=== PATIENT | female | born 1940 | race Caucasian/White ===

== ENCOUNTER → 2023-05-14 13:24 | Outpatient (REF) | payer OTHER, SELFPAY ==
[2023-05-14 15:04] LABS: Blood Urea Nitrogen 45 mg/dl (7-17); Calcium 9.4 mg/dl (8.4-10.2); Carbon Dioxide 31 mmol/L (22-30); Chloride 104 mmol/L (98-107); Glucose 77 mg/dl (70-99); Potassium 4.2 mmol/L (3.5-5.1); Sodium 140 mmol/L (135-145)
[2023-05-17 11:00] LABS: NT-proBNP 7310 pg/ml
== END ==
LOC: REG 13:24
PROVIDERS: ATTENDING PHYSICIAN Internal Medicine; FAMILY PHYSICIAN Family Medicine
DX: I50.33 Acute on chronic diastolic (congestive) heart failure (principal)
CPT/HCPCS: 36415; 80048; 83880

== ENCOUNTER → 2023-05-24 14:33 | Outpatient (REF) | payer OTHER, SELFPAY | LOC: RCS 14:33 | PROVIDERS: ATTENDING PHYSICIAN Internal Medicine; FAMILY PHYSICIAN Family Medicine; REFERRING PHYSICIAN Nurse Practitioner | DX: I48.0 Paroxysmal atrial fibrillation (principal); I50.32 Chronic diastolic (congestive) heart failure; I35.0 Nonrheumatic aortic (valve) stenosis | CPT/HCPCS: 93306 ==

== ENCOUNTER 2023-06-21 18:22 | Inpatient (IN) | payer OTHER, SELFPAY ==
[2023-06-21] VITALS (7 sets, daily range): BP systolic 129–198; BP diastolic 43–82
--- NOTE | 2023-06-21 15:21 | ED.GENMED ---
History of Present Illness
General
Chief Complaint: Swelling
Source: patient
Exam Limitations: none
Time Seen by Provider: 06/21/23 15:01
Nursing documentation reviewed up to this point in time: agreed with
Travel History
Have you had any contact with someone who has COVID-19?: No
Do you have any symptoms of coronavirus? Fever > 100 degrees, chills, cough, shortness of breath, sore throat, loss of taste or smell, muscle aches, or headache?: No
History of Present Illness
History of Present Illness:
82-year-old female past medical history of A-fib status post pacemaker on Eliquis, hypertension hyperlipidemia presenting to the emergency department today for concerns of worsening leg swelling and shortness of breath worsening over the past few
weeks. Has been taking Lasix without relief. Denies specific chest pain symptoms made worse with exertion.
Past History
Past History
ED Past Medical History: Arrthythmia (afib, cardioversions.), Asthma, CHF, COPD, HTN, Hypercholesterolemia and Other (Obstructive sleep apnea, interstitial lung disease,)
ED Past Surgical History: Cardiac (Cardioversion. Ablation X 2) and Gynecological (Hysterectomy)
Patient has exhibited threatening behavior?: No
Social History
Tobacco: Non-smoker
Alcohol: None
Personal:
Living: alone
Family History
Family History: CAD
Review of Systems
Review of Systems
Allergies reviewed?: Yes
All Other Systems: ROS reviewed and negative except as documented in HPI and ROS
Phy Exam
Physical Exam
Physical Exam:
GENERAL: Alert , in no apparent distress
EYE: pupils equal and reactive
NECK: Supple, no significant adenopathy.
ENT: o/p clr, mmm.
CARDIAC: Regular rate and rhythm .
LUNGS: Clear breath sounds bilaterally, no acute respiratory distress, no wheezes/rales/rhonchi
ABDOMEN: Soft, without focal tenderness, no r/g, no cvat
NEUROLOGICAL: Alert and oriented, no focal neuro deficits
SKIN: Warm and dry, skin intact.
MUSCULOSKELETAL: +2 pitting edema distal to the knees bilaterally, well perfused.
PSYCH: Normal and appropriate interaction.
Scores
Heart Failure Risk
Heart Failure Risk Score: Not Applicable
Course
Orders/Labs/Results
Orders:
Orders
06/21/23 14:02
Electrocardiogram (*1) Urgent
Reason for Study: Shortness of Breath
EKG- Treatment ONCE
06/21/23 15:16
BNP [NT-proBNP] Urgent
Complete Blood Count/With Diff Urgent
Comprehensive Metabolic Panel Urgent
06/21/23 15:21
Chest [CR Chest - 2 Views ] Urgent
Comment:
Reason For Exam: sob
06/21/23 16:07
Furosemide [Lasix] 40 mg IV ONCE ONE
06/21/23 17:59
Admit/Transfer Patient As Directed
Co-Sign Provider:
Level of Care: Inpatient admission
Assign to:: Telemetry
Physician / Group: Hospitalist
Diagnosis: CHF exacerbation
Reason for Telemetry: Arrhythmia
Date to Stop Telemetry: 06/24/23
Time to Stop Telemetry: 11:00
Reason for Hospitalization: CHF exacerbation
Expected length of stay greater than two midnights?: Yes
ELOS- Estimated Length of Stay in days: 2
I certify the patient meets the requirements for IP care: Yes
06/21/23 18:01
Code Status As Directed
Resuscitation Status: Full Code
06/21/23 18:[address] See Dose Instructions PO NOW STA
Discontinue all Active Warfarin orders?: Yes
06/24/23 11:00
DC Protocol for Telemetry ONCE
Abnormal Lab Results
06/21/23
15:16
RBC 3.85 L 10^6/uL
(4.20-5.40)
Hgb 11.3 L g/dL
(12.0-16.0)
Hct 34.8 L %
(37.0-47.0)
MCHC 32.5 L g/dL
(33.0-37.0)
RDW 14.7 H %
(11.5-14.5)
MPV 12.2 H fL
(7.4-10.4)
Absolute Lymphs (auto) 0.8 L 10^3/uL
(1.2-3.4)
Lymphocytes % 15.7 L %
(20.5-51.1)
Monocytes % 11.5 H %
(1.7-9.3)
Carbon Dioxide 32 H mmol/L
(22-30)
BUN 40 H mg/dl
(7-17)
Creatinine 1.6 H mg/dL
(0.6-1.0)
Glucose 105 H mg/dl
(70-99)
AST 38 H U/L
(14-36)
06/21/23 15:16
06/21/23 15:16
Vital Signs
Initial and Last Documented VS:
Initial Vital Signs
Temp Pulse Resp BP Pulse Ox
97.9 F 92 20 141/54 92
06/21/23 13:59 06/21/23 13:59 06/21/23 13:59 06/21/23 13:59 06/21/23 13:59
Last Documented Vital Signs
Temp Pulse Resp BP Pulse Ox
97.9 F 62 26 190/70 97
06/21/23 13:59 06/21/23 17:15 06/21/23 17:15 06/21/23 16:22 06/21/23 16:45
MDM/Problems Addressed
MDM/Problems Addressed:
82-year-old female presenting to the emergency department today with concerns of worsening shortness of breath and leg swelling over the past few weeks specifically worsened over the past few days. Upon arrival pulse ox in the 90s and she appeared
somewhat short of breath. She was placed on nasal cannula oxygen improving her pulse ox to the mid 90s and did look more comfortable. Legs are fairly swollen bilaterally and symmetrically bilaterally. Here BNP elevated in the 8000 patient does
appear somewhat short of breath was given oxygen with improvement. Chest x-ray showing some pulmonary fibrosis otherwise patient admitted for further assessment.
*Critical Care Note
Total Time (30-74mins, 75-104mins- exclusive of procedures): Not Applicable
ED Attending Note
-
Portions of this chart may have been created with voice recognition software.� Occasional wrong word or��sound alike� substitutions may have occurred due to the inherent limitations of voice recognition software.
Discharge Plan
Departure
Patient Disposition: Admit
Date of Disposition: 06/21/23
Time of Disposition: 18:30
Admit to: Telemetry
Admit to doctor: Alireza
Presentation/result/management discussed w/ accepting MD/DO: Hospitalist
Patient with high blood pressure during this ER visit?: No
Condition: Good
Covid-19: Not Applicable
Discharge Problem:
Heart failure
Interventions
Interventions:
*Risk Screen - Suicide Last Done: 06/21/23 13:59
*General Assessment Last Done: 06/21/23 13:59
*Neglect/Abuse Screening Last Done: 06/21/23 13:59
ED- Fall Risk Assessment Last Done: 06/21/23 15:12
*ED COVID-19 Vaccine History Last Done: 06/21/23 13:59
ED- Cardiac Assessment Last Done: 06/21/23 15:12
ED- Pulmonary Assessment Last Done: 06/21/23 15:12
ED-Skin Assessment Last Done: 06/21/23 15:12
[2023-06-21 15:36] LABS: % Basophils 0.6 % (0-2); % Eosinophils 3.1 % (0-6); % Immature Granulocytes 0.2 % (0-0.5); % Lymphocytes 15.7 % (20.5-51.1); % Monocytes 11.5 % (1.7-9.3); % Neutrophils 68.9 % (42.2-75.2); Absolute Eosinophils 0.2 10^3/uL (0-0.7); Absolute Lymphocytes 0.8 10^3/uL (1.2-3.4); Absolute Monocytes 0.6 10^3/uL (0.1-0.6); Absolute Neutrophils 3.6 10^3/uL (1.4-6.5); Hematocrit 34.8 % (37.0-47.0); Hemoglobin 11.3 g/dL (12.0-16.0); Mean Corp Hgb Conc. 32.5 g/dL (33.0-37.0); Mean Corpuscular Hgb 29.4 pg (27.0-31.0); Mean Corpuscular Volume 90.4 fL (81.0-99.0); Mean Platelet Volume 12.2 fL (7.4-10.4); Nucleated Red Blood Cells % 0 %; Platelet Count 191 10^3/uL (130-400); Red Blood Cell Count 3.85 10^6/uL (4.20-5.40); Red Cell Dist. Width 14.7 % (11.5-14.5); White Blood Cell Count 5.2 10^3/uL (4.8-10.8)
[2023-06-21 15:42] LABS: ALT (SGPT) 19 U/L (0-35); AST (SGOT) 38 U/L (14-36); Alkaline Phosphatase 55 U/L (38-126); Blood Urea Nitrogen 40 mg/dl (7-17); Calcium 9.1 mg/dl (8.4-10.2); Carbon Dioxide 32 mmol/L (22-30); Chloride 100 mmol/L (98-107); Glucose 105 mg/dl (70-99); Sodium 138 mmol/L (135-145); Total Bilirubin 0.7 mg/dl (0.2-1.3); Total Protein 7.4 g/dl (6.3-8.2); eGFR 31.61
[2023-06-21 15:48] LABS: NT-proBNP 8750 pg/ml
[2023-06-21] MEDS: LASIX 40 MG IV (17:06)
--- NOTE | 2023-06-21 18:07 | HPS.HSE ---
Family Physician
-
Family Physician: Oh Calvin
Chief Complaint
-
SOB, LE swelling
History of Present Illness
82 yo F with PMHx of HFpEF, , TR, paroxysmal Afib on Eliquis s/p PPM, Hx of L pneumothorax, COPD, GIOVANY on CPAP, HTN, HLD, seizure d/o came with 2 weeks of worsening LE swelling, oliguria and SOB. BNP significantly elevated. Recent Echo in May 2023
showed progressed TR and to moderate and grade 3 diastolic dysfunction.
Medical History
Past Medical History
Past Medical History: Reports Other
Additional Past Medical History:
See HPI
Past Surgical History: Reports None
Social History
Tobacco: Non-smoker
Alcohol: None
Drug: None
Family History
Family History: Not pertinent
Allergies / Home Medications
Allergies reflects when Allergies were last updated in [facility].
Home Medications with original date entered in [facility]
Allergy/Medication List:
Allergies
Allergy/AdvReac Type Severity Reaction Status Date / Time
adhesive tape Allergy Rash Verified 06/21/23 14:01
cefuroxime [From Ceftin] Allergy throat Verified 06/21/23 14:01
closes
ragweed pollen Allergy Unknown Verified 06/21/23 14:01
Sulfa (Sulfonamide Allergy throat Verified 06/21/23 14:01
Antibiotics) closes
Home Medications
albuterol sulfate 90 mcg/actuation aerosol inhaler 1 puff inhalation R Q4HPRN PRN sob 10/21/20
apixaban 5 mg tablet (Eliquis) 5 mg PO BID Blood clot prevention/tx 10/21/20
atorvastatin 10 mg tablet 10 mg PO QPM High cholesterol 10/21/20
budesonide-formoterol HFA 160 mcg-4.5 mcg/actuation aerosol inhaler (Symbicort) 2 puff inhalation R BID Lung/breathing issues 10/21/20
fenofibrate micronized 43 mg capsule 134 mg PO DAILY High cholesterol 10/21/20
hydralazine 25 mg tablet 75 mg PO BID Blood pressure 10/21/20
phenobarbital 32.4 mg tablet 32.4 mg PO DAILY Seizures 10/21/20
phenobarbital 32.4 mg tablet 64.8 mg PO HS Seizures 10/21/20
diltiazem HCl 360 mg capsule,extended release 24 hr 360 mg PO DAILY ##30 10/22/20
acetaminophen 500 mg tablet (Tylenol Extra Strength) 500 mg PO Q6HPRN PRN mild pain 01/24/21
dofetilide 250 mcg capsule 250 mcg PO Q12 30 days #60 caps 01/27/21
furosemide 40 mg tablet 40 mg PO DAILY 30 days #30 tabs 01/27/21
metoprolol succinate 25 mg tablet,extended release 24 hr 25 mg PO BID Blood pressure 30 days #60 tabs 01/27/21
potassium chloride 20 mEq tablet,extended release 20 meq PO DAILY 4 days ##4 01/27/21
Review of Systems
-
A 12 point ROS was completed and negative except as noted: Yes
Constitutional: Reports See HPI
Respiratory: Reports See HPI
Physical Exam
Vital Signs
Vital Signs
Temp Pulse Resp BP Pulse Ox
97.9 F 62 26 190/70 97
06/21/23 13:59 06/21/23 17:15 06/21/23 17:15 06/21/23 16:22 06/21/23 16:45
Physical Exam
General: No Apparent Distress and Comfortable
HEENT: NormoCephalic and Anicteric
Respiratory: Clear; No Wheezes
Cardiac: S1/S2 and Regular Rhythm
GI: Soft and Non Tender
Musculoskeletal: No Clubbing, No Cyanosis, Edema, Left Lower Extremity and Edema, Right Lower Extremity
Skin: Warm; No Dry or Rash
Neuro: Awake, Alert, Oriented and AO x 3
Hematologic/Lymphatic: No Lymphadenopathy
Psych: Calm
Laboratory Results
-
06/21/23 15:16
06/21/23 15:16
Laboratory Results
Total Bilirubin 0.7 mg/dl (0.2-1.3) 06/21/23 15:16
AST 38 U/L (14-36) H 06/21/23 15:16
ALT 19 U/L (0-35) 06/21/23 15:16
Alkaline Phosphatase 55 U/L (38-126) 06/21/23 15:16
Data Reviewed
-
Diagnostic Radiology: Report Reviewed by me
Impression/Plan
-
A/P:
#Acute respiratory insufficiency 2/2 acute on chronic HFpEF exacerbation
#Moderate
#Moderate TR
#Afib, paroxysmal
Telemetry
Lasix, daily weight, follow electrolytes, Echo not needed
Serial troponin
Due to Cr elevation - temporary switch to Heparin drip
cont rate and rhythm control meds
Cardiology consult
Since already on blood thinner - low suspiscion for VTE - reasonable to check US LE
#Cr elevation, cannot determine if ETHAN since Cr 1 mo ago was 1.4
current Cr 1.6
cannot r/o cardiorenal cause
Urine study
nephrology
watch for retention - serial bladder scan
#COPD, not in exacerbation
#GIOVANY
#Essential HTN
#Seizure d/o
Seizure precauthions
cont home meds
Cont CPAP as per home settings
DVT ppx - hep drip
Full code
This encounter required high level of medical decision making due to complexity of PMHX and patient presenting symptoms
[2023-06-21 20:15] LABS: Hematocrit 35.7 % (37.0-47.0); Hemoglobin 11.6 g/dL (12.0-16.0); Mean Corp Hgb Conc. 32.5 g/dL (33.0-37.0); Mean Corpuscular Hgb 29.2 pg (27.0-31.0); Mean Corpuscular Volume 89.9 fL (81.0-99.0); Mean Platelet Volume 11.5 fL (7.4-10.4); Platelet Count 195 10^3/uL (130-400); Red Blood Cell Count 3.97 10^6/uL (4.20-5.40); Red Cell Dist. Width 14.8 % (11.5-14.5); White Blood Cell Count 5.4 10^3/uL (4.8-10.8)
[2023-06-21 20:26] LABS: APTT 36.9 Sec (23.4-35.0)
[2023-06-21] MEDS: SYMBICORT 160/4.5 MCG INHALER 2 PUFF INH (20:29)
[2023-06-21 20:38] LABS: Troponin I 0.027 ng/ml
[2023-06-21 20:39] LABS: COVID-19 Antigen Negative (Negative)
--- NOTE | 2023-06-21 21:00 | PTCARENOTE ---
Patient admitted from ED. Patient AAO x3, on 2LNC, in no acute distress. Patient placed on tele monitor. Patient oriented to room and cy bel is within reach.
[2023-06-21] MEDS: HEPARIN 25000 UNITS/250 ML IV (21:13)
[2023-06-21] MEDS: APRESOLINE 100 MG PO (21:16)
[2023-06-21] MEDS: LIPITOR 10 MG PO (21:17)
[2023-06-21] MEDS: TOPROL XL 25 MG PO (21:17)
[2023-06-21] MEDS: LUMINAL 64.7999999999999972 MG PO (21:24)
[2023-06-21 23:51] LABS: Urine Albumin Negative (Neg - Trace); Urine Bilirubin Negative (Negative); Urine Character Clear (Clear); Urine Color Yellow; Urine Glucose Negative (Negative); Urine Ketone Negative (Negative); Urine Leukocyte Trace (Negative); Urine Nitrite Negative (Negative); Urine Occult Blood Negative (Negative); Urine Urobilinogen Negative (Neg - 1+)
[2023-06-22 00:09] LABS: Urine Bacteria Few (Negative)
[2023-06-22 00:21] LABS: Osmolality Urine 395 mOsm/kg (300-900)
[2023-06-22 01:55] LABS: Urine Sodium 100 mmol/L (30-90)
[2023-06-22 03:00] VITALS: BP 166/80
[2023-06-22 03:01] LABS: % Basophils 0.4 % (0-2); % Eosinophils 4.2 % (0-6); % Immature Granulocytes 0.4 % (0-0.5); % Monocytes 13.9 % (1.7-9.3); % Neutrophils 64.1 % (42.2-75.2); Absolute Eosinophils 0.2 10^3/uL (0-0.7); Absolute Lymphocytes 0.9 10^3/uL (1.2-3.4); Absolute Monocytes 0.7 10^3/uL (0.1-0.6); Absolute Neutrophils 3.2 10^3/uL (1.4-6.5); Hematocrit 32.5 % (37.0-47.0); Hemoglobin 10.7 g/dL (12.0-16.0); Mean Corp Hgb Conc. 32.9 g/dL (33.0-37.0); Mean Corpuscular Hgb 29.5 pg (27.0-31.0); Mean Corpuscular Volume 89.5 fL (81.0-99.0); Mean Platelet Volume 11.8 fL (7.4-10.4); Nucleated Red Blood Cells % 0 %; Platelet Count 173 10^3/uL (130-400); Red Blood Cell Count 3.63 10^6/uL (4.20-5.40); Red Cell Dist. Width 14.6 % (11.5-14.5); White Blood Cell Count 5.1 10^3/uL (4.8-10.8)
[2023-06-22 03:08] LABS: APTT 86.2 Sec (23.4-35.0)
[2023-06-22 03:21] LABS: Troponin I 0.033 ng/ml
[2023-06-22 04:05] LABS: ALT (SGPT) 17 U/L (0-35); AST (SGOT) 34 U/L (14-36); Albumin 3.7 g/dl (3.5-5.0); Alkaline Phosphatase 63 U/L (38-126); Blood Urea Nitrogen 42 mg/dl (7-17); Calcium 9.3 mg/dl (8.4-10.2); Carbon Dioxide 28 mmol/L (22-30); Chloride 100 mmol/L (98-107); Direct Bilirubin 0.1 mg/dl (0.0-0.4); Estimated Creatinine Clearance 28 ml/min; Glucose 111 mg/dl (70-99); Magnesium 2.2 mg/dl (1.6-2.3); Potassium 3.5 mmol/L (3.5-5.1); Sodium 140 mmol/L (135-145); Total Bilirubin 0.7 mg/dl (0.2-1.3); Total Protein 6.9 g/dl (6.3-8.2); eGFR 29.39
[2023-06-22 05:48] VITALS: BMI 31.1
[2023-06-22 07:05] LABS: APTT 87.8 Sec (23.4-35.0)
[2023-06-22 07:20] LABS: Troponin I 0.037 ng/ml
[2023-06-22 07:21] VITALS: BP 168/66
[2023-06-22] MEDS: TOPROL XL 25 MG PO ×2 (08:03→20:32)
[2023-06-22] MEDS: LUMINAL 32.3999999999999986 MG PO (08:03)
[2023-06-22] MEDS: TAMBOCOR 50 MG PO ×2 (08:03→20:33)
[2023-06-22] MEDS: LASIX 40 MG IV ×2 (08:04→15:55)
[2023-06-22] MEDS: APRESOLINE 100 MG PO ×3 (08:04→20:55)
--- NOTE | 2023-06-22 08:59 | CON.CAR ---
Addendum entered and electronically signed by Domenico Bella MD 06/22/23 13:55:
I saw and examined the patient.
The WOOD MILL SUPERVISOR's note was reviewed and I agree with the note.
Comment: 82 yo female with paroxysmal A fib, s/p PVI x2, on Eliquis, paroxysmal atrial tachycardia, then had AV josé miguel ablation and MDT dual chamber PPM 02/01/21, chronic HFpEF, mild , HTN, hyperlipidemia, CKD 3a, COPD, ILD, amiodarone lung
toxicity, and PHTN, who presents to ER with c/o progressive weight gain, SOB and increased LE edema.� This is likely 2/2 to medication non-compliance, as she admits poor adherence.
- IV diuresis
- K > 4 Mag > 2
Original Note:
Consultation
Consultation Request
Date/Time Consultation Requested: 06/21/23 7:30p
Date/Time Consultation Performed: 06/22/23 8a
Requesting Provider: Dr. Crow
Performing Provider: WOODY Vega for Dr. Bella
Reason for Consultation: HFpEF
Medical History
-
Chief Complaint: sob, weight gain
History of Present Illness:
Mrs. Barr is an 82 yo female with paroxysmal A fib, s/p PVI x2, on Eliquis, paroxysmal atrial tachycardia, then had AV josé miguel ablation and MDT dual chamber PPM 02/01/21, chronic HFpEF, mild , HTN, hyperlipidemia, CKD 3a, COPD, ILD, amiodarone
lung toxicity, and PHTN, who presents to ER with c/o progressive weight gain, SOB and increased LE edema. She has only been taking Lasix 20mg daily, though supposed to take 20mg alternating with 40mg daily. She does not like the urinary frequency
with taking Lasix. She called our office 06/21/23 with above complaints, weight up to 185 lbs at home and her Lasix was increased to 40mg daily, but she just came into the ER for treatment. Still with SOB, proBNP elevated though CXR with only mild
CHF. She is admitted to the hospitalist service and we are consulted for acute HFpEF. She also has ETHAN with creatinine 1.6 on admit and now 1.7 today. Eliquis dose now needs to be 2.5mg BID given creatinine > 1.5, no need for IV Heparin drip.
His EP face painter is Dr. Burnett ([facility]), Pulmonary (Dr Montano).
����
Past Medical History
Past Medical History: Other (as above)
Past Surgical History: Cardiac (pacemaker, PVI 2020 ), Orthopedic (right foot) and Other (Mohs procedure)
Social History
Tobacco: Non-Smoker
Alcohol: None
Living: With Family
Family History
Family History: Reviewed & Not Pertinent
Allergies / Home Medications
Allergy/AdvReac Type Severity Reaction Status Date / Time
adhesive tape Allergy Rash Verified 06/21/23 14:01
cefuroxime [From Ceftin] Allergy throat Verified 06/21/23 14:01
closes
ragweed pollen Allergy Unknown Verified 06/21/23 14:01
Sulfa (Sulfonamide Allergy throat Verified 06/21/23 14:01
Antibiotics) closes
Medication Instructions Recorded Confirmed Type
albuterol sulfate 90 mcg/actuation 2 puff inhalation R Q4HPRN PRN sob 10/21/20 06/21/23 History
aerosol inhaler
apixaban 5 mg tablet (Eliquis) 5 mg PO BID Blood clot 10/21/20 06/21/23 History
prevention/tx
atorvastatin 10 mg tablet 10 mg PO QPM High cholesterol 10/21/20 06/21/23 History
budesonide-formoterol HFA 160 2 puff inhalation R BID 10/21/20 06/21/23 History
mcg-4.5 mcg/actuation aerosol Lung/breathing issues
inhaler (Symbicort)
phenobarbital 32.4 mg tablet 32.4 mg PO DAILY Seizures 10/21/20 06/21/23 History
phenobarbital 32.4 mg tablet 64.8 mg PO HS Seizures 10/21/20 06/21/23 History
metoprolol succinate 25 mg 25 mg PO BID Blood pressure 30 01/27/21 06/21/23 Rx
tablet,extended release 24 hr days #60 tabs
fenofibrate micronized 134 mg 134 mg PO DAILY High Cholesterol 06/21/23 06/21/23 History
capsule
flecainide 50 mg tablet 50 mg PO BID Arrhythmia 06/21/23 06/21/23 History
furosemide 20 mg tablet 20 mg PO DAILY Fluid 06/21/23 06/21/23 History
Retention/Swelling
hydralazine 100 mg tablet 100 mg PO TID Blood Pressure 06/21/23 06/21/23 History
melatonin 1 tab PO HS Sleep 06/21/23 06/21/23 History
Review of Systems
-
History Source: Patient
All other systems: Negative unless noted
Physical Exam
Vital Signs
Temp Pulse Resp BP Pulse Ox
98.6 F 61 20 168/66 96
06/22/23 07:21 06/22/23 08:03 06/22/23 07:21 06/22/23 08:03 06/22/23 07:21
Lab Results
06/22/23 02:45
06/22/23 02:45
Troponin I 0.037 ng/ml H* 06/22/23 06:30
Nly-D-Vvhhkhtkgmm Pept 8750 pg/ml 06/21/23 15:16
Physical Exam
General: Well Developed and No Apparent Distress
HEENT: Normocephalic and Moist Mucous Membranes
Respiratory: Clear and Non Labored Respirations
Cardiac: S1/S2, Regular Rhythm, Murmur (2/6 SHAVONNE) and Peripheral Edema (moderate b/l LE edema)
Breast: Deferred by me
GI: Soft, Non Tender and Non Distended
Rectal: Deferred by Provider
Genito-urinary: No Costovertebral Tender
Musculoskeletal: No Clubbing and No Cyanosis
Skin: Warm and Dry
Neuro: AO x 3
Hematologic/Lymphatic: No Lymphadenopathy
Psych: Calm
Impression / Plan
-
HFpEF - acute on chronic.
- likely due to not taking Lasix as prescribed at home.
- IV Lasix 40mg BID, monitor daily weights, I&Os.
- fluid/sodium restrictions.
- echo 05/2023 EF 60-65%, moderate .
- no need for another echo this admit.
ETHAN - acute on chronic CKD 3a.
- creatinine up to 1.7 today.
- per hospitalist.
- notes oliguria.
Afib - paroxysmal.
- Apaced on tele.
- continue Flecainide.
- on Eliquis 5mg BID but now with ETHAN creatinine > 1.5, dose now needs to be 2.5mg BID.
- stop IV Heparin.
- s/p PVI x 2 2020 and AVN ablation with DC MDT PPM 01/2021.
Aortic stenosis - moderate on echo 05/2023.
- diuresis as above.
ILD/COPD - chronic.
- h/o amiodarone lung toxicity.
- could also be contributing to her SOB...
PPM - DC MDT 01/2021.
- stable with normal function.
Data Reviewed
-
EKG: Tracing Personally Visualized and interpreted (AV paced 63 bpm)
Medical Tests (Nuc Med, Echo etc): Report Reviewed by me (Echo 05/24/23 EF 65-70%, mod-severe LVH, mod peak/mean 24/42 mmHg, JENNIFER 1.2, MAC, mild MR, mod TR PASP 75 mmHg) and Other (Lexiscan nuclear stress (09/29/22): no CP or EKG changes, normal
perfusion, EF 57%)
Labs: Labs Reviewed by me
Old Records: Reviewed
[2023-06-22] MEDS: SYMBICORT 160/4.5 MCG INHALER 2 PUFF INH ×2 (09:10→19:51)
--- NOTE | 2023-06-22 10:22 | W.CON.NEPH ---
Consultation
-
Date/Time Consultation Requested: 06/21/2023 19:34
Date/Time Consultation Performed: 06/22/2023 10:23AM
Requesting Provider: Tristin Valera
Performing Provider: Roslyn Macias
Reason for Consultation: ETHAN
Medical History
-
Chief Complaint: ETHAN
History of Present Illness:
Ms. Barr is an 82YOF with PMH of HFpEF, , TR, paroxysmal Afib on Eliquis s/p PPM, Hx of L pneumothorax, COPD, GIOVANY on CPAP, HTN, HLD, seizure d/o came with 2 weeks of worsening LE swelling, oliguria and SOB. She had only been taking lasix 20mg
daily, although she was supposed to take 20 alternating with 40. She did call cardiology prior to presentation and was instructed to increase lasix to 40mg daily but presented to the ER for treatment. She states she has gained about 20 lbs. Has SOB
with any exertion. Swelling R>L
Regarding her kidney function, her baseline appears to be around 1-1.4, elevated to 1.6 on admit and up to 1.7 today. The patient was started on a heparin gtt for this but cardiology recommended redosing eliquis to 2.5mg BID. Nephrology was
consulted for worsenign Cr.
Past Medical History
paroxysmal A fib, s/p PVI x2, on Eliquis
paroxysmal atrial tachycardia (then had AV josé miguel ablation and MDT dual chamber PPM 02/01/21)
chronic HFpEF
mild
HTN
hyperlipidemia
CKD 3a
COPD
ILD
amiodarone lung toxicity
HTN
GIOVANY on CPAP
seizure disorder
Past Surgical History: Cardiac (PM, PVI 2020) and Orthopedic (right foot)
Social History
Tobacco: Non-Smoker
Alcohol: None
Drug: None
Living: With Family
Family History
Family History: Not Pertinent
Allergies / Home Medications
Allergy/AdvReac Type Severity Reaction Status Date / Time
adhesive tape Allergy Rash Verified 06/21/23 14:01
cefuroxime [From Ceftin] Allergy throat Verified 06/21/23 14:01
closes
ragweed pollen Allergy Unknown Verified 06/21/23 14:01
Sulfa (Sulfonamide Allergy throat Verified 06/21/23 14:01
Antibiotics) closes
Medication Instructions Recorded Confirmed Type
albuterol sulfate 90 mcg/actuation 2 puff inhalation R Q4HPRN PRN sob 10/21/20 06/21/23 History
aerosol inhaler
apixaban 5 mg tablet (Eliquis) 5 mg PO BID Blood clot 10/21/20 06/21/23 History
prevention/tx
atorvastatin 10 mg tablet 10 mg PO QPM High cholesterol 10/21/20 06/21/23 History
budesonide-formoterol HFA 160 2 puff inhalation R BID 10/21/20 06/21/23 History
mcg-4.5 mcg/actuation aerosol Lung/breathing issues
inhaler (Symbicort)
phenobarbital 32.4 mg tablet 32.4 mg PO DAILY Seizures 10/21/20 06/21/23 History
phenobarbital 32.4 mg tablet 64.8 mg PO HS Seizures 10/21/20 06/21/23 History
metoprolol succinate 25 mg 25 mg PO BID Blood pressure 30 01/27/21 06/21/23 Rx
tablet,extended release 24 hr days #60 tabs
fenofibrate micronized 134 mg 134 mg PO DAILY High Cholesterol 06/21/23 06/21/23 History
capsule
flecainide 50 mg tablet 50 mg PO BID Arrhythmia 06/21/23 06/21/23 History
furosemide 20 mg tablet 20 mg PO DAILY Fluid 06/21/23 06/21/23 History
Retention/Swelling
hydralazine 100 mg tablet 100 mg PO TID Blood Pressure 06/21/23 06/21/23 History
melatonin 1 tab PO HS Sleep 06/21/23 06/21/23 History
Review of Systems
-
History Source: Patient
All other systems: Negative unless noted
Constitutional: Weight Gain
Musculoskeletal: Edema
Physical Exam
Vital Signs
Vital Signs
Temp Pulse Resp BP Pulse Ox
98.6 F 61 20 168/66 96
06/22/23 07:21 06/22/23 08:03 06/22/23 07:21 06/22/23 08:03 06/22/23 07:21
Lab Results
WBC 5.1 10^3/uL (4.8-10.8) 06/22/23 02:45
RBC 3.63 10^6/uL (4.20-5.40) L 06/22/23 02:45
Hgb 10.7 g/dL (12.0-16.0) L 06/22/23 02:45
Hct 32.5 % (37.0-47.0) L 06/22/23 02:45
Plt Count 173 10^3/uL (130-400) 06/22/23 02:45
Sodium 140 mmol/L (135-145) 06/22/23 02:45
Potassium 3.5 mmol/L (3.5-5.1) 06/22/23 02:45
Chloride 100 mmol/L (98-107) 06/22/23 02:45
Carbon Dioxide 28 mmol/L (22-30) 06/22/23 02:45
BUN 42 mg/dl (7-17) H 06/22/23 02:45
Creatinine 1.7 mg/dL (0.6-1.0) H 06/22/23 02:45
eGFR 29.39 06/22/23 02:45
Glucose 111 mg/dl (70-99) H 06/22/23 02:45
Calcium 9.3 mg/dl (8.4-10.2) 06/22/23 02:45
Yly-Q-Qdozqrhckkg Pept 8750 pg/ml 06/21/23 15:16
Albumin 3.7 g/dl (3.5-5.0) 06/22/23 02:45
Physical Exam
General: AOx3, No Distress and Nontoxic
HEENT: PERRL, EOMI, Anicteric, Conjunctivae Clear, Ear/Nose Intact and Hearing Normal
Respiratory: Crackels
Cardiac: S1/S2, Regular Rate/Rhythm and Edema
Breast: Deferred by me
Abdomen: Soft, Nontender, Nondistended and Normal Bowel Sounds
Rectal: Deferred by Provider
Musculoskeletal: No Clubbing, No Cyanosis and Edema
Skin: No Rash, Warm, Dry, No Clubbing and No Cyanosis
Neuro: Nonfocal/Grossly Intact
Psych: Mood/afflect pleasant, Insight/judgement good and Appropriate
Assessment/Plan
-
Assessment:
ETHAN on CKD 3 (bl 1.2-1.4)
HFpEF
Afib (on eliquis)
ILD/COPD
PPM
Plan:
- Cr elevated to 1.7 today (bl ~1.4)
- most likely 2/2 to cardiorenal
- agree with cardiology to diurese with IV Lasix 40mg IV
- UA relatively bland some RBCs --> patient on AC
- please trend daily weights
- monitor I/Os --> patient with minimal UOP but many unrecorded voids
- noted to have negative peripheral vascular ultrasound
Data Reviewed
-
Radiology: Image Personally Visualized and interpreted (CXR with vascular congestion noted)
Labs: Labs Reviewed by me, Discussed with Physician and Discussed with Patient
Old Records: Reviewed
[2023-06-22] MEDS: ELIQUIS 2.5 MG PO ×2 (11:03→20:33)
[2023-06-22 11:27] VITALS: BP 155/71
--- NOTE | 2023-06-22 12:31 | W.PN.HOSP.TC ---
Today's Communication/Plan
-
IV lasix
trend cr
cards/nephro recs
wean o2
Assessment / Plan
Assessment / Plan
A/P:
#Acute respiratory insufficiency 2/2 acute on chronic HFpEF exacerbation
#Moderate
#Moderate TR
Telemetry
Lasix 40mg IV BID (States was not taking lasix on sunday)
daily weight, follow electrolytes,
Serial troponin
cont rate and rhythm control meds
LE doppler negative
Cardiology consult
#Afib, paroxysmal
Cont with flecainide 50mg BID
Cont toprol 25mg BID
Cont Eliquis 2.5mg BID
#ETHAN on CKD 3
current Cr 1.6
cannot r/o cardiorenal cause
Urine study
nephrology
watch for retention - serial bladder scan
#COPD, not in exacerbation
Cont inhalers
Sees Dr. Montano
#GIOVANY
Cont CPAP as per home settings
#Essential HTN
Controlled
#Seizure d/o
Seizure precautions
Cont phenobarb
DVT ppx - eliquis
Full code
Anticipated Discharge: > 48 hours
Subjective/Interval History
-
Date of Service: June 22, 2023
states of worsening LE edema
Objective Data
-
Labs:
Laboratory Results
06/22/23 06/22/23
02:45 06:30
WBC 5.1
Hgb 10.7 L
Hct 32.5 L
Plt Count 173
APTT 86.2 H 87.8 H
Sodium 140
Potassium 3.5
Chloride 100
Carbon Dioxide 28
BUN 42 H
Creatinine 1.7 H
Glucose 111 H
Calcium 9.3
Total Bilirubin 0.7
AST 34
ALT 17
Alkaline Phosphatase 63
Vital Signs:
Vital Signs
Temp Pulse Resp BP Pulse Ox
98 F 63 24 155/71 96
06/22/23 11:27 06/22/23 11:27 06/22/23 11:27 06/22/23 11:27 06/22/23 11:27
I&O
06/21/23 06/22/23 06/23/23
06:59 06:59 06:59
Intake Total 120 / 120
Output Total 250 / 250
Balance -130 / -130
Physical Exam
-
General: Well Developed and No Apparent Distress
HEENT: Normocephalic, Atraumatic, Moist Mucous Membranes and Oxygen
Respiratory: Decreased Breath Sounds
Cardiac: S1/S2; Negative Murmur, Rub or Gallop
GI: Soft, Nontender, Nondistended and Normal Bowel Sounds; Negative Organomegaly
Rectal: Deferred by Provider
Musculoskeletal: No Clubbing, No Cyanosis, Edema, Right Lower Extrem and Edema, Left Lower Extrem
Skin: Negative Rash
Neuro: Awake and Nonfocal/Grossly Intact
--- NOTE | 2023-06-22 14:23 | CM ---
Patient seen bedside with daughter, Chanelle, and son in law, Arthur, initial assessment completed. Patient resides independently in a single story home, four steps to enter. Per daughter, patient has three children that live close by. Patient has a
cane in the home and a walker if needed when out of the home. Patient reports VN in the past, unsure with who, denies SNF. Patient requesting VN upon discharge, along with information on Meals on Wheels. Patient confirms [facility], pharmacy
[facility] in [facility]. Patient currently on O2, not on home O2. CM will continue to follow for discharge planning needs.
Plan; home with VN pending accepting agency, information for Meals on Wheels.
[2023-06-22 14:43] LABS: Troponin I 0.038 ng/ml
[2023-06-22 15:00] VITALS: BP 135/56
--- NOTE | 2023-06-22 16:17 | VNURNOTE ---
[facility] referral completed in [facility] after review of chart. [facility] Liaison will follow up with patient closer to discharge.
[2023-06-22] MEDS: LIPITOR 10 MG PO (17:09)
[2023-06-22 19:00] VITALS: BP 140/62
[2023-06-22] MEDS: LUMINAL 64.7999999999999972 MG PO (20:56)
[2023-06-22 23:00] VITALS: BP 134/53
[2023-06-23 03:00] VITALS: BP 157/75
[2023-06-23 05:02] VITALS: BMI 30.7
[2023-06-23 07:00] VITALS: BP 133/51
[2023-06-23] MEDS: SYMBICORT 160/4.5 MCG INHALER 2 PUFF INH ×2 (08:27→20:20)
[2023-06-23] MEDS: ELIQUIS 2.5 MG PO ×2 (08:53→20:38)
[2023-06-23] MEDS: LUMINAL 32.3999999999999986 MG PO (08:53)
[2023-06-23] MEDS: TOPROL XL 25 MG PO ×2 (08:54→20:38)
[2023-06-23] MEDS: APRESOLINE 100 MG PO ×3 (08:54→21:53)
[2023-06-23] MEDS: TAMBOCOR 50 MG PO ×2 (08:54→20:38)
[2023-06-23] MEDS: LASIX 40 MG IV ×2 (08:54→15:50)
[2023-06-23 09:38] LABS: Blood Urea Nitrogen 43 mg/dl (7-17); Calcium 9.3 mg/dl (8.4-10.2); Carbon Dioxide 33 mmol/L (22-30); Chloride 98 mmol/L (98-107); Estimated Creatinine Clearance 28 ml/min; Glucose 96 mg/dl (70-99); Magnesium 2.1 mg/dl (1.6-2.3); Potassium 3.6 mmol/L (3.5-5.1); Sodium 140 mmol/L (135-145); eGFR 31.61
[2023-06-23 11:00] VITALS: BP 132/54
--- NOTE | 2023-06-23 11:01 | W.PN.CD ---
Today's Communication / Plan
-
IV lasix
K >4 Mag > 2
Impression / Plan
-
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
PHTN, who presents to ER with c/o progressive weight gain, SOB and increased LE edema.� This is likely 2/2 to medication non-compliance, as she admits poor adherence.
HFpEF - acute on chronic.
- likely due to not taking Lasix as prescribed at home.
- IV Lasix 40mg BID, monitor daily weights, I&Os.
- fluid/sodium restrictions.
- echo 05/2023 EF 60-65%, moderate .
- K > 4 Mag > 2
ETHAN - acute on chronic CKD 3a, baseline ~1.0
- creatinine up to 1.6 today.
- per hospitalist.
- notes oliguria.
Afib - paroxysmal.
- Apaced on tele.
- continue Flecainide.
- on Eliquis 5mg BID but now with ETHAN creatinine > 1.5, dose now needs to be 2.5mg BID.
- stop IV Heparin.
- s/p PVI x 2 2020 and AVN ablation with DC MDT PPM 01/2021.
Aortic stenosis - moderate on echo 05/2023.
- diuresis as above.
ILD/COPD - chronic.
- h/o amiodarone lung toxicity.
- could also be contributing to her SOB...
PPM - DC MDT 01/2021.
- stable with normal function.
Physical Exam
Vital Signs/Labs
Vital Signs
Temp Pulse Resp BP Pulse Ox
98.1 F 64 18 121/53 98
06/23/23 07:00 06/23/23 08:54 06/23/23 08:31 06/23/23 08:54 06/23/23 08:31
06/22/23 06/23/23 06/24/23
06:59 06:59 06:59
Actual Weight 189 lb 8 oz 187 lb 1 oz
06/22/23 02:45
06/23/23 08:00
APTT 87.8 Sec (23.4-35.0) H 06/22/23 06:30
Magnesium 2.1 mg/dl (1.6-2.3) 06/23/23 08:00
06/21/23
15:16
Iaz-F-Mkwhcaokkky Pept 8750
LAB Results
06/21/23 06/22/23 06/22/23
20:09 02:45 06:30
Troponin I 0.027 0.033 0.037 H*
06/22/23
13:40
Troponin I 0.038 H*
Physical Exam
Constitutional: No acute distress
EENT: Anicteric
Cardiovascular: Rhythm & rate is regular and Pedal edema present
Respiratory: Respiratory effort normal and Crackles Present
GI: Soft
Neuro/Psych: AO x 3
Data Reviewed
-
Date of Service: June 23, 2023
EKG: Tracing Personally Visualized and interpreted
Echo: Report Reviewed by me
Labs: Labs Reviewed by me
--- NOTE | 2023-06-23 11:13 | W.PN.NEPH.PH ---
Today's Communication / Plan
-
cont lasix
Assessment/Plan
-
Assessment:
ETHAN on CKD 3 (bl 1.2-1.4)
HFpEF
Afib (on eliquis)
ILD/COPD
PPM
Plan:
ETHAN felt to be cardiorenal
UA relatively bland some RBCs --> patient on AC
cr relatively stable with diuresis
trend daily weights, decreasing
maintain FR
labs in am
-
-
Date of Service: June 23, 2023
CC / HPI / ROS
-
Chief Complaint:
ETHAN with CKD
History of Present Illness:
cr slightly better at 1.6, wt decreasing
BP stbale , UOP not recorded
Review of Systems:
no cp
sob improving
no n/v
Labs
-
Labs:
WBC 5.1 10^3/uL (4.8-10.8) 06/22/23 02:45
RBC 3.63 10^6/uL (4.20-5.40) L 06/22/23 02:45
Hgb 10.7 g/dL (12.0-16.0) L 06/22/23 02:45
Hct 32.5 % (37.0-47.0) L 06/22/23 02:45
Plt Count 173 10^3/uL (130-400) 06/22/23 02:45
Sodium 140 mmol/L (135-145) 06/23/23 08:00
Potassium 3.6 mmol/L (3.5-5.1) 06/23/23 08:00
Chloride 98 mmol/L (98-107) 06/23/23 08:00
Carbon Dioxide 33 mmol/L (22-30) H 06/23/23 08:00
BUN 43 mg/dl (7-17) H 06/23/23 08:00
Creatinine 1.6 mg/dL (0.6-1.0) H 06/23/23 08:00
eGFR 31.61 06/23/23 08:00
Glucose 96 mg/dl (70-99) 06/23/23 08:00
Calcium 9.3 mg/dl (8.4-10.2) 06/23/23 08:00
Ylh-T-Jpbeooccwiy Pept 8750 pg/ml 06/21/23 15:16
Albumin 3.7 g/dl (3.5-5.0) 06/22/23 02:45
Physical Exam
-
Vital Signs:
Vital Signs
Temp Pulse Resp BP Pulse Ox
98.1 F 64 18 121/53 98
06/23/23 07:00 06/23/23 08:54 06/23/23 08:31 06/23/23 08:54 06/23/23 08:31
Cardiovascular:: Regular rate and rhythm
Lung Excursion:: Normal (decreased)
Abdomen:: Nontender and Soft
Extremity Edema:: +1: Bilateral: (ALMA wraps )
Harvey Catheter: No
--- NOTE | 2023-06-23 11:48 | W.PN.HOSP.TC ---
Today's Communication/Plan
-
Cont with IV diuresis
daily weights
trend bmp
Assessment / Plan
Assessment / Plan
A/P:
#Acute respiratory insufficiency 2/2 acute on chronic HFpEF exacerbation
#Moderate
#Moderate TR
Telemetry
Lasix 40mg IV BID (States was not taking lasix on sunday).losing weight
daily weight, follow electrolytes,
Serial troponin
cont rate and rhythm control meds
LE doppler negative
ALMA wrap LE -compression therapy added
Cardiology consult
#Afib, paroxysmal
Cont with flecainide 50mg BID
Cont toprol 25mg BID
Cont Eliquis 2.5mg BID
#ETHAN on CKD 3
current Cr 1.6
cannot r/o cardiorenal cause
UA bland.
Trend weight.
nephrology
watch for retention - serial bladder scan
#COPD, not in exacerbation
Cont inhalers
Sees Dr. Montano
#GIOVANY
Cont CPAP as per home settings
#Essential HTN
Controlled
#Seizure d/o
Seizure precautions
Cont phenobarb
DVT ppx - eliquis
Full code
Anticipated Discharge: > 48 hours
Subjective/Interval History
-
Date of Service: June 23, 2023
states passing increasing amount of urine
Objective Data
-
Labs:
Laboratory Results
06/23/23
08:00
Sodium 140
Potassium 3.6
Chloride 98
Carbon Dioxide 33 H
BUN 43 H
Creatinine 1.6 H
Glucose 96
Calcium 9.3
Vital Signs:
Vital Signs
Temp Pulse Resp BP Pulse Ox
98.1 F 64 18 121/53 98
06/23/23 07:00 06/23/23 08:54 06/23/23 08:31 06/23/23 08:54 06/23/23 08:31
I&O
06/22/23 06/23/23 06/24/23
06:59 06:59 06:59
Intake Total 120 / 120 580 / 580
Output Total 250 / 250
Balance -130 / -130 580 / 580
Physical Exam
-
General: Well Developed and No Apparent Distress
HEENT: Normocephalic, Atraumatic, Moist Mucous Membranes and Oxygen
Respiratory: Decreased Breath Sounds
Cardiac: S1/S2; Negative Murmur, Rub or Gallop
GI: Soft, Nontender, Nondistended and Normal Bowel Sounds; Negative Organomegaly
Rectal: Deferred by Provider
Musculoskeletal: No Clubbing, No Cyanosis, Edema, Right Lower Extrem (alma wrapped ) and Edema, Left Lower Extrem (alma wrapped )
Skin: Negative Rash
Neuro: Awake, No Motor Deficits and Nonfocal/Grossly Intact
Psych: Calm
[2023-06-23 15:15] VITALS: BP 145/63
[2023-06-23] MEDS: LIPITOR 10 MG PO (17:28)
[2023-06-23 19:00] VITALS: BP 147/60
[2023-06-23] MEDS: LUMINAL 64.7999999999999972 MG PO (21:58)
[2023-06-23 23:00] VITALS: BP 140/63
[2023-06-24 03:00] VITALS: BP 144/57
[2023-06-24 03:39] VITALS: BMI 30.3
[2023-06-24 06:50] VITALS: BP 133/65
[2023-06-24 07:57] LABS: Blood Urea Nitrogen 48 mg/dl (7-17); Calcium 9.4 mg/dl (8.4-10.2); Carbon Dioxide 33 mmol/L (22-30); Chloride 97 mmol/L (98-107); Estimated Creatinine Clearance 30 ml/min; Glucose 91 mg/dl (70-99); Magnesium 2.2 mg/dl (1.6-2.3); Potassium 3.7 mmol/L (3.5-5.1); Sodium 139 mmol/L (135-145); eGFR 34.15
[2023-06-24] MEDS: TAMBOCOR 50 MG PO ×2 (08:26→19:49)
[2023-06-24] MEDS: ELIQUIS 2.5 MG PO ×2 (08:26→19:49)
[2023-06-24] MEDS: APRESOLINE 100 MG PO ×3 (08:26→21:33)
[2023-06-24] MEDS: LUMINAL 32.3999999999999986 MG PO (08:26)
[2023-06-24] MEDS: LASIX 40 MG IV ×2 (08:26→15:42)
[2023-06-24] MEDS: TOPROL XL 25 MG PO ×2 (08:26→19:56)
[2023-06-24] MEDS: SYMBICORT 160/4.5 MCG INHALER 2 PUFF INH ×2 (08:27→19:24)
[2023-06-24 10:56] VITALS: BP 146/66
--- NOTE | 2023-06-24 11:52 | W.PN.CD ---
Today's Communication / Plan
-
Continue IV Lasix
K greater than 4 mag greater than 2
Impression / Plan
-
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
PHTN, who presents to ER with c/o progressive weight gain, SOB and increased LE edema.� This is likely 2/2 to medication non-compliance, as she admits poor adherence.
HFpEF - acute on chronic.
- likely due to not taking Lasix as prescribed at home.
- IV Lasix 40mg BID, monitor daily weights, I&Os.
- fluid/sodium restrictions.
- echo 05/2023 EF 60-65%, moderate .
- K > 4 Mag > 2
ETHAN - acute on chronic CKD 3a, baseline ~1.0
- creatinine 1.5 today.
- per hospitalist.
- notes oliguria.
Afib - paroxysmal.
- Apaced on tele.
- continue Flecainide.
- on Eliquis 5mg BID but now with ETHAN creatinine > 1.5, dose now needs to be 2.5mg BID.
- stop IV Heparin.
- s/p PVI x 2 2020 and AVN ablation with DC MDT PPM 01/2021.
Aortic stenosis - moderate on echo 05/2023.
- diuresis as above.
ILD/COPD - chronic.
- h/o amiodarone lung toxicity.
- could also be contributing to her SOB...
PPM - DC MDT 01/2021.
- stable with normal function.
Physical Exam
Vital Signs/Labs
Vital Signs
Temp Pulse Resp BP Pulse Ox
97.7 F 69 18 146/66 91
06/24/23 10:56 06/24/23 10:56 06/24/23 10:56 06/24/23 10:56 06/24/23 10:56
06/23/23 06/24/23 06/25/23
06:59 06:59 06:59
Actual Weight 187 lb 1 oz 184 lb 8 oz
06/22/23 02:45
06/24/23 07:14
APTT 87.8 Sec (23.4-35.0) H 06/22/23 06:30
Magnesium 2.2 mg/dl (1.6-2.3) 06/24/23 07:14
06/21/23
15:16
Bfu-G-Ppydyjmwiyw Pept 8750
LAB Results
06/21/23 06/22/23 06/22/23
20:09 02:45 06:30
Troponin I 0.027 0.033 0.037 H*
06/22/23
13:40
Troponin I 0.038 H*
Physical Exam
Constitutional: No acute distress
EENT: Anicteric
Cardiovascular: Rhythm & rate is regular, Pedal edema present and JVD present
Respiratory: Respiratory effort normal and Crackles Present
GI: Soft
Neuro/Psych: AO x 3
Data Reviewed
-
Date of Service: June 24, 2023
EKG: Tracing Personally Visualized and interpreted
Labs: Labs Reviewed by me
--- NOTE | 2023-06-24 12:22 | W.PN.HOSP.TC ---
Today's Communication/Plan
-
IV lasix
kcl added
daily weight
cards/nephro recs
Assessment / Plan
Assessment / Plan
A/P:
#Acute respiratory insufficiency 2/2 acute on chronic HFpEF exacerbation
#Moderate
#Moderate TR
Telemetry
Lasix 40mg IV BID (States was not taking lasix on sunday).losing weight
Start kcl 20 BID
follow electrolytes,
cont rate and rhythm control meds
LE doppler negative
ALMA wrap LE -compression therapy added
Monitor for contraction alkalosis
Cardiology consult
#Afib, paroxysmal
Cont with flecainide 50mg BID
Cont toprol 25mg BID
Cont Eliquis 2.5mg BID
#ETHAN on CKD 3
current Cr 1.5
cannot r/o cardiorenal cause
UA bland.
Trend weight.
nephrology
watch for retention - serial bladder scan
#COPD, not in exacerbation
Cont inhalers
Sees Dr. Montano
#GIOVANY
Cont CPAP as per home settings
#Essential HTN
Cont toprol and hydralazine 100mg TID
on lasix.
may need uptitration
#Seizure d/o
Seizure precautions
Cont phenobarb
DVT ppx - eliquis
Full code
Anticipated Discharge: > 48 hours
Subjective/Interval History
-
Date of Service: June 24, 2023
Remains with lower extremity edema
States of dyspnea on exertion which continues
Denies chest pain
Objective Data
-
Labs:
Laboratory Results
06/24/23
07:14
Sodium 139
Potassium 3.7
Chloride 97 L
Carbon Dioxide 33 H
BUN 48 H
Creatinine 1.5 H
Glucose 91
Calcium 9.4
Vital Signs:
Vital Signs
Temp Pulse Resp BP Pulse Ox
97.7 F 69 18 146/66 91
06/24/23 10:56 06/24/23 10:56 06/24/23 10:56 06/24/23 10:56 06/24/23 10:56
I&O
06/23/23 06/24/23 06/25/23
06:59 06:59 06:59
Intake Total 580 / 580 1280 / 1280
Balance 580 / 580 1280 / 1280
Physical Exam
-
General: Well Developed and No Apparent Distress
HEENT: Normocephalic, Atraumatic, Moist Mucous Membranes and Oxygen
Respiratory: Decreased Breath Sounds
Cardiac: S1/S2; Negative Murmur, Rub or Gallop
GI: Soft, Nontender, Nondistended and Normal Bowel Sounds; Negative Organomegaly
Rectal: Deferred by Provider
Musculoskeletal: No Clubbing, No Cyanosis, Edema, Right Lower Extrem (venous stasis changes ) and Edema, Left Lower Extrem ( venous stasis changes )
Skin: Negative Rash
Neuro: Awake, No Motor Deficits and Nonfocal/Grossly Intact
Psych: Calm
[2023-06-24 14:45] VITALS: BP 130/57
--- NOTE | 2023-06-24 15:11 | W.PN.NEPH.PH ---
Today's Communication / Plan
-
cont lasix
Assessment/Plan
-
Assessment:
ETHAN on CKD 3 (bl 1.2-1.4)
HFpEF
Afib (on eliquis)
-mod
ILD/COPD
PPM
Plan:
ETHAN felt to be cardiorenal
UA relatively bland some RBCs --> patient on AC
cr slowly improving with diuresis, replace k
trend daily weights, decreasing
maintain FR
labs in am
-
-
Date of Service: June 24, 2023
CC / HPI / ROS
-
Chief Complaint:
ETHAN with CKD
History of Present Illness:
cr slightly better at 1.5, wt decreasing
BP stbale , UOP not recorded
Review of Systems:
no cp
sob improved
no n/v
Labs
-
Labs:
WBC 5.1 10^3/uL (4.8-10.8) 06/22/23 02:45
RBC 3.63 10^6/uL (4.20-5.40) L 06/22/23 02:45
Hgb 10.7 g/dL (12.0-16.0) L 06/22/23 02:45
Hct 32.5 % (37.0-47.0) L 06/22/23 02:45
Plt Count 173 10^3/uL (130-400) 06/22/23 02:45
Sodium 139 mmol/L (135-145) 06/24/23 07:14
Potassium 3.7 mmol/L (3.5-5.1) 06/24/23 07:14
Chloride 97 mmol/L (98-107) L 06/24/23 07:14
Carbon Dioxide 33 mmol/L (22-30) H 06/24/23 07:14
BUN 48 mg/dl (7-17) H 06/24/23 07:14
Creatinine 1.5 mg/dL (0.6-1.0) H 06/24/23 07:14
eGFR 34.15 06/24/23 07:14
Glucose 91 mg/dl (70-99) 06/24/23 07:14
Calcium 9.4 mg/dl (8.4-10.2) 06/24/23 07:14
Olu-X-Awdgjofnrin Pept 8750 pg/ml 06/21/23 15:16
Albumin 3.7 g/dl (3.5-5.0) 06/22/23 02:45
Physical Exam
-
Vital Signs:
Vital Signs
Temp Pulse Resp BP Pulse Ox
97.7 F 69 18 146/66 91
06/24/23 10:56 06/24/23 10:56 06/24/23 10:56 06/24/23 10:56 06/24/23 10:56
Cardiovascular:: Regular rate and rhythm
Respiratory:: Bilateral: CTA
Lung Excursion:: Normal
Abdomen:: Nontender and Soft
Extremity Edema:: +3: Bilateral:
Harvey Catheter: No
[2023-06-24] MEDS: KCL 20 MEQ PO (15:42)
[2023-06-24] MEDS: LIPITOR 10 MG PO (17:00)
[2023-06-24] MEDS: LUMINAL 64.7999999999999972 MG PO (21:34)
[2023-06-24 22:55] VITALS: BP 134/60
[2023-06-25 06:00] VITALS: BMI 30.2
[2023-06-25] MEDS: SYMBICORT 160/4.5 MCG INHALER 2 PUFF INH ×2 (07:14→19:21)
[2023-06-25 07:30] VITALS: BP 164/68
--- NOTE | 2023-06-25 08:46 | W.PN.CD ---
Today's Communication / Plan
-
tele ordered
lasix 40mg IV bid
trend Cr
Impression / Plan
-
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
PHTN, who presents to ER with c/o progressive weight gain, SOB and increased LE edema.� This is likely 2/2 to medication non-compliance, as she admits poor adherence.
HFpEF - acute on chronic.
-severe, requiring hospitalization and close monitoring of labs and tele
- echo 05/2023 EF 60-65%, moderate .
- likely due to not taking Lasix as prescribed at home: supposed to be on 40mg daily, but she thought it was 'too much'
- IV Lasix 40mg BID
-labs pending
ETHAN - acute on chronic CKD 3a, baseline ~1.0
- nephrology consulted
Afib - paroxysmal.
- s/p PVI x 2 2020 and AVN ablation with DC MDT PPM 01/2021. Managed at [facility], Dr Burnett.
- continue Flecainide.
- on Eliquis 5mg BID at home but now with ETHAN creatinine > 1.5, dose now needs to be 2.5mg BID.
-trend Cr for dosing
Aortic stenosis - moderate on echo 05/2023.
- diuresis as above.
ILD/COPD - chronic.
- h/o amiodarone lung toxicity.
- could also be contributing to her SOB...
PPM - DC MDT 01/2021.
- stable with normal function.
Physical Exam
Vital Signs/Labs
Vital Signs
Temp Pulse Resp BP Pulse Ox
97.4 F 61 18 164/68 91
03/18/24 07:30 06/25/23 07:30 06/25/23 07:30 06/25/23 07:30 06/25/23 07:30
06/24/23 06/25/23 06/26/23
06:59 06:59 06:59
Actual Weight 83.688 kg 83.461 kg
06/22/23 02:45
APTT 87.8 Sec (23.4-35.0) H 06/22/23 06:30
Magnesium 2.2 mg/dl (1.6-2.3) 06/24/23 07:14
06/21/23
15:16
Qtp-P-Yjlrsdoqpnh Pept 8750
LAB Results
06/22/23
13:40
Troponin I 0.038 H*
Physical Exam
Constitutional: No acute distress and Comfortable
EENT: Moist mucous membranes
Cardiovascular: Rhythm & rate is regular, Pedal edema present, JVD present and Systolic murmur present
Respiratory: Respiratory effort normal and Lungs clear to auscul.
GI: Soft, Distention absent and Flat
Neuro/Psych: AO x 3
Data Reviewed
-
Date of Service: June 25, 2023
EKG: Other (Tele: ordered)
Echo: Report Reviewed by me (per note)
Labs: Labs Reviewed by me
[2023-06-25 09:11] LABS: Blood Urea Nitrogen 50 mg/dl (7-17); Calcium 9.5 mg/dl (8.4-10.2); Carbon Dioxide 32 mmol/L (22-30); Chloride 97 mmol/L (98-107); Estimated Creatinine Clearance 28 ml/min; Glucose 164 mg/dl (70-99); Magnesium 2.2 mg/dl (1.6-2.3); Potassium 3.7 mmol/L (3.5-5.1); Sodium 139 mmol/L (135-145); eGFR 31.61
[2023-06-25] MEDS: LASIX 40 MG IV ×2 (10:36→17:24)
[2023-06-25] MEDS: FLUSH (NSS) 1 FLUSH IV ×2 (10:38→17:25)
[2023-06-25] MEDS: KCL 20 MEQ PO ×2 (10:39→17:25)
[2023-06-25] MEDS: TOPROL XL 25 MG PO ×2 (10:39→20:24)
[2023-06-25] MEDS: APRESOLINE 100 MG PO ×3 (10:39→21:00)
[2023-06-25] MEDS: TAMBOCOR 50 MG PO ×2 (10:40→20:24)
[2023-06-25] MEDS: ELIQUIS 2.5 MG PO ×2 (10:43→20:24)
[2023-06-25] MEDS: LUMINAL 32.3999999999999986 MG PO (10:43)
--- NOTE | 2023-06-25 11:29 | W.PN.HOSP.TC ---
Today's Communication/Plan
-
diuresis
Assessment / Plan
Assessment / Plan
A/P:
#Acute respiratory insufficiency 2/2 acute on chronic HFpEF exacerbation
#Moderate
#Moderate TR
Telemetry
Lasix 40mg IV BID (States was not taking lasix on sunday).losing weight
K repletion
LE doppler negative
ALMA wrap LE -compression therapy added
Monitor for contraction alkalosis
Cardiology consult
PT/OT
#Afib, paroxysmal
Cont with flecainide 50mg BID
Cont toprol 25mg BID
Cont Eliquis 2.5mg BID (dose adjusted for renal function)
#ETHAN on CKD 3
current Cr 1.5
cannot r/o cardiorenal cause
UA bland.
Trend weight.
nephrology
watch for retention - serial bladder scan
#COPD, not in exacerbation
Cont inhalers
Sees Dr. Montano
#GIOVANY
Cont CPAP as per home settings
#Essential HTN
Cont toprol and hydralazine 100mg TID
on lasix.
may need uptitration
#Seizure d/o
Seizure precautions
Cont phenobarb
DVT ppx - eliquis
Full code
Anticipated Discharge: 24 - 48 hours
Subjective/Interval History
-
Date of Service: June 25, 2023
urinating frequently
remains swollen
no chest pain
Objective Data
-
Labs:
Laboratory Results
06/25/23
08:19
Sodium 139
Potassium 3.7
Chloride 97 L
Carbon Dioxide 32 H
BUN 50 H
Creatinine 1.6 H
Glucose 164 H
Calcium 9.5
Vital Signs:
Vital Signs
Temp Pulse Resp BP Pulse Ox
97.4 F 61 18 164/68 91
06/25/23 07:30 06/25/23 07:30 06/25/23 07:30 06/25/23 07:30 06/25/23 07:30
I&O
06/24/23 06/25/23 06/26/23
06:59 06:59 06:59
Intake Total 1280 / 1280 1230 / 1230
Balance 1280 / 1280 1230 / 1230
Review of Systems
-
History Source: Patient
All other systems: Reviewed and negative
Physical Exam
-
General: Well Developed and No Apparent Distress
HEENT: Normocephalic, Atraumatic, Moist Mucous Membranes and Oxygen
Respiratory: Decreased Breath Sounds
Cardiac: S1/S2; Negative Murmur, Rub or Gallop
GI: Soft, Nontender, Nondistended and Normal Bowel Sounds; Negative Organomegaly
Rectal: Deferred by Provider
Musculoskeletal: No Clubbing, No Cyanosis, Edema, Right Lower Extrem (venous stasis changes ) and Edema, Left Lower Extrem ( venous stasis changes )
Skin: Negative Rash
Neuro: Awake, No Motor Deficits and Nonfocal/Grossly Intact
Psych: Calm
Data Reviewed
-
Diagnostic Radiology: Report Reviewed by me
Labs: Labs Reviewed by me
[2023-06-25 11:30] VITALS: BP 124/45
--- NOTE | 2023-06-25 12:15 | CM ---
Patient seen, reports no new concerns. CM provided information for Meals on Wheels. CM will continue to follow for discharge planning needs.
Plan; home with [facility] when stable.
--- NOTE | 2023-06-25 14:09 | W.PN.NEPH.PH ---
Today's Communication / Plan
-
Maintain IV Lasix
Follow BMP
Assessment/Plan
-
Assessment:
ETHAN on CKD 3 (bl 1.2-1.4)
HFpEF
Afib (on eliquis)
-mod
ILD/COPD
PPM
Plan:
ETHAN felt to be cardiorenal
creatinine unchanged at 1.6
uop ? amount not recorded and weights unchanged
UA relatively bland some RBCs --> patient on AC
maintain FR
labs in am
-
-
Date of Service: June 25, 2023
CC / HPI / ROS
-
Chief Complaint:
ETHAN with CKD
History of Present Illness:
cr slightly better at 1.6,
Hemodynamically stable
Review of Systems:
no cp
sob improved
no n/v
Weight is unchanged
Urine output not recorded
Labs
-
Labs:
WBC 5.1 10^3/uL (4.8-10.8) 06/22/23 02:45
RBC 3.63 10^6/uL (4.20-5.40) L 06/22/23 02:45
Hgb 10.7 g/dL (12.0-16.0) L 06/22/23 02:45
Hct 32.5 % (37.0-47.0) L 06/22/23 02:45
Plt Count 173 10^3/uL (130-400) 06/22/23 02:45
Sodium 139 mmol/L (135-145) 06/25/23 08:19
Potassium 3.7 mmol/L (3.5-5.1) 06/25/23 08:19
Chloride 97 mmol/L (98-107) L 06/25/23 08:19
Carbon Dioxide 32 mmol/L (22-30) H 06/25/23 08:19
BUN 50 mg/dl (7-17) H 06/25/23 08:19
Creatinine 1.6 mg/dL (0.6-1.0) H 06/25/23 08:19
eGFR 31.61 06/25/23 08:19
Glucose 164 mg/dl (70-99) H 06/25/23 08:19
Calcium 9.5 mg/dl (8.4-10.2) 06/25/23 08:19
Ufa-M-Xchboezvncs Pept 8750 pg/ml 06/21/23 15:16
Albumin 3.7 g/dl (3.5-5.0) 06/22/23 02:45
Physical Exam
-
Vital Signs:
Vital Signs
Temp Pulse Resp BP Pulse Ox
97.7 F 56 18 124/45 91
06/25/23 11:30 06/25/23 11:30 06/25/23 11:30 06/25/23 11:30 06/25/23 11:30
Cardiovascular:: Regular rate and rhythm
Respiratory:: Bilateral: CTA
Lung Excursion:: Normal
Abdomen:: Nontender
Bowel Sounds:: Normal
Extremity Edema:: +1: Bilateral:
Harvey Catheter: No
[2023-06-25 15:00] VITALS: BP 114/52
[2023-06-25 15:06] VITALS: BP 114/52; PULSE 60; O2SAT 96
[2023-06-25] MEDS: LIPITOR 10 MG PO (17:25)
[2023-06-25 19:00] VITALS: BP 154/82
[2023-06-25] MEDS: LUMINAL 64.7999999999999972 MG PO (21:00)
[2023-06-25 23:00] VITALS: BP 135/60
[2023-06-26 03:00] VITALS: BP 153/67
[2023-06-26 06:00] VITALS: BMI 29.9
[2023-06-26 07:05] VITALS: BP 172/69
[2023-06-26] MEDS: SYMBICORT 160/4.5 MCG INHALER 2 PUFF INH (07:25)
[2023-06-26 08:08] LABS: Blood Urea Nitrogen 48 mg/dl (7-17); Calcium 9.2 mg/dl (8.4-10.2); Carbon Dioxide 32 mmol/L (22-30); Chloride 99 mmol/L (98-107); Estimated Creatinine Clearance 28 ml/min; Glucose 99 mg/dl (70-99); Potassium 3.7 mmol/L (3.5-5.1); Sodium 137 mmol/L (135-145); eGFR 31.61
[2023-06-26] MEDS: APRESOLINE 100 MG PO (08:43)
[2023-06-26] MEDS: TAMBOCOR 50 MG PO (08:44)
[2023-06-26] MEDS: LASIX 40 MG IV (08:44)
[2023-06-26] MEDS: KCL 20 MEQ PO (08:44)
[2023-06-26] MEDS: TOPROL XL 25 MG PO (08:44)
[2023-06-26] MEDS: FLUSH (NSS) 1 FLUSH IV (08:45)
[2023-06-26] MEDS: LUMINAL 32.3999999999999986 MG PO (08:50)
[2023-06-26] MEDS: ELIQUIS 2.5 MG PO (08:50)
--- NOTE | 2023-06-26 09:25 | W.PN.CD ---
Today's Communication / Plan
-
-Has lost 16 lbs since admission.
-Can discharge to home on Lasix 40 mg daily (she was only taking 20 mg daily).
-Continue other cardiac medications.
-Outpatient follow-up with Cardiology.
Impression / Plan
-
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
PHTN, who presents to ER with c/o progressive weight gain, SOB and increased LE edema.� This is likely 2/2 to medication non-compliance, as she admits poor adherence.
HFpEF - acute on chronic.
- echo 05/2023 EF 60-65%, moderate .
- likely due to not taking Lasix as prescribed at home: supposed to be on 40mg daily, but she thought it was 'too much'
-Has lost 16 lbs since admission.
-Can discharge to home on Lasix 40 mg daily (she was only taking 20 mg daily).
ETHAN - acute on chronic CKD 3a
-Creatinine stable.
Afib - paroxysmal.
- s/p PVI x 2 2020 and AVN ablation with DC MDT PPM 01/2021. Managed at [facility], Dr Burnett.
-Continue Flecainide and Eliquis.
Aortic stenosis - moderate on echo 05/2023.
-Continue to follow as outpatient.
ILD/COPD - chronic.
- h/o amiodarone lung toxicity.
- could also be contributing to her SOB..
PPM - DC MDT 01/2021.
- stable with normal function.
Physical Exam
Vital Signs/Labs
Vital Signs
Temp Pulse Resp BP Pulse Ox
98 F 72 16 172/69 93
06/26/23 07:05 06/26/23 07:28 06/26/23 07:28 06/26/23 07:05 06/26/23 07:28
06/25/23 06/26/23 06/27/23
06:59 06:59 06:59
Actual Weight 83.461 kg 82.752 kg
06/22/23 02:45
06/26/23 07:11
APTT 87.8 Sec (23.4-35.0) H 06/22/23 06:30
Magnesium 2.2 mg/dl (1.6-2.3) 06/25/23 08:19
06/21/23
15:16
Coc-G-Yltseoqyzae Pept 8750
Physical Exam
Constitutional: No acute distress and Comfortable
EENT: Anicteric
Cardiovascular: Rhythm & rate is regular, Pedal edema present (trace), Systolic murmur present (3/6) and S1S2 is normal
Respiratory: Respiratory effort normal and Lungs clear to auscul.
GI: Soft
Neuro/Psych: AO x 3
Other: Skin (Warm, dry, intact)
Data Reviewed
-
Date of Service: June 26, 2023
EKG: Tracing Personally Visualized and interpreted (Telemetry: AV paced)
Medical Tests (PFT, Pathology etc): Discussed with Patient
Labs: Labs Reviewed by me
--- NOTE | 2023-06-26 10:52 | CM ---
Patient seen bedside, patient reports she is leaving today. IMM reviewed, signed, placed in patients chart. Patient reports she will call her sister in law for transportation. CM will continue to follow for discharge planning needs.
Plan; home with VN.
[2023-06-26 11:04] VITALS: BP 113/50
--- NOTE | 2023-06-26 11:13 | W.PN.HOSP.TC ---
Addendum entered and electronically signed by Snow Vega MD 06/26/23 14:19:
Non ischemic myocardial injury
-s/p diuresis
Original Note:
Today's Communication/Plan
-
OK for DC today
Assessment / Plan
Assessment / Plan
A/P:
#Acute respiratory insufficiency 2/2 acute on chronic HFpEF exacerbation
#Moderate
#Moderate TR
Telemetry
s/p IV lasix; OK for transition to lasix 40mg PO QD (s/p 16 lb weight loss)
K repletion
LE doppler negative
ALMA wrap LE -compression therapy added
cardiology consult appreciated
PT/OT --> HH
#Afib, paroxysmal
Cont with flecainide 50mg BID
Cont toprol 25mg BID
Cont Eliquis 2.5mg BID (dose adjusted for renal function)
#ETHAN on CKD 3
current Cr 1.5 - baseline seems to be 1.4-1.6
appreciate renal
OK for DC
repeat labs in one week
#COPD, not in exacerbation
Cont inhalers
Sees Dr. Montano
#GIOVANY
Cont CPAP as per home settings
#Essential HTN
Cont toprol and hydralazine 100mg TID
on lasix.
may need uptitration
#Seizure d/o
Seizure precautions
Cont phenobarb
DVT ppx - eliquis
Full code
Anticipated Discharge: Today
Subjective/Interval History
-
Date of Service: June 26, 2023
feeling well
ready for discharge
breathing more stable
Objective Data
-
Labs:
Laboratory Results
06/26/23
07:11
Sodium 137
Potassium 3.7
Chloride 99
Carbon Dioxide 32 H
BUN 48 H
Creatinine 1.6 H
Glucose 99
Calcium 9.2
Vital Signs:
Vital Signs
Temp Pulse Resp BP Pulse Ox
98 F 72 16 172/69 93
06/26/23 07:05 06/26/23 07:28 06/26/23 07:28 06/26/23 07:05 06/26/23 07:28
I&O
06/25/23 06/26/23 06/27/23
06:59 06:59 06:59
Intake Total 1230 / 1230 720 / 720
Balance 1230 / 1230 720 / 720
Review of Systems
-
History Source: Patient
All other systems: Reviewed and negative
Physical Exam
-
General: Well Developed and No Apparent Distress
HEENT: Normocephalic, Atraumatic, Moist Mucous Membranes and Oxygen
Respiratory: Decreased Breath Sounds
Cardiac: S1/S2; Negative Murmur, Rub or Gallop
GI: Soft, Nontender, Nondistended and Normal Bowel Sounds; Negative Organomegaly
Rectal: Deferred by Provider
Musculoskeletal: No Clubbing, No Cyanosis, Edema, Right Lower Extrem (venous stasis changes ) and Edema, Left Lower Extrem ( venous stasis changes )
Skin: Negative Rash
Neuro: Awake, No Motor Deficits and Nonfocal/Grossly Intact
Psych: Calm
Data Reviewed
-
Diagnostic Radiology: Report Reviewed by me
Labs: Labs Reviewed by me
--- NOTE | 2023-06-26 11:24 | W.DS.TRANS ---
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
-
Discharge Instructions:
Discharge Diagnosis/Procedures heart failure preserved ejection fraction, acute
exacerbation
Diet 2 Gram Sodium,Restrict fluids to 48 oz
Activity As tolerated
Driving Restrictions As prior to admission
Bathing Restrictions None
Blood Work BMP in one week (to be obtained by VN or your
PCP)
Other Services PT,VN,OT
Specialty Instructions Weigh Daily
Instructions: *CBC Heart Failure Instructions
Stand-Alone Forms:
Changes to Home Medications: Yes
Discharge Medications:
DC Medications w/original date entered in [facility]
albuterol sulfate 90 mcg/actuation aerosol inhaler 2 puff inhalation R Q4HPRN PRN sob 10/21/20
atorvastatin 10 mg tablet 10 mg PO QPM High cholesterol 10/21/20
budesonide-formoterol HFA 160 mcg-4.5 mcg/actuation aerosol inhaler (Symbicort) 2 puff inhalation R BID Lung/breathing issues 10/21/20
phenobarbital 32.4 mg tablet 32.4 mg PO DAILY Seizures 10/21/20
phenobarbital 32.4 mg tablet 64.8 mg PO HS Seizures 10/21/20
metoprolol succinate 25 mg tablet,extended release 24 hr 25 mg PO BID Blood pressure 30 days #60 tabs 01/27/21
fenofibrate micronized 134 mg capsule 134 mg PO DAILY High Cholesterol 06/21/23
flecainide 50 mg tablet 50 mg PO BID Arrhythmia 06/21/23
hydralazine 100 mg tablet 100 mg PO TID Blood Pressure 06/21/23
melatonin 1 tab PO HS Sleep 06/21/23
apixaban 2.5 mg tablet (Eliquis) 2.5 mg PO BID #60 tabs 06/26/23
furosemide 40 mg tablet 40 mg PO DAILY #30 tabs 06/26/23
Home Medication Changes
Stop Eliquis 5mg tabs. This is reduced to 2.5mg twice a day (given your kidney function).
Your lasix dose is increased from 20mg to 40mg daily.
Pending Results: No
--- NOTE | 2023-06-26 11:46 | VNURNOTE ---
Home Health Liaison met with patient at 1115 to discuss [facility] nurse/therapy, visits, schedule and homebound status. Patient is agreeable and understands that visits at home will be 2-3 x per week to assess and teach medical management. Patient has a
scale and is able to log a daily weight.
[facility] brochure provided with contact information. Patient is aware that [facility] will contact her for start of care in 1-2 days after discharge from .
[facility] referral previously completed and accepted in [facility].
[2023-06-26 12:05] VITALS: BP 133/72; PULSE 66; O2SAT 94
--- NOTE | 2023-06-26 12:09 | W.PN.NEPH.PH ---
Today's Communication / Plan
-
discharge oral lasix
Assessment/Plan
-
Assessment:
ETHAN on CKD 3 (bl 1.2-1.4)
HFpEF
Afib (on eliquis)
-mod
ILD/COPD
PPM
Plan:
ETHAN felt to be cardiorenal
creatinine unchanged at 1.6
uop ? amount not recorded and weights unchanged
UA relatively bland some RBCs --> patient on AC
maintain FR
labs in am
-
-
Date of Service: June 26, 2023
CC / HPI / ROS
-
Chief Complaint:
ETHAN with CKD
History of Present Illness:
cr stable at 1.6,
Hemodynamically stable
Review of Systems:
no cp
sob improved
no n/v
Weight is unchanged
Urine output not recorded
Labs
-
Labs:
WBC 5.1 10^3/uL (4.8-10.8) 06/22/23 02:45
RBC 3.63 10^6/uL (4.20-5.40) L 06/22/23 02:45
Hgb 10.7 g/dL (12.0-16.0) L 06/22/23 02:45
Hct 32.5 % (37.0-47.0) L 06/22/23 02:45
Plt Count 173 10^3/uL (130-400) 06/22/23 02:45
Sodium 137 mmol/L (135-145) 06/26/23 07:11
Potassium 3.7 mmol/L (3.5-5.1) 06/26/23 07:11
Chloride 99 mmol/L (98-107) 06/26/23 07:11
Carbon Dioxide 32 mmol/L (22-30) H 06/26/23 07:11
BUN 48 mg/dl (7-17) H 06/26/23 07:11
Creatinine 1.6 mg/dL (0.6-1.0) H 06/26/23 07:11
eGFR 31.61 06/26/23 07:11
Glucose 99 mg/dl (70-99) 06/26/23 07:11
Calcium 9.2 mg/dl (8.4-10.2) 06/26/23 07:11
Fxp-G-Regurduyqso Pept 8750 pg/ml 06/21/23 15:16
Albumin 3.7 g/dl (3.5-5.0) 06/22/23 02:45
Physical Exam
-
Vital Signs:
Vital Signs
Temp Pulse Resp BP Pulse Ox
97.4 F 61 18 113/50 92
06/26/23 11:04 06/26/23 11:04 06/26/23 11:04 06/26/23 11:04 06/26/23 11:04
Cardiovascular:: Regular rate and rhythm
Respiratory:: Bilateral: CTA
Lung Excursion:: Normal
Abdomen:: Nontender and Soft
Bowel Sounds:: Normal
Extremity Edema:: +1: Bilateral:
Harvey Catheter: No
--- NOTE | 2023-06-26 13:39 | PN.CDI ---
CDI
- -
CDI:
Physician Documentation Request
Admit Date: 06/21/23 18:22
Dear Doctor Gary,
Please review the following and provide your response in the progress notes.
Clinical Indicators:
- The following labs:
Laboratory Tests
06/22/23 06/22/23 06/22/23
02:45 06:30 13:40
Troponin I 0.033 0.037 H* 0.038 H*
Please clarify the following regarding the documented elevated troponins:
Non ischemic myocardial injury
Clinically insignificant abnormal lab value
Other
Use of terms such as suspected, likely, concern for, or probable (associated with a specific diagnosis that is being evaluated, monitored, or treated as if it exists) are acceptable and can be coded in the inpatient setting, when documented at the
time of discharge.
Thank you,
Raymon Spencer RN
CDI Specialist
Please use your independent medical judgment in providing your response.
--- NOTE | 2023-06-26 14:00 | W.DCSUMMARY ---
Discharge Summary
Discharge Data
Date of Admission: 06/21/23
Date of Discharge: 06/26/23
-
Pending Results: No
Hospital Course
Discharging Physician : Dr. Snow Vega
Disposition : Home with Home Health
Primary care physician : Dr. Oh Calvin
Principal Discharge diagnosis : heart failure preserved ejection fraction, acute exacerbation
Hospital Course :
Ms. 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
Triage vitals significant for hypertension. Labs with baseline creatinine 1.6. Patient was admitted to medicine with cardiology and nephrology consulting. She was diuresed with drop in weight from 90 to 82.7 kg. She felt much improved and is
discharged on an increased lasix dose (40mg increased from 20mg) daily. Her Eliquis dose is adjusted based on age and renal function (from 5mg to 2.5mg BID).
HH is arranged and she will follow up closely with cardiology and PCP.
Time spent on discharge was 32 minutes.
Important imaging findings :
Procedure findings :
Discharge Plan
-
Patient Disposition: Home with Home Care
Discharge Diagnosis/Procedures: heart failure preserved ejection fraction, acute exacerbation
Diet: 2 Gram Sodium and Restrict fluids to 48 oz
Activity: As tolerated
Driving Restrictions: As prior to admission
Bathing Restrictions: None
Blood Work: BMP in one week (to be obtained by VN or your PCP)
Other Services: VN, PT and OT
Specialty Instructions: Weigh Daily- Call MD for wt gain/loss 3 lbs overnight/5 lbs in 1 week
Instructions: *CBC Heart Failure Instructions
Referrals:
Anju Anne NP [Specified Professional Personl] - 07/16/23 11:00 am
Oh Calvin MD [Family Provider] - in less than 1 week
Additional Discharge Medication Instructions: Stop Eliquis 5mg tabs. This is reduced to 2.5mg twice a day (given your kidney function).
Your lasix dose is increased from 20mg to 40mg daily.
Prescriptions:
New
furosemide 40 mg Tablet
40 mg PO DAILY Qty: 30 0RF
Eliquis 2.5 mg Tablet
2.5 mg PO BID Qty: 60 0RF
Continued
budesonide-formoterol [Symbicort] 1 PUFF HFA aerosol inhaler
2 puff inhalation R BID
atorvastatin 10 MG tablet
10 mg PO QPM
albuterol sulfate 1 PUFF HFA aerosol inhaler
2 puff inhalation R Q4HPRN PRN (Reason: sob)
phenobarbital 32.4 MG tablet
64.8 mg PO HS
Patient Comments:
06/21/2023: [facility]23[facility]
phenobarbital 32.4 MG tablet
32.4 mg PO DAILY
Patient Comments:
06/21/2023: last filled 03/28/23, [facility]
metoprolol succinate 25 MG tablet extended release 24 hr
25 mg PO BID 30 Days Qty: 60 0RF
fenofibrate micronized 134 mg capsule
134 mg PO DAILY
hydralazine 100 mg tablet
100 mg PO TID
flecainide 50 mg tablet
50 mg PO BID
melatonin
1 tab PO HS
Discontinued
Eliquis 5 MG tablet
5 mg PO BID
furosemide 20 mg tablet
20 mg PO DAILY
Discharge Orders:
Discharge Patient (As Directed); Ordered 06/26/23
Ordered By: Snow Vega
== END 2023-06-26 14:55 | disposition home health service (06) | DRG 291 ==
LOC: 4 WEST ACU 18:22
PROVIDERS: Emergency Medicine; Hospitalist; ADMITTING PHYSICIAN Internal Medicine; ATTENDING PHYSICIAN Student in an Organized Health Care Education/Training Program; CONSULT PHYSICIAN Student in an Organized Health Care Education/Training Program; EMERGENCY PHYSICIAN Emergency Medicine; FAMILY PHYSICIAN Family Medicine; OTHER PHYSICIAN Internal Medicine Cardiovascular Disease
PROC: 5A09357 Assistance with Respiratory Ventilation, Less than 24 Consecutive Hours, Continuous Positive Airway Pressure (ICD-10-PCS; 2023-06-21)
DX: I13.0 Hypertensive heart and chronic kidney disease with heart failure and stage 1 through stage 4 chronic kidney disease, or unspecified chronic kidney disease (principal); I50.33 Acute on chronic diastolic (congestive) heart failure; J84.9 Interstitial pulmonary disease, unspecified; N17.9 Acute kidney failure, unspecified; I48.0 Paroxysmal atrial fibrillation; N18.31 Chronic kidney disease, stage 3a; E78.00 Pure hypercholesterolemia, unspecified; G47.33 Obstructive sleep apnea (adult) (pediatric); R06.89 Other abnormalities of breathing; G40.909 Epilepsy, unspecified, not intractable, without status epilepticus; I35.0 Nonrheumatic aortic (valve) stenosis; J30.1 Allergic rhinitis due to pollen; I5A Non-ischemic myocardial injury (non-traumatic); R34 Anuria and oliguria; J44.89 Other specified chronic obstructive pulmonary disease; Z11.52 Encounter for screening for COVID-19; Z79.01 Long term (current) use of anticoagulants; Z95.0 Presence of cardiac pacemaker; Z88.1 Allergy status to other antibiotic agents; Z88.2 Allergy status to sulfonamides; Z91.048 Other nonmedicinal substance allergy status; Z91.148 Patient's other noncompliance with medication regimen for other reason; Z79.51 Long term (current) use of inhaled steroids
CPT/HCPCS: 71046; 80048; 80053; 81003; 81015; 82248; 82570; 83735; 83880; 83935; 84300; 84484; 85025; 85027; 85730; 87502; 87811; 93005; 93970; 94640; 94660; 96374; 97162; 97166; 99285

== ENCOUNTER 2024-01-24 20:12 | Inpatient (IN) | payer OTHER, SELFPAY ==
[2024-01-24 16:36] VITALS: BP 143/62
--- NOTE | 2024-01-24 16:37 | ED.GENMED ---
ED Provider Triage
<WOODY Rehman - Last Filed: 01/24/24 16:43>
-
Patient seen by provider in Triage?: Seen in Triage
Attestation: A medical screening examination has been initiated by a qualified medical provider. Based on the assessment performed at this time, it has been determined that an emergent medical condition may exist and the patient has been informed
that further medical evaluation and possible additional diagnostic testing may be needed.
HPI: 83 yr old female sent by doctor for concern for worsening CHF. Pt has had increased weight gain/l/e swelling and SOB mostly with exertion for past several weeks . Pt's lasix has been increased, now taking 120 mg daily.
no fevers no chest pain . Followed by DR Gonzáles .
GENERAL: Alert , in no apparent distress
EYE: No visual abnormalities.
NECK: Trachea midline
ENT: No visible abnormalities.
LUNGS: No acute respiratory distress, slight crackles at bases
NEUROLOGICAL: Alert and oriented
SKIN: Skin intact. No visible changes.
MUSCULOSKELETAL: Moving extremities normally + l/e swelling
PSYCH: Normal and appropriate interaction.
This is a medical evaluation conducted in person to initiate diagnostic evaluation and provide initial therapeutics. Please see further documentation by the treating clinician.
History of Present Illness
<WOODY Rehman - Last Filed: 01/24/24 16:43>
General
Chief Complaint: Breathing Problem
Time Seen by Provider: 01/24/24 17:02
<Eve Jolley PA-C - Last Filed: 01/24/24 22:29>
General
Source: patient and family
History of Present Illness
History of Present Illness:
83yoF with a history of CHF, paroxysmal atrial fibrillation, hypertension, hyperlipidemia, and CKD presenting with her daughter for evaluation of leg swelling. Patient has been having bilateral leg swelling over the past 2 weeks. She was seen by
her PCP about a week ago who increased her Lasix from 60 mg daily to 60 mg twice daily. She notices some improvement in her leg swelling but her weight has plateaued. Patient is typically 168 pounds. She was 185 at her highest. She has been 178
pounds over the past several days despite being compliant with her Lasix. Patient reports exertional dyspnea. Daughter admits that patient was not compliant with Lasix and her diet up until 2 weeks ago. Last echocardiogram in May 2023
revealed an EF of 65-70% with grade III diastolic dysfunction and severely elevated PASP.
Past History
<WOODY Rehman - Last Filed: 01/24/24 16:43>
Past History
ED Past Medical History: Arrthythmia (afib, cardioversions.), Asthma, CHF, COPD, HTN, Hypercholesterolemia and Other (Obstructive sleep apnea, interstitial lung disease,)
ED Past Surgical History: Cardiac (Cardioversion. Ablation X 2) and Gynecological (Hysterectomy)
Patient has exhibited threatening behavior?: No
Social History
Tobacco: Non-smoker
Alcohol: None
Personal:
Living: alone
Family History
Family History: CAD
Phy Exam
<Eve Jolley PA-C - Last Filed: 01/24/24 22:29>
General Physical Exam
General Presentation: well appearing and no apparent distress
General age: appears stated age
General Skin: warm and dry
General Habitus: normal
General Mental: alert
Cardiovascular Exam
Cardiovascular Exam: regular rate/rhythm, systolic murmur and other (2-3+ pitting edema in bilateral lower extremities)
Pulmonary Exam
Pulmonary Exam: no respiratory distress, no rhonchi, no wheezing and decreased breath sounds
[place] Coma Scale
Eye Opening: Spontaneous
Verbal Response: Oriented
Motor Response: Obeys Commands
GCS Total Score: 15
Skin Exam
Skin Exam: normal color and warm/dry
Psychiatric Exam
Psychiatric Exam: normal mood/affect
Scores
<Eve Jolley PA-C - Last Filed: 01/24/24 22:29>
Heart Failure Risk
Heart Failure Risk Score: Not Applicable
Course
<WOODY Rehman - Last Filed: 01/24/24 16:43>
Orders/Labs/Results
Orders:
Orders
01/24/24 Dinner
2000 calorie (17 carb) Diabetic
Diabetic Diet: Sodium, 2 Gram
01/24/24 16:42
CR Chest - 2 Views Urgent
Comment:
Reason For Exam: sob
01/24/24 17:03
Complete Blood Count/With Diff Urgent
NT-proBNP Urgent
01/24/24 17:15
Electrocardiogram (*1) Urgent
Reason for Study: Shortness of Breath
01/24/24 17:37
Comprehensive Metabolic Panel Urgent
01/24/24 19:06
Furosemide [Lasix] 60 mg IV NOW STA
01/24/24 19:35
Admit/Transfer Patient As Directed
Co-Sign Provider:
Level of Care: Inpatient admission
Assign to:: Telemetry
Physician / Group: randee
Diagnosis: chf exacerbation
Reason for Telemetry: Acute Heart Failure
Date to Stop Telemetry: 01/27/24
Time to Stop Telemetry: 11:00
Reason for Hospitalization: chf exacerbation
Expected length of stay greater than two midnights?: Yes
ELOS- Estimated Length of Stay in days: 2
I certify the patient meets the requirements for IP care: Yes
01/24/24 19:36
Code Status As Directed
Resuscitation Status: Full Code
PRN Pain Medication Management As Directed
May give lesser potent ordered pain med per pt: Yes
preference::
Protocol:: Medication orders for pain may be administered in a
manner that supports deferring to patient preference
when the pt is:
- Requesting an ordered lesser potent pain medication.
Least to most potent pain medications are defined
as: acetaminophen < NSAID < tramadol < opioids
(morphine, oxycodone, hydromorphone).
- Requesting a lesser dose of the same medication IF
ORDERED.
- Requesting a less intrusive route of administration
if both routes are prescribed by the provider (PO <
IV).
01/24/24 21:50
Apixaban [Eliquis] 2.5 mg PO BID
Flecainide [Tambocor] 50 mg PO BID
Melatonin 5 mg PO HSPRN PRN
01/24/24 21:50
VTE Contraindication Routine
VTE Mechanical Device Contraindication: Medical Contraindication
Pharmocologic Contraindication: Medical Contraindication
Activity As Directed
Activity Level: As Tolerated
Intake/ Output As Directed
Frequency: q12h
Vital Signs As Directed
Frequency: Other
Additional Instructions:: Q12 or per unit guidelines if more frequent.
Weight As Directed
Frequency: Daily
Type of Scale: Standing Scale
Comment: Daily morning weight. If unable to stand, use balanced bed scale.
Weight As Directed
Frequency: Once
Type of Scale: Standing Scale
Comment: Upon Admission. If unable to stand, use balanced bed scale.
Cpap [RESP] Routine
Patient to use own unit?: Yes
Pulse Ox/cont/shift [RESP] Routine
Quantity: 1
Special Instructions: Daily pulse oximetry at rest. If greater than 92% at rest also obtain pulse oximetry
while ambulating as tolerated.
01/24/24 21:59
Albuterol [ProAIR HFA INHALER] 2 puff INH R Q4HPRN PRN
01/24/24 22:00
HydrALAZINE [Apresoline] 100 mg PO TID
Phenobarbital [Luminal] 64.8 mg PO HS
01/25/24 06:00
Complete Blood Count/No Diff IN AM
Comprehensive Metabolic Panel IN AM
01/25/24 08:00
Fenofibrate 145 [Tricor] 145 mg PO DAILY
Furosemide [Lasix] 60 mg IV BID AT 0800,1600
Metoprolol Xl [Toprol Xl] 25 mg PO DAILY
Phenobarbital [Luminal] 32.4 mg PO DAILY
01/25/24 18:00
Atorvastatin [Lipitor] 10 mg PO QPM
01/27/24 11:00
DC Protocol for Telemetry ONCE
Abnormal Lab Results
01/24/24 01/24/24
17:03 17:37
RBC 3.94 L 10^6/uL
(4.20-5.40)
Hgb 11.7 L g/dL
(12.0-16.0)
Hct 35.4 L %
(37.0-47.0)
RDW 14.9 H %
(11.5-14.5)
MPV 12.1 H fL
(7.4-10.4)
Absolute Lymphs (auto) 1.0 L 10^3/uL
(1.2-3.4)
Lymphocytes % 19.1 L %
(20.5-51.1)
Monocytes % 12.1 H %
(1.7-9.3)
Chloride 93 L mmol/L
(98-107)
Carbon Dioxide 39 H mmol/L
(22-30)
BUN 71 H mg/dl
(7-17)
Creatinine 2.1 H mg/dL
(0.6-1.0)
Glucose 101 H mg/dl
(70-99)
AST 40 H U/L
(14-36)
01/24/24 17:03
10/17/24 17:37
Vital Signs
Initial and Last Documented VS:
Initial Vital Signs
Temp Pulse Resp BP Pulse Ox
97.9 F 70 18 143/62 93
01/24/24 16:36 01/24/24 16:36 01/24/24 16:36 01/24/24 16:36 01/24/24 16:36
Last Documented Vital Signs
Temp Pulse Resp BP Pulse Ox
97.9 F 61 21 143/62 97
01/24/24 16:36 01/24/24 20:30 01/24/24 20:30 01/24/24 16:36 01/24/24 20:30
<Eve Jolley PA-C - Last Filed: 01/24/24 22:29>
Orders/Labs/Results
Orders:
Orders
01/24/24 Dinner
2000 calorie (17 carb) Diabetic
Diabetic Diet: Sodium, 2 Gram
01/24/24 16:42
CR Chest - 2 Views Urgent
Comment:
Reason For Exam: sob
01/24/24 17:03
Complete Blood Count/With Diff Urgent
NT-proBNP Urgent
01/24/24 17:15
Electrocardiogram (*1) Urgent
Reason for Study: Shortness of Breath
01/24/24 17:37
Comprehensive Metabolic Panel Urgent
01/24/24 19:06
Furosemide [Lasix] 60 mg IV NOW STA
01/24/24 19:35
Admit/Transfer Patient As Directed
Co-Sign Provider:
Level of Care: Inpatient admission
Assign to:: Telemetry
Physician / Group: randee
Diagnosis: chf exacerbation
Reason for Telemetry: Acute Heart Failure
Date to Stop Telemetry: 01/27/24
Time to Stop Telemetry: 11:00
Reason for Hospitalization: chf exacerbation
Expected length of stay greater than two midnights?: Yes
ELOS- Estimated Length of Stay in days: 2
I certify the patient meets the requirements for IP care: Yes
01/24/24 19:36
Code Status As Directed
Resuscitation Status: Full Code
PRN Pain Medication Management As Directed
May give lesser potent ordered pain med per pt: Yes
preference::
Protocol:: Medication orders for pain may be administered in a
manner that supports deferring to patient preference
when the pt is:
- Requesting an ordered lesser potent pain medication.
Least to most potent pain medications are defined
as: acetaminophen < NSAID < tramadol < opioids
(morphine, oxycodone, hydromorphone).
- Requesting a lesser dose of the same medication IF
ORDERED.
- Requesting a less intrusive route of administration
if both routes are prescribed by the provider (PO <
IV).
01/24/24 21:50
Apixaban [Eliquis] 2.5 mg PO BID
Flecainide [Tambocor] 50 mg PO BID
Melatonin 5 mg PO HSPRN PRN
01/24/24 21:50
VTE Contraindication Routine
VTE Mechanical Device Contraindication: Medical Contraindication
Pharmocologic Contraindication: Medical Contraindication
Activity As Directed
Activity Level: As Tolerated
Intake/ Output As Directed
Frequency: q12h
Vital Signs As Directed
Frequency: Other
Additional Instructions:: Q12 or per unit guidelines if more frequent.
Weight As Directed
Frequency: Daily
Type of Scale: Standing Scale
Comment: Daily morning weight. If unable to stand, use balanced bed scale.
Weight As Directed
Frequency: Once
Type of Scale: Standing Scale
Comment: Upon Admission. If unable to stand, use balanced bed scale.
Cpap [RESP] Routine
Patient to use own unit?: Yes
Pulse Ox/cont/shift [RESP] Routine
Quantity: 1
Special Instructions: Daily pulse oximetry at rest. If greater than 92% at rest also obtain pulse oximetry
while ambulating as tolerated.
01/24/24 21:59
Albuterol [ProAIR HFA INHALER] 2 puff INH R Q4HPRN PRN
01/24/24 22:00
HydrALAZINE [Apresoline] 100 mg PO TID
Phenobarbital [Luminal] 64.8 mg PO HS
01/25/24 06:00
Complete Blood Count/No Diff IN AM
Comprehensive Metabolic Panel IN AM
01/25/24 08:00
Fenofibrate 145 [Tricor] 145 mg PO DAILY
Furosemide [Lasix] 60 mg IV BID AT 0800,1600
Metoprolol Xl [Toprol Xl] 25 mg PO DAILY
Phenobarbital [Luminal] 32.4 mg PO DAILY
01/25/24 18:00
Atorvastatin [Lipitor] 10 mg PO QPM
01/27/24 11:00
DC Protocol for Telemetry ONCE
Abnormal Lab Results
01/24/24 01/24/24
17:03 17:37
RBC 3.94 L 10^6/uL
(4.20-5.40)
Hgb 11.7 L g/dL
(12.0-16.0)
Hct 35.4 L %
(37.0-47.0)
RDW 14.9 H %
(11.5-14.5)
MPV 12.1 H fL
(7.4-10.4)
Absolute Lymphs (auto) 1.0 L 10^3/uL
(1.2-3.4)
Lymphocytes % 19.1 L %
(20.5-51.1)
Monocytes % 12.1 H %
(1.7-9.3)
Chloride 93 L mmol/L
(98-107)
Carbon Dioxide 39 H mmol/L
(22-30)
BUN 71 H mg/dl
(7-17)
Creatinine 2.1 H mg/dL
(0.6-1.0)
Glucose 101 H mg/dl
(70-99)
AST 40 H U/L
(14-36)
01/24/24 17:03
01/24/24 17:37
Vital Signs
Initial and Last Documented VS:
Initial Vital Signs
Temp Pulse Resp BP Pulse Ox
97.9 F 70 18 143/62 93
01/24/24 16:36 01/24/24 16:36 01/24/24 16:36 01/24/24 16:36 01/24/24 16:36
Last Documented Vital Signs
Temp Pulse Resp BP Pulse Ox
97.9 F 61 21 143/62 97
01/24/24 16:36 01/24/24 20:30 01/24/24 20:30 01/24/24 16:36 01/24/24 20:30
<Eve Jolley PA-C - Last Filed: 01/24/24 22:29>
MDM/Problems Addressed
Differential Diagnosis Includes:
83yoF here with bilateral leg swelling and weight gain x 2 weeks. PCP increased her Lasix dose to 120mg daily. Improvement has plateaued despite increasing diuretic dosing. Oxygen saturation dropped to 87-88% on initial exam and she was placed on 2L
NC. She is clinically volume overloaded on exam. Differential diagnosis includes but is not limited to: CHF exacerbation, cardiorenal syndrome, ETHAN
Initial ED plan: Check cardiac labs, EKG, and CXR.
<Eve Jolley PA-C - Last Filed: 01/24/24 22:29>
*EKG
Interpreted by ED Provider?: Yes
EKG Intrepretation Date: 01/24/24
Heart Rate: 60
Rate: normal
Rhythm: ventricular paced
[place]: normal axis
*Critical Care Note
Total Time (30-74mins, 75-104mins- exclusive of procedures): Not Applicable
<Eve Jolley PA-C - Last Filed: 01/24/24 22:29>
Update Note
Update Note:
BNP 8500. Creatinine 2.1, up from baseline of 1.6. Pulmonary edema present on CXR. 60mg IV Lasix ordered and she was admitted for further management.
ED Attending Note
<WOODY Rehman - Last Filed: 01/24/24 16:43>
-
Portions of this chart may have been created with voice recognition software.� Occasional wrong word or��sound alike� substitutions may have occurred due to the inherent limitations of voice recognition software.
Discharge Plan
Departure
Patient Disposition: Admit
Date of Disposition: 01/24/24
Time of Disposition: 19:09
Presentation/result/management discussed w/ accepting MD/DO: Hospitalist
Discharge Problem:
Acute exacerbation of CHF (congestive heart failure), Acute hypoxemic respiratory failure
Interventions
Interventions:
*Risk Screen - Suicide Last Done: 01/24/24 17:05
*General Assessment Last Done: 01/24/24 17:05
*Neglect/Abuse Screening Last Done: 01/24/24 17:05
*ED COVID-19 Vaccine History Last Done: 01/24/24 22:13
*Nursing Disposition Last Done: 01/24/24 21:50
ED- Cardiac Assessment Last Done: 01/24/24 17:05
ED- Pulmonary Assessment Last Done: 01/24/24 17:05
Discharge Date and Time
Discharge Date/Time: 01/24/24 21:51
[2024-01-24 17:05] VITALS: BMI 29.6
[2024-01-24 17:09] LABS: % Basophils 0.6 % (0-2); % Eosinophils 3.3 % (0-6); % Immature Granulocytes 0.2 % (0-0.5); % Lymphocytes 19.1 % (20.5-51.1); % Monocytes 12.1 % (1.7-9.3); % Neutrophils 64.7 % (42.2-75.2); Absolute Eosinophils 0.2 10^3/uL (0-0.7); Absolute Monocytes 0.6 10^3/uL (0.1-0.6); Absolute Neutrophils 3.3 10^3/uL (1.4-6.5); Hematocrit 35.4 % (37.0-47.0); Hemoglobin 11.7 g/dL (12.0-16.0); Mean Corp Hgb Conc. 33.1 g/dL (33.0-37.0); Mean Corpuscular Hgb 29.7 pg (27.0-31.0); Mean Corpuscular Volume 89.8 fL (81.0-99.0); Mean Platelet Volume 12.1 fL (7.4-10.4); Nucleated Red Blood Cells % 0 %; Platelet Count 170 10^3/uL (130-400); Red Blood Cell Count 3.94 10^6/uL (4.20-5.40); Red Cell Dist. Width 14.9 % (11.5-14.5); White Blood Cell Count 5.1 10^3/uL (4.8-10.8)
[2024-01-24 17:50] LABS: NT-proBNP 8480 pg/ml
[2024-01-24 18:06] LABS: ALT (SGPT) 19 U/L (0-35); AST (SGOT) 40 U/L (14-36); Albumin 4.2 g/dl (3.5-5.0); Alkaline Phosphatase 61 U/L (38-126); Blood Urea Nitrogen 71 mg/dl (7-17); Calcium 9.4 mg/dl (8.4-10.2); Carbon Dioxide 39 mmol/L (22-30); Chloride 93 mmol/L (98-107); Estimated Creatinine Clearance 21 ml/min; Glucose 101 mg/dl (70-99); Potassium 3.9 mmol/L (3.5-5.1); Sodium 140 mmol/L (135-145); Total Bilirubin 0.7 mg/dl (0.2-1.3); Total Protein 7.4 g/dl (6.3-8.2); eGFR 22.66
--- NOTE | 2024-01-24 19:39 | HPS.HSE ---
Family Physician
-
Family Physician: Oh Calvin
Chief Complaint
-
shortness of breath
History of Present Illness
83-year-old female past medical history of paroxysmal atrial fibrillation on Eliquis with pacemaker, HFpEF, hypertension, hyperlipidemia, CKD, amiodarone lung toxicity, presenting with increasing shortness of breath over the past weeks and increased
lower extremity edema. She normally takes 40 Lasix once per day which was increased to 60 twice a day 5 days ago. Patient has gained 20 pounds in the past month. Since starting the increased dose of Lasix she has lost 3 pounds within the first
few days without any further weight loss. No cough or fevers or chest pain.
Medical History
Past Medical History
Past Medical History: Reports Other (paroxysmal atrial fibrillation on Eliquis with pacemaker, HFpEF, hypertension, hyperlipidemia, CKD, amiodarone lung toxicity)
Past Surgical History: Reports None
Social History
Tobacco: Non-smoker
Alcohol: None
Drug: None
Family History
Family History: Not pertinent
Allergies / Home Medications
Allergies reflects when Allergies were last updated in [employer].
Home Medications with original date entered in [employer]
Allergy/Medication List:
Allergies
Allergy/AdvReac Type Severity Reaction Status Date / Time
adhesive tape Allergy Rash Verified 06/21/23 14:01
cefuroxime [From Ceftin] Allergy throat Verified 06/21/23 14:01
closes
ragweed pollen Allergy Unknown Verified 06/21/23 14:01
Sulfa (Sulfonamide Allergy throat Verified 06/21/23 14:01
Antibiotics) closes
Home Medications
atorvastatin 10 mg tablet 10 mg PO QPM High cholesterol 10/21/20
phenobarbital 32.4 mg tablet 32.4 mg PO DAILY Seizures 10/21/20
phenobarbital 32.4 mg tablet 64.8 mg PO HS Seizures 10/21/20
fenofibrate micronized 134 mg capsule 134 mg PO DAILY High Cholesterol 06/21/23
flecainide 50 mg tablet 50 mg PO BID Arrhythmia 06/21/23
hydralazine 100 mg tablet 100 mg PO TID Blood Pressure 06/21/23
apixaban 2.5 mg tablet (Eliquis) 2.5 mg PO BID #60 tabs 06/26/23
albuterol sulfate 90 mcg/actuation breath activated powder inhaler (ProAir RespiClick) 2 inh inhalation R Q4HPRN PRN sob 01/24/24
furosemide 40 mg tablet 60 mg PO BID 01/24/24
melatonin 5 mg tablet 5 mg PO HSPRN PRN sleep 01/24/24
metoprolol succinate 25 mg tablet,extended release 24 hr 25 mg PO DAILY Blood pressure 01/24/24
Review of Systems
-
History Source: Patient
A 12 point ROS was completed and negative except as noted: Yes
Constitutional: Reports No Symptoms
EENT: Reports No Symptoms
Respiratory: Reports No Symptoms
Cardiac: Reports No Symptoms
Abdomen/GI: Reports No Symptoms
: Reports No Symptoms
Musculoskeletal: Reports No Symptoms
Skin: Reports No Symptoms
Neurological: Reports No Symptoms
Endocrine: Reports No Symptoms
Hematologic/Lymphatic: Reports No Symptoms
Psych: Reports No Symptoms
Physical Exam
Vital Signs
Vital Signs
Temp Pulse Resp BP Pulse Ox
97.9 F 70 18 143/62 93
01/24/24 16:36 01/24/24 16:36 01/24/24 16:36 01/24/24 16:36 01/24/24 16:36
Physical Exam
General: Well Developed, Well Nourished and No Apparent Distress
HEENT: NormoCephalic, Moist mucous membranes and Atraumatic
Respiratory: Rales
Cardiac: S1/S2, Regular Rhythm and Peripheral Edema; No Murmur or Rub
GI: Soft, Non Tender, Non Distended and Normal Bowel Sounds; No Organomegaly
Rectal: Deferred by Provider
Musculoskeletal: No Clubbing, No Cyanosis and No Edema
Skin: No Rash
Neuro: Nonfocal/grossly intact
Laboratory Results
-
01/24/24 17:03
01/24/24 17:37
Laboratory Results
Total Bilirubin 0.7 mg/dl (0.2-1.3) 01/24/24 17:37
AST 40 U/L (14-36) H 01/24/24 17:37
ALT 19 U/L (0-35) 01/24/24 17:37
Alkaline Phosphatase 61 U/L (38-126) 01/24/24 17:37
Data Reviewed
-
Lab Data: Labs Reviewed by me
Old Records: Reviewed
Impression/Plan
-
IMPRESSION:
PLAN:
# Acute on chronic HFpEF exacerbation
#Moderate aortic stenosis
#Moderate tricuspid regurgitation
-Chest x-ray shows interstitial markings bilaterally
-Cardiac BNP of 8400 from 8750 previously
-Check I's and O's, daily weights
-Lasix 60 IV twice daily
-Cardiology consulted
#ETHAN on CKD 3 likely cardiorenal
-Creatinine of 2.1 from 1.6
-Observe with diuresis
Paroxysmal atrial fibrillation
-Continue Eliquis
-Continue flecainide
-Continue metoprolol
COPD
-Not on home oxygen
-Continue inhalers
Obstructive sleep apnea
-Continue CPAP
Essential hypertension
-Continue hydralazine
Seizure disorder
-Continue phenobarbital
Chronic anemia
-Hemoglobin stable
Hyperlipidemia
-Continue statin, fenofibrate
Full code
DVT prophylaxis�Eliquis
Cardiac diet
[2024-01-24] MEDS: LASIX 60 MG IV (19:40)
[2024-01-24 21:56] VITALS: BP 154/68
[2024-01-24 22:20] VITALS: BMI 29.6
[2024-01-24] MEDS: ELIQUIS 2.5 MG PO (22:46)
[2024-01-24] MEDS: APRESOLINE 100 MG PO (22:47)
[2024-01-24] MEDS: LUMINAL 64.8 MG PO (22:47)
[2024-01-24] MEDS: TAMBOCOR 50 MG PO (22:48)
[2024-01-24 23:09] VITALS: BMI 29.5
--- NOTE | 2024-01-25 01:27 | SUR.OPER ---
pt admitted to room 2249. Pt AAOx3 able to ambulate with x1 assist. Using own CPAP at HS. Oriented to room, safety measures in place
[2024-01-25 03:15] VITALS: BP 118/51
[2024-01-25 04:15] LABS: Hemoglobin 10.5 g/dL (12.0-16.0); Mean Corp Hgb Conc. 32.8 g/dL (33.0-37.0); Mean Corpuscular Hgb 30.5 pg (27.0-31.0); Mean Platelet Volume 12.5 fL (7.4-10.4); Platelet Count 134 10^3/uL (130-400); Red Blood Cell Count 3.44 10^6/uL (4.20-5.40); Red Cell Dist. Width 14.6 % (11.5-14.5); White Blood Cell Count 3.4 10^3/uL (4.8-10.8)
[2024-01-25 04:37] LABS: ALT (SGPT) 18 U/L (0-35); AST (SGOT) 35 U/L (14-36); Albumin 3.8 g/dl (3.5-5.0); Alkaline Phosphatase 50 U/L (38-126); Blood Urea Nitrogen 68 mg/dl (7-17); Calcium 9.3 mg/dl (8.4-10.2); Carbon Dioxide 39 mmol/L (22-30); Chloride 95 mmol/L (98-107); Estimated Creatinine Clearance 22 ml/min; Glucose 91 mg/dl (70-99); Potassium 3.7 mmol/L (3.5-5.1); Sodium 142 mmol/L (135-145); Total Bilirubin 0.6 mg/dl (0.2-1.3); Total Protein 6.8 g/dl (6.3-8.2); eGFR 24.03
[2024-01-25 07:48] VITALS: BMI 29.1
--- NOTE | 2024-01-25 07:49 | W.PN.HOSP.TC ---
Today's Communication/Plan
-
.
Assessment / Plan
Assessment / Plan
Ms. Sonali Barr is an 83yo F pmh HFpEF (EF 65-70%), paroxysmal afib on eliquis, HTN, HLD, stage IV CKD admitted 01/23 for an acute exacerbation of CHF.
Acute on chronic HFpEF exacerbation
Moderate
Moderate TR
- proBNP 8480
- CXR: minimal R pleural effusion/pleural thickening, new mild cardiomegaly
- echo (06/2023): EF 65-70%, moderate to severe LVH, heavily calcified mitral annulus, mild MR, mod , mod TR, pulm htn
- keep Mg>2 and K>4. Replete as needed
- cardiology consulted
- I's&O's, daily weights
- PT/OT
- lasix 80mg BID
- follows w Dr. Gonzáles
ETHAN on CKD stage 3-4
- likely cardiorenal syndrome
- Cr 2.0, baseline 1.6
- diurese
- follow bmp
Normocytic Anemia
- around baseline
- follow cbc
Paroxysmal afib
- cont eliquis, flecainide, metoprolol
- stable
COPD
- cont inhalers
GIOVANY
Overweight due to excess calories
- cont CPAP
HTN
HLD
- cont hydralazine, statin, fenofibrate
Seizure disorder
- cont phenobarbital
Chronic anemia
- Hb stable
DVT prophylaxis
- eliquis
Code status: FULL CODE
Diet: diabetic
Anticipated Discharge: 24 - 48 hours
Subjective/Interval History
-
Date of Service: January 25, 2024
Ms. Sonali Barr is an 83yo F pmh HFpEF (EF 65-70%), paroxysmal afib on eliquis, HTN, HLD, stage IV CKD admitted 01/23 for an acute exacerbation of CHF. Dyspnea has improved.
Objective Data
-
Labs:
Laboratory Results
01/25/24
03:24
WBC 3.4 L
Hgb 10.5 L
Hct 32.0 L
Plt Count 134 D
Sodium 142
Potassium 3.7
Chloride 95 L
Carbon Dioxide 39 H
BUN 68 H
Creatinine 2.0 H
Glucose 91
Calcium 9.3
Total Bilirubin 0.6
AST 35
ALT 18
Alkaline Phosphatase 50
Vital Signs:
Vital Signs
Temp Pulse Resp BP Pulse Ox
97.3 F 60 20 118/51 94
01/24/24 21:55 01/25/24 05:45 01/25/24 03:15 01/25/24 03:15 01/25/24 03:15
I&O
01/24/24 01/25/24 01/26/24
06:59 06:59 06:59
Intake Total 300 / 300
Output Total 230 / 230
Balance 70 / 70
Review of Systems
-
History Source: Patient
Constitutional: Reports No Symptoms
EENT: Reports No Symptoms Reported
Respiratory: Reports Trouble Breathing; Denies Cough
Cardiac: Reports No Symptoms
Abdomen/GI: Reports No Symptoms
Genitourinary: Reports No Symptoms
Musculoskeletal: Reports No Symptoms
Neuro: Reports No Symptoms
Physical Exam
-
General: Well Developed and Well Nourished
HEENT: Normocephalic, Atraumatic and Oxygen (3L O2 nasal cannula)
Respiratory: Wheezes
Cardiac: Regular Rhythm, S1/S2, Murmur and Other (a&v paced)
GI: Soft, Nontender, Nondistended and Normal Bowel Sounds
Genito-urinary: No Costovertebral Tender
Musculoskeletal: No Clubbing, No Cyanosis, Edema, Right Lower Extrem (+2) and Edema, Left Lower Extrem (+2)
Skin: Warm, Dry and Lesions
Neuro: Awake and AO x 3
Psych: Calm
[2024-01-25 07:51] VITALS: BP 134/65
--- NOTE | 2024-01-25 08:15 | PTCARENOTE ---
Assumed care of pt from prev nsg shift; AAOx3 w/no c/o CP. Pt is c/o SOB this AM. Pt's O2 sat 86% on RA after taking off her own CPAP. O2 at 3L applied to pt w/O2 stats improving to 93%. Pt still 'feeling SOB', so this RN TT resp therapist for a PRN
inhaler treatment for pt. Pt's scheduled IV lasix administered as ordered. Pt voided 550 mLs of clear, yellow urine in BSC. Pt's VS stable this AM w/HR of 60 & BP 134/65. Pt is [employer] on telemetry monitoring. Pt w/call cruz within reach & plan of care
ongoing.
--- NOTE | 2024-01-25 08:38 | CON.CAR ---
Addendum entered and electronically signed by Lior Wang MD 01/25/24 13:30:
Patient seen and examined in collaboration with ESTHETICIAN/OWNER; agree with below.
-83-year-old female with cardiac history as outlined below including HFpEF admitted with shortness of breath.
-Acute on chronic HFpEF.
-Recommend Lasix 80 mg IV BID.
-Monitor weights and I/Os.
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
Original Note:
Consultation
Consultation Request
Date/Time Consultation Requested: 01/24/24 10:30p
Date/Time Consultation Performed: 01/25/24 8:30a
Requesting Provider: Dr. Chamberlain
Performing Provider: WOODY Vega for Dr. Wang
Reason for Consultation: acute HFpEF
Medical History
-
Chief Complaint: SOB, weight gain, LE edema
History of Present Illness:
Mrs. Barr is an 83 yo female with paroxysmal Afib, s/p PVI x2, on Eliquis, paroxysmal atrial tachycardia, then had AV josé miguel ablation and MDT dual chamber PPM 02/01/21, chronic HFpEF, moderate , moderate TR, HTN, hyperlipidemia, CKD 3a, COPD,
ILD, amiodarone lung toxicity, and pulmonary HTN, who presents to ER with c/o increasing SOB, LE edema and weight gain. Her outpatient Lasix 40mg daily dose was increased to 40mg BID for 3 days, per our office. Then she was seen by her PCP 01/18/24
and Lasix was increased to 60mg BID, without improvement. Her weight is typically 170 lbs at home. She is admitted to the hospitalist service and we are consulted for acute HFpEF.
She follows with EP Dr. Burnett at [facility], inculding her PPM.
Past Medical History
Past Medical History: Other (as above)
Past Surgical History: Other (as above)
Social History
Tobacco: Non-Smoker
Alcohol: None
Living: With Family
Family History
Family History: Reviewed & Not Pertinent
Allergies / Home Medications
Allergy/AdvReac Type Severity Reaction Status Date / Time
adhesive tape Allergy Rash Verified 06/21/23 14:01
cefuroxime [From Ceftin] Allergy throat Verified 06/21/23 14:01
closes
ragweed pollen Allergy Unknown Verified 06/21/23 14:01
Sulfa (Sulfonamide Allergy throat Verified 06/21/23 14:01
Antibiotics) closes
�Medication �Instructions �Recorded �Confirmed �Type
atorvastatin 10 mg tablet 10 mg PO QPM High cholesterol 10/21/20 01/24/24 History
phenobarbital 32.4 mg tablet 32.4 mg PO DAILY Seizures 10/21/20 01/24/24 History
phenobarbital 32.4 mg tablet 64.8 mg PO HS Seizures 10/21/20 01/24/24 History
fenofibrate micronized 134 mg 134 mg PO DAILY High Cholesterol 06/21/23 01/24/24 History
capsule
flecainide 50 mg tablet 50 mg PO BID Arrhythmia 06/21/23 01/24/24 History
hydralazine 100 mg tablet 100 mg PO TID Blood Pressure 06/21/23 01/24/24 History
apixaban 2.5 mg tablet (Eliquis) 2.5 mg PO BID #60 tabs 06/26/23 01/24/24 Rx
albuterol sulfate 90 mcg/actuation 2 inh inhalation R Q4HPRN PRN sob 01/24/24 01/24/24 History
breath activated powder inhaler
(ProAir RespiClick)
furosemide 40 mg tablet 60 mg PO BID 01/24/24 01/24/24 History
melatonin 5 mg tablet 5 mg PO HSPRN PRN sleep 01/24/24 01/24/24 History
metoprolol succinate 25 mg 25 mg PO DAILY Blood pressure 01/24/24 01/24/24 History
tablet,extended release 24 hr
Review of Systems
-
History Source: Patient
All other systems: Negative unless noted
Physical Exam
Vital Signs
Temp Pulse Resp BP Pulse Ox
97.5 F 63 18 134/65 90
01/25/24 07:53 01/25/24 08:30 01/25/24 07:53 01/25/24 07:51 01/25/24 07:53
Lab Results
01/25/24 03:24
01/25/24 03:24
Wwn-A-Jxviixuocsn Pept 8480 pg/ml 01/24/24 17:03
Physical Exam
General: Well Developed, Well Nourished and No Apparent Distress
HEENT: Normocephalic, Anicteric and Moist Mucous Membranes
Respiratory: Crackles (bibasilar) and Non Labored Respirations
Cardiac: S1/S2, Regular Rhythm (paced) and Peripheral Edema (mild/moderate b/l LE)
Breast: Deferred by me
GI: Soft, Non Tender and Normal Bowel Sounds
Rectal: Deferred by Provider
Genito-urinary: No Costovertebral Tender
Musculoskeletal: No Cyanosis
Skin: Warm and Dry
Neuro: AO x 3
Hematologic/Lymphatic: No Lymphadenopathy
Psych: Calm
Impression / Plan
-
HFpEF - acute on chronic.
- outpatient Lasix 40mg daily was increased to 40mg BID on 01/16/24 for 3 days then increased to 60mg BID on 01/18/24 w/o improvement.
- IV diuresis Lasix 80mg BID and monitor daily weights, I&Os, fluids/sodium.
- outpatient weight is usually 170 lbs at home, it was 178 lbs yesterday.
ETHAN - on CKD3a.
- follow renal labs with diuresis.
PAF/AT - stable on Flecainide and Toprol.
- OAC with Eliquis, continue.
- managed by Dr. Burnett at [facility].
Aortic stenosis - moderate on echo 05/2023.
- stable.
PPM - stable.
- followed at [place].
HTN - stable on Toprol and Hydralazine, continue.
COPD - managed by Dr. Montano as outpatient.
Data Reviewed
-
EKG: Tracing Personally Visualized and interpreted (AV paced 60 bpm)
Radiology: Report Reviewed by me (CXR: CHF, Tiny right pleural effusion.)
Medical Tests (Nuc Med, Echo etc): Report Reviewed by me (echo 05/24/23: EF 65-70%, stage III DD, mild MR, mod peak/mean gradients 42/24 mmHg, mod TR, PASP 75mmHg)
Labs: Labs Reviewed by me
Old Records: Reviewed
[2024-01-25 08:51] LABS: Magnesium 2.5 mg/dl (1.6-2.3)
[2024-01-25] MEDS: ProAIR HFA INHALER 2 PUFF INH ×2 (09:03→17:45)
[2024-01-25] MEDS: ELIQUIS 2.5 MG PO ×2 (09:19→19:58)
[2024-01-25] MEDS: LASIX 60 MG IV (09:19)
[2024-01-25] MEDS: TAMBOCOR 50 MG PO ×2 (09:19→19:58)
[2024-01-25] MEDS: LUMINAL 32.4 MG PO (09:19)
[2024-01-25] MEDS: TOPROL XL 25 MG PO (09:19)
[2024-01-25] MEDS: KCL 40 MEQ PO ×2 (09:19→13:01)
[2024-01-25] MEDS: TRICOR 145 MG PO (09:20)
[2024-01-25] MEDS: APRESOLINE 100 MG PO ×3 (09:20→21:49)
[2024-01-25 11:59] VITALS: BP 114/44
--- NOTE | 2024-01-25 13:24 | CM ---
CM following for DC planning needs.
Met w/ patient at bedside to complete initial assessment.
Pt. resides alone in a private, st mobile home. She is functionally indep. w/ use of a rollator in the home and a SPC outside of the home. Pt. has a CPAP at home and uses regularly.
Pt. has Rx plan and uses [facility] for prescription needs.
Pt. has son/ dtr. that live closeby that can assist as needed.
Pt. has had VN in the past but is not current. She declines any additional VN support at home at this time.
Antic. DC to home, no needs once stable.
[2024-01-25 15:12] VITALS: BP 100/44
[2024-01-25] MEDS: LASIX 80 MG IV (17:25)
[2024-01-25] MEDS: FLUSH (NSS) 2 FLUSH IV (17:25)
[2024-01-25] MEDS: LIPITOR 10 MG PO (17:25)
[2024-01-25 18:48] VITALS: BP 143/58
[2024-01-25 21:47] VITALS: BP 121/52
[2024-01-25] MEDS: LUMINAL 64.8 MG PO (21:49)
--- NOTE | 2024-01-25 23:56 | PTCARENOTE ---
Rec'd pt at handoff. AOX3 and pleasant. 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 Pt has no c/o at this time. POC reviewed w/ pt. Verbalizes understanding. Currently in bed; call nancy w/in reach.
[2024-01-26] VITALS (10 sets, daily range): BP systolic 103–150; BP diastolic 45–83; PULSE 60; O2SAT 93; BMI 28.8
[2024-01-26 05:38] LABS: Hematocrit 34.5 % (37.0-47.0); Hemoglobin 11.4 g/dL (12.0-16.0); Mean Corpuscular Hgb 30.1 pg (27.0-31.0); Mean Platelet Volume 12.2 fL (7.4-10.4); Platelet Count 144 10^3/uL (130-400); Red Blood Cell Count 3.79 10^6/uL (4.20-5.40); Red Cell Dist. Width 14.8 % (11.5-14.5); White Blood Cell Count 4.5 10^3/uL (4.8-10.8)
[2024-01-26 06:04] LABS: Blood Urea Nitrogen 67 mg/dl (7-17); Calcium 9.5 mg/dl (8.4-10.2); Carbon Dioxide 34 mmol/L (22-30); Chloride 98 mmol/L (98-107); Estimated Creatinine Clearance 21 ml/min; Glucose 103 mg/dl (70-99); Magnesium 2.6 mg/dl (1.6-2.3); Potassium 4.1 mmol/L (3.5-5.1); Sodium 145 mmol/L (135-145); eGFR 24.03
--- NOTE | 2024-01-26 08:00 | PTCARENOTE ---
Addendum entered by Laurence Villagomez RN 01/26/24 10:16:
Pt's VS this AM HR 60, BP 138/61, SpO2 92% on RA after removing CPAP.
Original Note:
Assumed care of pt from prev nsg shift; AAOx3 w/no c/o CP. Pt is c/o mild SOB this AM, improved from yesterday. Pt's O2 sat 93% on RA after taking off her own CPAP. Pt's scheduled IV lasix administered as ordered. Pt's VS stable this AM w/HR of 72 &
BP 104/62. 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 Pt w/call cruz within reach & plan of care ongoing.
[2024-01-26] MEDS: TRICOR 145 MG PO (09:05)
[2024-01-26] MEDS: ELIQUIS 2.5 MG PO ×2 (09:05→21:01)
[2024-01-26] MEDS: LASIX 80 MG IV ×2 (09:05→17:27)
[2024-01-26] MEDS: TOPROL XL 25 MG PO (09:05)
[2024-01-26] MEDS: APRESOLINE 100 MG PO ×3 (09:05→21:01)
[2024-01-26] MEDS: TAMBOCOR 50 MG PO ×2 (09:05→21:00)
[2024-01-26] MEDS: LUMINAL 32.4 MG PO (09:05)
[2024-01-26] MEDS: FLUSH (NSS) 2 FLUSH IV ×2 (09:06→17:27)
--- NOTE | 2024-01-26 09:19 | W.PN.HOSP.TC ---
Today's Communication/Plan
-
see note
Assessment / Plan
Assessment / Plan
1. Acute on chronic diastolic heart failure
-patient dry weight close to 77kg per patient, at admission weight of 80kg.
-proBNP close to baseline ~ 8k.
-Lower extremity edema on exam. No significant crackles on exam.
-Currently on IV Lasix 80 mg twice daily continue.
-Weight is coming down and 78.4 kg today, cr remains stable at 2, Urine output of 1.7L
-Cardiology following and help appreciated.
2. ETHAN on CKDIIIB
-creatinine elevated to 2, baseline close to 1.6/GFR 35.
-Follow-up renal function post diuresis.
-Bladder scan ordered
3. Parox afib
-continue on home regimen of Eliquis/flecainide/metoprolol.
4. COPD
-no wheezing on exam. Continue nebulizer therapy.
5. GIOVANY
-continue nighttime of CPAP use.
HTN
HLD
Seizure disorder
Chronic anemia
DVT prophylaxis - eliquis
Code status: FULL CODE
Anticipated Discharge: 24 - 48 hours
Subjective/Interval History
-
Date of Service: January 26, 2024
not on o2
Denies shortness breath/chest discomfort/palpitation overnight
no other issues
Objective Data
-
Labs:
Laboratory Results
01/26/24 01/26/24
05:03 05:04
WBC 4.5 L
Hgb 11.4 L
Hct 34.5 L
Plt Count 144
Sodium 145
Potassium 4.1
Chloride 98
Carbon Dioxide 34 H
BUN 67 H
Creatinine 2.0 H
Glucose 103 H
Calcium 9.5
Vital Signs:
Vital Signs
Temp Pulse Resp BP Pulse Ox
97.8 F 61 16 138/61 92
01/26/24 04:34 01/26/24 08:15 01/26/24 07:33 01/26/24 07:36 01/26/24 07:33
I&O
01/25/24 01/26/24 01/27/24
06:59 06:59 06:59
Intake Total 300 / 300 960 / 960
Output Total 230 / 230 1700 / 1700 400 / 400
Balance 70 / 70 -740 / -740 -400 / -400
Review of Systems
-
Respiratory: Reports No Symptoms
Cardiac: Reports No Symptoms
Abdomen/GI: Reports No Symptoms
Physical Exam
-
General: No Apparent Distress and Comfortable
HEENT: Negative Oxygen
Respiratory: Clear to Auscultation
Cardiac: Regular Rhythm and S1/S2; Negative Murmur or Rub
GI: Soft, Nontender and Nondistended
Musculoskeletal: No Edema
Neuro: Awake, Alert, Oriented, No Motor Deficits and Nonfocal/Grossly Intact
Psych: Calm
--- NOTE | 2024-01-26 10:17 | W.PN.CD ---
Addendum entered and electronically signed by Bill Wang MD 01/26/24 12:47:
I personally evaluated and examined the patient. I agree with the assessment and documentation, examination and plan of care as noted below.
Briefly, 83-year-old woman with history of paroxysmal atrial fibrillation, PVI's and history of paroxysmal atrial tachycardia status post AV node ablation with Medtronic dual-chamber pacemaker at [facility] and chronic HFpEF with moderate aortic
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 Patient is fluid overloaded and needs to diurese. Continue Lasix 80 mg IV twice daily.
Original Note:
Today's Communication / Plan
-
Continue diuresis
Follow renal function with diuresis as she has ETHAN on CKD
Impression / Plan
-
BACKGROUND: 83F with paroxysmal atrial fibrillation (PVI x 2), paroxysmal atrial tachycardia (AV node ablation), Medtronic dual-chamber PPM (02/01/2021), chronic HFpEF, moderate aortic stenosis, moderate tricuspid regurgitation, hypertension,
dyspnea, chronic kidney disease, COPD/ILD, amiodarone lung toxicity, and pulmonary hypertension who presented in acute on chronic heart failure
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
HFpEF - acute on chronic.
- Outpatient Lasix 40mg daily was increased to 40mg BID on 01/16/24 for 3 days then increased to 60mg BID on 01/18/24 w/o improvement.
- proBNP 8000 with pulmonary congestion and weight gain
- IV diuresis with Lasix 80mg BID, this requires intensive monitoring as she has an ETHAN on chronic kidney disease
- Would defer SGLT2i in the setting of ETHAN on CKD
- monitor daily weights, I&Os, fluids/sodium.
- She will benefit from compression
- outpatient weight is usually ~77 kg
ETHAN - on CKD3a.
- follow renal labs with diuresis.
PAF/AT - stable on Flecainide and Toprol.
- OAC: Apixaban 2.5 mg twice daily (age >80, creatinine >1.5)
- managed by Dr. Burnett at [facility].
Aortic stenosis - moderate on echo 05/2023.
- stable.
PPM - stable.
- followed at [place].
HTN - stable on Toprol and Hydralazine, continue.
COPD - managed by Dr. Montano as outpatient.
SUBJECTIVE:
Improvement in shortness of breath
Physical Exam
Vital Signs/Labs
Vital Signs
Temp Pulse Resp BP Pulse Ox
97.8 F 61 16 138/61 92
01/26/24 04:34 01/26/24 08:15 01/26/24 07:33 01/26/24 07:36 01/26/24 07:33
01/25/24 01/26/24 01/27/24
06:59 06:59 06:59
Actual Weight 80.3 kg 79.2 kg 78.4 kg
01/26/24 05:03
01/26/24 05:04
Magnesium 2.6 mg/dl (1.6-2.3) H 01/26/24 05:04
01/24/24
17:03
Taf-G-Kfwqsbkdthd Pept 8480
Physical Exam
Constitutional: No acute distress and Comfortable
EENT: Anicteric and Moist mucous membranes
Cardiovascular: Rhythm & rate is regular, Pedal edema present, Systolic murmur present and S1S2 is normal
Respiratory: Respiratory effort normal and Lungs clear to auscul.
GI: Soft, Distention absent, Flat and Non tender
Neuro/Psych: AO x 3
Other: Skin (Warm and dry with bilateral lower extremity edema)
Data Reviewed
-
Date of Service: January 26, 2024
Labs: Labs Reviewed by me
Old Records: Reviewed
[2024-01-26] MEDS: LIPITOR 10 MG PO (17:28)
--- NOTE | 2024-01-26 20:04 | PTCARENOTE ---
Pt received @ change of shift with visitors at bedside- OOB to the chair. no complaints at this time. 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 HR is the 60s. BP 103/45. CHF education completed.
[2024-01-26] MEDS: LUMINAL 64.8 MG PO (21:01)
[2024-01-27] VITALS (8 sets, daily range): BP systolic 104–145; BP diastolic 48–67; BMI 28.8
[2024-01-27 04:14] LABS: Hemoglobin 11.9 g/dL (12.0-16.0); Mean Corp Hgb Conc. 33.1 g/dL (33.0-37.0); Mean Corpuscular Hgb 30.7 pg (27.0-31.0); Mean Corpuscular Volume 92.8 fL (81.0-99.0); Mean Platelet Volume 12.5 fL (7.4-10.4); Platelet Count 135 10^3/uL (130-400); Red Blood Cell Count 3.88 10^6/uL (4.20-5.40); Red Cell Dist. Width 14.6 % (11.5-14.5); White Blood Cell Count 4.6 10^3/uL (4.8-10.8)
[2024-01-27 04:30] LABS: Blood Urea Nitrogen 69 mg/dl (7-17); Calcium 9.6 mg/dl (8.4-10.2); Carbon Dioxide 35 mmol/L (22-30); Chloride 95 mmol/L (98-107); Estimated Creatinine Clearance 21 ml/min; Glucose 90 mg/dl (70-99); Magnesium 2.6 mg/dl (1.6-2.3); Potassium 4.2 mmol/L (3.5-5.1); Sodium 143 mmol/L (135-145); eGFR 24.03
--- NOTE | 2024-01-27 07:45 | PTCARENOTE ---
Assumed care of pt from prev nsg shift; AAOx3 w/no c/o CP. Pt's O2 sat 91% on RA after taking off her own CPAP. Pt's VS stable this AM w/HR of 60 & BP 137/57. 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 Pt encouraged OOB for meals. Pt w/call cruz within
reach & plan of care ongoing.
--- NOTE | 2024-01-27 09:39 | W.PN.CD ---
Today's Communication / Plan
-
Continue diuresis
Impression / Plan
-
BACKGROUND: 83F with paroxysmal atrial fibrillation (PVI x 2), paroxysmal atrial tachycardia (AV node ablation), Medtronic dual-chamber PPM (02/01/2021), chronic HFpEF, moderate aortic stenosis, moderate tricuspid regurgitation, hypertension,
dyspnea, chronic kidney disease, COPD/ILD, amiodarone lung toxicity, and pulmonary hypertension who presented in acute on chronic heart failure
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 Burnett ([facility])
HFpEF - acute on chronic.
- Outpatient Lasix 40mg daily was increased to 40mg BID on 01/16/24 for 3 days then increased to 60mg BID on 01/18/24 w/o improvement.
- proBNP 8000 with pulmonary congestion and weight gain
- IV diuresis with Lasix 80mg BID, this requires intensive monitoring as she has an ETHAN on chronic kidney disease
- Would defer SGLT2i in the setting of ETHAN on CKD
- monitor daily weights, I&Os, fluids/sodium.
- She will benefit from compression
- outpatient weight is usually ~77 kg
ETHAN - on CKD3a.
- follow renal labs with diuresis.
PAF/AT - stable on Flecainide and Toprol.
- OAC: Apixaban 2.5 mg twice daily (age >80, creatinine >1.5)
- managed by Dr. Burnett at [facility].
Aortic stenosis - moderate on echo 05/2023.
- stable.
PPM - stable.
- followed at [place].
HTN - stable on Toprol and Hydralazine, continue.
COPD - managed by Dr. Montano as outpatient.
SUBJECTIVE:
Improvement in shortness of breath
Physical Exam
Vital Signs/Labs
Vital Signs
Temp Pulse Resp BP Pulse Ox
97.8 F 79 20 137/57 94
01/27/24 07:09 01/27/24 08:00 01/27/24 07:09 01/27/24 07:11 01/27/24 07:11
01/26/24 01/27/24 01/28/24
06:59 06:59 06:59
Actual Weight 79.2 kg 78.6 kg
01/27/24 02:53
01/27/24 02:53
Magnesium 2.6 mg/dl (1.6-2.3) H 01/27/24 02:53
01/24/24
17:03
Lpg-K-Covkzmfsgeq Pept 8480
Physical Exam
Constitutional: No acute distress and Comfortable
EENT: Anicteric and Moist mucous membranes
Cardiovascular: Rhythm & rate is regular, Pedal edema is absent and JVD pressure is normal
Respiratory: Respiratory effort normal, Lungs clear to auscul. and Wheeze Absent
GI: Soft, Distention absent, Non tender and Normal bowel sounds
Neuro/Psych: Alert, Oriented and AO x 3
Data Reviewed
-
Date of Service: January 27, 2024
Medical Decision Making: Reviewed Test Results, Independent Historian Assessment and Test Interpretation
EKG: Tracing Personally Visualized and interpreted
Echo: Report Reviewed by me
Labs: Labs Reviewed by me
Old Records: Reviewed
[2024-01-27] MEDS: LASIX 80 MG IV ×2 (10:22→18:05)
[2024-01-27] MEDS: LUMINAL 32.4 MG PO (10:23)
[2024-01-27] MEDS: FLUSH (NSS) 2 FLUSH IV (10:23)
[2024-01-27] MEDS: ELIQUIS 2.5 MG PO ×2 (10:23→19:31)
[2024-01-27] MEDS: TRICOR 145 MG PO (10:23)
[2024-01-27] MEDS: TOPROL XL 25 MG PO (10:24)
[2024-01-27] MEDS: TAMBOCOR 50 MG PO ×2 (10:24→19:32)
[2024-01-27] MEDS: APRESOLINE 100 MG PO ×3 (10:24→21:33)
--- NOTE | 2024-01-27 10:36 | W.PN.HOSP.TC ---
Today's Communication/Plan
-
see note
Assessment / Plan
Assessment / Plan
1. Acute on chronic diastolic heart failure
-patient dry weight close to 77kg per patient, at admission weight of 80kg.
-proBNP close to baseline ~ 8k.
-Lower extremity edema on exam. No significant crackles on exam.
-Currently on IV Lasix 80 mg twice daily continue.
-weight and cr remains identical 78.5Kg and 2 respectively
-provide compression stocking, leg elevation when feasible
-Providing one time dose of metolazone 5mg
2. ETHAN on CKDIIIB
-creatinine elevated to 2, baseline close to 1.6/GFR 35.
-Follow-up renal function post diuresis.
-Bladder scan ordered
3. Parox afib
-continue on home regimen of Eliquis/flecainide/metoprolol.
4. COPD
-no wheezing on exam. Continue nebulizer therapy.
5. GIOVANY
-continue nighttime of CPAP use.
HTN
HLD
Seizure disorder
Chronic anemia
DVT prophylaxis - eliquis
Code status: FULL CODE
Discussed care with cardiology
Anticipated Discharge: 24 - 48 hours
Subjective/Interval History
-
Date of Service: January 27, 2024
patient resting comfortably in chair
denies significant dyspnea
no new issues overnight
Objective Data
-
Labs:
Laboratory Results
01/27/24
02:53
WBC 4.6 L
Hgb 11.9 L
Hct 36.0 L
Plt Count 135
Sodium 143
Potassium 4.2
Chloride 95 L
Carbon Dioxide 35 H
BUN 69 H
Creatinine 2.0 H
Glucose 90
Calcium 9.6
Vital Signs:
Vital Signs
Temp Pulse Resp BP Pulse Ox
97.8 F 79 20 137/57 94
01/27/24 07:09 01/27/24 08:00 01/27/24 07:09 01/27/24 07:11 01/27/24 07:11
I&O
01/26/24 01/27/24 01/28/24
06:59 06:59 06:59
Intake Total 960 / 960 240 / 240
Output Total 1700 / 1700 1000 / 1000
Balance -740 / -740 -760 / -760
Review of Systems
-
Respiratory: Reports No Symptoms
Cardiac: Reports No Symptoms
Abdomen/GI: Reports No Symptoms
Physical Exam
-
General: No Apparent Distress and Comfortable
HEENT: Negative Oxygen
Respiratory: Clear to Auscultation
Cardiac: Regular Rhythm and S1/S2; Negative Murmur or Rub
GI: Soft, Nontender and Nondistended
Musculoskeletal: Edema, Right Lower Extrem and Edema, Left Lower Extrem
Neuro: Awake, Alert, Oriented, No Motor Deficits and Nonfocal/Grossly Intact
Psych: Calm
[2024-01-27] MEDS: ZAROXOLYN 5 MG PO (11:58)
[2024-01-27] MEDS: LIPITOR 10 MG PO (18:05)
[2024-01-27] MEDS: FLUSH (NSS) 1 FLUSH IV (19:32)
[2024-01-27] MEDS: TYLENOL 650 MG PO (19:32)
--- NOTE | 2024-01-27 20:18 | PTCARENOTE ---
Received patient at change of shift. Patient resting in bed, aroused to sound. Alert and oriented once awakened. BP 116/50, A-V Paced 60, 98% on room air. Patient c/o headache-- gave PRN Tylenol-- see JUN. Discussed plan of care. Patient verbalized
understanding. Call cruz within reach.
[2024-01-27] MEDS: LUMINAL 64.8 MG PO (21:33)
[2024-01-28] VITALS (8 sets, daily range): BP systolic 105–138; BP diastolic 43–67; BMI 28.7
[2024-01-28 05:11] LABS: Hematocrit 30.8 % (37.0-47.0); Hemoglobin 10.3 g/dL (12.0-16.0); Mean Corp Hgb Conc. 33.4 g/dL (33.0-37.0); Mean Corpuscular Hgb 29.8 pg (27.0-31.0); Mean Platelet Volume 12.6 fL (7.4-10.4); Platelet Count 128 10^3/uL (130-400); Red Blood Cell Count 3.46 10^6/uL (4.20-5.40); Red Cell Dist. Width 14.6 % (11.5-14.5); White Blood Cell Count 4.2 10^3/uL (4.8-10.8)
[2024-01-28 05:29] LABS: Blood Urea Nitrogen 73 mg/dl (7-17); Calcium 9.4 mg/dl (8.4-10.2); Carbon Dioxide 37 mmol/L (22-30); Chloride 92 mmol/L (98-107); Estimated Creatinine Clearance 19 ml/min; Glucose 93 mg/dl (70-99); Magnesium 2.4 mg/dl (1.6-2.3); Potassium 3.5 mmol/L (3.5-5.1); Sodium 141 mmol/L (135-145); eGFR 21.43
[2024-01-28] MEDS: TRICOR 145 MG PO (08:10)
[2024-01-28] MEDS: ELIQUIS 2.5 MG PO ×2 (08:11→21:50)
[2024-01-28] MEDS: TOPROL XL 25 MG PO (08:11)
[2024-01-28] MEDS: APRESOLINE 100 MG PO ×3 (08:11→21:48)
[2024-01-28] MEDS: TAMBOCOR 50 MG PO ×2 (08:11→21:50)
[2024-01-28] MEDS: LUMINAL 32.4 MG PO (08:11)
--- NOTE | 2024-01-28 08:15 | PTCARENOTE ---
Rec'd pt at handoff. AOX3 and pleasant. Tele- AV paced. Pt has no c/o pain/discomfort at this time. POC reviewed w/ pt. Verbalizes understanding. Currently OOB in chair eating breakfast.
--- NOTE | 2024-01-28 08:53 | W.PN.CD ---
Today's Communication / Plan
-
PO diuretics tomorrow.
Repeat echocardiogram to assess .
Impression / Plan
-
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
dyspnea, chronic kidney disease, COPD/ILD, amiodarone lung toxicity, and pulmonary hypertension who presented in acute on chronic heart failure
#HFpEF
-Acute on chronic.
-Outpatient Lasix 40mg daily was increased to 40mg BID on 01/16/24 for 3 days then increased to 60mg BID on 01/18/24 w/o improvement.
-proBNP 8000 with pulmonary congestion and weight gain.
-IV diuresis with Lasix 80mg BID, this requires intensive monitoring as she has an ETHAN on chronic kidney disease. Switch to furosemide 80 mg PO BID tomorrow.
-Would defer SGLT2i in the setting of ETHAN on CKD.
-Monitor daily weights, I&Os, fluids/sodium.
-She will benefit from compression.
-Outpatient weight is usually ~77 kg.
-Repeat echocardiogram to see if has progressed, causing HF exacerbation.
#ETHAN - on CKD3a
-Follow renal labs with diuresis.
-Creatinine around 2.2 but she is not yet at dry weight.
-Electrolytes are stable.
#PAF/AT
-S/P AVN ablation with PPM.
-Currently paced.
-Rate/rhythm control with Flecainide and metoprolol succinate.
-CHADS2-Vasc = 5 (CHF, HTN, Age x2, Female).
-OAC: Apixaban 2.5 mg twice daily (age >80, creatinine >1.5).
-Managed by Dr. Burnett at [facility].
#Aortic stenosis
-Chronic, stable.
-Moderate on echo 05/2023.
-Repeat echo.
#PPM
-Chronic, stable.
-Followed at [place].
#HTN
-Chronic, stable.
-Continue metoprolol succinate and hydralazine.
#COPD
-Chronic, stable (though probably contributing).
-Managed by Dr. Montano as outpatient.
[employer]ier Payments Received: Dr. Burnett ([facility])
Subjective/Interval History:
Weight 78.1 kg this morning.
SaO2 92% on RA.
DATA:
TTE, 05/24/2023:
CONCLUSIONS
Small LV cavity with normal systolic function.
Estimated ejection fraction of 65 to 70%.
Moderate to severe LVH.
Stage III diastolic dysfunction suggestive of restrictive filling pattern and
increased filling pressures.
Heavily calcified mitral annulus with restricted leaflets. Mild mitral
regurgitation.
Moderate aortic stenosis.
Moderate tricuspid regurgitation.
Severely elevated estimated PASP of 75 mmHg. Assuming a right atrial pressure
of 15 mmHg.
Compared to prior from December 15, 2020, aortic stenosis has progressed and is
now moderate, tricuspid regurgitation has gone from mild to now moderate, and
estimated PASP is now severely elevated at 75 mmHg.
Physical Exam
Vital Signs/Labs
Vital Signs
Temp Pulse Resp BP Pulse Ox
36.7 C 60 18 121/47 92
01/28/24 07:34 01/28/24 06:00 01/28/24 07:34 01/28/24 04:09 01/28/24 07:34
01/26/24 01/27/24 01/28/24
11:59 11:59 11:59
Actual Weight 78.4 kg 78.6 kg 78.1 kg
01/28/24 04:30
01/28/24 04:30
Magnesium 2.4 mg/dl (1.6-2.3) H 01/28/24 04:30
01/24/24
17:03
Aij-G-Nrzteynbyvw Pept 8480
Physical Exam
Constitutional: No acute distress and Comfortable
EENT: Anicteric and Moist mucous membranes
Cardiovascular: Rhythm & rate is regular, JVD pressure is normal, Pedal edema present, Systolic murmur present, S1S2 is normal and Rub absent
Respiratory: Respiratory effort normal and Other (Decreased throughout.)
GI: Soft, Distention absent, Flat, Non tender and Normal bowel sounds
Neuro/Psych: AO x 3
Data Reviewed
-
Date of Service: January 28, 2024
Medical Decision Making: Reviewed Test Results, Independent Historian Assessment and Test Interpretation
EKG: Tracing Personally Visualized and interpreted and Report Reviewed by me
Echo: Report Reviewed by me
X-Ray/CT/US/MRI/NUC/PET: Image Personally Visualized and interpreted and Report Reviewed by me
Medical Tests (PFT, Pathology etc): Report Reviewed by me
Labs: Labs Reviewed by me
Old Records: Reviewed
[2024-01-28] MEDS: LASIX 80 MG IV ×2 (11:27→18:11)
--- NOTE | 2024-01-28 15:33 | W.PN.HOSP.TC ---
Today's Communication/Plan
-
PO Lasix in 24 hours; follow AM BMP
Assessment / Plan
Assessment / Plan
Assessment:
Acute on chronic diastolic heart failure
hx of Aortic stenosis
- s/p IV Lasix course; weight near 78 kg, PO Lasix tomorrow
- continue compression, leg elevation when feasible
- repeat Echo
ETHAN on CKD3b
- creatinine elevated to 2, baseline close to 1.6/GFR 35.
- Follow-up renal function post diuresis.
- Bladder scan ordered
Parox Afib
- S/P AVN ablation with PPM
- continue on home regimen of Eliquis/flecainide/metoprolol.
COPD
- no wheezing on exam. Continue nebulizer therapy.
GIOVANY
- continue nighttime of CPAP use.
Essential HTN
- Continue metoprolol succinate and hydralazine.
HLD
Seizure disorder
Chronic anemia
DVT prophylaxis: Eliquis
Code: Full
Anticipated Discharge: > 48 hours
Subjective/Interval History
-
Date of Service: January 28, 2024
denies any new complaints
weight down
IV diuretics held for ETHAN
Objective Data
-
Labs:
Laboratory Results
01/28/24
04:30
WBC 4.2 L
Hgb 10.3 L
Hct 30.8 L
Plt Count 128 L
Sodium 141
Potassium 3.5
Chloride 92 L
Carbon Dioxide 37 H
BUN 73 H
Creatinine 2.2 H
Glucose 93
Calcium 9.4
Vital Signs:
Vital Signs
Temp Pulse Resp BP Pulse Ox
97.6 F 61 16 105/43 90
01/28/24 15:15 01/28/24 15:14 01/28/24 15:15 01/28/24 15:14 01/28/24 15:15
I&O
01/27/24 01/28/24 01/29/24
06:59 06:59 06:59
Intake Total 240 / 240 480 / 480 400 / 400
Output Total 1000 / 1000 1365 / 1365 1050 / 1050
Balance -760 / -760 -885 / -885 -650 / -650
Physical Exam
-
General: No Apparent Distress
HEENT: Normocephalic and Atraumatic
Respiratory: Clear to Auscultation; Negative Wheezes
Cardiac: Regular Rhythm, S1/S2 and Murmur
GI: Soft
Genito-urinary: No Costovertebral Tender
Neuro: AO x 3
Psych: Calm
Data Reviewed
-
Total Time Spent with Patient (in minutes): 44
Labs: Labs Reviewed by me
--- NOTE | 2024-01-28 15:57 | CM ---
dc plans remain home when medically stable. cm following.
[2024-01-28] MEDS: LIPITOR 10 MG PO (18:10)
[2024-01-28] MEDS: LUMINAL 64.8 MG PO (21:50)
--- NOTE | 2024-01-28 23:56 | PTCARENOTE ---
Received patient at change of shift. Patient awake, alert, and oriented sitting in chair. BP 111/51, A-V Paced 60s, 96% on room air. Discussed patient's plan of care of the evening. Patient verbalized understanding. Call cruz within reach.
[2024-01-29 03:17] VITALS: BP 134/62
[2024-01-29 03:56] LABS: Hematocrit 31.1 % (37.0-47.0); Hemoglobin 10.9 g/dL (12.0-16.0); Mean Corpuscular Hgb 30.1 pg (27.0-31.0); Mean Corpuscular Volume 85.9 fL (81.0-99.0); Mean Platelet Volume 12.4 fL (7.4-10.4); Platelet Count 143 10^3/uL (130-400); Red Blood Cell Count 3.62 10^6/uL (4.20-5.40); Red Cell Dist. Width 14.5 % (11.5-14.5); White Blood Cell Count 4.3 10^3/uL (4.8-10.8)
[2024-01-29 04:22] LABS: Blood Urea Nitrogen 83 mg/dl (7-17); Calcium 9.4 mg/dl (8.4-10.2); Carbon Dioxide 37 mmol/L (22-30); Chloride 92 mmol/L (98-107); Estimated Creatinine Clearance 20 ml/min; Glucose 92 mg/dl (70-99); Magnesium 2.4 mg/dl (1.6-2.3); Potassium 3.6 mmol/L (3.5-5.1); Sodium 140 mmol/L (135-145); eGFR 22.66
[2024-01-29 06:00] VITALS: BMI 28.3
[2024-01-29 08:00] VITALS: BP 118/50
--- NOTE | 2024-01-29 08:16 | W.PN.CD ---
Today's Communication / Plan
-
resume 80mg po lasix bid
f/u with typical cardiology team with in two weeks
ok for home today
Impression / Plan
-
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
dyspnea, chronic kidney disease, COPD/ILD, amiodarone lung toxicity, and pulmonary hypertension who presented in acute on chronic heart failure
#HFpEF
-Acute on chronic.
-Outpatient Lasix 40mg daily was increased to 40mg BID on 01/16/24 for 3 days then increased to 60mg BID on 01/18/24 w/o improvement.
-proBNP 8000 with pulmonary congestion and weight gain.
-IV diuresis with Lasix 80mg BID, this requires intensive monitoring as she has an ETHAN on chronic kidney disease. Switch to furosemide 80 mg PO BID today
-Would defer SGLT2i in the setting of ETHAN on CKD.
-Monitor daily weights, I&Os, fluids/sodium.
-She will benefit from compression but she isn't interested
-we are bacl to Outpatient weight is usually ~77 kg
- remains moderate on Echo
#PHTN is severe at 70mmHg.
-RV is dilated and hypokinetic--Poor prognostic sign but no new for her
#ETHAN - on CKD3a
-Follow renal labs with diuresis.
-Creatinine around 2.2 but she is not yet at dry weight.
-Electrolytes are stable.
#PAF/AT
-S/P AVN ablation with PPM.
-Currently paced.
-Rate/rhythm control with Flecainide and metoprolol succinate.
-CHADS2-Vasc = 5 (CHF, HTN, Age x2, Female).
-OAC: Apixaban 2.5 mg twice daily (age >80, creatinine >1.5).
-Managed by Dr. Burnett at [facility].
#Aortic stenosis
-Chronic, stable.
-Moderate on echo 05/2023.
-Repeat echo.
#PPM
-Chronic, stable.
-Followed at [place].
#HTN
-Chronic, stable.
-Continue metoprolol succinate and hydralazine.
#COPD
-Chronic, stable (though probably contributing).
-Managed by Dr. Montano as outpatient.
It Investment/Portfolio Manager: Dr. Burnett ([facility])
Subjective/Interval History:
she is feeling better, tolerating ra no cp or sob
DATA:
TTE 01/28/24: CONCLUSIONS
Normal LV size and systolic function with no regional wall motion
abnormalities.
LVEF is 65-70% by visual estimation.
Moderate concentric LVH.
Stage III diastolic dysfunction suggestive of restrictive filling pattern and
increased filling pressures.
Dilated right ventricle with reduced systolic function.
Heavily calcified mitral annulus with restricted leaflet motion. Mild mitral
regurgitation.
Moderate aortic stenosis.
Moderate tricuspid regurgitation.
Severely elevated estimated PASP of 70 mmHg assuming a right atrial pressure of
15 mmHg.
Compared to prior from May 24, 2023, no significant change.
TTE, 05/24/2023:
CONCLUSIONS
Small LV cavity with normal systolic function.
Estimated ejection fraction of 65 to 70%.
Moderate to severe LVH.
Stage III diastolic dysfunction suggestive of restrictive filling pattern and
increased filling pressures.
Heavily calcified mitral annulus with restricted leaflets. Mild mitral
regurgitation.
Moderate aortic stenosis.
Moderate tricuspid regurgitation.
Severely elevated estimated PASP of 75 mmHg. Assuming a right atrial pressure
of 15 mmHg.
Compared to prior from December 15, 2020, aortic stenosis has progressed and is
now moderate, tricuspid regurgitation has gone from mild to now moderate, and
estimated PASP is now severely elevated at 75 mmHg.
Physical Exam
Vital Signs/Labs
Vital Signs
Temp Pulse Resp BP Pulse Ox
98.4 F 60 16 118/50 91
01/29/24 08:03 01/29/24 08:00 01/29/24 08:03 01/29/24 08:00 01/29/24 08:03
01/28/24 01/29/24 01/30/24
06:59 06:59 06:59
Actual Weight 78.1 kg 77.1 kg
01/29/24 03:37
01/29/24 03:37
Magnesium 2.4 mg/dl (1.6-2.3) H 01/29/24 03:37
01/24/24
17:03
Bns-R-Otmgpefouew Pept 8480
Physical Exam
Constitutional: No acute distress
Cardiovascular: Rhythm & rate is regular, Pedal edema present (1+ b/l ) and Systolic murmur present
Respiratory: Respiratory effort normal, Lungs clear to auscul., Wheeze Absent, Crackles Absent and Rhonchi Absent
Neuro/Psych: AO x 3
Data Reviewed
-
Date of Service: January 29, 2024
EKG: Other (tele av pacing)
[2024-01-29] MEDS: LASIX 80 MG PO (08:40)
[2024-01-29] MEDS: APRESOLINE 100 MG PO (08:40)
[2024-01-29] MEDS: TRICOR 145 MG PO (08:40)
[2024-01-29] MEDS: LUMINAL 32.4 MG PO (08:40)
[2024-01-29] MEDS: TOPROL XL 25 MG PO (08:40)
[2024-01-29] MEDS: ELIQUIS 2.5 MG PO (08:41)
[2024-01-29] MEDS: TAMBOCOR 50 MG PO (08:43)
[2024-01-29] MEDS: LASIX IV (08:50)
[2024-01-29 11:15] VITALS: BP 126/54
[2024-01-29 11:36] VITALS: BP 125/54; BP 126/54; PULSE 61; O2SAT 93
--- NOTE | 2024-01-29 13:37 | W.PN.HOSP.TC ---
Today's Communication/Plan
-
dc to home
Assessment / Plan
Assessment / Plan
Assessment:
Acute on chronic diastolic heart failure
hx of Aortic stenosis
- s/p IV Lasix course; weight near 78 kg, PO Lasix today for dc
- continue compression, leg elevation when feasible
- remains moderate on echo
ETHAN on CKD3b
- creatinine elevated to 2, baseline close to 1.6/GFR 35.
- Follow-up renal function post diuresis.
- Bladder scan ordered
Parox Afib
- S/P AVN ablation with PPM
- continue on home regimen of Eliquis/flecainide/metoprolol.
COPD
- no wheezing on exam. Continue nebulizer therapy.
GIOVANY
- continue nighttime of CPAP use.
Essential HTN
- Continue metoprolol succinate and hydralazine.
HLD
Seizure disorder
Chronic anemia
DVT prophylaxis: Eliquis
Code: Full
More than 30 minutes spent in discharge including
Final examination of the patient
Summarizing hospital stay
Instructions for continuing care to all relevant caregivers
Preparation of discharge records, prescriptions, and referral forms
Total time spent (in minutes): 41
Anticipated Discharge: Today
Subjective/Interval History
-
Date of Service: January 29, 2024
feels better, no cp or sob
Objective Data
-
Labs:
Laboratory Results
01/29/24
03:37
WBC 4.3 L
Hgb 10.9 L
Hct 31.1 L
Plt Count 143
Sodium 140
Potassium 3.6
Chloride 92 L
Carbon Dioxide 37 H
BUN 83 H
Creatinine 2.1 H
Glucose 92
Calcium 9.4
Vital Signs:
Vital Signs
Temp Pulse Resp BP Pulse Ox
98.0 F 63 16 126/54 94
01/29/24 11:16 01/29/24 11:15 01/29/24 11:16 01/29/24 11:15 01/29/24 11:16
I&O
01/28/24 01/29/24 01/30/24
06:59 06:59 06:59
Intake Total 480 / 480 400 / 400 200 / 200
Output Total 1365 / 1365 1650 / 1650 300 / 300
Balance -885 / -885 -1250 / -1250 -100 / -100
Physical Exam
-
General: No Apparent Distress
HEENT: Normocephalic and Atraumatic
Respiratory: Negative Wheezes
Cardiac: Regular Rhythm and S1/S2
GI: Soft; Negative Nontender
Musculoskeletal: No Edema
Neuro: AO x 3
Hematologic / Lymphatic: No Lymphadenopathy
Psych: Calm
Data Reviewed
-
Total Time Spent with Patient (in minutes): 41
Labs: Labs Reviewed by me
--- NOTE | 2024-01-29 13:58 | W.DS.TRANS ---
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
-
Discharge Instructions:
Discharge Diagnosis/Procedures acute CHF, ETHAN on CKD3b
Diet 2 Gram Sodium,Diabetic, Carb Controlled,Restrict
fluids to 64 oz
Activity As tolerated
Bathing Restrictions None
Other Services PT,OT
Instructions: *CBC Heart Failure Instructions
Stand-Alone Forms:
Changes to Home Medications: Yes
Discharge Medications:
DC Medications w/original date entered in [place] [facility] [facility]
atorvastatin 10 mg tablet 10 mg PO QPM High cholesterol 10/21/20
phenobarbital 32.4 mg tablet 32.4 mg PO DAILY Seizures 10/21/20
phenobarbital 32.4 mg tablet 64.8 mg PO HS Seizures 10/21/20
fenofibrate micronized 134 mg capsule 134 mg PO DAILY High Cholesterol 06/21/23
flecainide 50 mg tablet 50 mg PO BID Arrhythmia 06/21/23
hydralazine 100 mg tablet 100 mg PO TID Blood Pressure 06/21/23
apixaban 2.5 mg tablet (Eliquis) 2.5 mg PO BID #60 tabs 06/26/23
albuterol sulfate 90 mcg/actuation breath activated powder inhaler (ProAir RespiClick) 2 inh inhalation R Q4HPRN PRN sob 01/24/24
melatonin 5 mg tablet 5 mg PO HSPRN PRN sleep 01/24/24
metoprolol succinate 25 mg tablet,extended release 24 hr 25 mg PO DAILY Blood pressure 01/24/24
furosemide 40 mg tablet 80 mg (2 x 40 mg) PO BID #120 tabs 01/29/24
Home Medication Changes
Lasix to 80mg BID
Pending Results: No
Total time spent discharging patient (in min): 41
--- NOTE | 2024-01-29 15:47 | PTCARENOTE ---
Tele pack and IV removed. Discharge instructions reviewed. Pt verbalizes understanding. Daughter at bedside. Belongings packed and sent. Pt escorted via wheelchair and staff assist. Discharged to home w/ daughter.
--- NOTE | 2024-01-30 12:32 | W.HF.CON ---
Heart Failure
- LV Function
Left ventricular function study result: LV Ejection fraction >/= 50%
Ejection Fraction Percentage: 65-70
- ARNI
Patient already on ARNI: No
Heart Failure ARNI Not Indicated: LV Ejection Fraction >/= 40%
- ACEI/ARB
Patient already on ACEI/ARB: No
Heart Failure ACEI/ARB Not Indicated: LV Ejection Fraction > 40%
- Beta Teddy
Patient already on Evidence Based Beta Teddy: Yes
- Mineralocorticord Receptor Antagonist
Patient already on MRA: No
Heart Failure MRA Not Indicated: LV Ejection Fraction > 40%
- SGLT-2 Inhibitor
Patient already on SGLT-2 Inhibitor: No
Heart Failure SGLT-2 Inhibitor Not Indicated: LV Ejection Fraction >40%
- Afib Anticoagulation
Patient already on Anticoagulation for Afib: Yes
- NYHA CHF Classification
NYHA CHF Classification Level: Class III - Symptoms w/ min exertion, interferes w/ nml daily activity (severe pulmonary HTN)
- ACC/AHA Stage
ACC/AHA Stage: Stage C: Symptomatic Heart Failure
== END 2024-01-29 14:35 | disposition home or self-care (01) | DRG 291 ==
LOC: IVU 20:12
PROVIDERS: Nurse Practitioner; ADMITTING PHYSICIAN Hospitalist; ATTENDING PHYSICIAN Internal Medicine; EMERGENCY PHYSICIAN Emergency Medicine; FAMILY PHYSICIAN Family Medicine; OTHER PHYSICIAN Internal Medicine
PROC: 5A09357 Assistance with Respiratory Ventilation, Less than 24 Consecutive Hours, Continuous Positive Airway Pressure (ICD-10-PCS; 2024-01-24)
DX: I13.0 Hypertensive heart and chronic kidney disease with heart failure and stage 1 through stage 4 chronic kidney disease, or unspecified chronic kidney disease (principal); I50.33 Acute on chronic diastolic (congestive) heart failure; N17.9 Acute kidney failure, unspecified; J84.9 Interstitial pulmonary disease, unspecified; N18.32 Chronic kidney disease, stage 3b; E78.00 Pure hypercholesterolemia, unspecified; I48.0 Paroxysmal atrial fibrillation; I08.2 Rheumatic disorders of both aortic and tricuspid valves; J44.9 Chronic obstructive pulmonary disease, unspecified; G47.33 Obstructive sleep apnea (adult) (pediatric); G40.909 Epilepsy, unspecified, not intractable, without status epilepticus; D63.1 Anemia in chronic kidney disease; Z95.0 Presence of cardiac pacemaker; Z88.2 Allergy status to sulfonamides; Z88.1 Allergy status to other antibiotic agents; Z79.899 Other long term (current) drug therapy; Z79.01 Long term (current) use of anticoagulants
CPT/HCPCS: 71046; 80048; 80053; 83735; 83880; 85025; 85027; 93005; 93306; 94640; 96374; 97116; 97162; 97166; 97535; 99285

== ENCOUNTER → 2024-03-03 10:24 | Outpatient (REF) | payer OTHER, SELFPAY ==
[2024-03-03 12:23] LABS: Blood Urea Nitrogen 58 mg/dl (7-17); Calcium 9.3 mg/dl (8.4-10.2); Carbon Dioxide 36 mmol/L (22-30); Chloride 97 mmol/L (98-107); Glucose 93 mg/dl (70-99); Potassium 4.5 mmol/L (3.5-5.1); Sodium 142 mmol/L (135-145); eGFR 25.56
== END ==
LOC: REG 10:24
PROVIDERS: ATTENDING PHYSICIAN Nurse Practitioner; FAMILY PHYSICIAN Family Medicine
DX: I48.0 Paroxysmal atrial fibrillation (principal); I50.32 Chronic diastolic (congestive) heart failure; N18.31 Chronic kidney disease, stage 3a
CPT/HCPCS: 36415; 80048

== ENCOUNTER → 2024-03-17 09:10 | Outpatient (REF) | payer OTHER, SELFPAY ==
[2024-03-17 10:35] LABS: Blood Urea Nitrogen 68 mg/dl (7-17); Calcium 9.5 mg/dl (8.4-10.2); Carbon Dioxide 33 mmol/L (22-30); Chloride 97 mmol/L (98-107); Glucose 97 mg/dl (70-99); Potassium 4.5 mmol/L (3.5-5.1); Sodium 140 mmol/L (135-145); eGFR 20.32
== END ==
LOC: REG 09:10
PROVIDERS: ATTENDING PHYSICIAN Nurse Practitioner; FAMILY PHYSICIAN Family Medicine
DX: I50.32 Chronic diastolic (congestive) heart failure (principal)
CPT/HCPCS: 36415; 80048

== ENCOUNTER 2024-03-24 11:42 | Inpatient (IN) | payer OTHER, SELFPAY ==
[2024-03-24] VITALS (9 sets, daily range): BP systolic 128–164; BP diastolic 53–74; BMI 30.3; BMI 29.5
[2024-03-24 05:55] LABS: % Basophils 0.7 % (0-2); % Eosinophils 4.4 % (0-6); % Immature Granulocytes 0.2 % (0-0.5); % Lymphocytes 14.9 % (20.5-51.1); % Monocytes 14.4 % (1.7-9.3); % Neutrophils 65.4 % (42.2-75.2); Absolute Eosinophils 0.2 10^3/uL (0-0.7); Absolute Lymphocytes 0.7 10^3/uL (1.2-3.4); Absolute Monocytes 0.7 10^3/uL (0.1-0.6); Hematocrit 34.2 % (37.0-47.0); Hemoglobin 11.1 g/dL (12.0-16.0); Mean Corp Hgb Conc. 32.5 g/dL (33.0-37.0); Mean Corpuscular Hgb 30.7 pg (27.0-31.0); Mean Corpuscular Volume 94.7 fL (81.0-99.0); Mean Platelet Volume 11.2 fL (7.4-10.4); Nucleated Red Blood Cells % 0 %; Platelet Count 180 10^3/uL (130-400); Red Blood Cell Count 3.61 10^6/uL (4.20-5.40); Red Cell Dist. Width 15.9 % (11.5-14.5); White Blood Cell Count 4.5 10^3/uL (4.8-10.8)
--- NOTE | 2024-03-24 06:08 | ED.GENMED ---
History of Present Illness
General
Chief Complaint: Swelling
Time Seen by Provider: 03/24/24 06:02
History of Present Illness
History of Present Illness:
TIME OF INITIAL ENCOUNTER: 6:10 AM
HPI:
The patient presents with worsening lower extremity edema. This is associated with some degree of orthopnea. She saw Dr. Gonzáles's PA in the office and despite being on Lasix, her symptoms have been worsening. She has no chest pain. No chest pain.
EXAM:
GENERAL: Appears somewhat generally weak
HEENT: Moist oral mucosa
CARDIOVASCULAR: 3 out of 6 systolic ejection murmur in the right upper sternal border, normal heart rate, regular rhythm, No chest wall tenderness, room air sats
PULMONARY: No respiratory distress, breath sounds are slightly diminished at the bases 90 to 92%
ABDOMEN: Soft with no peritoneal signs, no tenderness
NEUROLOGIC: Excellent strength all extremities, no coordination deficits
PSYCHIATRIC: Appropriate mental status, normal insight and judgement
EXTREMITIES: Nontender, 3+ bilateral lower extremity edema, moves all extremities equally, good perfusion to the feet
SKIN: No rash, no lesions
NUMBER AND COMPLEXITY OF PROBLEMS ADDRESSED AT THE ENCOUNTER
� Chronic conditions affecting care: A-fib on Eliquis, CHF, high blood pressure, hyperlipidemia, has a pacemaker, COPD uses CPAP
� Acute Exacerbation and/or Progression of Chronic Illness: This is an acute but worsening problem
� Differential Diagnosis includes: Exacerbation of CHF, valvular disorder, doubt DVT
AMOUNT AND/OR COMPLEXITY OF DATA TO BE REVIEWED AND ANALYZED
� I performed an independent evaluation of and my interpretation is:
EKG: AV paced at a rate of 60
CT:
X-rays: Chest x-ray shows increased pulmonary vascular congestion along with a left-sided pleural effusion
Laboratory Studies: White count 4.5, hemoglobin 11.1, creatinine 2.4 which is slightly worse than recent baseline, BNP 12,000 which is higher than prior
Other:
� Review of other/old records: The patient was admitted here 2 months ago with CHF exacerbation; most recent echo showed moderate aortic stenosis along with an EF of 65 to 70% and stage III diastolic dysfunction
� Clinical information was obtained by an independent historian: None needed
� Prescriptions/Medications Considered but not given:
� Further testing considered but not performed:
RISK OF COMPLICATIONS AND/OR MORBIDITY OR MORTALITY OF PATIENT MANAGEMENT
� Social determinants of health affecting care: Lives at home
� Discussion with other providers: Hospitalist for admission at 8:10 AM.
� Escalation of care including admission/observation vs risk of discharge considered: I gave patient IV Lasix. BNP higher than ever. Chest x-ray suggests pulmonary vascular congestion. Planning admission to the hospital as she
is failing outpatient management
ANY OTHER UPDATES:
8:10 AM: I reassessed patient. Room air sats 90 to 92%. She was given IV Lasix. She is failing outpatient management.
Past History
Past History
ED Past Medical History: Arrthythmia (afib, cardioversions.), Asthma, CHF, COPD, HTN, Hypercholesterolemia and Other (Obstructive sleep apnea, interstitial lung disease,)
ED Past Surgical History: Cardiac (Cardioversion. Ablation X 2) and Gynecological (Hysterectomy)
Patient has exhibited threatening behavior?: No
Social History
Tobacco: Non-smoker
Alcohol: None
Personal:
Living: alone
Family History
Family History: CAD
Phy Exam
Physical Exam
Physical Exam:
See HPI
Scores
Heart Failure Risk
Heart Failure Risk Score: Not Applicable
Course
Orders/Labs/Results
Orders:
Orders
03/24/24 05:31
CMP [Comprehensive Metabolic Panel] Urgent
03/24/24 05:32
Complete Blood Count/With Diff Urgent
NT-proBNP Urgent
03/24/24 06:16
Furosemide [Lasix] 80 mg IV NOW STA
03/24/24 06:17
CR Chest - 2 Views Urgent
Comment:
Reason For Exam: edema orthopnea
03/24/24 06:19
Electrocardiogram (*1) Urgent
Reason for Study: Shortness of Breath
EKG- Treatment ONCE
03/24/24 11:03
Admit/Transfer Patient As Directed
Co-Sign Provider:
Level of Care: Inpatient admission
Assign to:: Telemetry
Physician / Group: [facility]/hospitalist
Diagnosis: AECHF
Reason for Telemetry: Acute Heart Failure
Date to Stop Telemetry: 03/27/24
Time to Stop Telemetry: 11:00
Reason for Hospitalization: AECHF
Expected length of stay greater than two midnights?: Yes
ELOS- Estimated Length of Stay in days: 4
I certify the patient meets the requirements for IP care: Yes
PRN Pain Medication Management As Directed
May give lesser potent ordered pain med per pt: Yes
preference::
Protocol:: Medication orders for pain may be administered in a
manner that supports deferring to patient preference
when the pt is:
- Requesting an ordered lesser potent pain medication.
Least to most potent pain medications are defined
as: acetaminophen < NSAID < tramadol < opioids
(morphine, oxycodone, hydromorphone).
- Requesting a lesser dose of the same medication IF
ORDERED.
- Requesting a less intrusive route of administration
if both routes are prescribed by the provider (PO <
IV).
03/24/24 11:05
Code Status As Directed
Resuscitation Status: Full Code
03/24/24 11:10
Venous Doppler Lwr Ext Bilat [ Perip Venous LOWER Ext Gonzales] Urgent
Comment:
Reason For Exam: Left leg swelling. Concern for DVT
03/27/24 11:00
DC Protocol for Telemetry ONCE
Abnormal Lab Results
03/24/24 03/24/24
05:31 05:32
WBC 4.5 L 10^3/uL
(4.8-10.8)
RBC 3.61 L 10^6/uL
(4.20-5.40)
Hgb 11.1 L g/dL
(12.0-16.0)
Hct 34.2 L %
(37.0-47.0)
MCHC 32.5 L g/dL
(33.0-37.0)
RDW 15.9 H %
(11.5-14.5)
MPV 11.2 H fL
(7.4-10.4)
Absolute Lymphs (auto) 0.7 L 10^3/uL
(1.2-3.4)
Absolute Monos (auto) 0.7 H 10^3/uL
(0.1-0.6)
Lymphocytes % 14.9 L %
(20.5-51.1)
Monocytes % 14.4 H %
(1.7-9.3)
BUN 74 H mg/dl
(7-17)
Creatinine 2.4 H mg/dL
(0.6-1.0)
Glucose 123 H mg/dl
(70-99)
AST 41 H U/L
(14-36)
03/24/24 05:32
03/24/24 05:31
Vital Signs
Initial and Last Documented VS:
Initial Vital Signs
Temp Pulse Resp BP Pulse Ox
36.8 C 79 20 137/72 92
03/24/24 05:26 03/24/24 05:26 03/24/24 05:26 03/24/24 05:26 03/24/24 05:26
Last Documented Vital Signs
Temp Pulse Resp BP Pulse Ox
36.8 C 71 25 139/54 92
03/24/24 05:26 03/24/24 12:45 03/24/24 12:45 03/24/24 11:00 03/24/24 12:30
*Critical Care Note
Total Time (30-74mins, 75-104mins- exclusive of procedures): Not Applicable
ED Attending Note
-
Portions of this chart may have been created with voice recognition software.� Occasional wrong word or��sound alike� substitutions may have occurred due to the inherent limitations of voice recognition software.
Discharge Plan
Departure
Patient Disposition: Admit
Date of Disposition: 03/24/24
Time of Disposition: 08:11
Presentation/result/management discussed w/ accepting MD/DO: Hospitalist
Discharge Problem:
Acute exacerbation of CHF (congestive heart failure)
Interventions
Interventions:
*Risk Screen - Suicide Last Done: 03/24/24 05:26
*General Assessment Last Done: 03/24/24 05:26
*Neglect/Abuse Screening Last Done: 03/24/24 05:26
ED- Fall Risk Assessment Last Done: 03/24/24 06:45
*ED COVID-19 Vaccine History Last Done: 03/24/24 05:26
ED- Cardiac Assessment Last Done: 03/24/24 06:45
ED- Pulmonary Assessment Last Done: 03/24/24 06:45
ED-Skin Assessment Last Done: 03/24/24 06:45
[2024-03-24 06:21] LABS: ALT (SGPT) 21 U/L (0-35); AST (SGOT) 41 U/L (14-36); Albumin 4.2 g/dl (3.5-5.0); Alkaline Phosphatase 82 U/L (38-126); Blood Urea Nitrogen 74 mg/dl (7-17); Calcium 9.3 mg/dl (8.4-10.2); Carbon Dioxide 27 mmol/L (22-30); Chloride 100 mmol/L (98-107); Estimated Creatinine Clearance 18 ml/min; Glucose 123 mg/dl (70-99); Potassium 4.5 mmol/L (3.5-5.1); Sodium 140 mmol/L (135-145); Total Bilirubin 0.7 mg/dl (0.2-1.3); Total Protein 7.7 g/dl (6.3-8.2); eGFR 19.31
[2024-03-24 06:29] LABS: NT-proBNP 12000 pg/ml
[2024-03-24] MEDS: LASIX 80 MG IV ×2 (06:42→16:17)
--- NOTE | 2024-03-24 06:58 | EDRN ---
Purwick in place, call cruz next to patient as well.
--- NOTE | 2024-03-24 11:11 | HPS.HSE ---
Family Physician
-
Family Physician: Oh Calvin
Chief Complaint
-
leg swelling
History of Present Illness
83-year-old female extensive past cardiac history who is presenting from home with worsening of lower extremity edema. Patient follows up with Dr. Gonzáles with recent change in outpatient diuretics. Patient is a she is not urinating as much. Noticed
her legs were getting significantly swollen. Patient recently saw nephrology and was started on metolazone twice weekly. Patient stated that her lower extremity edema was worsening and they were starting to weep. Also complaining of mild
shortness of breath. Denies any chest pain. Denies any PND orthopnea. States her legs were hurting and she was feeling short of breath thus decided to come into the hospital. In the ER patient was found to have significantly elevated proBNP and
was found to be in acute heart failure exacerbation.
Medical History
Past Medical History
Past Medical History: Reports Other
Additional Past Medical History:
Paroxysmal atrial fibrillation status post AV josé miguel ablation status post pacemaker implantation
COPD
GIOVANY on CPAP
Primary hypertension hyperlipidemia
Seizure disorder
Chronic anemia
Chronic HFpEF
Aortic stenosis
Past Surgical History: Reports Cardiac (Pacemaker implantation)
Social History
Tobacco: Non-smoker
Alcohol: None
Family History
Family History: Not pertinent
Allergies / Home Medications
Allergies reflects when Allergies were last updated in [employer].
Home Medications with original date entered in [employer]
Allergy/Medication List:
Allergies
Allergy/AdvReac Type Severity Reaction Status Date / Time
adhesive tape Allergy Rash Verified 03/24/24 05:30
cefuroxime [From Ceftin] Allergy throat Verified 03/24/24 05:30
closes
ragweed pollen Allergy Unknown Verified 03/24/24 05:30
Sulfa (Sulfonamide Allergy throat Verified 03/24/24 05:30
Antibiotics) closes
Home Medications
atorvastatin 10 mg tablet 10 mg PO QPM High cholesterol 10/21/20
phenobarbital 32.4 mg tablet 32.4 mg PO DAILY Seizures 10/21/20
phenobarbital 32.4 mg tablet 64.8 mg PO HS Seizures 10/21/20
fenofibrate micronized 134 mg capsule 134 mg PO DAILY High Cholesterol 06/21/23
flecainide 50 mg tablet 50 mg PO BID Arrhythmia 06/21/23
hydralazine 100 mg tablet 100 mg PO TID Blood Pressure 06/21/23
metoprolol succinate 25 mg tablet,extended release 24 hr 25 mg PO DAILY Blood pressure 01/24/24
apixaban 5 mg tablet (Eliquis) 5 mg PO BID Blood Clot Prevention/Tx 03/24/24
furosemide 40 mg tablet 40 - 80 mg PO BID Fluid Retention/Swelling 03/24/24
torsemide 20 mg tablet 20 mg PO BID Fluid Retention/Swelling 03/24/24
Review of Systems
-
History Source: Patient
A 12 point ROS was completed and negative except as noted: Yes
Physical Exam
Vital Signs
Vital Signs
Temp Pulse Resp BP Pulse Ox
98.3 F 61 18 139/59 92
03/24/24 05:26 03/24/24 11:00 03/24/24 11:00 03/24/24 10:00 03/24/24 11:00
Physical Exam
General: Well Developed, Well Nourished and No Apparent Distress
HEENT: NormoCephalic, Moist mucous membranes and Atraumatic
Respiratory: Clear
Cardiac: S1/S2, Regular Rhythm, Murmur and JVD; No Rub
GI: Soft, Non Tender, Non Distended and Normal Bowel Sounds; No Organomegaly
Rectal: Deferred by Provider
Genito-urinary: Deferred by me
Musculoskeletal: No Clubbing, No Cyanosis, Edema, Left Lower Extremity and Edema, Right Lower Extremity
Skin: No Rash
Neuro: Awake, Alert, Oriented and Nonfocal/grossly intact
Psych: Calm
Laboratory Results
-
03/24/24 05:32
03/24/24 05:31
Laboratory Results
Total Bilirubin 0.7 mg/dl (0.2-1.3) 03/24/24 05:31
AST 41 U/L (14-36) H 03/24/24 05:31
ALT 21 U/L (0-35) 03/24/24 05:31
Alkaline Phosphatase 82 U/L (38-126) 03/24/24 05:31
Impression/Plan
-
#Acute on chronic HFpEF
#Valvular heart disease
#Severe pulmonary hypertension
Start patient on 80 mg IV Lasix twice daily
Patient is grossly volume overloaded
Daily I's and O's. Fluid restriction.
Monitor creatinine closely
If significant worsening of renal function may need to consider nephrology evaluation
Check lower extremity venous Doppler and found to be negative for DVT
repeat ECHO plan per cardiology
CBC cardiology has been consulted
#Paroxysmal atrial fibrillation status post ablation status post pacemaker implantation
Chronic coagulopathy with Eliquis
Continue with Eliquis
Continue with flecainide
Continue with metoprolol
Monitor on telemetry
#Chronic kidney disease 3B
Monitor creatinine closely with aggressive diuresis
#Chronic anemia
Trend CBC. Transfuse for hemoglobin less than 7.
#History of seizure disorder
Continue with home regimen of phenobarbital
Primary hypertension
Continue with metoprolol and hydralazine. On IV diuretics
GIOVANY
Continue with nighttime CPAP
DVT ppx-Eliquis
Full code
d/w with cardiology
I spent a total of 78 minutes with the patient or on the floor. More than 50% of this time involved counseling and coordination of care.
--- NOTE | 2024-03-24 11:16 | CON.CAR ---
Addendum entered and electronically signed by Raji Kam MD 03/24/24 13:13:
I saw and examined the patient.
The GERIATRICIAN's note was reviewed and I agree with the note.
Comment:
This is an 83-year-old female with paroxysmal atrial fibrillation status post AVJ and PPM, HFpEF, moderate , CKD and pulmonary hypertension (class II/III) who presents with worsening lower extremity edema. She is a patient of Dr. Jose Gonzáles and
also sees nephrology (Dr. Quiles). They have both been trying to manage her volume overload as an outpatient for the past several weeks. Her Lasix was increased from 40 mg twice daily to 80 mg twice daily. Torsemide is also listed as a home
med and patient is not sure which she was taking. On 03/18 when renal saw her in the office they added metolazone twice weekly. She has not picked this up yet. She called EMS today because her leg swelling was worsening and they were weeping.
She also has mild shortness of breath. On exam she has 3+ bilateral pitting edema to the mid thighs. Her lungs are clear to auscultation. JVP is elevated to the mandible. She has regular rate and rhythm with a harsh 4/6 systolic murmur. Her
weight today is 82 kg (dry weight per nephrology note 74 kg). Labs are notable for creatinine 2.4 (baseline 2) and NT proBNP 12,000. CXR with interstitial lung disease and possible pulmonary edema. Most recent echocardiogram (01/28/2024) showed
LVEF 65-70%, moderate LVH, restrictive filling pattern, dilated RV with reduced systolic function, moderate , moderate TR, PASP 70 mmHg. Thus far she has received 1 dose of 80 mg IV Lasix in the ED.
She is grossly volume overloaded with weight 8 kg above her dry weight, elevated NT proBNP, and lower extremity edema. We will diurese starting with 80 IV Lasix twice daily. We can add on metolazone as needed. We will need to optimize her
outpatient diuretic regimen prior to discharge. Outpatient nephrology note says no SGLT2 inhibitor due to renal dysfunction. We will repeat an echocardiogram when she is closer to euvolemic. Continue home medications for hypertension and atrial
fibrillation as outlined in GERIATRICIAN note.
Original Note:
Consultation
Consultation Request
Date/Time Consultation Requested: 03/24/2024 11:00
Date/Time Consultation Performed: 03/24/2024 11:20
Requesting Provider: Dr. Aguayo
Performing Provider: WOODY Cameron for Dr. Kam
Reason for Consultation: Acute on chronic HFpEF
Medical History
-
Chief Complaint: SOB, weight gain, LE edema
History of Present Illness:
Mrs. Barr is an 83 year old female with paroxysmal atrial fibrillation (s/p PVI x2, on Eliquis), paroxysmal atrial tachycardia (s/p AV josé miguel ablation and MDT dual chamber PPM 02/01/21), chronic HFpEF, moderate , moderate TR, HTN,
hyperlipidemia, CKD3a, COPD, ILD, amiodarone lung toxicity, seizure disorder, and pulmonary HTN, who presents to the emergency room with a chief complaint of worsening lower extremity edema. She endorses associated orthopnea. She saw her
epitaxial reactor operator on 03/18/2024. They recommended metolazone. She has not yet taken the medication. The plan was for 2.5 mg twice weekly. Her legs are becoming more swollen. She endorses adherence with her current medical therapy, sodium
restriction, and fluid restriction. She denies chest pain and dizziness. Her EP diagnoses and [employer] pacemaker are managed by Dr. Burnett at [facility].
Past Medical History
Past Medical History: Arrhythmias (Paroxysmal atrial fibrillation, paroxysmal atrial tachycardia), CHF, COPD, HTN, Hypercholesterolemia, Renal Failure (CKD), Seizures, Valvular Disease (Aortic stenosis, tricuspid regurgitation) and Other (ILD,
amiodarone lung toxicity, pulmonary hypertension)
Past Surgical History: Other
Social History
Tobacco: Non-Smoker
Alcohol: None
Living: Alone
Family History
Family History: Reviewed & Not Pertinent
Allergies / Home Medications
Allergy/AdvReac Type Severity Reaction Status Date / Time
adhesive tape Allergy Rash Verified 03/24/24 05:30
cefuroxime [From Ceftin] Allergy throat Verified 03/24/24 05:30
closes
ragweed pollen Allergy Unknown Verified 03/24/24 05:30
Sulfa (Sulfonamide Allergy throat Verified 03/24/24 05:30
Antibiotics) closes
�Medication �Instructions �Recorded �Confirmed �Type
atorvastatin 10 mg tablet 10 mg PO QPM High cholesterol 10/21/20 03/24/24 History
phenobarbital 32.4 mg tablet 32.4 mg PO DAILY Seizures 10/21/20 03/24/24 History
phenobarbital 32.4 mg tablet 64.8 mg PO HS Seizures 10/21/20 03/24/24 History
fenofibrate micronized 134 mg 134 mg PO DAILY High Cholesterol 06/21/23 03/24/24 History
capsule
flecainide 50 mg tablet 50 mg PO BID Arrhythmia 06/21/23 03/24/24 History
hydralazine 100 mg tablet 100 mg PO TID Blood Pressure 06/21/23 03/24/24 History
metoprolol succinate 25 mg 25 mg PO DAILY Blood pressure 01/24/24 03/24/24 History
tablet,extended release 24 hr
apixaban 5 mg tablet (Eliquis) 5 mg PO BID Blood Clot 03/24/24 03/24/24 History
Prevention/Tx
furosemide 40 mg tablet 40 - 80 mg PO BID Fluid 03/24/24 03/24/24 History
Retention/Swelling
torsemide 20 mg tablet 20 mg PO BID Fluid 03/24/24 03/24/24 History
Retention/Swelling
Review of Systems
-
History Source: Patient
All other systems: Negative unless noted
Constitutional: Weight Gain and Fatigue
EENT: No Symptoms
Respiratory: No Symptoms
Cardiac: Other (Orthopnea)
Abdomen/GI: No Symptoms
: No Symptoms
Musculoskeletal: Edema
Skin: No Symptoms
Neurological: No Symptoms
Endocrine: No Symptoms
Hematologic/Lymphatic: No Symptoms
Physical Exam
Vital Signs
Temp Pulse Resp BP Pulse Ox
98.3 F 61 18 139/59 92
03/24/24 05:26 03/24/24 11:00 03/24/24 11:00 03/24/24 10:00 03/24/24 11:00
Lab Results
03/24/24 05:32
03/24/24 05:31
Ykz-V-Fhaboljdvjs Pept 82707 pg/ml 03/24/24 05:32
Physical Exam
General: Well Developed, Well Nourished, No Apparent Distress and Comfortable
HEENT: Normocephalic, Anicteric and Moist Mucous Membranes
Respiratory: Clear and Non Labored Respirations
Cardiac: S1/S2, Regular Rhythm, Murmur (IV/) and Peripheral Edema (+3 pitting to mid thigh)
Breast: Deferred by me
GI: Soft, Non Tender, Non Distended and Normal Bowel Sounds
Rectal: Deferred by Provider
Genito-urinary: No Costovertebral Tender
Musculoskeletal: No Clubbing and No Cyanosis
Skin: Warm and Dry
Neuro: Alert and AO x 3
Hematologic/Lymphatic: No Lymphadenopathy
Psych: Calm
Impression / Plan
-
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
amiodarone lung toxicity, and pulmonary HTN, who presents to the emergency room with a chief complaint of worsening lower extremity edema -> acute on chronic HFpEF.
Primary personal injury law specialist: Dr. Gonzáles
EP: Dr. Burnett ([facility])
Nephro: Dr. Quiles
HFpEF, acute on chronic
-Dry weight believed to be ~74kg per outpatient notes
-Diuresis with furosemide 80 mg IV twice daily, this requires intensive monitoring given her ETHAN on CKD
-If diuresis is unsuccessful, will add metolazone
-She is not interested in compression, she would benefit
-Defer SGLT2i given ETHAN on CKD
-Monitor daily weights, I&Os, fluids/sodium
-Update echocardiogram on Sunday, she will be closer to euvolemia
Valvular heart disease
-Moderate aortic stenosis (peak/mean gradients 39/22 mmHg, JENNIFER 1.3 cm�)
-Mild mitral regurgitation, heavily calcified mitral annulus with restricted leaflet motion
-Moderate tricuspid regurgitation
Pulmonary HTN, severe
-PASP 70mmHg with dilated RV and hypokinetic, poor prognostic sign
Paroxysmal atrial fibrillation
Paroxysmal atrial tachycardia
-S/P AVN ablation with PPM, on Flecainide
-Oral Anticoagulation: Apixaban 2.5 mg twice daily (age 83, creatinine >1.5)
-[id number]: score at least 5 (Heart failure, HTN, age 75 or more, female gender)
-EP managed by Dr. Burnett
ETHAN on CKD
-Follows with nephrology in the outpatient setting
-Trend with diuresis
Anemia, chronic, in the setting of chronic disease
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
Seizure disorder, on phenobarbital
GIOVANY, on CPAP
--- NOTE | 2024-03-24 16:42 | CM ---
Chart reviewed. Patient here for CHF. Her son is at bedside as well. Patient lives alone in a home. [address] She's independent, sometimes uses a walker. She shared she recently completed her services with [facility]. She has an active PCP and
pharmacy. No +SDOHs. She shared that she is apart of the [facility] program.
ANTICIPATED DISCHARGE DISPOSITION: Home with/without HHC, when medically cleared.
--- NOTE | 2024-03-24 17:03 | PTCARENOTE ---
Patient admitted from ER into room 413-01. Vital signs stable. CHF packet given to patient. CHF education provided. Patient and son verbalize understanding of teaching. Patient oriented to room, use of call cruz, and use of controls for bed and TV.
Verbalizes understanding of teaching. Patient on tele - 100% AV paced.
[2024-03-24] MEDS: LIPITOR 10 MG PO (18:10)
[2024-03-24] MEDS: ELIQUIS 2.5 MG PO (21:10)
[2024-03-24] MEDS: LUMINAL 64.8 MG PO (21:12)
[2024-03-24] MEDS: TAMBOCOR 50 MG PO (21:15)
[2024-03-25 03:35] VITALS: BP 139/57
[2024-03-25 06:00] VITALS: BMI 28.7
[2024-03-25 07:22] VITALS: BP 152/79
[2024-03-25] MEDS: LUMINAL 32.4 MG PO (08:59)
[2024-03-25] MEDS: ELIQUIS 2.5 MG PO ×2 (09:04→19:53)
[2024-03-25] MEDS: TRICOR 145 MG PO (09:04)
[2024-03-25] MEDS: TAMBOCOR 50 MG PO ×2 (09:04→19:54)
[2024-03-25] MEDS: TOPROL XL 25 MG PO (09:05)
--- NOTE | 2024-03-25 09:32 | W.PN.CD ---
Today's Communication / Plan
-
- Diuresis with IV lasix
- Add Metolazone.
Impression / Plan
-
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
amiodarone lung toxicity, and pulmonary HTN, who presents to the emergency room with a chief complaint of worsening lower extremity edema -> acute on chronic HFpEF.
Primary spindle tester: Dr. Gonzáles
EP: [facility]. Burnett ([facility])
Nephro: Dr. Quiles
HFpEF, acute on chronic
-Dry weight believed to be ~74kg per outpatient notes
-Diuresis with furosemide 80 mg IV twice daily, this requires intensive monitoring given her ETHAN on CKD
-Started on Lasix 80 mg IV q12h and still minimal response. Will add Metolazone.
-She is not interested in compression, she would benefit
-Defer SGLT2i given ETHAN on CKD
-Monitor daily weights, I&Os, fluids/sodium
-Update echocardiogram when she is closer to euvolemia
Valvular heart disease
-Moderate aortic stenosis (peak/mean gradients 39/22 mmHg, JENNIFER 1.3 cm�)
-Mild mitral regurgitation, heavily calcified mitral annulus with restricted leaflet motion
-Moderate tricuspid regurgitation
Pulmonary HTN, severe
-PASP 70mmHg with dilated RV and hypokinetic, poor prognostic sign
Paroxysmal atrial fibrillation
Paroxysmal atrial tachycardia
-S/P AVN ablation with PPM, on Flecainide - with AVN ablation, unclear the need for Flecainide with high risk of CAD. On the other hand, AVN ablation will not allow flutter RVR conduction.
-Would leave to her EP - Dr. Burnett
-Oral Anticoagulation: Apixaban 2.5 mg twice daily (age 83, creatinine >1.5)
-[id number]: score at least 5 (Heart failure, HTN, age 75 or more, female gender)
-EP managed by Dr. Burnett
ETHAN on CKD
-Follows with nephrology in the outpatient setting
-Trend with diuresis
Anemia, chronic, in the setting of chronic disease
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
Seizure disorder, on phenobarbital
GIOVANY, on CPAP
Physical Exam
Vital Signs/Labs
Vital Signs
Temp Pulse Resp BP Pulse Ox
97.5 F 60 22 152/79 97
03/25/24 07:22 03/25/24 09:05 03/25/24 07:22 03/25/24 09:05 03/25/24 08:50
03/24/24 03/25/24 03/26/24
06:59 06:59 06:59
Actual Weight 82.7 kg 78.131 kg
03/24/24 05:32
Magnesium Cancelled 03/25/24 07:47
03/24/24
05:32
Iwl-E-Absxesrgbmi Pept [id number]
Physical Exam
Constitutional: No acute distress and Comfortable
EENT: Anicteric and Moist mucous membranes
Cardiovascular: Rhythm & rate is regular, Pedal edema present, JVD present and Systolic murmur present
Respiratory: Respiratory effort normal, Crackles Present and Rhonchi Present
GI: Soft, Non tender and Normal bowel sounds
Neuro/Psych: Alert, Oriented and AO x 3
Data Reviewed
-
Date of Service: March 25, 2024
Medical Decision Making: Reviewed Test Results, Independent Historian Assessment, Test Interpretation and Review of Case with other Provider
EKG: Tracing Personally Visualized and interpreted
Echo: Report Reviewed by me
X-Ray/CT/US/MRI/NUC/PET: Image Personally Visualized and interpreted
Labs: Labs Reviewed by me
Old Records: Reviewed
[2024-03-25 10:11] LABS: Blood Urea Nitrogen 69 mg/dl (7-17); Calcium 9.3 mg/dl (8.4-10.2); Carbon Dioxide 32 mmol/L (22-30); Chloride 100 mmol/L (98-107); Estimated Creatinine Clearance 22 ml/min; Glucose 127 mg/dl (70-99); Magnesium 2.6 mg/dl (1.6-2.3); Potassium 4.1 mmol/L (3.5-5.1); Sodium 141 mmol/L (135-145); eGFR 25.56
[2024-03-25] MEDS: KCL 20 MEQ PO ×2 (10:12→16:53)
[2024-03-25] MEDS: LASIX 80 MG IV ×2 (10:13→16:54)
[2024-03-25] MEDS: ZAROXOLYN 5 MG PO (11:27)
[2024-03-25 11:35] VITALS: BP 135/53
--- NOTE | 2024-03-25 12:26 | W.PN.HOSP.TC ---
Today's Communication/Plan
-
IV lasix
aggressive diuresis
ECHO
cards recs
wean o2
Assessment / Plan
Assessment / Plan
General: Well Developed, Well Nourished and No Apparent Distress
HEENT: NormoCephalic, Moist mucous membranes and Atraumatic
Respiratory: Mild rhonchi, on oxygen
Cardiac: S1/S2, Regular Rhythm, Murmur and JVD; No Rub
GI: Soft, Non Tender, Non Distended and Normal Bowel Sounds; No Organomegaly
Rectal: Deferred by Provider
Genito-urinary: Deferred by me
Musculoskeletal: No Clubbing, No Cyanosis, Edema, Left Lower Extremity and Edema, Right Lower Extremity
Skin: No Rash
Neuro: Awake, Alert, Oriented and Nonfocal/grossly intact
Psych: Calm
#Acute on chronic HFpEF
#Valvular heart disease
#Severe pulmonary hypertension
#Acute hypoxic respiratory insufficiency
Start patient on 80 mg IV Lasix twice daily
Zaroxlyn added.
Patient is grossly volume overloaded
Daily I's and O's. Fluid restriction.
Monitor creatinine closely
If significant worsening of renal function may need to consider nephrology evaluation
Check lower extremity venous Doppler and found to be negative for DVT
repeat ECHO plan per cardiology
CBC cardiology has been consulted
#Paroxysmal atrial fibrillation status post ablation status post pacemaker implantation
Chronic coagulopathy with Eliquis
Continue with Eliquis
Continue with flecainide
Continue with metoprolol
Monitor on telemetry
#Elevated cr with Chronic kidney disease 3B
Monitor creatinine closely with aggressive diuresis
Cr fluctuation expected with aggressive diuresis
#Chronic anemia
Trend CBC. Transfuse for hemoglobin less than 7.
#History of seizure disorder
Continue with home regimen of phenobarbital
Primary hypertension
Continue with metoprolol and hydralazine. On IV diuretics
GIOVANY
Continue with nighttime CPAP
DVT ppx-Eliquis
Full code
Anticipated Discharge: > 48 hours
Subjective/Interval History
-
Date of Service: March 25, 2024
states didn't sleep much as passing increasing amount of urine
Objective Data
-
Labs:
Laboratory Results
03/25/24 03/25/24
07:47 09:03
Sodium Cancelled 141
Potassium Cancelled 4.1
Chloride Cancelled 100
Carbon Dioxide Cancelled 32 H
BUN Cancelled 69 H
Creatinine Cancelled 1.9 H
Glucose Cancelled 127 H
Calcium Cancelled 9.3
Vital Signs:
Vital Signs
Temp Pulse Resp BP Pulse Ox
97.5 F 60 22 133/60 97
03/25/24 07:22 03/25/24 09:05 03/25/24 07:22 03/25/24 11:27 03/25/24 11:18
I&O
03/24/24 03/25/24 03/26/24
06:59 06:59 06:59
Intake Total 600 / 600
Output Total 1090 / 1090
Balance -490 / -490
Data Reviewed
-
Total Time Spent with Patient (in minutes): 55
[2024-03-25 15:30] VITALS: BP 144/64
--- NOTE | 2024-03-25 15:31 | VNURNOTE ---
Chart reviewed. Patient is current with [facility] nursing, PT, OT. Will continue to follow hospital course and DC plans.
[2024-03-25] MEDS: LIPITOR 10 MG PO (16:53)
[2024-03-25 19:13] VITALS: BP 124/80
[2024-03-25] MEDS: LUMINAL 64.8 MG PO (19:58)
[2024-03-25 23:50] VITALS: BP 150/66
[2024-03-26] VITALS (8 sets, daily range): BP systolic 129–158; BP diastolic 52–89; PULSE 60–62; O2SAT 96–99; BMI 28.1
[2024-03-26] MEDS: LUMINAL 32.4 MG PO (08:33)
[2024-03-26] MEDS: ELIQUIS 2.5 MG PO ×2 (08:33→21:33)
[2024-03-26] MEDS: TOPROL XL 25 MG PO (08:34)
[2024-03-26] MEDS: TRICOR 145 MG PO (08:35)
[2024-03-26] MEDS: TAMBOCOR 50 MG PO ×2 (08:36→21:32)
--- NOTE | 2024-03-26 09:29 | W.PN.CD ---
Today's Communication / Plan
-
Cont IV lasix w/ metolazone
Impression / Plan
-
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
amiodarone lung toxicity, and pulmonary HTN, who presents to the emergency room with a chief complaint of worsening lower extremity edema -> acute on chronic HFpEF.
Primary mix crusher operator: Dr. Gonzáles
EP: Dr. Burnett ([facility])
Nephro: Dr. Quiles
HFpEF, acute on chronic
-Dry weight believed to be ~74kg per outpatient notes
-Diuresis with furosemide 80 mg IV twice daily, this requires intensive monitoring given her ETHAN on CKD
-Started on Lasix 80 mg IV q12h and still minimal response cont w/ Metolazone.
-She is not interested in compression, she would benefit
-Defer SGLT2i given ETHAN on CKD
-Monitor daily weights, I&Os, fluids/sodium
-Update echocardiogram when she is closer to euvolemia
Valvular heart disease
-Moderate aortic stenosis (peak/mean gradients 39/22 mmHg, JENNIFER 1.3 cm�)
-Mild mitral regurgitation, heavily calcified mitral annulus with restricted leaflet motion
-Moderate tricuspid regurgitation
Pulmonary HTN, severe
-PASP 70mmHg with dilated RV and hypokinetic, poor prognostic sign
Paroxysmal atrial fibrillation
Paroxysmal atrial tachycardia
-S/P AVN ablation with PPM, on Flecainide - with AVN ablation, unclear the need for Flecainide with high risk of CAD. On the other hand, AVN ablation will not allow flutter RVR conduction.
-Would leave to her EP - Dr. Burnett
-Oral Anticoagulation: Apixaban 2.5 mg twice daily (age 83, creatinine >1.5)
-[id number]: score at least 5 (Heart failure, HTN, age 75 or more, female gender)
-EP managed by Dr. Burnett
ETHAN on CKD
-Follows with nephrology in the outpatient setting
-Trend with diuresis
Anemia, chronic, in the setting of chronic disease
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
Seizure disorder, on phenobarbital
GIOVANY, on CPAP
Subjective: Feeling improved today
Physical Exam
Vital Signs/Labs
Vital Signs
Temp Pulse Resp BP Pulse Ox
97.4 F 64 20 158/70 99
03/26/24 07:00 03/26/24 08:34 03/26/24 07:00 03/26/24 08:34 03/26/24 07:00
03/25/24 03/26/24 03/27/24
06:59 06:59 06:59
Actual Weight 172 lb 4 oz 169 lb
03/24/24 05:32
Magnesium 2.6 mg/dl (1.6-2.3) H 03/25/24 09:03
03/24/24
05:32
Xxr-L-Fbrgzcbcnjk Pept [id number]
Physical Exam
Constitutional: No acute distress
EENT: Anicteric
Cardiovascular: Rhythm & rate is regular and Pedal edema present
Respiratory: Respiratory effort normal and Crackles Present (faint)
GI: Soft
Neuro/Psych: AO x 3
Data Reviewed
-
Date of Service: March 26, 2024
EKG: Tracing Personally Visualized and interpreted (paced)
Echo: Tracing Personally Visualized and interpreted
Labs: Labs Reviewed by me
[2024-03-26] MEDS: LASIX 80 MG IV ×2 (10:22→16:33)
[2024-03-26] MEDS: ZAROXOLYN 5 MG PO (10:24)
[2024-03-26] MEDS: KCL 20 MEQ PO ×2 (10:24→16:34)
[2024-03-26 11:25] LABS: Blood Urea Nitrogen 68 mg/dl (7-17); Calcium 9.4 mg/dl (8.4-10.2); Chloride 94 mmol/L (98-107); Estimated Creatinine Clearance 23 ml/min; Glucose 142 mg/dl (70-99); Magnesium 2.3 mg/dl (1.6-2.3); Potassium 3.7 mmol/L (3.5-5.1); Sodium 140 mmol/L (135-145); eGFR 27.27
[2024-03-26 11:36] LABS: Carbon Dioxide 37 mmol/L (22-30)
--- NOTE | 2024-03-26 11:50 | W.PN.HOSP.TC ---
Today's Communication/Plan
-
approaching euvolemia
IV lasix
trend cr
pt/ot
compression therapy
Assessment / Plan
Assessment / Plan
General: Well Developed, Well Nourished and No Apparent Distress
HEENT: NormoCephalic, Moist mucous membranes and Atraumatic
Respiratory: Mild rhonchi, on oxygen
Cardiac: S1/S2, Regular Rhythm, Murmur and JVD; No Rub
GI: Soft, Non Tender, Non Distended and Normal Bowel Sounds; No Organomegaly
Rectal: Deferred by Provider
Genito-urinary: Deferred by me
Musculoskeletal: No Clubbing, No Cyanosis, Edema, Left Lower Extremity and Edema, Right Lower Extremity
Skin: No Rash
Neuro: Awake, Alert, Oriented and Nonfocal/grossly intact
Psych: Calm
#Acute on chronic HFpEF
#Valvular heart disease
#Severe pulmonary hypertension
#Acute hypoxic respiratory insufficiency
Start patient on 80 mg IV Lasix twice daily
Zaroxlyn added.
Patient is grossly volume overloaded
Daily I's and O's. Fluid restriction. Losing weight.
Monitor creatinine closely
If significant worsening of renal function may need to consider nephrology evaluation
Check lower extremity venous Doppler and found to be negative for DVT
repeat ECHO plan per cardiology
CBC cardiology has been consulted
#Paroxysmal atrial fibrillation status post ablation status post pacemaker implantation
Chronic coagulopathy with Eliquis
Continue with Eliquis
Continue with flecainide
Continue with metoprolol
Monitor on telemetry
#ETHAN on with Chronic kidney disease 3B
Monitor creatinine closely with aggressive diuresis
Cr fluctuation expected with aggressive diuresis
#Chronic anemia
Trend CBC. Transfuse for hemoglobin less than 7.
#History of seizure disorder
Continue with home regimen of phenobarbital
Primary hypertension
Continue with metoprolol and hydralazine. On IV diuretics
GIOVANY
Continue with nighttime CPAP
DVT ppx-Eliquis
Full code
Anticipated Discharge: 24 - 48 hours
Subjective/Interval History
-
Date of Service: March 26, 2024
states passing increasing amount of urine
Objective Data
-
Labs:
Laboratory Results
03/26/24 03/26/24
08:19 10:28
Sodium Cancelled 140
Potassium Cancelled 3.7
Chloride Cancelled 94 L
Carbon Dioxide Cancelled 37 H
BUN Cancelled 68 H
Creatinine Cancelled 1.8 H
Glucose Cancelled 142 H
Calcium Cancelled 9.4
Vital Signs:
Vital Signs
Temp Pulse Resp BP Pulse Ox
98.5 F 62 20 142/87 91
03/26/24 11:18 03/26/24 11:18 03/26/24 11:18 03/26/24 11:18 03/26/24 11:18
I&O
03/25/24 03/26/24 03/27/24
06:59 06:59 06:59
Intake Total 600 / 600 600 / 600
Output Total 1090 / 1090 150 / 150
Balance -490 / -490 450 / 450
Data Reviewed
-
Total Time Spent with Patient (in minutes): 55
--- NOTE | 2024-03-26 12:40 | CM ---
Addendum entered by Prudence Barba 03/26/24 12:42:
PT/OT eval pending, await recs
Original Note:
Chart reviewed. Care ongoing
Currently on IV Lasix, cardiology following.
On CPAP
[facility] aware of referral and plan to coordinate start of services at d/c
Plan: Home w/ [facility] when stable
[2024-03-26] MEDS: LIPITOR 10 MG PO (16:34)
--- NOTE | 2024-03-26 17:22 | PTCARENOTE ---
Patient refusing compression therapy. Patient states she will accept treatment tomorrow.
[2024-03-26] MEDS: LUMINAL 64.8 MG PO (21:31)
[2024-03-27] VITALS (8 sets, daily range): BP systolic 62–163; BP diastolic 46–88; BMI 28.1
[2024-03-27 09:05] LABS: Blood Urea Nitrogen 72 mg/dl (7-17); Calcium 9.8 mg/dl (8.4-10.2); Carbon Dioxide 39 mmol/L (22-30); Chloride 93 mmol/L (98-107); Estimated Creatinine Clearance 25 ml/min; Glucose 91 mg/dl (70-99); Magnesium 2.1 mg/dl (1.6-2.3); Potassium 3.7 mmol/L (3.5-5.1); Sodium 141 mmol/L (135-145); eGFR 29.21
[2024-03-27] MEDS: KCL 20 MEQ PO ×2 (09:05→16:32)
[2024-03-27] MEDS: ELIQUIS 2.5 MG PO ×2 (09:05→20:36)
[2024-03-27] MEDS: LUMINAL 32.4 MG PO (09:06)
[2024-03-27] MEDS: TRICOR 145 MG PO (09:06)
[2024-03-27] MEDS: ZAROXOLYN 5 MG PO (09:06)
[2024-03-27] MEDS: TAMBOCOR 50 MG PO ×2 (09:06→20:37)
[2024-03-27] MEDS: TOPROL XL 25 MG PO (09:07)
[2024-03-27] MEDS: LASIX 80 MG IV (09:08)
--- NOTE | 2024-03-27 09:54 | W.PN.CD ---
Addendum entered and electronically signed by Aj Gonzáles MD 03/27/24 10:06:
cost for derik is $140 per month. patient not able to afford. we will reassess pricing as outpatient in 2024
will continue current dosing of torsemide and metolazone
Original Note:
Today's Communication / Plan
-
case management consult for SGLT2i, now that Cr improved
transition to torsemide 40mg bid, with metolazone 5mg daily
trend labs and weight another day; if able to afford SGLT2i, will make metolazone 5mg M/W/F dosing on d/c
Impression / Plan
-
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
amiodarone lung toxicity, and pulmonary HTN, who presents to the emergency room with a chief complaint of worsening lower extremity edema -> acute on chronic HFpEF.
Primary hvac installer: Dr. Gonzáles
EP: Dr. Burnett ([facility])
Nephro: Dr. Quiles
HFpEF, acute on chronic
-high risk situation with cardiorenal syndrome, CKD4, requiring close monitoring of labs
-Dry weight believed to be ~74kg per outpatient notes; seems to be stable at 76kg now
-She is not interested in compression, she would benefit
-case management consult for SGLT2i, now that Cr improved
-transition to torsemide 40mg bid, with metolazone 5mg daily
-trend labs and weight another day; if able to afford SGLT2i, will make metolazone 5mg M/W/F dosing on d/c
Valvular heart disease: stable on echo this admission with EF 60-65%
-Moderate aortic stenosis (peak/mean gradients 39/22 mmHg, JENNIFER 1.3 cm�)
-Mild mitral regurgitation, heavily calcified mitral annulus with restricted leaflet motion
-Moderate tricuspid regurgitation
Pulmonary HTN, severe
-PASP 70mmHg with dilated RV and hypokinetic, poor prognostic sign
Paroxysmal atrial fibrillation
Paroxysmal atrial tachycardia
-S/P AVN ablation with PPM, on Flecainide 50mg bid and metoprolol XL 25mg daily
-she gets outpatient nuclear stress to screen for CAD per EP
-Oral Anticoagulation: Apixaban 2.5 mg twice daily (age 83, creatinine >1.5)
-HCN3CQ2-NDPs: score at least 5 (Heart failure, HTN, age 75 or more, female gender)
-EP managed by Dr. Burnett
ETHAN on CKD
-Follows with nephrology in the outpatient setting
-improved with diuresis
Anemia, chronic, in the setting of chronic disease
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
Seizure disorder, on phenobarbital
GIOVANY, on CPAP
Subjective:
SOB and edema better.
Physical Exam
Vital Signs/Labs
Vital Signs
Temp Pulse Resp BP Pulse Ox
97.8 F 61 18 156/66 95
03/27/24 07:35 03/27/24 09:08 03/27/24 07:35 03/27/24 09:08 03/27/24 07:35
03/26/24 03/27/24 03/28/24
06:59 06:59 06:59
Actual Weight 76.657 kg 76.612 kg
03/24/24 05:32
03/27/24 07:54
Magnesium 2.1 mg/dl (1.6-2.3) 03/27/24 07:54
03/24/24
05:32
Fip-[id number]-[id number] Pept [id number]
Physical Exam
Constitutional: No acute distress and Comfortable
EENT: Moist mucous membranes
Cardiovascular: Rhythm & rate is regular, Pedal edema present, JVD present and Systolic murmur present
Respiratory: Respiratory effort normal and Lungs clear to auscul.
Neuro/Psych: AO x 3
Data Reviewed
-
Date of Service: March 27, 2024
EKG: Other (Tele: AV paced 60)
Labs: Labs Reviewed by me
--- NOTE | 2024-03-27 11:24 | W.PN.HOSP.TC ---
Today's Communication/Plan
-
Cards correspondence noted
IRAD for thoracentesis
observe overnight
wean o2
Assessment / Plan
Assessment / Plan
General: Well Developed, Well Nourished and No Apparent Distress
HEENT: NormoCephalic, Moist mucous membranes and Atraumatic
Respiratory: dec bs, on oxygen
Cardiac: S1/S2, Regular Rhythm, Murmur and JVD; No Rub
GI: Soft, Non Tender, Non Distended and Normal Bowel Sounds; No Organomegaly
Rectal: Deferred by Provider
Genito-urinary: Deferred by me
Musculoskeletal: No Clubbing, No Cyanosis, Edema, Left Lower Extremity and Edema, Right Lower Extremity
Skin: No Rash
Neuro: Awake, Alert, Oriented and Nonfocal/grossly intact
Psych: Calm
#Acute on chronic HFpEF
#Valvular heart disease
#Severe pulmonary hypertension
#Acute hypoxic respiratory insufficiency
Start patient on 80 mg IV Lasix twice daily. Now on Demadex 40 mg twice daily. Metolazone dose per cardiology.
Patient is grossly volume overloaded
Daily I's and O's. Fluid restriction. Losing weight.
Monitor creatinine closely
If significant worsening of renal function may need to consider nephrology evaluation
Check lower extremity venous Doppler and found to be negative for DVT
CBC cardiology has been consulted
home o2 eval prior to discharge.
#pleural effusion was noted on echo
Ultrasound chest confirmed pleural effusion large left
IR consult for thoracentesis
#Paroxysmal atrial fibrillation status post ablation status post pacemaker implantation
Chronic coagulopathy with Eliquis
Continue with Eliquis dose decreased to 2.5MG bid
Continue with flecainide
Continue with metoprolol
Monitor on telemetry
#ETHAN on with Chronic kidney disease 3B
Monitor creatinine closely with aggressive diuresis
Cr fluctuation expected with aggressive diuresis
#Chronic anemia
Trend CBC. Transfuse for hemoglobin less than 7.
#History of seizure disorder
Continue with home regimen of phenobarbital
Primary hypertension
Continue with metoprolol and hydralazine. On IV diuretics
GIOVANY
Continue with nighttime CPAP
DVT ppx-Eliquis
Full code
Anticipated Discharge: Within 24 hours
Subjective/Interval History
-
Date of Service: March 27, 2024
states improvement in LE edema
Objective Data
-
Labs:
Laboratory Results
03/27/24
07:54
Sodium 141
Potassium 3.7
Chloride 93 L
Carbon Dioxide 39 H
BUN 72 H
Creatinine 1.7 H
Glucose 91
Calcium 9.8
Vital Signs:
Vital Signs
Temp Pulse Resp BP Pulse Ox
97.8 F 61 18 156/66 95
03/27/24 07:35 03/27/24 09:08 03/27/24 07:35 03/27/24 09:08 03/27/24 07:35
I&O
03/26/24 03/27/24 03/28/24
06:59 06:59 06:59
Intake Total 600 / 600 1140 / 1140
Output Total 150 / 150 1200 / 1200
Balance 450 / 450 -60 / -60
Data Reviewed
-
Total Time Spent with Patient (in minutes): 55
--- NOTE | 2024-03-27 11:35 | CM ---
Chart reviewed. Pt poss d/c tomorrow
Currently on 2L O2, cont to wean
PT/OT rec home PT at d/c. Pt is current w/ [facility]
Britt checked for meds. Jardiance 10 mg for 30 days is $147.82 and Farxiga 10 mg for 30 days is $140.85
Pest Control Supervisor updated on med costs
Plan: Home w/ [facility] when stable
[2024-03-27 12:26] LABS: LDH 232 U/L (120-246); Total Protein 7.2 g/dl (6.3-8.2)
[2024-03-27 14:59] LABS: Body Fluid pH 7.58
[2024-03-27 15:12] LABS: Body Fluid Glucose 110 mg/dl; Body Fluid LDH < 90 U/L; Body Fluid Protein 2.9 g/dl
[2024-03-27 15:51] LABS: Body Fluid Mononuclear 84.9 %; Body Fluid Polymorphonuclear 15.1 %; Body Fluid WBC 185 /CUMM
[2024-03-27] MEDS: DEMADEX 40 MG PO (16:32)
[2024-03-27] MEDS: APRESOLINE 100 MG PO ×2 (16:32→20:38)
[2024-03-27 16:43] LABS: Body Fluid Second Tech JMK
[2024-03-27] MEDS: LIPITOR 10 MG PO (16:43)
[2024-03-27] MEDS: LUMINAL 64.8 MG PO (20:38)
[2024-03-28] VITALS (8 sets, daily range): BP systolic 128–161; BP diastolic 49–64; PULSE 60–62; O2SAT 99; BMI 25.7
[2024-03-28 04:43] LABS: Blood Urea Nitrogen 72 mg/dl (7-17); Calcium 9.4 mg/dl (8.4-10.2); Chloride 91 mmol/L (98-107); Estimated Creatinine Clearance 23 ml/min; Glucose 112 mg/dl (70-99); Magnesium 2.1 mg/dl (1.6-2.3); Potassium 3.7 mmol/L (3.5-5.1); Sodium 139 mmol/L (135-145); eGFR 27.27
[2024-03-28 04:54] LABS: Carbon Dioxide 40 mmol/L (22-30)
[2024-03-28] MEDS: TRICOR 145 MG PO (09:00)
[2024-03-28] MEDS: ZAROXOLYN 5 MG PO (09:00)
[2024-03-28] MEDS: KCL 20 MEQ PO ×2 (09:00→16:13)
[2024-03-28] MEDS: LUMINAL 32.4 MG PO (09:00)
[2024-03-28] MEDS: TAMBOCOR 50 MG PO ×2 (09:00→20:55)
[2024-03-28] MEDS: APRESOLINE 100 MG PO ×3 (09:01→21:38)
[2024-03-28] MEDS: ELIQUIS 2.5 MG PO ×2 (09:01→20:55)
[2024-03-28] MEDS: TOPROL XL 25 MG PO (09:01)
[2024-03-28] MEDS: DEMADEX 40 MG PO ×2 (09:01→16:13)
--- NOTE | 2024-03-28 09:46 | W.PN.CD ---
Today's Communication / Plan
-
-Can discharge on torsemide 40 mg BID and metolazone 5mg daily.
-Outpatient follow-up with Cardiology.
Impression / Plan
-
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
amiodarone lung toxicity, and pulmonary HTN, who presents to the emergency room with a chief complaint of worsening lower extremity edema -> acute on chronic HFpEF.
Primary director weights and measures: Dr. Gonzáles
EP: Dr. Burnett ([facility])
Nephro: Dr. Quiles
HFpEF, acute on chronic
-high risk situation with cardiorenal syndrome, CKD4, requiring close monitoring of labs
-Dry weight believed to be ~74kg per outpatient notes; seems to be stable at 76kg now
-She is not interested in compression, she would benefit
-Can discharge on torsemide 40 mg BID and metolazone 5mg daily.
-Unable to afford SGLT2 inhibitor.
Valvular heart disease: stable on echo this admission with EF 60-65%
-Moderate aortic stenosis (peak/mean gradients 39/22 mmHg, JENNIFER 1.3 cm�)
-Mild mitral regurgitation, heavily calcified mitral annulus with restricted leaflet motion
-Moderate tricuspid regurgitation
-Volume management with diuretic.
Pulmonary HTN, severe
-PASP 70mmHg with dilated RV and hypokinetic, poor prognostic sign
Paroxysmal atrial fibrillation/Paroxysmal atrial tachycardia
-S/P AVN ablation with PPM, on Flecainide 50mg bid and metoprolol XL 25mg daily
-she gets outpatient nuclear stress to screen for CAD per EP
-Oral Anticoagulation: Continue Apixaban 2.5 mg twice daily (age 83, creatinine >1.5)
-NOH5HR4-PCVr: score at least 5 (Heart failure, HTN, age 75 or more, female gender)
-EP managed by Dr. Burnett
ETHAN on CKD
-Follows with nephrology in the outpatient setting
-improved with diuresis
Anemia, chronic, in the setting of chronic disease
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
Seizure disorder, on phenobarbital
GIOVANY, on CPAP
Subjective:
No major events overnight. No cardiac complaints this a.m.
Physical Exam
Vital Signs/Labs
Vital Signs
Temp Pulse Resp BP Pulse Ox
99.2 F 67 22 132/64 99
03/28/24 07:41 03/28/24 09:01 03/28/24 07:41 03/28/24 09:01 03/28/24 07:41
03/27/24 03/28/24 03/29/24
06:59 06:59 06:59
Actual Weight 76.612 kg 70.052 kg
03/24/24 05:32
03/28/24 04:02
Magnesium 2.1 mg/dl (1.6-2.3) 03/28/24 04:02
03/24/24
05:32
Kca-H-[id number] Pept [id number]
Physical Exam
Constitutional: No acute distress and Comfortable
EENT: Anicteric
Cardiovascular: Rhythm & rate is regular, Pedal edema present (1+), Systolic murmur present (3+) and S1S2 is normal
Respiratory: Respiratory effort normal and Rhonchi Present
GI: Soft
Neuro/Psych: AO x 3
Data Reviewed
-
Date of Service: March 28, 2024
EKG: Tracing Personally Visualized and interpreted (Telemetry: AV paced)
Labs: Labs Reviewed by me
--- NOTE | 2024-03-28 11:47 | W.PN.HOSP.TC ---
Addendum entered and electronically signed by Leopoldo Chan MD 03/28/24 12:31:
Patient is in need of oxygen on exertion due to pulse oximetry of 84 % on room air at rest;
Patient was placed on 4L O2 via nasal cannula with saturation of 95%. Oxygen will help to improve hypoxemia.
Patient is mobile within the home. Albuterol therapy and IV lasix has been discussed and is ineffective in treating hypoxemia-related symptoms.
Oxygen will improve the patient's symptoms.
Original Note:
Today's Communication/Plan
-
Home o2 eval pending
P.o. diuretics
Eliquis dose decreased
Assessment / Plan
Assessment / Plan
General: Well Developed, Well Nourished and No Apparent Distress
HEENT: NormoCephalic, Moist mucous membranes and Atraumatic
Respiratory: dec bs, on oxygen
Cardiac: S1/S2, Regular Rhythm, Murmur and JVD; No Rub
GI: Soft, Non Tender, Non Distended and Normal Bowel Sounds; No Organomegaly
Rectal: Deferred by Provider
Genito-urinary: Deferred by me
Musculoskeletal: No Clubbing, No Cyanosis, Edema, Left Lower Extremity and Edema, Right Lower Extremity-improved. Oenal wrapped.
Skin: No Rash
Neuro: Awake, Alert, Oriented and Nonfocal/grossly intact
Psych: Calm
#Acute on chronic HFpEF
#Valvular heart disease
#Severe pulmonary hypertension
#Acute hypoxic respiratory insufficiency
Start patient on 80 mg IV Lasix twice daily. Now on Demadex 40 mg twice daily. Metolazone dose 5 mg daily
Patient is grossly volume overloaded
Daily I's and O's. Fluid restriction. Losing weight.
Monitor creatinine closely
If significant worsening of renal function may need to consider nephrology evaluation
Check lower extremity venous Doppler and found to be negative for DVT
CBC cardiology has been consulted
Not able to afford Jardiance. Can be re- evaluated as outpatient.
Patient agreed with compression therapy
home o2 eval pending
#pleural effusion transudative
Ultrasound chest confirmed pleural effusion large left
Status post thoracentesis with 800 cc fluid removed. Fluid cultures preliminary negative.
#Paroxysmal atrial fibrillation status post ablation status post pacemaker implantation
Chronic coagulopathy with Eliquis
Continue with Eliquis dose decreased to 2.5MG bid
Continue with flecainide
Continue with metoprolol
Monitor on telemetry
#ETHAN on with Chronic kidney disease 3B
Monitor creatinine closely with aggressive diuresis
Cr fluctuation expected with aggressive diuresis. Creatinine improved.
#Chronic anemia
Trend CBC. Transfuse for hemoglobin less than 7.
#History of seizure disorder
Continue with home regimen of phenobarbital
Primary hypertension
Continue with metoprolol and hydralazine. On IV diuretics
GIOVANY
Continue with nighttime CPAP
DVT ppx-Eliquis
Full code
PT/OT-Home VN
More than 30 minutes spent in discharge including
Final examination of the patient
Summarizing hospital stay
Instructions for continuing care to all relevant caregivers
Preparation of discharge records, prescriptions, and referral forms
Total time spent (in minutes): 52
Anticipated Discharge: Today
Subjective/Interval History
-
Date of Service: March 28, 2024
states improvement in LE edema
Objective Data
-
Labs:
Laboratory Results
03/28/24
04:02
Sodium 139
Potassium 3.7
Chloride 91 L
Carbon Dioxide 40 H
BUN 72 H
Creatinine 1.8 H
Glucose 112 H
Calcium 9.4
Vital Signs:
Vital Signs
Temp Pulse Resp BP Pulse Ox
99.2 F 67 22 132/64 99
03/28/24 07:41 03/28/24 09:01 03/28/24 07:41 03/28/24 09:01 03/28/24 07:41
I&O
03/27/24 03/28/24 03/29/24
06:59 06:59 06:59
Intake Total 1140 / 1140 360 / 360
Output Total 1200 / 1200 400 / 400
Balance -60 / -60 -40 / -40
--- NOTE | 2024-03-28 11:55 | W.DCSUMMARY ---
Discharge Summary
Discharge Data
Date of Admission: 03/24/24
Date of Discharge: 03/28/24
-
Pending Results: No
Hospital Course
83 female past medical history of chronic kidney disease, chronic anemia, history of seizure disorder, hypertension, GIOVANY chronic HFpEF, valvular heart disease, severe pulmonary hypertension who is presenting from home with worsening of lower
extremity edema. Patient was found to be acute on chronic heart failure exacerbation. Patient also had acute kidney injury on chronic kidney disease with elevated creatinine. Patient was started on 80 mg of IV Lasix. Metolazone was started per
cardiology. Patient was significant weight loss leading to improvement in lower extremity edema. Patient creatinine also continued to trend down which was deemed secondary to cardiorenal syndrome. Patient also underwent ultrasound of the chest
which showed a pleural effusion and interventional radiology was consulted. Patient underwent thoracentesis where 800 cc of fluid was removed. Fluid cultures were negative. Patient was transition of IV Lasix to Demadex 40 mg twice daily.
Metolazone 5 mg was added daily. Patient Eliquis dose was also adjusted 2.5 mg twice daily based on age and creatinine. Patient qualified for home oxygenation at 4 L. Patient was eval by PT and OT plan will be for home health on discharge.
Discharge Plan
-
Patient Disposition: Home with Home Care
Discharge Diagnosis/Procedures: Acute on chronic diastolic heart failure exacerbation
Pleural effusion status post thoracentesis
Acute kidney injury on chronic kidney disease stage IIIb
Condition: Fair
Diet: 2 Gram Sodium and Restrict fluids to 48 oz
Driving Restrictions: Not until seen by your Dr
Blood Work: BMP in 1 week with primary doctor
Instructions: *CBC Heart Failure Instructions
Referrals:
Lior Wang MD [Active] - 04/08/24 10:40 am
Oh Calvin MD [Family Provider] - in less than 1 week
Additional Discharge Medication Instructions: Eliquis dose has been decreased to 2.5 mg twice daily
Torsemide dose has been increased to 40 mg twice a day
Prescriptions:
New
potassium chloride 20 mEq Tablet,Er Particles/Crystals
20 meq PO BID@0800,1600 30 Days Qty: 60 0RF
Rx Instructions:
Take with Demadex
torsemide 20 mg Tablet
40 mg PO BID@0800,1600 30 Days Qty: 120 0RF
metolazone 5 mg Tablet
5 mg PO DAILY 30 Days Qty: 30 0RF
Eliquis 2.5 mg tablet
2.5 mg PO BID Qty: 60 0RF
Continued
atorvastatin 10 MG tablet
10 mg PO QPM
phenobarbital 32.4 MG tablet
64.8 mg PO HS
phenobarbital 32.4 MG tablet
32.4 mg PO DAILY
Patient Comments:
fenofibrate micronized 134 mg capsule
134 mg PO DAILY
hydralazine 100 mg tablet
100 mg PO TID
flecainide 50 mg tablet
50 mg PO BID
metoprolol succinate 25 MG tablet extended release 24 hr
25 mg PO DAILY
Discontinued
torsemide 20 mg Tablet
20 mg PO BID
Eliquis 5 mg Tablet
5 mg PO BID
furosemide 40 mg tablet
40 - 80 mg PO BID
Discharge Orders:
Discharge Patient (As Directed); Ordered 03/28/24
Ordered By: Leopoldo Chan
Discharge Date and Time
Print Language: ROMANIAN
--- NOTE | 2024-03-28 12:53 | VNURNOTE ---
Chart reviewed, pt requiring new 02 upon exertion. Rx faxed to Zofia at [facility] for new home 02. She will deliver to bedside by 1400. JULISA Foss updated. [facility] referral updated.
--- NOTE | 2024-03-28 12:58 | CM ---
Addendum entered by Prudence Barba 03/28/24 15:47:
Pt is now being recommended for rehab per PT/OT. Family is agreeable as they do not believe pt is able to go home at this time
Will explore rehab options w/ family and send referrals
Will need auth
Plan: SNF; pending bed availability and auth approval
Original Note:
Per hospitalist, pt is medically stable for d/c today.
Pt will require 4L home O2 at d/c
Pt is current w/ [facility]. Liaison made aware of d/c and O2 needs
Per Liaison, [employer] will deliver portable tank to pt
Met pt bedside to inform of d/c today and O2 needs, pt agreeable to d/c today and resume services w/ [facility]
IMM reviewed, pt given copy. Copy placed on chart
Updated son, Lloyd, via phone. Per Lloyd, he will transport pt home
No other needs identified at this time
[facility]

Plan: Home; JAVID w/ [facility] and home O2 supplied by [employer]
--- NOTE | 2024-03-28 16:09 | VNURNOTE ---
Rec'ed update that patient now choosing SNF. [facility] referral cancelled. Reached out to Zofia at [facility] and cancelled 02 order. She will be back later to picker and sorter load and unload portable 02 tank - will be stored in CM office temporarily.
[2024-03-28] MEDS: LIPITOR 10 MG PO (16:13)
[2024-03-28] MEDS: LUMINAL 64.8 MG PO (21:37)
[2024-03-29 03:09] VITALS: BP 122/46
[2024-03-29 06:00] VITALS: BMI 25.0
[2024-03-29 07:35] VITALS: BP 126/51
[2024-03-29 07:56] LABS: Blood Urea Nitrogen 65 mg/dl (7-17); Calcium 9.5 mg/dl (8.4-10.2); Chloride 85 mmol/L (98-107); Estimated Creatinine Clearance 21 ml/min; Glucose 101 mg/dl (70-99); Potassium 3.3 mmol/L (3.5-5.1); Sodium 140 mmol/L (135-145); eGFR 27.27
[2024-03-29 08:14] LABS: Carbon Dioxide 46 mmol/L (22-30)
[2024-03-29] MEDS: DEMADEX 40 MG PO ×2 (10:13→17:17)
[2024-03-29] MEDS: ELIQUIS 2.5 MG PO ×2 (10:13→20:57)
[2024-03-29] MEDS: APRESOLINE 100 MG PO ×3 (10:13→22:09)
[2024-03-29] MEDS: TOPROL XL 25 MG PO (10:14)
[2024-03-29] MEDS: KCL 20 MEQ PO ×2 (10:14→17:18)
[2024-03-29] MEDS: TAMBOCOR 50 MG PO ×2 (10:14→20:57)
[2024-03-29] MEDS: LUMINAL 32.4 MG PO ×2 (10:14→20:58)
[2024-03-29] MEDS: TRICOR 145 MG PO (10:14)
[2024-03-29] MEDS: ZAROXOLYN 5 MG PO (10:15)
[2024-03-29] MEDS: FLUSH (NSS) 1 FLUSH IV (10:15)
--- NOTE | 2024-03-29 11:24 | CM ---
Patient with Hx HF who is s/p thoracentesis. Room air. Home O2 Assessment done yesterday. PT/OT recommend skilled rehab.
Spoke with son Hector; discussed short term SNF for rehab. He says his mother has been to [facility] SNF in the past. Discussed local SNFs near [facility] and provided [facility] ratings. He chose: [facility], [facility]
SNFs.
SNF referrals placed.
Patient will need insurance auth for SNF.
Plan follow up SNF referrals.
[2024-03-29 11:40] VITALS: BP 105/45
--- NOTE | 2024-03-29 12:30 | W.PN.HOSP.TC ---
Today's Communication/Plan
-
Hold discharge
Neurology input
cont po demadex
replete KCL
Assessment / Plan
Assessment / Plan
General: Well Developed, Well Nourished and No Apparent Distress
HEENT: NormoCephalic, Moist mucous membranes and Atraumatic
Respiratory: dec bs, on oxygen
Cardiac: S1/S2, Regular Rhythm, Murmur and JVD; No Rub
GI: Soft, Non Tender, Non Distended and Normal Bowel Sounds; No Organomegaly
Rectal: Deferred by Provider
Genito-urinary: Deferred by me
Musculoskeletal: No Clubbing, No Cyanosis, Edema, Left Lower Extremity and Edema, Right Lower Extremity-improved. Oneal wrapped.
Skin: No Rash
Neuro: Awake, Alert, Oriented and Nonfocal/grossly intact
Psych: Calm
#History of seizure disorder
# Lethargy likely secondary to phenobarbital
ON phenobarbital 32.5mg AM/62.5Mg pm-managed by pcp
per son re-collection seizure was long time ago. may be 30+ years ago. Phenobarbital is managed by patient's PCP.
Seems to be phenobarbital causing patient increased lethargy and drowsiness
will ask neurology for input should we taper off phenobarbital and start different agent antiepileptic?
#Acute on chronic HFpEF
#Valvular heart disease
#Severe pulmonary hypertension
#Acute hypoxic respiratory insufficiency
Start patient on 80 mg IV Lasix twice daily. Now on Demadex 40 mg twice daily. Metolazone dose 5 mg daily
Patient is grossly volume overloaded
Daily I's and O's. Fluid restriction. Losing weight.
Monitor creatinine closely
If significant worsening of renal function may need to consider nephrology evaluation
Check lower extremity venous Doppler and found to be negative for DVT
CBC cardiology has been consulted
Not able to afford Jardiance. Can be re- evaluated as outpatient.
Patient agreed with compression therapy
#pleural effusion transudative
Ultrasound chest confirmed pleural effusion large left
Status post thoracentesis with 800 cc fluid removed. Fluid cultures preliminary negative.
#Paroxysmal atrial fibrillation status post ablation status post pacemaker implantation
Chronic coagulopathy with Eliquis
Continue with Eliquis dose decreased to 2.5MG bid
Continue with flecainide
Continue with metoprolol
Monitor on telemetry
#ETHAN on with Chronic kidney disease 3B
Monitor creatinine closely with aggressive diuresis
Cr fluctuation expected with aggressive diuresis. Creatinine improved.
#Chronic anemia
Trend CBC. Transfuse for hemoglobin less than 7.
Primary hypertension
Continue with metoprolol and hydralazine. On IV diuretics
GIOVANY
Continue with nighttime CPAP
Hypokalemia
replete/monitor
DVT ppx-Eliquis
Full code
PT/OT-SNF. CM aware.
Discussed with patient's son over the details.
Anticipated Discharge: 24 - 48 hours
Subjective/Interval History
-
Date of Service: March 29, 2024
intermittent drowsiness leading to cancellation of discharge yesterday
Patient with increased sleepiness during daytime.
Agree with family more concerned about mentation
states improvement in edema
remains on oxygen
Objective Data
-
Labs:
Laboratory Results
03/29/24
06:43
Sodium 140
Potassium 3.3 L
Chloride 85 L
Carbon Dioxide 46 H
BUN 65 H
Creatinine 1.8 H
Glucose 101 H
Calcium 9.5
Vital Signs:
Vital Signs
Temp Pulse Resp BP Pulse Ox
97.8 F 61 18 105/45 94
03/29/24 11:40 03/29/24 11:40 03/29/24 11:40 03/29/24 11:40 03/29/24 11:40
I&O
03/28/24 03/29/24 03/30/24
06:59 06:59 06:59
Intake Total 360 / 360 360 / 360
Output Total 400 / 400 200 / 200
Balance -40 / -40 160 / 160
Data Reviewed
-
Total Time Spent with Patient (in minutes): 55
--- NOTE | 2024-03-29 12:55 | CON.NEURO ---
Neuro Assessment/Plan
Assessment
Acute onset lethargy without a prior history of significant cognitive decline although the patient has a history of single onset seizure�like episode approximately 40 years ago
Differential diagnosis includes encephalopathy which may be secondary to toxic etiologies, lethargy is however more likely due to excessive sleepiness which in turn may be due to inadequate use of positive airway pressure mask and machine
Plan
Increase compliance with positive air pressure mask machine
Check blood work and urinalysis for potential metabolic causes
Check phenobarbital level
Consider lowering phenobarbital dosing from 97.2 mg to 64.8 mg
No clear indication of the patient would benefit from EEG evaluation as by definition the patient is currently seizure-free
If no clear etiology appears with regards to metabolic causes and increased use of CPAP does not improve wakefulness, repeated CT of the head may be necessary as the patient has a pacemaker in place
Will follow peripherally
Consultation
Order
Date of Consultation: 03/29/24
Requesting Provider: Hospitalist
Reason for Consult: Lethargy
Subjective/Objective
Subjective Data
Date of Service: March 29, 2024
Left-Handed
Patient returned to this hospital on March 24, 2024 with worsening lower extremity edema and orthopnea. Subsequent evaluation provided the diagnosis of acute on chronic heart failure with preserved ejection fraction. During the hospitalization
she underwent thoracentesis with significant fluid removal and was maintained on her usual CPAP. The plan was to discharge the patient today, March 29, 2024, which was delayed due to the patient's current lethargy. The patient's lethargy was
described by family who are at bedside currently as being present at the time of her hospitalization and persistent.
The patient herself is a limited historian due to lethargy.
Patient is described as having had a single episode of generalized tonic-clonic seizure with associated collapse in approximately 1983. The patient was outside and had an aura of staring at water leading to collapse for short period of time. She
was placed on phenobarbital and has been compliant with that medication since approximately 40 years ago. The patient had no additional episodes since that time.
Objective Data
Vital Signs
Temp Pulse Resp BP Pulse Ox
36.6 C 61 18 105/45 94
03/29/24 11:40 03/29/24 11:40 03/29/24 11:40 03/29/24 11:40 03/29/24 11:40
Lab Results
03/24/24 05:32
03/29/24 06:43
Sodium 140 mmol/L (135-145) 03/29/24 06:43
Potassium 3.3 mmol/L (3.5-5.1) L 03/29/24 06:43
BUN 65 mg/dl (7-17) H 03/29/24 06:43
Glucose 101 mg/dl (70-99) H 03/29/24 06:43
Calcium 9.5 mg/dl (8.4-10.2) 03/29/24 06:43
Ruu-O-Xpzyvygokux Pept 64976 pg/ml 03/24/24 05:32
Patient Allergies
adhesive tape Allergy (Verified 03/24/24 05:30)
Rash
cefuroxime [From Ceftin] Allergy (Verified 03/24/24 05:30)
throat closes
ragweed pollen Allergy (Verified 03/24/24 05:30)
Unknown
Sulfa (Sulfonamide Antibiotics) Allergy (Verified 03/24/24 05:30)
throat closes
Review of Systems
-
Unable to obtain full review of systems at this time due to: Lethargy
History Source: Patient
All other systems: Reviewed and negative
Musculoskeletal: Negative Muscle Pain, Back Pain or Neck Pain
Physical Exam
-
General: No Apparent Distress and Appears Stated Age
Eyes: Able to visualize OU, Round OU, Crockett Conjunctivae and No Ptosis
HEENT: Anicteric and Moist Mucous Membranes
Neck: Full Range of Motion
Respiratory: No Dyspnea
Cardiac: No JVD
GI: Non-distended
Skin: Unremarkable
Extremities: No Clubbing, No Cyanosis and No Edema
Psych: Intact Judgement/Insight
Extended Neurological Exam
Mood & Affect: Mood Unremarkable and Affect Unremarkable
Attention Span & Concentration: Awake, Closes Eyes after Stimulation (After approximately 3 seconds, although with vigorous stimulation, patient can remain awake for 5 seconds), Unable to Perform 2 Step Request and Other (able to perform some single
step requests); Negative Alert or Interactive
Memory: Able to Recall (Month, year, location, family members)
Tremor: Hand Tremor Absent and Amplitude (Low to medium, rhythmic, with inaction)
Involuntary Movement: None
Speech: Severely Reduced Output; Negative Dysarthric
Cranial Nerve II: Left Eye: Pupillary Reactivity Unremarkable, Pupillary Size Unremarkable and Unable to Assess Visual Erickson
Cranial Nerve II: Right Eye: Pupillary Reactivity Unremarkable, Pupillary Size Unremarkable and Unable to Assess Visual Erickson
Cranial Nerves III, IV, : Extraocular Movement: Extraocular Movement Full in all Directions
Cranial Nerve VII: Facial Symmetry: Normal Facial Symmetry
Cranial Nerve VIII: Hearing: Unremarkable Hearing to Normal Conversational Volume
Cranial Nerves IX, X: Palate Movement: Palate Elevation Symmetric
Cranial Nerve XI: Shoulder Shrug: Unable to Assess
Cranial Nerve XII: Tongue Protusion: Unable to Assess
Muscle Strength, Overall: Spontaneously Moves (All extremities)
Muscle Bulk & Tone: Bulk Unremarkable and Tone Unremarkable
Pronator Drift: Unable to Assess
Deep Tendon Reflexes: Absent Throughout
Cold Sensation: Unable to Assess
Vibration Sensation: Unable to Assess
Touch Sensation: Withdrawal to Pain
Coordination: Unable to Assess
Babinski Sign: Absent Bilaterally
Gait & Station: Unable to Assess
Data Reviewed
-
Labs: Ordered and Report Reviewed
Reviewed with: Physician, Patient and Family
Old Records: Summarized
Medications
-
Active Medications
Generic Name Dose Route Start Last Admin
Trade Name Freq PRN Reason Stop Dose Admin
Acetaminophen 650 mg 03/25/24 12:26
Acetaminophen 325 Mg Tablet PO 04/22/24 12:25
Q6HPRN PRN
mild pain/ fever>100.5F
Apixaban 2.5 mg 03/24/24 20:00 03/29/24 10:13
Apixaban (Eliquis) 5 Mg Tablet PO 04/21/24 19:59 2.5 mg
BID XIOMARA Administration
Atorvastatin Calcium 10 mg 03/24/24 18:00 03/28/24 16:13
Atorvastatin (Lipitor) 10 Mg Tablet PO 04/21/24 17:59 10 mg
QPM XIOMARA Administration
Fenofibrate 145 mg 03/25/24 08:00 03/29/24 10:14
Fenofibrate 145 Mg Tablet PO 04/22/24 07:59 145 mg
DAILY XIOMARA Administration
Flecainide Acetate 50 mg 03/24/24 20:00 03/29/24 10:14
Flecainide 50 Mg Tablet PO 04/21/24 19:59 50 mg
BID XIOMARA Administration
Hydralazine HCl 100 mg 03/27/24 16:00 03/29/24 10:13
Hydralazine 50 Mg Tablet PO 04/24/24 15:59 100 mg
TID XIOMARA Administration
Metolazone 5 mg 03/25/24 10:00 03/29/24 10:15
Metolazone 5 Mg Tablet PO 04/22/24 09:59 5 mg
DAILY XIOMARA Administration
Metoprolol Succinate 25 mg 03/25/24 08:00 03/29/24 10:14
Metoprolol 25 Mg Extended Release Tablet PO 04/22/24 07:59 25 mg
DAILY XIOMARA Administration
Phenobarbital Sodium 64.8 mg 03/24/24 22:00 03/28/24 21:37
Phenobarbital 32.4 Mg Tablet PO 04/21/24 21:59 64.8 mg
HS XIOMARA Administration
Phenobarbital Sodium 32.4 mg 03/25/24 08:00 03/29/24 10:14
Phenobarbital 32.4 Mg Tablet PO 04/22/24 07:59 32.4 mg
DAILY XIOMARA Administration
Potassium Chloride 20 meq 03/25/24 08:00 03/29/24 10:14
Potassium Chloride 20 Meq Extended Release Tablet PO 04/22/24 07:59 20 meq
BID@0800,1600 XIOMARA Administration
Sodium Chloride 0 flush 03/24/24 18:00 03/29/24 10:15
Sodium Chloride 0.9% (Flush) Syringe IV 04/21/24 17:59 1 flush
PER PROTOCOL XIOMARA Administration
Torsemide 40 mg 03/27/24 16:00 03/29/24 10:13
Torsemide 20 Mg Tablet PO 04/24/24 15:59 40 mg
BID@0800,1600 XIOMARA Administration
Home Medications
�Medication �Instructions �Recorded
atorvastatin 10 mg tablet 10 mg PO QPM High cholesterol 10/21/20
phenobarbital 32.4 mg tablet 32.4 mg PO DAILY Seizures 10/21/20
phenobarbital 32.4 mg tablet 64.8 mg PO HS Seizures 10/21/20
fenofibrate micronized 134 mg 134 mg PO DAILY High Cholesterol 06/21/23
capsule
flecainide 50 mg tablet 50 mg PO BID Arrhythmia 06/21/23
hydralazine 100 mg tablet 100 mg PO TID Blood Pressure 06/21/23
metoprolol succinate 25 mg 25 mg PO DAILY Blood pressure 01/24/24
tablet,extended release 24 hr
potassium chloride 20 mEq 20 meq PO BID@0800,1600 03/27/24
tablet,extended release(part/cryst) Electrolyte Repletion 30 days #60
tabs
torsemide 20 mg tablet 40 mg (2 x 20 mg) PO BID@0800,1600 03/27/24
30 days #120 tabs
apixaban 2.5 mg tablet (Eliquis) 2.5 mg PO BID #60 tabs 03/28/24
metolazone 5 mg tablet 5 mg PO DAILY Fluid 03/28/24
retention/Swelling 30 days #30 tabs
Past History
Past History
ED Past Medical History: Arrthythmia (afib, cardioversions.), Asthma, CHF, COPD, HTN, Hypercholesterolemia, Other (Obstructive sleep apnea, interstitial lung disease, bilateral lower extremity edema, right truncal varicella-zoster 2020) and Other
(History of seizure); Negative Renal failure (Stage IIIb chronic kidney disease)
ED Past Surgical History: Cardiac (Cardioversion. Ablation X 2, pacemaker), Gynecological (Hysterectomy), Orthopedic (Bilateral shoulder surgeries, back surgery x 2, bilateral TKA) and Other (Foot surgery, breast biopsy)
Social History
Tobacco: Non-smoker
Alcohol: None
Personal:
Living: alone
Family History
Family History: CAD
[2024-03-29] MEDS: KCL 40 MEQ PO (13:55)
[2024-03-29 14:02] LABS: Hematocrit 36.1 % (37.0-47.0); Hemoglobin 11.8 g/dL (12.0-16.0); Mean Corp Hgb Conc. 32.7 g/dL (33.0-37.0); Mean Corpuscular Hgb 31.1 pg (27.0-31.0); Mean Corpuscular Volume 95.3 fL (81.0-99.0); Red Blood Cell Count 3.79 10^6/uL (4.20-5.40); Red Cell Dist. Width 15.2 % (11.5-14.5)
[2024-03-29 14:31] LABS: Absolute Neutrophils -Man Diff 2.8 10^3/uL (1.4-6.5); Band Neutrophils 0 % (0-3); Eosinophils 2 % (0-6); Lymphocytes 9 % (20-51); Monocytes 19 % (2-9); Platelets Checked Yes; Segmented Neutrophils 70 % (42-75)
[2024-03-29 14:32] LABS: Normal RBC Morphology No
[2024-03-29 14:33] LABS: Anisocytosis Slight; Hypochromasia Slight; Ovalocytes Slight; Total Cells Counted 100
[2024-03-29 15:15] VITALS: BP 135/54
--- NOTE | 2024-03-29 15:26 | PTCARENOTE ---
Pt up to take off telemetry per protocol today. Discussed with Dr. Chan who wants pt to stay on telemetry today due to intermittent lethargy.
[2024-03-29 15:27] LABS: Erythrocyte Sed Rate 40 mm/hour (0-20)
[2024-03-29 15:45] LABS: TSH Reflex To Free T4 0.56 uIU/ml (0.47-4.68)
[2024-03-29 16:20] LABS: Folate 10.8 ng/ml (2.76-20); Vitamin B12 351 pg/ml (239-931)
[2024-03-29 16:33] LABS: Urine Albumin Negative (Neg - Trace); Urine Bilirubin Negative (Negative); Urine Character Clear (Clear); Urine Color Yellow; Urine Glucose Negative (Negative); Urine Ketone Negative (Negative); Urine Leukocyte Trace (Negative); Urine Nitrite Negative (Negative); Urine Occult Blood Negative (Negative); Urine Urobilinogen Negative (Neg - 1+); Urine pH 6.5 (5.0-9.0)
[2024-03-29 16:48] LABS: Urine Red Blood Cell 0-2 /HPF (0-2)
[2024-03-29 16:49] LABS: Urine Bacteria Few (Negative); Urine Hyaline Cast 0-2 /LPF (0-2)
[2024-03-29] MEDS: LIPITOR 10 MG PO (17:18)
[2024-03-29 20:48] VITALS: BP 163/64
[2024-03-29 23:37] VITALS: BP 138/54
--- NOTE | 2024-03-29 23:55 | RESPNOTE ---
called to patients room, questions about CPAP and using the hospitals unit. Pt has been refusing to wear the hospitals CPAP unit for 5 days. Pt has signed off on using her own CPAP machine from home. Pt did however require help putting on the unit.
It appears to be on correctly and running as it should
--- NOTE | 2024-03-30 01:03 | RESPNOTE ---
called to bedside, pt had removed CPAP mask to use commode, placed back on at this time
--- NOTE | 2024-03-30 03:33 | RESPNOTE ---
called to bedside @02:25, RN stating saturations dippinto high 80's. Pt has 2 lpm bled through her CPAP machine, increased O2 to 6 lpm and saturations now 95-96%. Leaving pt on her own CPAP, that is running properly. Pt remains on the 6 lpm O2 at
this time with CPAP
[2024-03-30 03:59] VITALS: BP 150/70
[2024-03-30 06:00] VITALS: BMI 24.2
--- NOTE | 2024-03-30 06:05 | PTCARENOTE ---
Pt was encouraged to use CPAP last night. Pt agreeable to use her own CPAP, but refused hospital CPAP. Pt's CPAP placed on the pt by respiratory therapist. Pt states this morning that she didn't get a good sleep with CPAP. Pt continues to be
lethargic, drowsy, but aousable to verbal stimul, and she would get up on her own to go to the bathroom. Pt offers no complaints. Will continue to monitor the pt.
[2024-03-30 06:43] VITALS: BMI 24.2
[2024-03-30 07:55] VITALS: BP 153/63
[2024-03-30 08:38] LABS: Blood Urea Nitrogen 61 mg/dl (7-17); Calcium 9.9 mg/dl (8.4-10.2); Chloride 86 mmol/L (98-107); Estimated Creatinine Clearance 19 ml/min; Glucose 100 mg/dl (70-99); Potassium 3.5 mmol/L (3.5-5.1); Sodium 141 mmol/L (135-145); eGFR 24.03
[2024-03-30 08:49] LABS: Carbon Dioxide 48 mmol/L (22-30)
--- NOTE | 2024-03-30 09:03 | W.PN.NEURO.1 ---
Today's Communication / Plan
-
Increase compliance with positive air pressure mask machine
Await phenobarbital level
Consider lowering phenobarbital dosing from 97.2 mg to 64.8 mg
If worsening wakefulness, CT of the head may be necessary as the patient has a pacemaker in place
Neuro Assessment/Plan
Assessment
Acute onset lethargy without a prior history of significant cognitive decline although the patient has a history of single onset seizure�like episode approximately 40 years ago
Differential diagnosis includes encephalopathy which may be secondary to toxic etiologies, lethargy is however more likely due to excessive sleepiness which in turn may be due to inadequate use of positive airway pressure mask and machine
Plan
Increase compliance with positive air pressure mask machine
Await phenobarbital level
Consider lowering phenobarbital dosing from 97.2 mg to 64.8 mg
If worsening wakefulness, CT of the head may be necessary as the patient has a pacemaker in place
Will follow peripherally
Subjective/Objective
Subjective Data
Date of Service: March 30, 2024
Patient reports mild improvement in wakefulness
Objective Data
Vital Signs
Temp Pulse Resp BP Pulse Ox
36.9 C 68 28 150/70 97
03/30/24 03:59 03/30/24 03:59 03/30/24 03:59 03/30/24 03:59 03/30/24 03:59
Lab Results
03/29/24 13:13
03/30/24 07:41
Sodium 141 mmol/L (135-145) 03/30/24 07:41
Potassium 3.5 mmol/L (3.5-5.1) 03/30/24 07:41
BUN 61 mg/dl (7-17) H 03/30/24 07:41
Glucose 100 mg/dl (70-99) H 03/30/24 07:41
Calcium 9.9 mg/dl (8.4-10.2) 03/30/24 07:41
Anh-X-Lmtlfcnxtwa Pept 93171 pg/ml 03/24/24 05:32
Vitamin B12 351 pg/ml (605-460) 03/29/24 06:43
Patient Allergies
adhesive tape Allergy (Verified 03/24/24 05:30)
Rash
cefuroxime [From Ceftin] Allergy (Verified 03/24/24 05:30)
throat closes
ragweed pollen Allergy (Verified 03/24/24 05:30)
Unknown
Sulfa (Sulfonamide Antibiotics) Allergy (Verified 03/24/24 05:30)
throat closes
Data Reviewed
-
Labs: Report Reviewed
Reviewed with: Patient
Old Records: Summarized
Past History
Past History
ED Past Medical History: Arrthythmia (afib, cardioversions.), Asthma, CHF, COPD, HTN, Hypercholesterolemia, Other (Obstructive sleep apnea, interstitial lung disease, bilateral lower extremity edema, right truncal varicella-zoster 2020) and Other
(History of seizure); Negative Renal failure (Stage IIIb chronic kidney disease)
ED Past Surgical History: Cardiac (Cardioversion. Ablation X 2, pacemaker), Gynecological (Hysterectomy), Orthopedic (Bilateral shoulder surgeries, back surgery x 2, bilateral TKA) and Other (Foot surgery, breast biopsy)
Patient has exhibited threatening behavior?: No
Social History
Tobacco: Non-smoker
Alcohol: None
Personal:
Living: alone
Family History
Family History: CAD
Medications
-
Medications:
Generic Name Dose Route Start Last Admin
Trade Name Freq PRN Reason Stop Dose Admin
Acetaminophen 650 mg 03/25/24 12:26
Acetaminophen 325 Mg Tablet PO 04/22/24 12:25
Q6HPRN PRN
mild pain/ fever>100.5F
Apixaban 2.5 mg 03/24/24 20:00 03/29/24 20:57
Apixaban (Eliquis) 5 Mg Tablet PO 04/21/24 19:59 2.5 mg
BID XIOMARA Administration
Atorvastatin Calcium 10 mg 03/24/24 18:00 03/29/24 17:18
Atorvastatin (Lipitor) 10 Mg Tablet PO 04/21/24 17:59 10 mg
QPM XIOMARA Administration
Cyanocobalamin 1,000 mcg 03/30/24 09:00
Cyanocobalamin 1,000 Mcg Tablet PO 04/27/24 08:59
DAILY XIOMARA
Fenofibrate 145 mg 03/25/24 08:00 03/29/24 10:14
Fenofibrate 145 Mg Tablet PO 04/22/24 07:59 145 mg
DAILY XIOMARA Administration
Flecainide Acetate 50 mg 03/24/24 20:00 03/29/24 20:57
Flecainide 50 Mg Tablet PO 04/21/24 19:59 50 mg
BID XIOMARA Administration
Hydralazine HCl 100 mg 03/27/24 16:00 03/29/24 22:09
Hydralazine 50 Mg Tablet PO 04/24/24 15:59 100 mg
TID XIOMARA Administration
Metolazone 5 mg 03/25/24 10:00 03/29/24 10:15
Metolazone 5 Mg Tablet PO 04/22/24 09:59 5 mg
DAILY XIOMARA Administration
Metoprolol Succinate 25 mg 03/25/24 08:00 03/29/24 10:14
Metoprolol 25 Mg Extended Release Tablet PO 04/22/24 07:59 25 mg
DAILY XIOMARA Administration
Phenobarbital Sodium 64.8 mg 03/30/24 22:00
Phenobarbital 32.4 Mg Tablet PO 04/27/24 21:59
HS XIOMARA
Potassium Chloride 20 meq 03/25/24 08:00 03/29/24 17:18
Potassium Chloride 20 Meq Extended Release Tablet PO 04/22/24 07:59 20 meq
BID@0800,1600 XIOMARA Administration
Sodium Chloride 0 flush 03/24/24 18:00 03/29/24 10:15
Sodium Chloride 0.9% (Flush) Syringe IV 04/21/24 17:59 1 flush
PER PROTOCOL XIOMARA Administration
Torsemide 40 mg 03/27/24 16:00 03/29/24 17:17
Torsemide 20 Mg Tablet PO 04/24/24 15:59 40 mg
BID@0800,1600 XIOMARA Administration
[2024-03-30] MEDS: LUMINAL PO (09:50)
[2024-03-30] MEDS: APRESOLINE 100 MG PO ×3 (09:51→22:10)
[2024-03-30] MEDS: DEMADEX 40 MG PO ×2 (09:51→15:41)
[2024-03-30] MEDS: KCL PO ×2 (09:52→10:41)
[2024-03-30] MEDS: ELIQUIS 2.5 MG PO ×2 (09:52→20:47)
[2024-03-30] MEDS: TOPROL XL 25 MG PO (09:52)
[2024-03-30] MEDS: ZAROXOLYN 5 MG PO (09:53)
[2024-03-30] MEDS: TAMBOCOR 50 MG PO ×2 (09:53→20:47)
[2024-03-30] MEDS: TRICOR 145 MG PO (09:53)
[2024-03-30] MEDS: VITAMIN B-12 1000 MCG PO (09:56)
[2024-03-30] MEDS: KCL ELIXIR 20 MEQ PO ×2 (10:44→17:03)
[2024-03-30 11:50] VITALS: BP 131/59
--- NOTE | 2024-03-30 12:20 | W.PN.HOSP.TC ---
Today's Communication/Plan
-
Monitor mentation
adjusted phenobarb
CPAP
cont po diuretics
SNF once mentation improves
Assessment / Plan
Assessment / Plan
General: Well Developed, Well Nourished and No Apparent Distress
HEENT: NormoCephalic, Moist mucous membranes and Atraumatic
Respiratory: dec bs, on oxygen
Cardiac: S1/S2, Regular Rhythm, Murmur and JVD; No Rub
GI: Soft, Non Tender, Non Distended and Normal Bowel Sounds; No Organomegaly
Rectal: Deferred by Provider
Genito-urinary: Deferred by me
Musculoskeletal: No Clubbing, No Cyanosis, Edema, Left Lower Extremity and Edema, Right Lower Extremity-improved. Oneal wrapped.
Skin: No Rash
Neuro: Awake, Alert, Oriented and Nonfocal/grossly intact
Psych: Calm
#History of seizure disorder
# Lethargy likely secondary to phenobarbital
ON phenobarbital 32.5mg AM/62.5Mg pm-managed by pcp
per son re-collection seizure was long time ago. may be 30+ years ago. Phenobarbital is managed by patient's PCP.
Seems to be phenobarbital causing patient increased lethargy and drowsiness
will ask neurology for input should we taper off phenobarbital and start different agent antiepileptic?
Neurology correspondence noted. A.m. phenobarbital discontinued. Phenobarb level pending.
Check VBG in the morning after CPAP usage
#Acute on chronic HFpEF
#Valvular heart disease
#Severe pulmonary hypertension
#Acute hypoxic respiratory insufficiency
Start patient on 80 mg IV Lasix twice daily. Now on Demadex 40 mg twice daily. Metolazone dose 5 mg daily
Patient is grossly volume overloaded
Daily I's and O's. Fluid restriction. Losing weight.
Monitor creatinine closely
If significant worsening of renal function may need to consider nephrology evaluation
Check lower extremity venous Doppler and found to be negative for DVT
CBC cardiology has been consulted
Not able to afford Jardiance. Can be re- evaluated as outpatient.
Patient agreed with compression therapy
#pleural effusion transudative
Ultrasound chest confirmed pleural effusion large left
Status post thoracentesis with 800 cc fluid removed. Fluid cultures preliminary negative.
#Paroxysmal atrial fibrillation status post ablation status post pacemaker implantation
Chronic coagulopathy with Eliquis
Continue with Eliquis dose decreased to 2.5MG bid
Continue with flecainide
Continue with metoprolol
Monitor on telemetry
#ETHAN on with Chronic kidney disease 3B
Monitor creatinine closely with aggressive diuresis
Cr fluctuation expected with aggressive diuresis. Creatinine improved.
#Chronic anemia
Trend CBC. Transfuse for hemoglobin less than 7.
Primary hypertension
Continue with metoprolol and hydralazine. On IV diuretics
GIOVANY
Continue with nighttime CPAP
Hypokalemia
replete/monitor
DVT ppx-Eliquis
Full code
PT/OT-SNF. CM aware.
Discussed with patient's son over the details on 03/29.
Anticipated Discharge: 24 - 48 hours
Subjective/Interval History
-
Date of Service: March 30, 2024
Per RN patient lethargic but does open his eyes and have conversation
Patient did use her own CPAP overnight
Remains on oxygen
Objective Data
-
Labs:
Laboratory Results
03/30/24
07:41
Sodium 141
Potassium 3.5
Chloride 86 L
Carbon Dioxide 48 H
BUN 61 H
Creatinine 2.0 H
Glucose 100 H
Calcium 9.9
Vital Signs:
Vital Signs
Temp Pulse Resp BP Pulse Ox
98.7 F 61 24 153/63 98
03/30/24 07:55 03/30/24 07:55 03/30/24 07:55 03/30/24 07:55 03/30/24 07:55
I&O
03/29/24 03/30/24 03/31/24
06:59 06:59 06:59
Intake Total 360 / 360 720 / 720 120 / 120
Output Total 200 / 200 2400 / 2400
Balance 160 / 160 -1680 / -1680 120 / 120
Data Reviewed
-
Total Time Spent with Patient (in minutes): 55
[2024-03-30 15:40] VITALS: BP 116/58
[2024-03-30] MEDS: LIPITOR 10 MG PO (17:03)
--- NOTE | 2024-03-30 17:20 | PTCARENOTE ---
Weaned oxygen off earlier in shift. Now 88% SaO2 on room air. Applied 1L, SaO2 now 92%. When left undisturbed patient resting w/ eyes closed, breathing even and unlabored.
[2024-03-30 19:55] VITALS: BP 125/54
[2024-03-30] MEDS: LUMINAL 64.8 MG PO (22:10)
[2024-03-30 23:49] VITALS: BP 118/50
[2024-03-31 03:58] VITALS: BP 143/62
[2024-03-31 06:00] VITALS: BMI 23.8
[2024-03-31 07:35] VITALS: BP 124/58
[2024-03-31 07:57] LABS: Venous Blood Gas B.E. >30.0 mmol/L (-4 to +4); Venous Blood Gas HCO3 57.3 mmol/L (22-27); Venous Blood Gas O2 Sat % 99.6 %; Venous Blood Gas pCO2 57 mmHg (35-48); Venous Blood Gas pO2 219 mmHg (30-50)
[2024-03-31 08:00] LABS: Venous Blood Gas pH 7.61 (7.32-7.43)
[2024-03-31] MEDS: KCL ELIXIR 20 MEQ PO ×2 (08:28→10:43)
[2024-03-31] MEDS: APRESOLINE 100 MG PO (08:29)
[2024-03-31] MEDS: TOPROL XL 25 MG PO (08:29)
[2024-03-31] MEDS: DEMADEX 40 MG PO ×2 (08:30→17:17)
[2024-03-31] MEDS: TRICOR 145 MG PO (08:30)
[2024-03-31] MEDS: TAMBOCOR 50 MG PO (08:30)
[2024-03-31] MEDS: VITAMIN B-12 1000 MCG PO (08:30)
[2024-03-31] MEDS: ZAROXOLYN 5 MG PO (08:30)
[2024-03-31] MEDS: ELIQUIS 2.5 MG PO (08:30)
[2024-03-31 08:43] LABS: Blood Urea Nitrogen 69 mg/dl (7-17); Calcium 9.3 mg/dl (8.4-10.2); Chloride 82 mmol/L (98-107); Estimated Creatinine Clearance 21 ml/min; Glucose 94 mg/dl (70-99); Potassium 3.2 mmol/L (3.5-5.1); Sodium 138 mmol/L (135-145); eGFR 27.27
[2024-03-31 09:14] LABS: Carbon Dioxide 46 mmol/L (22-30)
--- NOTE | 2024-03-31 09:21 | W.PN.HOSP.TC ---
Today's Communication/Plan
-
Check magnesium level
Increase potassium supplements
Discharge planning
Assessment / Plan
Assessment / Plan
Gen-AAOx3, NAD
HEENT-NC, AT, anicteric, clear oral mm
Neck-supple
CV-reg, no M, +S1/S2
Lungs-clear B/L
Abd-soft, NT, ND
Ext-no edema
Musculoskeletal-no cyanosis, clubbing
Skin-warm and dry
Neuro-grossly non-focal
Psych-calm, cooperative
Acute encephalopathy -possibly due to excessive phenobarbital use. Seems to be improving. Phenobarbital dose reduced. Barbital level pending.
Epilepsy history -on chronic phenobarbital. Last seizure more than 30 years ago by estimate.
Acute on chronic HFpEF
Valvular heart disease
Severe pulmonary hypertension
Acute hypoxic respiratory insufficiency
Start patient on 80 mg IV Lasix twice daily. Now on Demadex 40 mg twice daily. Metolazone dose 5 mg daily
Patient is grossly volume overloaded
Daily I's and O's. Fluid restriction. Losing weight.
Monitor creatinine closely
If significant worsening of renal function may need to consider nephrology evaluation
Check lower extremity venous Doppler and found to be negative for DVT
CBC cardiology has been consulted
Not able to afford Jardiance. Can be re- evaluated as outpatient.
Patient agreed with compression therapy
Pleural effusion transudative
Ultrasound chest confirmed pleural effusion large left
Status post thoracentesis with 800 cc fluid removed 03/27/2024. Fluid cultures preliminary negative.
Paroxysmal atrial fibrillation status post ablation status post pacemaker implantation
Chronic coagulopathy with Eliquis
Continue with Eliquis dose decreased to 2.5MG bid
Continue with flecainide
Continue with metoprolol
Monitor on telemetry
ETHAN on CKD 4 -ETHAN resolved.
Chronic normocytic anemia -Trend CBC. Transfuse for hemoglobin less than 7.
Essential hypertension
Continue with metoprolol and hydralazine. On IV diuretics
GIOVANY
Continue with nighttime CPAP
Hypokalemia -check magnesium. Potassium dose increased.
DVT ppx-Eliquis
Full code
Dispo -medically stable for discharge to SNF. Case management aware.
Anticipated Discharge: Within 24 hours
Subjective/Interval History
-
Date of Service: March 31, 2024
Patient seen and examined. No complaints.
Objective Data
-
Labs:
Laboratory Results
03/31/24
07:43
Sodium 138
Potassium 3.2 L
Chloride 82 L
Carbon Dioxide 46 H
BUN 69 H
Creatinine 1.8 H
Glucose 94
Calcium 9.3
Vital Signs:
Vital Signs
Temp Pulse Resp BP Pulse Ox
97.9 F 66 18 124/58 91
03/31/24 07:35 03/31/24 08:29 03/31/24 07:35 03/31/24 08:29 03/31/24 07:35
I&O
03/30/24 03/31/24 04/01/24
06:59 06:59 06:59
Intake Total 720 / 720 600 / 600
Output Total 2400 / 2400 1800 / 1800
Balance -1680 / -1680 -1200 / -1200
Review of Systems
-
History Source: Patient
All other systems: Reviewed and negative
[2024-03-31 10:10] VITALS: BP 105/39; PULSE 61; O2SAT 93
[2024-03-31 11:40] VITALS: BP 109/49
--- NOTE | 2024-03-31 12:32 | CM ---
Addendum entered by Prudence Barba 03/31/24 15:25:
Auth approved for skilled rehab
Begin today, 03/31 w/ NRD 04/04
Auth ref # [id number]
Ambulance auth ref # [id number]
Iliana/CADENG updated w/ auth info
Hospitalist updated
Pt seen bedside to inform of d/c today to rehab. Pt agreeable to d/c today
IMM reviewed, pt given copy, copy placed in chart
Ambulance transport to be arranged, forms on chart
CM notified Iliana that pt does not have her Medicare card w/ her to obtain Medicare policy number, per her request. CM stated pt's her own personal CPAP and is unsure of the settings, nurse unsure of settings as well.
Original Note:
Chart reviewed for d/c planning. Per hospitalist, pt is clear for d/c
PT/OT currently recommending skilled rehab at this time
[facility] willing to accept. Spoke w/ pt's son, Lloyd, who prefers [facility]
Spoke w/ Iliana/Maurizio Carvalho confirming acceptance today. Per Iliana, will need pt's CPAP settings and Medicare policy number. Confirmed pt has her personal CPAP in hospital and will take to facility at d/c.
Auth to be initiated
[facility]
Report: [phone]

Plan: [facility]; pending auth
--- NOTE | 2024-03-31 15:08 | W.DS.TRANS ---
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
-
Discharge Instructions:
Discharge Diagnosis/Procedures Acute on chronic diastolic heart failure
exacerbation
Pleural effusion, thoracentesis
Acute kidney injury on chronic kidney disease
stage IIIb
Diet 2 Gram Sodium,Restrict fluids to 48 oz
Activity With assistance,As tolerated
Driving Restrictions Not until seen by your Dr
Bathing Restrictions None
Blood Work BMP in 1 week with primary doctor
Instructions: *CBC Heart Failure Instructions
Stand-Alone Forms:
Changes to Home Medications: No
Discharge Medications:
DC Medications w/original date entered in [facility]
atorvastatin 10 mg tablet 10 mg PO QPM High cholesterol 10/21/20
phenobarbital 32.4 mg tablet 32.4 mg PO DAILY Seizures 10/21/20
phenobarbital 32.4 mg tablet 64.8 mg PO HS Seizures 10/21/20
fenofibrate micronized 134 mg capsule 134 mg PO DAILY High Cholesterol 06/21/23
flecainide 50 mg tablet 50 mg PO BID Arrhythmia 06/21/23
hydralazine 100 mg tablet 100 mg PO TID Blood Pressure 06/21/23
metoprolol succinate 25 mg tablet,extended release 24 hr 25 mg PO DAILY Blood pressure 01/24/24
potassium chloride 20 mEq tablet,extended release(part/cryst) 20 meq PO BID@0800,1600 Electrolyte Repletion 30 days #60 tabs 03/27/24
torsemide 20 mg tablet 40 mg (2 x 20 mg) PO BID@0800,1600 30 days #120 tabs 03/27/24
apixaban 2.5 mg tablet (Eliquis) 2.5 mg PO BID #60 tabs 03/28/24
metolazone 5 mg tablet 5 mg PO DAILY Fluid retention/Swelling 30 days #30 tabs 03/28/24
Home Medication Changes
Pending Results: No
[2024-03-31 15:15] VITALS: BP 106/56
[2024-03-31] MEDS: APRESOLINE PO (17:16)
[2024-03-31] MEDS: LIPITOR 10 MG PO (17:17)
[2024-03-31] MEDS: TYLENOL 650 MG PO (17:20)
--- NOTE | 2024-03-31 20:18 | PTCARENOTE ---
Pt discharged to facility via acute care. home cpap machine sent with. IV removed by daniel NUNES.
== END 2024-03-31 20:00 | DRG 291 ==
LOC: 4 EAST ACU 11:42
PROVIDERS: Family Medicine; Radiology Vascular & Interventional Radiology; ADMITTING PHYSICIAN Hospitalist; ATTENDING PHYSICIAN Hospitalist; CONSULT PHYSICIAN Psychiatry & Neurology Neurology; CONSULT PHYSICIAN Student in an Organized Health Care Education/Training Program; EMERGENCY PHYSICIAN Emergency Medicine; FAMILY PHYSICIAN Family Medicine
PROC: 0W9B3ZZ Drainage of Left Pleural Cavity, Percutaneous Approach (ICD-10-PCS; 2024-03-24)
DX: I13.0 Hypertensive heart and chronic kidney disease with heart failure and stage 1 through stage 4 chronic kidney disease, or unspecified chronic kidney disease (principal); I50.33 Acute on chronic diastolic (congestive) heart failure; N17.9 Acute kidney failure, unspecified; J90 Pleural effusion, not elsewhere classified; I47.19 Other supraventricular tachycardia; N18.32 Chronic kidney disease, stage 3b; I48.0 Paroxysmal atrial fibrillation; E78.00 Pure hypercholesterolemia, unspecified; J44.89 Other specified chronic obstructive pulmonary disease; I08.2 Rheumatic disorders of both aortic and tricuspid valves; G40.909 Epilepsy, unspecified, not intractable, without status epilepticus; G47.33 Obstructive sleep apnea (adult) (pediatric)
CPT/HCPCS: 88305; 32555; 71045; 71046; 76604; 80048; 80053; 80184; 81003; 81015; 82607; 82728; 82746; 82805; 82945; 83615; 83735; 83880; 83986; 84155; 84157; 84443; 85025; 85652; 87015; 87070; 87205; 88112; 88341; 88342; 89051; 93005; 93306; 93970; 94761; 96374; 97116; 97162; 97166; 97530; 97535; 99285

== ENCOUNTER 2024-06-13 03:25 | Inpatient (IN) | payer OTHER, SELFPAY ==
[2024-06-12 20:38] VITALS: BP 128/63
[2024-06-12 21:13] LABS: % Immature Granulocytes 0.3 % (0-0.5); % Lymphocytes 20.7 % (20.5-51.1); % Monocytes 11.5 % (1.7-9.3); % Neutrophils 61.5 % (42.2-75.2); Absolute Basophils 0.1 10^3/uL (0-0.2); Absolute Eosinophils 0.3 10^3/uL (0-0.7); Absolute Lymphocytes 1.2 10^3/uL (1.2-3.4); Absolute Monocytes 0.7 10^3/uL (0.1-0.6); Absolute Neutrophils 3.7 10^3/uL (1.4-6.5); Hematocrit 36.5 % (37.0-47.0); Hemoglobin 12.1 g/dL (12.0-16.0); Mean Corp Hgb Conc. 33.2 g/dL (33.0-37.0); Mean Corpuscular Hgb 32.5 pg (27.0-31.0); Mean Corpuscular Volume 98.1 fL (81.0-99.0); Mean Platelet Volume 10.6 fL (7.4-10.4); Nucleated Red Blood Cells % 0 %; Platelet Count 191 10^3/uL (130-400); Red Blood Cell Count 3.72 10^6/uL (4.20-5.40); Red Cell Dist. Width 14.9 % (11.5-14.5)
[2024-06-12 21:33] LABS: ALT (SGPT) 18 U/L (0-35); AST (SGOT) 32 U/L (14-36); Albumin 4.3 g/dl (3.5-5.0); Alkaline Phosphatase 107 U/L (38-126); Blood Urea Nitrogen 59 mg/dl (7-17); Calcium 10.2 mg/dl (8.4-10.2); Carbon Dioxide 34 mmol/L (22-30); Chloride 92 mmol/L (98-107); Glucose 119 mg/dl (70-99); Potassium 4.6 mmol/L (3.5-5.1); Sodium 139 mmol/L (135-145); Total Protein 8.2 g/dl (6.3-8.2); eGFR 22.66
[2024-06-12 21:37] LABS: NT-proBNP 18200 pg/ml; Troponin I 0.034 ng/ml
[2024-06-12 23:57] VITALS: BMI 25.8
[2024-06-13] VITALS (11 sets, daily range): BP systolic 105–158; BP diastolic 43–77; PULSE 60; O2SAT 95; BMI 26.1
--- NOTE | 2024-06-13 00:08 | ED.GENMED ---
History of Present Illness
General
Chief Complaint: Breathing Problem
Source: patient, records and spouse
Exam Limitations: none
Time Seen by Provider: 06/12/24 23:32
Nursing documentation reviewed up to this point in time: agreed with
History of Present Illness
History of Present Illness:
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
with 2 to 3 pound weight gain been compliant with her meds does not use oxygen at home
Past History
Past History
ED Past Medical History: Arrthythmia (afib, cardioversions.), Asthma, CHF, COPD, HTN, Hypercholesterolemia, Other (Obstructive sleep apnea, interstitial lung disease, bilateral lower extremity edema, right truncal varicella-zoster 2020) and Other
(History of seizure); Negative Renal failure (Stage IIIb chronic kidney disease)
ED Past Surgical History: Cardiac (Cardioversion. Ablation X 2, pacemaker), Gynecological (Hysterectomy), Orthopedic (Bilateral shoulder surgeries, back surgery x 2, bilateral TKA) and Other (Foot surgery, breast biopsy)
Patient has exhibited threatening behavior?: No
Social History
Tobacco: Non-smoker
Alcohol: None
Drug: None
Personal:
Living: alone
Employment: Retired
Family History
Family History: CAD
Review of Systems
Review of Systems
All Other Systems: Not applicable
Constitutional: Reports weight gain; Denies fever or fatigue
Respiratory: Reports cough and trouble breathing
Cardiac: Reports no symptoms
ABD/GI: Reports no symptoms
: Reports no symptoms
Neurological: Reports no symptoms
Hematologic/Lymphatic: Reports no symptoms
Psychiatric: Reports no symptoms
Phy Exam
Physical Exam
Physical Exam:
Physical Exam
General: Dyspneic appearing
Neck: Positive JVD
Heart: Regular systolic structure murmur
Lungs: Basilar crackles
Abdomen: Nontender
Neuro: alert and oriented. no focal neurological deficits
Skin: no rash
Psychiatric: well kept. interactive and cooperative
Extremities: Edema is present
Scores
Heart Failure Risk
Heart Failure Risk Score: Yes
History of Stroke or TIA: No
History of intubation for respiratory distress: No
Heart rate on ED arrival >/= 110: Yes
SaO2 <90% on arrival on room air: Yes
HR >/=110 during 3min walk test (or too ill to perform test): Yes
ECG has acute ischemic changes: No
Urea >/=12mmol/L (BUN 33.6mg/dL): No
Serum CO2>/=35mmol/L: No
Troponin I or T elevated to PA Level (0.4mg/dL): No
NT-proBNP >/=5,000ng/L (5,000pg/ml): Yes
HF Risk Score: 4
Admission Status: HIGH RISK 26.1% Consider SNF treatment or admission to hospital
Course
Orders/Labs/Results
Orders:
Orders
06/12/24 20:21
Electrocardiogram (*1) Urgent
Reason for Study: Shortness of Breath
06/12/24 20:22
EKG- Treatment ONCE
06/12/24 20:43
CR Chest - 2 Views Urgent
Comment:
Reason For Exam: respiratory distress
06/12/24 21:06
Complete Blood Count/With Diff Urgent
Comprehensive Metabolic Panel Urgent
NT-proBNP Urgent
Troponin I Urgent
06/12/24 23:47
Furosemide [Lasix] 80 mg IV NOW STA
06/13/24 00:17
Add On- LAB Urgent
Tests Added?: phenobarbitol
06/13/24 01:35
Admit/Transfer Patient As Directed
Co-Sign Provider:
Level of Care: Inpatient admission
Assign to:: Telemetry
Physician / Group: Naman
Diagnosis: CHF
Reason for Telemetry: Acute Heart Failure
Date to Stop Telemetry: 06/16/24
Time to Stop Telemetry: 11:00
Reason for Hospitalization: CHF
Expected length of stay greater than two midnights?: Yes
ELOS- Estimated Length of Stay in days: 3
I certify the patient meets the requirements for IP care: Yes
PRN Pain Medication Management As Directed
May give lesser potent ordered pain med per pt: Yes
preference::
Protocol:: Medication orders for pain may be administered in a
manner that supports deferring to patient preference
when the pt is:
- Requesting an ordered lesser potent pain medication.
Least to most potent pain medications are defined
as: acetaminophen < NSAID < tramadol < opioids
(morphine, oxycodone, hydromorphone).
- Requesting a lesser dose of the same medication IF
ORDERED.
- Requesting a less intrusive route of administration
if both routes are prescribed by the provider (PO <
IV).
06/13/24 01:36
Code Status As Directed
Resuscitation Status: Full Code
06/16/24 11:00
DC Protocol for Telemetry ONCE
Abnormal Lab Results
06/12/24
21:06
RBC 3.72 L 10^6/uL
(4.20-5.40)
Hct 36.5 L %
(37.0-47.0)
MCH 32.5 H pg
(27.0-31.0)
RDW 14.9 H %
(11.5-14.5)
MPV 10.6 H fL
(7.4-10.4)
Absolute Monos (auto) 0.7 H 10^3/uL
(0.1-0.6)
Monocytes % 11.5 H %
(1.7-9.3)
Chloride 92 L mmol/L
(98-107)
Carbon Dioxide 34 H mmol/L
(22-30)
BUN 59 H mg/dl
(7-17)
Creatinine 2.1 H mg/dL
(0.6-1.0)
Glucose 119 H mg/dl
(70-99)
06/12/24 21:06
06/12/24 21:06
Vital Signs
Initial and Last Documented VS:
Initial Vital Signs
Temp Pulse Resp BP Pulse Ox
97.8 F 65 22 128/63 91
06/12/24 20:38 06/12/24 20:38 06/12/24 20:38 06/12/24 20:38 06/12/24 20:38
Last Documented Vital Signs
Temp Pulse Resp BP Pulse Ox
97.8 F 61 21 151/66 97
06/12/24 20:38 06/13/24 01:45 06/13/24 01:45 06/13/24 01:00 06/13/24 01:45
MDM/Problems Addressed
Differential Diagnosis Includes:
Heart failure pneumonia CHF less likely PE pneumothorax
MDM/Problems Addressed:
Shortness of breath
Chronic conditions affecting care: HTN, Cardiomyopathy, Arrhythmia and COPD
Acute Exacerbation and/or Progression of Chronic Illness: HTN, Cardiomyopathy and Arrhythmia
*Radiology
Radiology exam reviewed: preliminary read by ED provider
*Pulse Oximetry
Patient hypoxic: yes
*EKG
Interpreted by ED Provider?: Yes
Interpretation: abnormal
Comparison EKG: no comparison EKG present
Heart Rate: 78
Rate: normal
Rhythm: ventricular paced
Ischemia: non-specific ST changes
*Concrete Finisher Apprentice Interpretation
Rate: normal
Interpretation: normal
Heart Rate: 78
Rhythm: ventricular paced
*Critical Care Note
Total Time (30-74mins, 75-104mins- exclusive of procedures): Not Applicable
Data Reviewed
Review of Other/Old Records Reveals: Labs, Progress Notes and Discharge Summary
Source: patient
Update Note
Update Note:
Update patient with hypoxia looks volume overloaded complex past medical history plan we supplemental oxygen diuretic admission
ED Attending Note
-
Portions of this chart may have been created with voice recognition software.� Occasional wrong word or��sound alike� substitutions may have occurred due to the inherent limitations of voice recognition software.
Discharge Plan
Departure
Patient Disposition: Admit
Date of Disposition: 06/13/24
Time of Disposition: 00:16
Admit to: Telemetry
Presentation/result/management discussed w/ accepting MD/DO: Hospitalist
Patient with high blood pressure during this ER visit?: Yes
Condition: Fair
Discharge Problem:
Interstitial lung disease, Paroxysmal atrial fibrillation, Moderate aortic stenosis, Moderate tricuspid regurgitation, Hypertensive heart and chronic kidney disease with heart failure and stage 1 through stage 4 chronic kidney disease, or
unspecified chronic kidney disease, Acute hypoxemic respiratory failure, ETHAN (acute kidney injury), Chronic kidney disease, stage 3b, Seizure disorder
Prescriptions:
No Action
atorvastatin 10 MG tablet
10 mg PO QPM
phenobarbital 32.4 MG tablet
64.8 mg PO HS
phenobarbital 32.4 MG tablet
32.4 mg PO DAILY
Patient Comments:
hydralazine 100 mg tablet
100 mg PO TID
flecainide 50 mg tablet
50 mg PO BID
metoprolol succinate 25 MG tablet extended release 24 hr
25 mg PO DAILY
torsemide 20 mg Tablet
40 mg PO BID@0800,1600 30 Days Qty: 120 0RF
Eliquis 2.5 mg tablet
2.5 mg PO BID Qty: 60 0RF
escitalopram oxalate [Lexapro] 10 mg Tablet
10 mg PO DAILY
Referrals:
Oh Calvin MD [Family Provider] -
Interventions
Interventions:
*Risk Screen - Suicide Last Done: 06/12/24 20:38
*General Assessment Last Done: 06/12/24 20:38
*Neglect/Abuse Screening Last Done: 06/12/24 20:38
*ED COVID-19 Vaccine History Last Done: 06/12/24 20:38
ED- Pulmonary Assessment Last Done: 06/12/24 23:58
Discharge Date and Time
Print Language: FRENCH
--- NOTE | 2024-06-13 01:39 | HPS.HSE ---
Family Physician
-
Family Physician: Oh Calvin
Chief Complaint
-
SOB
History of Present Illness
Patient is an 83y F with PMH significant for A-Fib, CHF and pulmonary hypertension who presents to ED complaining of SOB. Patient states that she has been feeling increased SOB over the past several days to a week. She reports some increased
swelling in the LEs - but then also states that they 'aren't that bad'. Patient reports dyspnea with activity / exertion mostly. No associated chest pain or palpitations. Patient notes that she weighs herself at home every day and her weight is
about 2-3 lbs up in total. No recent changes in medications regimen. No cough, fevers / chills, N/V/D or other complaints.
Medical History
Past Medical History
Past Medical History: Reports Other
Additional Past Medical History:
Paroxysmal atrial fibrillation status post AV josé miguel ablation status post pacemaker implantation
COPD
GIOVANY on CPAP
Primary hypertension hyperlipidemia
Seizure disorder
Chronic anemia
Chronic HFpEF
Aortic stenosis
Past Surgical History: Reports Other
Additional Past Surgical History:
PPM Placement
R Foot Surgery
MOHS surgery
Social History
Tobacco: Non-smoker
Alcohol: None
Family History
Family History: Not pertinent
Allergies / Home Medications
Allergies reflects when Allergies were last updated in [facility].
Home Medications with original date entered in [facility]
Allergy/Medication List:
Allergies
Allergy/AdvReac Type Severity Reaction Status Date / Time
adhesive tape Allergy Rash Verified 06/12/24 20:37
cefuroxime [From Ceftin] Allergy throat Verified 06/12/24 20:37
closes
ragweed pollen Allergy Unknown Verified 06/12/24 20:37
Sulfa (Sulfonamide Allergy throat Verified 06/12/24 20:37
Antibiotics) closes
Home Medications
atorvastatin 10 mg tablet 10 mg PO QPM High cholesterol 10/21/20
phenobarbital 32.4 mg tablet 32.4 mg PO DAILY Seizures 10/21/20
phenobarbital 32.4 mg tablet 64.8 mg PO HS Seizures 10/21/20
flecainide 50 mg tablet 50 mg PO BID Arrhythmia 06/21/23
hydralazine 100 mg tablet 100 mg PO TID Blood Pressure 06/21/23
metoprolol succinate 25 mg tablet,extended release 24 hr 25 mg PO DAILY Blood pressure 01/24/24
torsemide 20 mg tablet 40 mg (2 x 20 mg) PO BID@0800,1600 30 days #120 tabs 03/27/24
apixaban 2.5 mg tablet (Eliquis) 2.5 mg PO BID #60 tabs 03/28/24
escitalopram oxalate 10 mg tablet (Lexapro) 10 mg PO DAILY 06/13/24
Review of Systems
-
History Source: Patient
A 12 point ROS was completed and negative except as noted: Yes
Constitutional: Reports Weight Gain and Fatigue; Denies Fever or Chills
EENT: Denies Sore Throat
Respiratory: Reports Trouble Breathing; Denies Cough
Cardiac: Denies Chest Pain or Palpitations
Abdomen/GI: Denies Abdominal Pain, Nausea, Vomiting or Diarrhea
: Denies Dysuria, Frequency or Flank Pain
Musculoskeletal: Reports Edema; Denies Joint Pain
Neurological: Denies Dizzy or Headache
Psych: Denies Depression or Anxiety
Physical Exam
Vital Signs
Vital Signs
Temp Pulse Resp BP Pulse Ox
97.8 F 60 18 158/66 95
06/12/24 20:38 06/13/24 00:30 06/13/24 00:30 06/13/24 00:00 06/13/24 00:30
Physical Exam
General: Other (83y F in no acute distress.)
HEENT: Other (Dry MM. Pos JVD and HJR.)
Respiratory: Other (Rales bilaterally about 2/3 up. No wheezing / rhonchi.)
Cardiac: S1/S2, Regular Rhythm and Murmur (III/ SHAVONNE)
GI: Soft, Non Tender, Non Distended and Normal Bowel Sounds
Musculoskeletal: No Clubbing, No Cyanosis and Other (1+ pitting edema at ankles bilaterally.)
Neuro: AO x 3
Laboratory Results
-
06/12/24 21:06
06/12/24 21:06
Laboratory Results
Total Bilirubin 1.0 mg/dl (0.2-1.3) 06/12/24 21:
AST 32 U/L (14-36) 06/12/24 21:
ALT 18 U/L (0-35) 06/12/24 21:06
Alkaline Phosphatase 107 U/L (38-126) 06/12/24 21:06
Troponin I 0.034 ng/ml 06/12/24 21:06
Impression/Plan
-
A/P: Patient is an 83y F with PMH significant for A-Fib, hypertension and CHF who presents to ED complaining of worsening SOB +/- increased edema.
Acute on Chronic HFpEF
- Admit for further evaluation and treatment.
- Patient reports weight gain at home (up 3kg from last admission per our numbers).
- BNP elevated and increased SOB. Not significant edematous on exam.
- IV diuresis with Lasix BID for now - follow for clinical response, change in weight, etc.
- Cardiology evaluation for additional recommendations.
- Had Echo in 03/2024 with normal LVEF, dilated RV and pulmonary hypertension.
ETHAN on CKD IV
- SCr = 2.1 compared to most recent baseline of 1.8.
- Follow for changes with attempted diuresis.
Paroxysmal Atrial Fibrillation
- s/p prior ablation / maintained on flecainide.
- Continue Eliquis for stroke risk reduction.
- Monitor on telemetry given flecainide.
Benign Hypertension
- Stable. Continue current medications with holding parameters.
- Follow for changes with diuresis.
GIOVANY
- Stable. Continue nightly PAP therapy.
Seizure Disorder
- Stable. Continue phenobarbital.
DVT Prophylaxis: On Eliquis
Code Status: Full
[2024-06-13 05:03] LABS: Troponin I 0.038 ng/ml
[2024-06-13 07:11] LABS: Hematocrit 32.9 % (37.0-47.0); Hemoglobin 10.9 g/dL (12.0-16.0); Mean Corp Hgb Conc. 33.1 g/dL (33.0-37.0); Mean Corpuscular Hgb 32.2 pg (27.0-31.0); Mean Corpuscular Volume 97.1 fL (81.0-99.0); Platelet Count 157 10^3/uL (130-400); Red Blood Cell Count 3.39 10^6/uL (4.20-5.40); Red Cell Dist. Width 14.7 % (11.5-14.5); White Blood Cell Count 5.6 10^3/uL (4.8-10.8)
--- NOTE | 2024-06-13 07:25 | W.PN.HOSP.TC ---
Today's Communication/Plan
-
cont diuresis, aldactone as per Cardio
PT/OT
wean O2 supplementation as tolerated
daily weight I/O fuid restriction
Blood pressure control with holding parameters
Assessment / Plan
Assessment / Plan
Physical Exam
General: No acute distress, appears comfortable at this time
HEENT: normocephalic atraumatic, moist oral mucosa, no scleral icterus
Respiratory: clear to auscultation b/l, distant breath sounds
Cardiac: S1/S2, Regular Rhythm and Murmur III/ SHAVONNE
GI: Soft, Non Tender, Non Distended and Normal Bowel Sounds
Musculoskeletal: No Clubbing, Cyanosis, Pitting edema
Neuro: AO x 3 conversant coherent
83y F with PMH significant for A-Fib, hypertension and CHF who presents to ED complaining of worsening SOB +/- increased edema.
Acute on Chronic HFpEF
- BNP elevated and increased SOB. Not significant edematous on exam.
- Had Echo in 03/2024 with normal LVEF, dilated RV and pulmonary hypertension.
-Cardio eval appreciated cont IV diuresis Lasix 80 mg BID, Aldactone 25 mg daily added
ETHAN on CKD IV
- SCr = 2.1 compared to most recent baseline of 1.8.
- since improved with diuresis, suspect cardiorenal
Paroxysmal Atrial Fibrillation
- s/p prior ablation / maintained on flecainide.
- Continue Eliquis for stroke risk reduction.
- Monitor on telemetry given flecainide.
Benign Hypertension
- Continue current medications with holding parameters.
GIOVANY
- Stable. Continue nightly PAP therapy.
Seizure Disorder
- Stable. Continue phenobarbital.
Gum bleeding
-Noted night of admission as per daughter Deja
-appears resolved at this time
-likely exacerbated by home Eliquis use
-monitor for recurrence
-outpatient follow with dentist recommended for now, suspect gingival disease.
DVT Prophylaxis: On Eliquis
Code Status: Full
discussed with patient and patient's daughter Deja
I spent a total of 50 minutes with the patient or on the floor. More than 50% of this time involved counseling and coordination of care.
Anticipated Discharge: 24 - 48 hours
Subjective/Interval History
-
Date of Service: June 13, 2024
Reports improvement in overall symptoms including sob/dyspnea. Stable respiratory status on Oxygen supplementation (baseline room air).
Objective Data
-
Labs:
Laboratory Results
06/12/24 06/13/24
21:06 06:49
WBC 6.0 5.6
Hgb 12.1 10.9 L
Hct 36.5 L 32.9 L
Plt Count 191 157
Sodium 139 Pending
Potassium 4.6 Pending
Chloride 92 L Pending
Carbon Dioxide 34 H Pending
BUN 59 H Pending
Creatinine 2.1 H Pending
Glucose 119 H Pending
Calcium 10.2 Pending
Total Bilirubin 1.0
AST 32
ALT 18
Alkaline Phosphatase 107
Vital Signs:
Vital Signs
Temp Pulse Resp BP Pulse Ox
98 F 69 18 146/77 95
06/13/24 03:44 06/13/24 03:44 06/13/24 03:44 06/13/24 03:44 06/13/24 03:44
[2024-06-13 07:30] LABS: Blood Urea Nitrogen 56 mg/dl (7-17); Calcium 9.6 mg/dl (8.4-10.2); Carbon Dioxide 35 mmol/L (22-30); Chloride 95 mmol/L (98-107); Estimated Creatinine Clearance 18 ml/min; Glucose 92 mg/dl (70-99); Potassium 3.6 mmol/L (3.5-5.1); Sodium 138 mmol/L (135-145); eGFR 25.56
--- NOTE | 2024-06-13 08:15 | CON.CAR ---
Consultation
Consultation Request
Date/Time Consultation Requested: 06/13/2024, 0200
Date/Time Consultation Performed: 06/13/2024, 729
Requesting Provider: Naman
Performing Provider: Nivia
Reason for Consultation: heart failure
Medical History
-
Chief Complaint: SOB, edema
History of Present Illness:
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
lung toxicity who is admitted with SOB, edema, weight gain. We are consulted for acute on chronic HFPEF.
She has had multiple recent hospitalization for heart.
She noticed more edema, SOB, weight gain and presented to ED, and was admitted for HF.
Past Medical History
Past Medical History: Arrhythmias (paroxysmal A fib), CHF (chronic HFPEF), HTN, Renal Failure (CKD4) and Valvular Disease (moderate )
Past Surgical History: Cardiac (PPM implant 2020)
Social History
Tobacco: Non-Smoker
Family History
Family History: Early CAD (none)
Allergies / Home Medications
Allergy/AdvReac Type Severity Reaction Status Date / Time
adhesive tape Allergy Rash Verified 06/12/24 20:37
cefuroxime [From Ceftin] Allergy throat Verified 06/12/24 20:37
closes
ragweed pollen Allergy Unknown Verified 06/12/24 20:37
Sulfa (Sulfonamide Allergy throat Verified 06/12/24 20:37
Antibiotics) closes
�Medication �Instructions �Recorded �Confirmed �Type
atorvastatin 10 mg tablet 10 mg PO QPM High cholesterol 10/21/20 06/13/24 History
phenobarbital 32.4 mg tablet 32.4 mg PO DAILY Seizures 10/21/20 06/13/24 History
phenobarbital 32.4 mg tablet 64.8 mg PO HS Seizures 10/21/20 06/13/24 History
flecainide 50 mg tablet 50 mg PO BID Arrhythmia 06/21/23 06/13/24 History
hydralazine 100 mg tablet 100 mg PO TID Blood Pressure 06/21/23 06/13/24 History
metoprolol succinate 25 mg 25 mg PO DAILY Blood pressure 01/24/24 06/13/24 History
tablet,extended release 24 hr
torsemide 20 mg tablet 40 mg (2 x 20 mg) PO BID@0800,1600 03/27/24 06/13/24 Rx
30 days #120 tabs
apixaban 2.5 mg tablet (Eliquis) 2.5 mg PO BID #60 tabs 03/28/24 06/13/24 Rx
escitalopram oxalate 10 mg tablet 10 mg PO DAILY 06/13/24 06/13/24 History
(Lexapro)
Review of Systems
-
History Source: Patient
All other systems: Negative unless noted
Constitutional: Weight Gain
Respiratory: Trouble Breathing
Musculoskeletal: Edema
Neurological: Weakness
Physical Exam
Vital Signs
Temp Pulse Resp BP Pulse Ox
97.7 F 70 20 139/70 95
06/13/24 07:35 06/13/24 07:35 06/13/24 07:35 06/13/24 07:35 06/13/24 07:35
Lab Results
06/13/24 06:49
06/13/24 06:49
Troponin I 0.038 ng/ml H* 06/13/24 03:29
Rty-A-Jqyamfjclbq Pept 27290 pg/ml 06/12/24 21:06
Physical Exam
General: Comfortable
HEENT: Normocephalic and Anicteric
Respiratory: Clear and Non Labored Respirations
Cardiac: S1/S2 (normal), Regular Rhythm, Murmur (III/ systolic at RUSB), Peripheral Edema (1+ LE edema) and JVD (present)
Musculoskeletal: No Clubbing, No Cyanosis and Edema (1+ LE edema)
Neuro: Awake
Psych: Calm
Impression / Plan
-
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
lung toxicity who is admitted with SOB, edema, weight gain. We are consulted for acute on chronic HFPEF.
Primary shipyard laborer: Dr. Gonzáles
EP: Dr. Burnett ([facility])
Nephro: Dr. Quiles
HFpEF, acute on chronic, severe
-high risk situation with cardiorenal syndrome, CKD4, requiring close monitoring of labs, tele
-dry weight previously 65kg: likely need to reset this admission
-at home, was taking torsemide 40mg bid
-on discharge, I suspect she will need torsemide 40mg bid with metolazone 5mg M//
-continue IV diuresis with lasix 80mg IV bid
-may need to add metolazone 5mg daily based on response
-she did not have coverage for SGLT2i: will try adding aldactone 25mg daily, and hold home KCl
Valvular heart disease: stable on echo 03/2024 with EF 60-65%
-Moderate aortic stenosis
-will not repeat echo at this time
Pulmonary HTN, severe, with RV dysfunction
-PASP 75mmHg with dilated RV and hypokinetic
-diuresis as above
Paroxysmal atrial fibrillation/Paroxysmal atrial tachycardia
-S/P AVN ablation with PPM, on Flecainide 50mg bid and metoprolol XL 25mg daily
-she gets outpatient nuclear stress to screen for CAD per EP
-Oral Anticoagulation: Continue Apixaban 2.5 mg twice daily (age 83, creatinine >1.5)
-[id number]: score at least 5 (Heart failure, HTN, age 75 or more, female gender)
-EP managed by Dr. Burnett
HTN
-monitor with diuresis
-continue hydralazine 100mg tid
-adlactone added this admission
Anemia, chronic, in the setting of chronic disease
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
Seizure disorder, on phenobarbital
GIOVANY, on CPAP
Data Reviewed
-
EKG: Tracing Personally Visualized and interpreted (AV paced) and Other (Tele: AV paced 60s, no arrhythmia)
Medical Tests (Nuc Med, Echo etc): Report Reviewed by me (echo 03/2024: EF 60-65%, moderate , decreased RV fx, mild TR, PASP 75)
Labs: Labs Reviewed by me
Old Records: Reviewed (outpatient office notes)
[2024-06-13] MEDS: APRESOLINE 100 MG PO (08:46)
[2024-06-13] MEDS: LUMINAL 32.4 MG PO (08:46)
[2024-06-13] MEDS: ELIQUIS 2.5 MG PO ×2 (08:46→20:20)
[2024-06-13] MEDS: TAMBOCOR 50 MG PO ×2 (08:47→20:20)
[2024-06-13] MEDS: LASIX 80 MG IV ×3 (08:47→17:56)
[2024-06-13] MEDS: TOPROL XL 25 MG PO (08:47)
[2024-06-13] MEDS: ALDACTONE 25 MG PO (08:54)
--- NOTE | 2024-06-13 16:16 | CM ---
Initial assessment completed with patient at bedside and son via phone
Pharmacy verified: [facility] @ [address] [facility], [place], [place]
Patient lives alone in a one floor home; shower stall in bath has grab bar and seat
PLOF: ambulates with a Rolling Walker; does not drive; independent with personal care; has GRADUATE ADVISOR twice a week 4 hrs/day to assist with errands; Daughter prepares medication pill box; has a meal service
DME: CPAP
Prior SNF utilization @ [facility] in 2023 and [facility] in April 2024
Son will transport home
If home health is recommended, preference is [facility] home health
Plan: anticipate discharge to home when medically stable; CM will monitor for needs and support accordingly
[2024-06-13] MEDS: LIPITOR 10 MG PO (17:50)
[2024-06-13] MEDS: APRESOLINE PO ×2 (17:56→22:04)
[2024-06-13] MEDS: LUMINAL 64.8 MG PO (20:21)
[2024-06-14 03:37] VITALS: BP 117/59
[2024-06-14 06:00] VITALS: BMI 25.6
[2024-06-14 06:22] LABS: Hematocrit 31.2 % (37.0-47.0); Hemoglobin 10.6 g/dL (12.0-16.0); Mean Corpuscular Hgb 32.5 pg (27.0-31.0); Mean Corpuscular Volume 95.7 fL (81.0-99.0); Mean Platelet Volume 10.9 fL (7.4-10.4); Platelet Count 177 10^3/uL (130-400); Red Blood Cell Count 3.26 10^6/uL (4.20-5.40); Red Cell Dist. Width 14.6 % (11.5-14.5); White Blood Cell Count 5.7 10^3/uL (4.8-10.8)
[2024-06-14 06:56] LABS: Blood Urea Nitrogen 66 mg/dl (7-17); Calcium 9.2 mg/dl (8.4-10.2); Carbon Dioxide 35 mmol/L (22-30); Chloride 94 mmol/L (98-107); Estimated Creatinine Clearance 18 ml/min; Glucose 108 mg/dl (70-99); Magnesium 2.3 mg/dl (1.6-2.3); Phosphorus 4.4 mg/dl (2.5-4.5); Potassium 3.6 mmol/L (3.5-5.1); Sodium 138 mmol/L (135-145); eGFR 25.56
--- NOTE | 2024-06-14 07:05 | W.PN.HOSP.TC ---
Today's Communication/Plan
-
cont diuresis as per Cardio
PT/OT
daily weight I/O fuid restriction
Blood pressure control with holding parameters
Assessment / Plan
Assessment / Plan
Physical Exam
General: No acute distress, appears comfortable at this time
HEENT: normocephalic atraumatic, moist oral mucosa, no scleral icterus
Respiratory: clear to auscultation b/l, distant breath sounds
Cardiac: S1/S2, Regular Rhythm and Murmur III/ SHAVONNE
GI: Soft, Non Tender, Non Distended and Normal Bowel Sounds
Musculoskeletal: No Clubbing, Cyanosis, Pitting edema
Neuro: AO x 3 conversant coherent
83y F with PMH significant for A-Fib, hypertension and CHF who presents to ED complaining of worsening SOB +/- increased edema.
Acute on Chronic HFpEF
- BNP elevated and increased SOB. Not significant edematous on exam.
- Had Echo in 03/2024 with normal LVEF, dilated RV and pulmonary hypertension.
-Cardio eval appreciated cont IV diuresis Lasix 80 mg BID, Aldactone 25 mg daily added
ETHAN on CKD IV
- SCr = 2.1 compared to most recent baseline of 1.8.
- since improved with diuresis, suspect cardiorenal
Paroxysmal Atrial Fibrillation
- s/p prior ablation / maintained on flecainide.
- Continue Eliquis for stroke risk reduction.
- Monitor on telemetry given flecainide.
Hypertension
- Cont Lasix, Aldactone (new), Metoprolol
- Home Hydralazine dose reduced d/t low pressures, possibly may wean off depending on BP trend
GIOVANY
- Stable. Continue nightly PAP therapy.
Seizure Disorder
- Stable. Continue phenobarbital.
Gum bleeding
-Noted night of admission as per daughter Deja
-appears resolved at this time
-likely exacerbated by home Eliquis use
-monitor for recurrence
-outpatient follow with dentist recommended for now, suspect gingival disease.
PT/OT appreciated Home Health
DVT Prophylaxis: On Eliquis
Code Status: Full
discussed with patient and patient's daughter Deja
I spent a total of 45 minutes with the patient or on the floor. More than 50% of this time involved counseling and coordination of care.
Anticipated Discharge: 24 - 48 hours
Subjective/Interval History
-
Date of Service: June 14, 2024
Symptomatically improved. Off oxygen supplementation stable respiratory status on room air. No further recurrence gum bleeding since night of admission. Reports SUTTON and general malaise persists though improved.
Objective Data
-
Labs:
Laboratory Results
06/14/24
06:02
WBC 5.7
Hgb 10.6 L
Hct 31.2 L
Plt Count 177
Sodium 138
Potassium 3.6
Chloride 94 L
Carbon Dioxide 35 H
BUN 66 H
Creatinine 1.9 H
Glucose 108 H
Calcium 9.2
Vital Signs:
Vital Signs
Temp Pulse Resp BP Pulse Ox
97.6 F 68 16 117/59 92
06/14/24 03:37 06/14/24 03:37 06/14/24 03:37 06/14/24 03:37 06/14/24 03:37
I&O
06/13/24 06/14/24 06/15/24
06:59 06:59 07:59
Intake Total 1200 / 1200
Balance 1200 / 1200
[2024-06-14 07:17] VITALS: BP 139/81
[2024-06-14] MEDS: ELIQUIS 2.5 MG PO ×2 (08:34→20:27)
[2024-06-14] MEDS: APRESOLINE 100 MG PO (08:34)
[2024-06-14] MEDS: TOPROL XL 25 MG PO (08:35)
[2024-06-14] MEDS: LASIX 80 MG IV ×2 (08:35→17:03)
[2024-06-14] MEDS: TAMBOCOR 50 MG PO ×2 (08:35→20:27)
[2024-06-14] MEDS: ALDACTONE 25 MG PO (08:35)
[2024-06-14] MEDS: LUMINAL 32.4 MG PO (08:35)
[2024-06-14 11:23] VITALS: BP 100/45
--- NOTE | 2024-06-14 12:44 | PTCARENOTE ---
Patient confused to place and time, but easily reoriented. Patient ambulated to bathroom with walker and assist x1. Patient tolerated sitting in chair for 3 hours. Patient c/o SOB after ambulating from bathroom, RA sat 92% and increased to 95% after
2 minutes.
--- NOTE | 2024-06-14 14:02 | W.PN.CD ---
Today's Communication / Plan
-
-Continue Lasix 80 mg IV BID.
-Per her primary Service Delivery Supervisor: On discharge, I suspect she will need torsemide 40 mg BID with metolazone 5 mg M/W/F
Impression / Plan
-
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
lung toxicity who is admitted with SOB, edema, weight gain. We are consulted for acute on chronic HFPEF.
Primary retail banking manager: Dr. Gonzáles
EP: Dr. Burnett ([facility])
Nephro: Dr. Quiles
HFpEF, acute on chronic, severe
-high risk situation with cardiorenal syndrome, CKD4, requiring close monitoring of labs, tele
-dry weight previously 65kg: likely need to reset this admission
-at home, was taking torsemide 40mg bid
-on discharge, I suspect she will need torsemide 40mg bid with metolazone 5mg M/W/F
-Continue Lasix 80 mg IV BID.
-Per her primary Service Delivery Supervisor: On discharge, I suspect she will need torsemide 40 mg BID with metolazone 5 mg M/W/F.
-She did not have coverage for SGLT2i.
-Continue spironolactone.
CKD:
-Continue to monitor renal function creatinine relatively stable (~2.0).
Valvular heart disease: stable on echo 03/2024 with EF 60-65%
-Moderate aortic stenosis
-will not repeat echo at this time
-Will continue to monitor as outpatient.
Pulmonary HTN, severe, with RV dysfunction
-PASP 75mmHg with dilated RV and hypokinetic
-Continue diuresis as above.
Paroxysmal atrial fibrillation/Paroxysmal atrial tachycardia
-S/P AVN ablation with PPM, on Flecainide 50mg bid and metoprolol XL 25mg daily
-she gets outpatient nuclear stress to screen for CAD per EP
-Oral Anticoagulation: Continue Apixaban 2.5 mg twice daily (age 83, creatinine >1.5)
-[id number]: score at least 5 (Heart failure, HTN, age 75 or more, female gender)
-EP managed by Dr. Burnett
HTN
-Blood pressure is well-controlled on current medication regimen; continue.
Anemia, chronic, in the setting of chronic disease
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
Seizure disorder, on phenobarbital
GIOVANY, on CPAP
Physical Exam
Vital Signs/Labs
Vital Signs
Temp Pulse Resp BP Pulse Ox
97.7 F 46 18 100/45 95
06/14/24 11:23 06/14/24 11:23 06/14/24 11:23 06/14/24 11:23 06/14/24 11:23
06/13/24 06/14/24 06/15/24
06:59 06:59 07:59
Actual Weight 66.877 kg 65.544 kg
06/14/24 06:02
06/14/24 06:02
Magnesium 2.3 mg/dl (1.6-2.3) 06/14/24 06:02
06/12/24
21:06
[id number]-S-[id number] Pept 25588
LAB Results
06/12/24 06/13/24 06/13/24
21:06 03:29 09:29
Troponin I 0.034 0.038 H* Cancelled
06/13/24
15:29
Troponin I Cancelled
Physical Exam
Constitutional: No acute distress and Comfortable
EENT: Anicteric
Cardiovascular: Rhythm & rate is regular, Pedal edema present (Trace), Systolic murmur present (06/12) and S1S2 is normal
Respiratory: Respiratory effort normal and Rhonchi Present (Bibasilar)
GI: Soft
Neuro/Psych: AO x 3
Other: Skin (Warm, dry)
Data Reviewed
-
Date of Service: June 14, 2024
EKG: Tracing Personally Visualized and interpreted (Telemetry: AV paced)
Echo: Tracing Personally Visualized and interpreted (03/26/2024: EF 60-65%, moderate )
Labs: Labs Reviewed by me
[2024-06-14 15:13] VITALS: BP 109/47
[2024-06-14] MEDS: LIPITOR 10 MG PO (17:03)
[2024-06-14 19:12] VITALS: BP 107/37
[2024-06-14] MEDS: APRESOLINE PO (19:15)
[2024-06-14] MEDS: LUMINAL 64.8 MG PO (21:16)
[2024-06-14 23:08] VITALS: BP 123/53
[2024-06-15 03:09] VITALS: BP 135/55
[2024-06-15 06:00] VITALS: BMI 25.8
[2024-06-15 06:24] LABS: Hematocrit 31.1 % (37.0-47.0); Hemoglobin 10.6 g/dL (12.0-16.0); Mean Corp Hgb Conc. 34.1 g/dL (33.0-37.0); Mean Corpuscular Hgb 32.3 pg (27.0-31.0); Mean Corpuscular Volume 94.8 fL (81.0-99.0); Mean Platelet Volume 11.2 fL (7.4-10.4); Platelet Count 182 10^3/uL (130-400); Red Blood Cell Count 3.28 10^6/uL (4.20-5.40); Red Cell Dist. Width 14.7 % (11.5-14.5); White Blood Cell Count 5.3 10^3/uL (4.8-10.8)
[2024-06-15 06:45] LABS: Blood Urea Nitrogen 65 mg/dl (7-17); Calcium 9.4 mg/dl (8.4-10.2); Carbon Dioxide 34 mmol/L (22-30); Chloride 99 mmol/L (98-107); Estimated Creatinine Clearance 20 ml/min; Glucose 108 mg/dl (70-99); Magnesium 2.3 mg/dl (1.6-2.3); Phosphorus 4.3 mg/dl (2.5-4.5); Potassium 3.4 mmol/L (3.5-5.1); Sodium 140 mmol/L (135-145); eGFR 29.21
--- NOTE | 2024-06-15 07:10 | W.PN.HOSP.TC ---
Today's Communication/Plan
-
cont diuresis as per Cardio
PT/OT
daily weight I/O fuid restriction
Blood pressure control with holding parameters
Replete K
Assessment / Plan
Assessment / Plan
Physical Exam
General: No acute distress, appears comfortable at this time
HEENT: normocephalic atraumatic, moist oral mucosa, no scleral icterus
Respiratory: clear to auscultation b/l, distant breath sounds
Cardiac: S1/S2, Regular Rhythm and Murmur III/ SHAVONNE
GI: Soft, Non Tender, Non Distended and Normal Bowel Sounds
Musculoskeletal: No Clubbing, Cyanosis, Pitting edema
Neuro: AO x 3 conversant coherent
83y F with PMH significant for A-Fib, hypertension and CHF who presents to ED complaining of worsening SOB +/- increased edema.
Acute on Chronic HFpEF
- BNP elevated and increased SOB. Not significantly edematous on exam.
- Had Echo in 03/2024 with normal LVEF, dilated RV and pulmonary hypertension.
-Cardio eval appreciated cont IV diuresis Lasix 80 mg BID, Aldactone 25 mg daily added
ETHAN on CKD IV
- SCr = 2.1 compared to most recent baseline of 1.8.
- since improved with diuresis, suspect cardiorenal
Paroxysmal Atrial Fibrillation
- s/p prior ablation / maintained on flecainide.
- Continue Eliquis for stroke risk reduction.
- Monitor on telemetry given flecainide.
Hypertension
- Cont Lasix, Aldactone (new), Metoprolol
- Home Hydralazine dose reduced d/t low pressures, possibly may wean off depending on BP trend
Hypokalemia
-monitor and replete K
GIOVANY
- Stable. Continue nightly PAP therapy.
Seizure Disorder
- Stable. Continue phenobarbital.
Itching/Dry Skin
-daily aquaphor
-prn calamine
Gum bleeding
-Noted night of admission as per daughter Deja
-appears resolved at this time
-likely exacerbated by home Eliquis use
-no recurrence since
-outpatient follow with dentist recommended for now, suspect gingival disease.
PT/OT appreciated Home Health
DVT Prophylaxis: On Eliquis
Code Status: Full
discussed with patient and patient's daughter Deja
I spent a total of 45 minutes with the patient or on the floor. More than 50% of this time involved counseling and coordination of care.
Anticipated Discharge: 24 - 48 hours
Subjective/Interval History
-
Date of Service: June 15, 2024
No acute distress sitting up comfortably in bed. Reports itching possibly due to dry skin Aquaphor prescribed. Exertional dyspnea persists though respiratory status remains stable on room air at rest.
Objective Data
-
Labs:
Laboratory Results
06/15/24
06:01
WBC 5.3
Hgb 10.6 L
Hct 31.1 L
Plt Count 182
Sodium 140
Potassium 3.4 L
Chloride 99
Carbon Dioxide 34 H
BUN 65 H
Creatinine 1.7 H
Glucose 108 H
Calcium 9.4
Vital Signs:
Vital Signs
Temp Pulse Resp BP Pulse Ox
97.9 F 67 20 135/55 93
06/15/24 03:09 06/15/24 03:09 06/15/24 03:09 06/15/24 03:09 06/15/24 03:09
I&O
06/14/24 06/15/24 06/16/24
05:59 06:59 06:59
Intake Total
Balance
[2024-06-15 07:28] VITALS: BP 140/53
[2024-06-15] MEDS: APRESOLINE 50 MG PO ×2 (09:20→20:23)
[2024-06-15] MEDS: TAMBOCOR 50 MG PO ×2 (09:20→20:23)
[2024-06-15] MEDS: LUMINAL 32.4 MG PO (09:21)
[2024-06-15] MEDS: ALDACTONE 25 MG PO (09:21)
[2024-06-15] MEDS: ELIQUIS 2.5 MG PO ×2 (09:21→20:23)
[2024-06-15] MEDS: TOPROL XL 25 MG PO (09:21)
[2024-06-15] MEDS: LASIX 80 MG IV ×2 (09:26→17:12)
[2024-06-15] MEDS: KCL 40 MEQ PO (10:34)
[2024-06-15] MEDS: KCL 270 MEQ IV (10:53)
[2024-06-15 11:57] VITALS: BP 120/55
--- NOTE | 2024-06-15 12:18 | W.PN.CD ---
Today's Communication / Plan
-
-Continue Lasix 80 mg IV BID; volume status slowly improving.
-Per her primary Portable Track Line Marker: On discharge, I suspect she will need torsemide 40 mg BID with metolazone 5 mg M/W/F.
-Will replete potassium today.
Impression / Plan
-
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
lung toxicity who is admitted with SOB, edema, weight gain. We are consulted for acute on chronic HFPEF.
Primary actuarial assistant: Dr. Gonzáles
EP: Dr. Burnett ([facility])
Nephro: Dr. Quiles
HFpEF, acute on chronic, severe
-high risk situation with cardiorenal syndrome, CKD4, requiring close monitoring of labs, tele
-dry weight previously 65kg: likely need to reset this admission
-at home, was taking torsemide 40mg bid
-on discharge, suspect she will need torsemide 40mg bid with metolazone 5mg M/W/F
-Continue Lasix 80 mg IV BID; volume status slowly improving.
-Per her primary Portable Track Line Marker: On discharge, I suspect she will need torsemide 40 mg BID with metolazone 5 mg M/W/F.
-She did not have coverage for SGLT2i.
-Continue spironolactone.
-Will replete potassium today.
CKD:
-Continue to monitor renal function creatinine relatively stable (~2.0); 1.7 today.
-Stable.
Valvular heart disease: stable on echo 03/2024 with EF 60-65%
-Moderate aortic stenosis
-will not repeat echo at this time
-Will continue to monitor as outpatient.
Pulmonary HTN, severe, with RV dysfunction
-PASP 75 mmHg with dilated RV and hypokinetic
-Continue diuresis as above.
Paroxysmal atrial fibrillation/Paroxysmal atrial tachycardia
-S/P AVN ablation with PPM, on Flecainide 50mg bid and metoprolol XL 25mg daily
-she gets outpatient nuclear stress to screen for CAD per EP
-Oral Anticoagulation: Continue Apixaban 2.5 mg twice daily (age 83, creatinine >1.5)
-[id number]: score at least 5 (Heart failure, HTN, age 75 or more, female gender)
-EP managed by Dr. Burnett
HTN
-Blood pressure is well-controlled on current medication regimen; continue.
Anemia, chronic, in the setting of chronic disease
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
Seizure disorder, on phenobarbital
GIOVANY, on CPAP
Physical Exam
Vital Signs/Labs
Vital Signs
Temp Pulse Resp BP Pulse Ox
97.5 F 68 18 120/55 95
06/15/24 11:57 06/15/24 11:57 06/15/24 11:57 06/15/24 11:57 06/15/24 11:57
06/14/24 06/15/24 06/16/24
05:59 06:59 06:59
Actual Weight
06/15/24 06:01
06/15/24 06:01
Magnesium 2.3 mg/dl (1.6-2.3) 06/15/24 06:01
06/12/24
21:06
Rmr-L-Abxbwgxtgbo Pept 25039
LAB Results
06/12/24 06/13/24 06/13/24
21:06 03:29 09:29
Troponin I 0.034 0.038 H* Cancelled
06/13/24
15:29
Troponin I Cancelled
Physical Exam
Constitutional: No acute distress and Comfortable
EENT: Anicteric
Cardiovascular: Rhythm & rate is regular, Pedal edema is absent, Systolic murmur present (3-4/6 systolic) and S1S2 is normal
Respiratory: Respiratory effort normal and Rhonchi Present (Bibasilar)
GI: Soft
Neuro/Psych: Alert
Other: Skin (Warm, dry)
Data Reviewed
-
Date of Service: June 15, 2024
EKG: Tracing Personally Visualized and interpreted (Sinus rhythm: AV paced)
Labs: Labs Reviewed by me
[2024-06-15 15:08] VITALS: BP 117/51
[2024-06-15] MEDS: HYDROPHOR 1 APPLIC TOPICAL (17:59)
[2024-06-15 19:17] VITALS: BP 114/46
[2024-06-15] MEDS: LUMINAL 64.8 MG PO (21:11)
[2024-06-15 23:44] VITALS: BP 130/52
[2024-06-16 03:55] VITALS: BP 167/77
[2024-06-16 05:00] VITALS: BP 145/81
[2024-06-16 06:00] VITALS: BMI 26.0
[2024-06-16 08:18] VITALS: BP 142/63
--- NOTE | 2024-06-16 08:37 | W.PN.CD ---
Today's Communication / Plan
-
-Stable status-post diuresis with Lasix 80 mg IV BID; volume status improved.
-Can discharge to home today on Torsemide 40 mg BID with metolazone 5 mg M/W/F, as recommended by her primary starch cooker (Dr. Gonzáles).
Impression / Plan
-
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
lung toxicity who is admitted with SOB, edema, weight gain. We are consulted for acute on chronic HFPEF.
Primary starch cooker: Dr. Gonzáles
EP: Dr. Burnett ([facility])
Nephro: Dr. Quiles
HFpEF, acute on chronic, severe
-high risk situation with cardiorenal syndrome, CKD4, requiring close monitoring of labs, tele
-dry weight previously 65kg: likely need to reset this admission
-at home, was taking torsemide 40mg bid
-on discharge, suspect she will need torsemide 40mg bid with metolazone 5mg M/W/F
-Stable status-post diuresis with Lasix 80 mg IV BID; volume status improved.
-Can discharge to home today on Torsemide 40 mg BID with metolazone 5 mg M/W/F, as recommended by her primary starch cooker (Dr. Gonzáles).
-She did not have coverage for SGLT2i.
-Continue spironolactone.
CKD:
-Continue to monitor renal function creatinine relatively stable (~2.0); 1.7 today.
-Remains stable.
Valvular heart disease: stable on echo 03/2024 with EF 60-65%
-Moderate aortic stenosis
-will not repeat echo at this time
-Will continue to monitor as outpatient.
Pulmonary HTN, severe, with RV dysfunction
-PASP 75 mmHg with dilated RV and hypokinetic
-Diuretic regimen as recommended above.
Paroxysmal atrial fibrillation/Paroxysmal atrial tachycardia
-S/P AVN ablation with PPM, on Flecainide 50mg bid and metoprolol XL 25mg daily
-she gets outpatient nuclear stress to screen for CAD per EP
-Oral Anticoagulation: Continue Apixaban 2.5 mg twice daily (age 83, creatinine >1.5)
-[id number]: score at least 5 (Heart failure, HTN, age 75 or more, female gender)
-EP managed by Dr. Burnett
HTN
-Blood pressure is fairly controlled on current medication regimen; continue..
Anemia, chronic, in the setting of chronic disease
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
Seizure disorder, on phenobarbital
GIOVANY, on CPAP
Physical Exam
Vital Signs/Labs
Vital Signs
Temp Pulse Resp BP Pulse Ox
97.8 F 64 18 142/63 93
06/16/24 08:18 06/16/24 08:18 06/16/24 08:18 06/16/24 08:18 06/16/24 08:18
06/15/24 06/16/24 06/17/24
06:59 06:59 06:59
Actual Weight 66.678 kg
Magnesium 2.3 mg/dl (1.6-2.3) 06/15/24 06:01
06/12/24
21:06
Otm-H-Ecioatufpkl Pept 33803
LAB Results
06/13/24 06/13/24
09:29 15:29
Troponin I Cancelled Cancelled
Physical Exam
Constitutional: No acute distress and Comfortable
EENT: Anicteric
Cardiovascular: Rhythm & rate is regular, Pedal edema is absent, Systolic murmur present (07/13) and S1S2 is normal
Respiratory: Respiratory effort normal and Rhonchi Present (Mild bibasilar)
GI: Soft
Neuro/Psych: AO x 3
Other: Skin (Warm, dry, intact)
Data Reviewed
-
Date of Service: June 16, 2024
EKG: Tracing Personally Visualized and interpreted (Telemetry: AV paced)
Medical Tests (PFT, Pathology etc): Discussed with Patient
Labs: Labs Reviewed by me
[2024-06-16] MEDS: LASIX 80 MG IV (09:06)
[2024-06-16] MEDS: LUMINAL 32.4 MG PO (09:09)
[2024-06-16] MEDS: ALDACTONE 25 MG PO (09:09)
[2024-06-16] MEDS: HYDROPHOR 1 APPLIC TOPICAL (09:09)
[2024-06-16] MEDS: TOPROL XL 25 MG PO (09:09)
[2024-06-16] MEDS: APRESOLINE 50 MG PO (09:09)
[2024-06-16] MEDS: ELIQUIS 2.5 MG PO (09:09)
[2024-06-16] MEDS: TAMBOCOR 50 MG PO (09:09)
--- NOTE | 2024-06-16 10:14 | W.DCSUMMARY ---
Discharge Summary
Discharge Data
Date of Admission: 06/13/24
Date of Discharge: 06/16/24
-
Pending Results: No
Hospital Course
83y F with PMH significant for A-Fib, CHF and pulmonary hypertension
Presented with complaints of shortness of breath that was worse with activity/exertion along with 2 to 3 pound weight increase. In the ED was found to have a elevated BNP and a chest x-ray that was concerning for interstitial pulmonary edema with
small bilateral pleural effusions. These findings are most consistent with congestive heart failure with known history of preserved ejection fraction type heart failure. Therefore cardiology consulted started on IV diuretics with improved weight
and symptomatology. Evaluated by physical therapy that recommended home health services along with final recommendations from cardiology to transition from IV diuretics to torsemide 40 mg twice along with metolazone 5 mg Sunday and
to follow-up with outpatient calender wind up tender Dr. Gonzáles
Was seen and examined on the day of discharge. No new complaints. No acute overnight events.
Asking if she would be going home today. States that cardiology cleared her for home as she was being transitioned from IV diuretics to oral diuretics.
Shortness of breath now resolved sitting in bedside chair
NAD
Scleral Anicteric
MMM
No JVD
CTABL
RRR, S1/S2, SHAVONNE right upper sternal border grade III/
Soft, NT, ND, BS+
Warm, Dry
AAOx3
Calm
More than 30 minutes spent in discharge including
Final examination of the patient
Summarizing hospital stay
Instructions for continuing care to all relevant caregivers
Preparation of discharge records, prescriptions, and referral forms
Total time spent (in minutes): 33mins
Discharge Plan
-
Patient Disposition: Home with Home Care
Discharge Diagnosis/Procedures: Acute on Chronic HFpEF Exacterbation
Condition: Good
Diet: As tolerated, Low Fat, Low Cholesterol, 2 Gram Sodium and Restrict fluids to 64 oz
Activity: As tolerated
Driving Restrictions: As prior to admission
Blood Work: BMP in 5day with PCP.
Call PCP for script.
Activity Restrictions/Additional Instructions:
Presented with complaints of shortness of breath that was worse with activity/exertion along with 2 to 3 pound weight increase. In the ED was found to have a elevated BNP and a chest x-ray that was concerning for interstitial pulmonary edema with
small bilateral pleural effusions. These findings are most consistent with congestive heart failure with known history of preserved ejection fraction type heart failure. Therefore cardiology consulted started on IV diuretics with improved weight
and symptomatology. Evaluated by physical therapy that recommended home health services along with final recommendations from cardiology to transition from IV diuretics to torsemide 40 mg twice along with metolazone 5 mg Sunday and
to follow-up with outpatient calender wind up tender Dr. Gonzáles
Instructions: *CBC Heart Failure Instructions
Referrals:
Nina Bhakta CRNP [Specified Professional Personl] - 07/04/24 8:00 am
Oh Calvin MD [Family Provider] -
Prescriptions:
New
spironolactone 25 mg Tablet
25 mg PO DAILY 30 Days Qty: 30 0RF
calamine-zinc oxide 8-8 % Lotion
1 applic topical TIDPRN PRN (Reason: itchy skin) 30 Days Qty: 177 0RF
metolazone 5 mg tablet
5 mg PO .m w Qty: 15 0RF
Rx Instructions:
Take Sunday
Continued
atorvastatin 10 MG tablet
10 mg PO QPM
phenobarbital 32.4 MG tablet
64.8 mg PO HS
phenobarbital 32.4 MG tablet
32.4 mg PO DAILY
Patient Comments:
hydralazine 100 mg tablet
100 mg PO TID
flecainide 50 mg tablet
50 mg PO BID
metoprolol succinate 25 MG tablet extended release 24 hr
25 mg PO DAILY
torsemide 20 mg Tablet
40 mg PO BID@0800,1600 30 Days Qty: 120 0RF
Eliquis 2.5 mg tablet
2.5 mg PO BID Qty: 60 0RF
escitalopram oxalate [Lexapro] 10 mg Tablet
10 mg PO DAILY
Discharge Orders:
Discharge Patient (As Directed); Ordered 06/16/24
Ordered By: Elijah North
Discharge Date and Time
Print Language: KHMER
--- NOTE | 2024-06-16 11:23 | CM ---
Chart reviewed. Patient is stable for d/c today, d/c order is placed. Per chart, patient was referred to [facility].
CM spoke w/ patient bedside, agreeable to d/c today, son will transport home
IMM verbally reviewed, patient given copy, copy placed on chart
No other CM needs identified at this time
Plan: Home w/ [facility]
[2024-06-16 11:46] VITALS: BP 106/49
--- NOTE | 2024-06-16 13:08 | PTCARENOTE ---
Reviewed discharge instructions with patient. Patient verbalizes all teaching and denies questions. Vital signs stable. IV and tele removed. Patient left via wheelchair with staff escort. Son at bedside to transport home.
--- NOTE | 2024-06-17 09:45 | W.HF.CON ---
Heart Failure
- LV Function
Left ventricular function study result: LV Ejection fraction >/= 50% (ECHO 03/26/24)
Ejection Fraction Percentage: 60-65
- ARNI
Patient already on ARNI: No
Heart Failure ARNI Not Indicated: LV Ejection Fraction >/= 40%
- ACEI/ARB
Patient already on ACEI/ARB: No
Heart Failure ACEI/ARB Not Indicated: LV Ejection Fraction > 40%
- Beta Teddy
Patient already on Evidence Based Beta Teddy: Yes
- Mineralocorticord Receptor Antagonist
Patient already on MRA: Yes
- SGLT-2 Inhibitor
Patient already on SGLT-2 Inhibitor: No
Heart Failure SGLT-2 Inhibitor Contraindication: Patient Refusal
- Afib Anticoagulation
Patient already on Anticoagulation for Afib: Yes
- NYHA CHF Classification
NYHA CHF Classification Level: Class III - Symptoms w/ min exertion, interferes w/ nml daily activity (severe pulmonary HTN)
- ACC/AHA Stage
ACC/AHA Stage: Stage C: Symptomatic Heart Failure
== END 2024-06-16 13:10 | disposition home health service (06) | DRG 291 ==
LOC: 4 EAST ACU 03:25
PROVIDERS: Hospitalist; Internal Medicine; ADMITTING PHYSICIAN Emergency Medicine; ATTENDING PHYSICIAN Hospitalist; FAMILY PHYSICIAN Family Medicine; OTHER PHYSICIAN Internal Medicine
DX: I13.0 Hypertensive heart and chronic kidney disease with heart failure and stage 1 through stage 4 chronic kidney disease, or unspecified chronic kidney disease (principal); I50.33 Acute on chronic diastolic (congestive) heart failure; N18.4 Chronic kidney disease, stage 4 (severe); J84.9 Interstitial pulmonary disease, unspecified; N17.9 Acute kidney failure, unspecified; D68.32 Hemorrhagic disorder due to extrinsic circulating anticoagulants; I47.19 Other supraventricular tachycardia; I48.0 Paroxysmal atrial fibrillation; I27.20 Pulmonary hypertension, unspecified; G47.33 Obstructive sleep apnea (adult) (pediatric); E87.6 Hypokalemia; G40.909 Epilepsy, unspecified, not intractable, without status epilepticus; L85.3 Xerosis cutis; K06.8 Other specified disorders of gingiva and edentulous alveolar ridge; Z95.0 Presence of cardiac pacemaker; J44.9 Chronic obstructive pulmonary disease, unspecified; D64.9 Anemia, unspecified; Z91.048 Other nonmedicinal substance allergy status; Z88.2 Allergy status to sulfonamides; Z79.01 Long term (current) use of anticoagulants; E78.00 Pure hypercholesterolemia, unspecified; Z79.899 Other long term (current) drug therapy; Z82.49 Family history of ischemic heart disease and other diseases of the circulatory system; I08.2 Rheumatic disorders of both aortic and tricuspid valves; Z90.710 Acquired absence of both cervix and uterus
CPT/HCPCS: 71046; 80048; 80053; 83735; 83880; 84100; 84443; 84484; 85025; 85027; 93005; 96374; 97163; 97166; 97530; 99285

== ENCOUNTER → 2024-06-24 14:42 | Outpatient (REF) | payer OTHER, SELFPAY | LOC: RAD 14:42 | PROVIDERS: ATTENDING PHYSICIAN Family Medicine | DX: S39.92XA Unspecified injury of lower back, initial encounter (principal) | CPT/HCPCS: 72072; 72110 ==

== ENCOUNTER 2024-07-18 17:22 | Emergency (ER) | payer OTHER, SELFPAY ==
[2024-07-18] VITALS (7 sets, daily range): BP systolic 102–126; BP diastolic 45–56; BMI 24.0
--- NOTE | 2024-07-18 17:53 | ED.MUSCINJ ---
HPI-Injury
<Kiet Pleitez PA-C - Last Filed: 07/18/24 19:36>
General
Chief Complaint: Fall
Time Seen by Provider: 07/18/24 17:44
History of Present Illness-Injury
Initial Injury comments:
Patient is an 83-year-old female with past medical history of atrial fibrillation on Eliquis, COPD, seizure disorder, heart failure, hypertension, hyperlipidemia, history of pacemaker, currently resides at [facility], here today for
evaluation after she sustained a fall earlier today. Patient states she was attempting to take her top off in the bathroom when she lost control of her balance and fell on the ground along her back. She denies head trauma or loss of consciousness.
She does report being on the ground for approximately 1 hour. She admits to pain along her middle and lower back. No chest pain or difficulty breathing. No abdominal pain. No pain in her arms or legs. No acute complaints or problems noted
otherwise.
Past History
<Kiet Pleitez PA-C - Last Filed: 07/18/24 19:36>
Past History
ED Past Medical History: Arrthythmia (afib, cardioversions.), Asthma, CHF, COPD, HTN, Hypercholesterolemia, Other (Obstructive sleep apnea, interstitial lung disease, bilateral lower extremity edema, right truncal varicella-zoster 2020) and Other
(History of seizure); Negative Renal failure (Stage IIIb chronic kidney disease)
ED Past Surgical History: Cardiac (Cardioversion. Ablation X 2, pacemaker), Gynecological (Hysterectomy), Orthopedic (Bilateral shoulder surgeries, back surgery x 2, bilateral TKA) and Other (Foot surgery, breast biopsy)
Patient has exhibited threatening behavior?: No
Social History
Tobacco: Non-smoker
Alcohol: None
Drug: None
Personal:
Living: alone
Employment: Retired
Family History
Family History: CAD
Review of Systems
<MARIA LUISA Armendariz Last Filed: 07/18/24 19:36>
Review of Systems
All Other Systems: ROS reviewed and negative except as documented in HPI and ROS
Phy Exam
<Kiet Pleitez PA-C - Last Filed: 07/18/24 19:36>
Physical Exam
Physical Exam:
GENERAL: Alert , in no apparent distress
EYE: pupils equal and reactive
NECK: Supple, no significant adenopathy.
ENT: o/p clr, mmm.
CARDIAC: Regular rate and rhythm .
LUNGS: Clear breath sounds bilaterally, no acute respiratory distress, no wheezes/rales/rhonchi
ABDOMEN: Soft, there is mild tenderness to palpation along the lower abdomen, no r/g, no cvat
NEUROLOGICAL: Alert and oriented, no focal neuro deficits
SKIN: Warm and dry, skin intact.
MUSCULOSKELETAL: No edema, well perfused. Moderately tender along the thoracic and lumbar midline
PSYCH: Normal and appropriate interaction.
Injury Course
<Kiet Pleitez PA-C - Last Filed: 07/18/24 19:36>
Orders/Labs/Results
Orders:
Orders
07/18/24 17:56
Electrocardiogram (*1) Urgent
Reason for Study: Other
Other Reason for Exam: fall, elderly
EKG- Treatment ONCE
07/18/24 18:07
Basic Metabolic Panel Urgent
CPK [Creatine Phosphokinase] Urgent
Complete Blood Count/With Diff Urgent
07/18/24 19:32
Morphine Sulfate 2 mg IV NOW STA
07/18/24 19:33
Chest/Abd/Pelvis wo Contrast CT [CT Chest/abd/pel Wo Iv Cont] Urgent
Comment:
Reason For Exam: fall, mid lower back pain
07/18/24 19:35
Bladder Scan- Treatment ONCE
Bradley [Bradley Placement- Treatment] ONCE
Reason for insertion: Acute Retention
Abnormal Lab Results
07/18/24
18:07
RBC 3.52 L 10^6/uL
(4.20-5.40)
Hgb 11.5 L g/dL
(12.0-16.0)
Hct 33.3 L %
(37.0-47.0)
MCH 32.7 H pg
(27.0-31.0)
MPV 12.1 H fL
(7.4-10.4)
Absolute Lymphs (auto) 0.8 L 10^3/uL
(1.2-3.4)
Absolute Monos (auto) 1.1 H 10^3/uL
(0.1-0.6)
Lymphocytes % 10.8 L %
(20.5-51.1)
Monocytes % 14.7 H %
(1.7-9.3)
Potassium 3.3 L mmol/L
(3.5-5.1)
Chloride 87 L mmol/L
(98-107)
Carbon Dioxide 37 H mmol/L
(22-30)
BUN 114 H* mg/dl
(7-17)
Creatinine 2.1 H mg/dL
(0.6-1.0)
Glucose 128 H mg/dl
(70-99)
07/18/24 18:07
07/18/24 18:07
<Dean Newton Jr., PA-C - Last Filed: 07/21/24 06:34>
Orders/Labs/Results
Orders:
Orders
07/18/24 17:56
Electrocardiogram (*1) Urgent
Reason for Study: Other
Other Reason for Exam: fall, elderly
EKG- Treatment ONCE
07/18/24 18:07
Basic Metabolic Panel Urgent
CPK [Creatine Phosphokinase] Urgent
Complete Blood Count/With Diff Urgent
07/18/24 19:32
Morphine Sulfate 2 mg IV NOW STA
07/18/24 19:33
Chest/Abd/Pelvis wo Contrast CT [CT Chest/abd/pel Wo Iv Cont] Urgent
Comment:
Reason For Exam: fall, mid lower back pain
07/18/24 19:35
Bladder Scan- Treatment ONCE
Bradley [Bradley Placement- Treatment] ONCE
Reason for insertion: Acute Retention
Abnormal Lab Results
07/18/24
18:07
RBC 3.52 L 10^6/uL
(4.20-5.40)
Hgb 11.5 L g/dL
(12.0-16.0)
Hct 33.3 L %
(37.0-47.0)
MCH 32.7 H pg
(27.0-31.0)
MPV 12.1 H fL
(7.4-10.4)
Absolute Lymphs (auto) 0.8 L 10^3/uL
(1.2-3.4)
Absolute Monos (auto) 1.1 H 10^3/uL
(0.1-0.6)
Lymphocytes % 10.8 L %
(20.5-51.1)
Monocytes % 14.7 H %
(1.7-9.3)
Potassium 3.3 L mmol/L
(3.5-5.1)
Chloride 87 L mmol/L
(98-107)
Carbon Dioxide 37 H mmol/L
(22-30)
BUN 114 H* mg/dl
(7-17)
Creatinine 2.1 H mg/dL
(0.6-1.0)
Glucose 128 H mg/dl
(70-99)
07/18/24 18:07
07/18/24 18:07
<Zehra Bradley MD - Last Filed: 07/18/24 21:54>
Orders/Labs/Results
Orders:
Orders
07/18/24 17:56
Electrocardiogram (*1) Urgent
Reason for Study: Other
Other Reason for Exam: fall, elderly
EKG- Treatment ONCE
07/18/24 18:07
Basic Metabolic Panel Urgent
CPK [Creatine Phosphokinase] Urgent
Complete Blood Count/With Diff Urgent
07/18/24 19:32
Morphine Sulfate 2 mg IV NOW STA
07/18/24 19:33
Chest/Abd/Pelvis wo Contrast CT [CT Chest/abd/pel Wo Iv Cont] Urgent
Comment:
Reason For Exam: fall, mid lower back pain
07/18/24 19:35
Bladder Scan- Treatment ONCE
Bradley [Bradley Placement- Treatment] ONCE
Reason for insertion: Acute Retention
Abnormal Lab Results
07/18/24
18:07
RBC 3.52 L 10^6/uL
(4.20-5.40)
Hgb 11.5 L g/dL
(12.0-16.0)
Hct 33.3 L %
(37.0-47.0)
MCH 32.7 H pg
(27.0-31.0)
MPV 12.1 H fL
(7.4-10.4)
Absolute Lymphs (auto) 0.8 L 10^3/uL
(1.2-3.4)
Absolute Monos (auto) 1.1 H 10^3/uL
(0.1-0.6)
Lymphocytes % 10.8 L %
(20.5-51.1)
Monocytes % 14.7 H %
(1.7-9.3)
Potassium 3.3 L mmol/L
(3.5-5.1)
Chloride 87 L mmol/L
(98-107)
Carbon Dioxide 37 H mmol/L
(22-30)
BUN 114 H* mg/dl
(7-17)
Creatinine 2.1 H mg/dL
(0.6-1.0)
Glucose 128 H mg/dl
(70-99)
07/18/24 18:07
07/18/24 18:07
<Kiet Pleitez PA-C - Last Filed: 07/18/24 19:36>
MDM/Problems Addressed
Differential Diagnosis Includes:
Patient is an 83-year-old female with past medical history of atrial fibrillation on Eliquis, COPD, seizure disorder, heart failure, hypertension, hyperlipidemia, history of pacemaker, currently resides at [facility], here today for
evaluation after she sustained a fall earlier today. Overall, patient appears very well. Vital signs grossly within normal limits. Physical examination described above. On examination the patient is moderately tender along the thoracic and lumbar
midline without deformities or step-offs appreciated. Lungs are clear. There is no tenderness along the bilateral hips or along the upper or lower extremities. The patient is neurologically intact and able to follow commands. No evidence of head
trauma. She is mildly tender along the lower abdomen without rebound or guarding. No skin changes. Will begin with basic screening labs. Given age associated with fall and anticoagulant history with physical exam findings with midline tenderness
as well as abdominal tenderness we will obtain a CT chest, abdomen and pelvis with IV contrast.
I did discuss with the nurse, Franchesca, at the facility. She reports the fall occurred last night. Patient did not want to seek medical evaluation at that time the pain began to progressively worsen despite Tylenol use and therefore patient was
brought to the emergency department for further testing evaluation.
07/18/2024 19:33: Screening labs reveal anemia with hemoglobin 11.5 which is grossly consistent with the patient's baseline. Potassium 3.3. Chloride 87. Bicarbonate 37. BUN 114 and creatinine 2.1. Glucose 128. The patient's baseline creatinine
is around high ones to low twos but her BUN has almost doubled. The patient attempted to urinate but this was unsuccessful despite PureWick administration. We will obtain a bladder scan to assess for urinary retention. CAT scan will be changed to
without contrast given elevated creatinine and low GFR. Low suspicion for visceral injury. Case discussed with ED attending, Dr. Bradley, who evaluated patient at bedside and agrees with plan at this time.
07/18/2024 19:36: Bladder scan greater than 700. Will insert Bradley catheter.
<Kiet Pleitez PA-C - Last Filed: 07/18/24 19:36>
*EKG
Interpreted by ED Provider?: Yes
EKG Intrepretation Date: 07/18/24
EKG Intrepretation Time: 19:31
Interpretation: normal
Comparison EKG: no changes (AV dual paced rhythm, ventricular rate 60)
<Dean Newton Jr., PA-C - Last Filed: 07/21/24 06:34>
*Critical Care Note
Total Time (30-74mins, 75-104mins- exclusive of procedures): Not Applicable
<Dean Newton Jr., PA-C - Last Filed: 07/21/24 06:34>
Update Note
Update Note:
2114: Ed Aman GLASS: CT chest abdomen pelvis pending when care transition. Patient was found to have a hydro pneumothorax the left lungs 2 fractured ribs. Patient will need to be trauma transfer at this point initially [facility] was contacted but
did not have CT surgery coverage recommending to be transferred elsewhere. Otherwise patient also did have urinary retention this was relieved by placing a Bradley. Patient was reassessed [id number] she was interactive and in no distress heart rate in
the 60s blood pressure in the 100s over 70s patient denying any severe pain at this time. Patient denies any significant shortness of breath while laying.
<Zehra Bradley MD - Last Filed: 07/18/24 21:54>
Update Note
Update Note:
2115: Ed Newton PA-C: CT chest abdomen pelvis pending when care transition. Patient was found to have a hydro pneumothorax the left lungs 2 fractured ribs. Patient will need to be trauma transfer at this point initially [facility] was contacted but
did not have CT surgery coverage recommending to be transferred elsewhere. Otherwise patient also did have urinary retention this was relieved by placing a Bradley. Patient was reassessed [id number] she was interactive and in no distress heart rate in
the 60s blood pressure in the 100s over 70s patient denying any severe pain at this time. Patient denies any significant shortness of breath while laying.
Case d/w Dr Mejia, accepted at [facility] as a Level 2 trauma, requests a cervical collar. Case d/w Chanelle her daughte rin detail, describing her diagnosis, plan to tx, etc. She is in agreement. Pt also aware and in agrreement.
ED Attending Note
<Kiet Pleitez PA-C - Last Filed: 07/18/24 19:36>
-
Portions of this chart may have been created with voice recognition software.� Occasional wrong word or��sound alike� substitutions may have occurred due to the inherent limitations of voice recognition software.
<Zehra Bradley MD - Last Filed: 07/18/24 21:54>
ED Attending Note
Patient seen and examined by attending physician: Yes
I performed the substantive portion of visit, reviewed & personally made and approve the management plan that is documented in note by myself or DANAY.: Yes
ED Attending Note:
83 yr old s/p mech fall yesterday, on doac, with c/o L post rib pain ever since. No head inj, no loc, no neck pain, no abd pain. On exam, she has distinct ttp L post mid back without bruising or cpreiuts. BS sl dec on L. Pt c/o urinary
retention, noted to be in retention and bradley placed. Feels much better. Ct noted. Case initially dw [facility] trauma Dr Falk who has concerns given their CT surgery coverage in light this month. Therefore, call made to [facility], awaiting call back.
Discharge Plan
Departure
Patient Disposition: Acute Care Hospital
Date of Disposition: 07/18/24
Time of Disposition: 21:52
Discharge Problem:
rib fractures, Hydropneumothorax
Prescriptions:
No Action
atorvastatin 10 MG tablet
10 mg PO QPM
phenobarbital 32.4 MG tablet
64.8 mg PO HS
phenobarbital 32.4 MG tablet
32.4 mg PO DAILY
Patient Comments:
hydralazine 100 mg tablet
100 mg PO TID
flecainide 50 mg tablet
50 mg PO BID
metoprolol succinate 25 MG tablet extended release 24 hr
25 mg PO DAILY
torsemide 20 mg Tablet
40 mg PO BID@0800,1600 30 Days Qty: 120 0RF
Eliquis 2.5 mg tablet
2.5 mg PO BID Qty: 60 0RF
escitalopram oxalate [Lexapro] 10 mg Tablet
10 mg PO DAILY
spironolactone 25 mg Tablet
25 mg PO DAILY 30 Days Qty: 30 0RF
calamine-zinc oxide 8-8 % Lotion
1 applic topical TIDPRN PRN (Reason: itchy skin) 30 Days Qty: 177 0RF
metolazone 5 mg tablet
5 mg PO .m w f Qty: 15 0RF
Rx Instructions:
Take Sunday
Referrals:
Oh Calvin MD [Family Provider] -
Hospital Transfer
Other hospital: [facility] [place]
I certify that the patient requires transfer: Yes
Discussed case with accepting physician: Dr Mejia
Reason for transfer: higher level of care
Interventions
Interventions:
*Risk Screen - Suicide Last Done: 07/18/24 17:28
*General Assessment Last Done: 07/18/24 17:28
*Neglect/Abuse Screening Last Done: 07/18/24 17:28
*ED- Fall Risk Assessment Last Done: 07/18/24 23:50
*ED COVID-19 Vaccine History Last Done: 07/18/24 23:50
*Nursing Disposition Last Done: 07/18/24 23:50
ED-Musculoskeletal Assessment Last Done: 07/18/24 17:31
ED- Neurological Assessment Last Done: 07/18/24 17:31
ED-Skin Assessment Last Done: 07/18/24 17:31
Discharge Date and Time
Discharge Date/Time: 07/19/24 00:00
Print Language: WELSH
[2024-07-18 18:33] LABS: % Basophils 0.3 % (0-2); % Eosinophils 3.9 % (0-6); % Immature Granulocytes 0.4 % (0-0.5); % Lymphocytes 10.8 % (20.5-51.1); % Monocytes 14.7 % (1.7-9.3); % Neutrophils 69.9 % (42.2-75.2); Absolute Eosinophils 0.3 10^3/uL (0-0.7); Absolute Lymphocytes 0.8 10^3/uL (1.2-3.4); Absolute Monocytes 1.1 10^3/uL (0.1-0.6); Hematocrit 33.3 % (37.0-47.0); Hemoglobin 11.5 g/dL (12.0-16.0); Mean Corp Hgb Conc. 34.5 g/dL (33.0-37.0); Mean Corpuscular Hgb 32.7 pg (27.0-31.0); Mean Corpuscular Volume 94.6 fL (81.0-99.0); Mean Platelet Volume 12.1 fL (7.4-10.4); Nucleated Red Blood Cells % 0 %; Platelet Count 173 10^3/uL (130-400); Red Blood Cell Count 3.52 10^6/uL (4.20-5.40); Red Cell Dist. Width 13.6 % (11.5-14.5); White Blood Cell Count 7.2 10^3/uL (4.8-10.8)
[2024-07-18 18:55] LABS: Blood Urea Nitrogen 114 mg/dl (7-17); Calcium 9.8 mg/dl (8.4-10.2); Carbon Dioxide 37 mmol/L (22-30); Chloride 87 mmol/L (98-107); Creatine Phosphokinase 75 U/L (30-135); Estimated Creatinine Clearance 18 ml/min; Glucose 128 mg/dl (70-99); Potassium 3.3 mmol/L (3.5-5.1); Sodium 135 mmol/L (135-145); eGFR 22.66
[2024-07-18] MEDS: MORPHINE SULFATE 2 MG IV (20:37)
== END 2024-07-19 | disposition short-term general hospital (02) ==
LOC: EMR 17:22
PROVIDERS: Physician Assistant; EMERGENCY PHYSICIAN Emergency Medicine; FAMILY PHYSICIAN Family Medicine
DX: S22.32XA Fracture of one rib, left side, initial encounter for closed fracture (principal); S27.301A Unspecified injury of lung, unilateral, initial encounter; W18.39XA Other fall on same level, initial encounter; I48.91 Unspecified atrial fibrillation; J44.89 Other specified chronic obstructive pulmonary disease; I11.0 Hypertensive heart disease with heart failure; I50.9 Heart failure, unspecified; E78.00 Pure hypercholesterolemia, unspecified; G47.33 Obstructive sleep apnea (adult) (pediatric); G40.909 Epilepsy, unspecified, not intractable, without status epilepticus; Z79.01 Long term (current) use of anticoagulants; Z82.49 Family history of ischemic heart disease and other diseases of the circulatory system; Z90.710 Acquired absence of both cervix and uterus; Z95.0 Presence of cardiac pacemaker; Z96.653 Presence of artificial knee joint, bilateral
CPT/HCPCS: 99284; 96374; 71250; 74176; 80048; 82550; 85025; 93005

== ENCOUNTER 2024-08-28 12:57 | Inpatient (IN) | payer OTHER, SELFPAY ==
--- NOTE | 2024-08-28 09:32 | ED.GENMED ---
History of Present Illness
General
Chief Complaint: Breathing Problem
Source: patient and ambulance crew
Exam Limitations: none
Time Seen by Provider: 08/28/24 09:27
Nursing documentation reviewed up to this point in time: agreed with
History of Present Illness
History of Present Illness:
Patient is a 84 -year-old female with past medical history of A-fib on Eliquis, AV josé miguel ablation seizure disorder COPD, CHF with preserved EF moderate aortic stenosis, chronic kidney disease stage IV hypertension hyperlipidemia pacemaker sent from
nursing facility for evaluation of low pulse ox. EMS reports patient has some mild wheezing on exam and was given a neb en route.
Patient presents awake alert she is oriented. She herself has no complaints.
In review of history patient was recently seen here July 18 after fall for a hydropneumothorax with 2 fractured ribs on the left. And was transferred to [facility] at that time.
Past History
Past History
ED Past Medical History: Arrthythmia (afib, cardioversions.), Asthma, CHF, COPD, HTN, Hypercholesterolemia, Other (Obstructive sleep apnea, interstitial lung disease, bilateral lower extremity edema, right truncal varicella-zoster 2020) and Other
(History of seizure); Negative Renal failure (Stage IIIb chronic kidney disease)
ED Past Surgical History: Cardiac (Cardioversion. Ablation X 2, pacemaker), Gynecological (Hysterectomy), Orthopedic (Bilateral shoulder surgeries, back surgery x 2, bilateral TKA) and Other (Foot surgery, breast biopsy)
Patient has exhibited threatening behavior?: No
Social History
Tobacco: Non-smoker
Alcohol: None
Drug: None
Personal:
Living: alone
Employment: Retired
Family History
Family History: CAD
Review of Systems
Review of Systems
Allergies reviewed?: Yes
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
All Other Systems: ROS reviewed and negative except as documented in HPI and ROS
Constitutional: Reports no symptoms
Respiratory: Reports no symptoms and other (low pulse ox as per NH); Denies trouble breathing
Cardiac: Reports no symptoms
ABD/GI: Reports no symptoms
: Reports no symptoms
Musculoskeletal: Reports no symptoms
Skin: Reports no symptoms
Neurological: Reports no symptoms
Psychiatric: Reports no symptoms
Phy Exam
General Physical Exam
General Presentation: no apparent distress
General age: appears stated age
General Skin: warm and dry
General Habitus: elderly
General Mental: alert
General Hydration: appears well hydrated
Cardiovascular Exam
Cardiovascular Exam: regular rate/rhythm, no murmur and normal peripheral pulses
Pulmonary Exam
Pulmonary Exam: no respiratory distress and other (b/l rales bases to mid lungs )
Neurological Exam
Neurological Exam: alert and oriented x3
Musculoskeletal Exam
Musculoskeletal Exam: other (Mild swelling to bilateral legs left anterior lower leg has mild small abrasion minimal erythema bilaterally ; +strong b/l pulses )
Skin Exam
Skin Exam: normal color and warm/dry
Psychiatric Exam
Psychiatric Exam: normal mood/affect
Scores
Heart Failure Risk
Heart Failure Risk Score: Not Applicable
Course
Orders/Labs/Results
Orders:
Orders
08/28/24 09:39
Electrocardiogram (*1) Stat
Reason for Study: Other
Other Reason for Exam: chest pain
Cardiac Monitoring- Treatment ONCE
EKG- Treatment ONCE
IV Insert/Care/Rem.- Treatment PRN
08/28/24 09:40
CR Chest - 2 Views Urgent
Comment:
Reason For Exam: sob
08/28/24 10:01
Complete Blood Count/With Diff Urgent
Comprehensive Metabolic Panel Urgent
NT-proBNP Urgent
Troponin I Urgent
08/28/24 11:38
Furosemide [Lasix] 40 mg IV NOW STA
Abnormal Lab Results
08/28/24
10:01
WBC 4.5 L 10^3/uL
(4.8-10.8)
RBC 2.85 L 10^6/uL
(4.20-5.40)
Hgb 9.2 L g/dL
(12.0-16.0)
Hct 28.0 L %
(37.0-47.0)
MCH 32.3 H pg
(27.0-31.0)
MCHC 32.9 L g/dL
(33.0-37.0)
RDW 17.2 H %
(11.5-14.5)
MPV 11.8 H fL
(7.4-10.4)
Potassium 3.1 L mmol/L
(3.5-5.1)
Carbon Dioxide 32 H mmol/L
(22-30)
BUN 99 H mg/dl
(7-17)
Creatinine 1.9 H mg/dL
(0.6-1.0)
Glucose 108 H mg/dl
(70-99)
Albumin 3.4 L g/dl
(3.5-5.0)
08/28/24 10:01
08/28/24 10:01
Vital Signs
Initial and Last Documented VS:
Initial Vital Signs
Pulse Resp BP Pulse Ox
61 17 113/56 91
08/28/24 09:43 08/28/24 09:43 08/28/24 09:43 08/28/24 09:43
Last Documented Vital Signs
Temp Pulse Resp BP Pulse Ox
98.0 F 61 17 113/56 91
08/28/24 09:56 08/28/24 09:43 08/28/24 09:43 08/28/24 09:43 08/28/24 09:43
Clinical Training Specialist consulted with Physician
Clinical Training Specialist consulted with physician?: Yes
Name of Physician Consulted: Viola
MDM/Problems Addressed
Differential Diagnosis Includes:
not limited to : CHF COPD less likely pneumonia
MDM/Problems Addressed:
As documented patient is an 84-year-old female with history as documented above sent by [facility] for low pulse ox. Patient has no complaints. She has been around 91% on room air while awake but when she sleeps her pulse ox does
decrease into the high 80s. She has no complaints of shortness of breath. She has scattered rales. She is afebrile. Her white count is 4.5 her hemoglobin is 9.2 which is a decrease from 11.5 July 18. brown stool heme neg
She is on metolazone and torsemide x-ray consistent with CHF BNP elevated at 12,900. no cp trop is 0.030. Will diurese with 1 dose of Lasix here.
I did discuss with son over the phone.
Chronic conditions affecting care:
CHF A-fib hypertension pacemaker
*Radiology
Radiology exam reviewed: radiology read reviewed
*Pulse Oximetry
Patient hypoxic: yes
Comment: 92%RA
*Critical Care Note
Total Time (30-74mins, 75-104mins- exclusive of procedures): Not Applicable
ED Attending Note
-
Portions of this chart may have been created with voice recognition software.� Occasional wrong word or��sound alike� substitutions may have occurred due to the inherent limitations of voice recognition software.
Discharge Plan
Departure
Patient Disposition: Admit
Date of Disposition: 08/28/24
Time of Disposition: 11:47
Admit to: Telemetry
Admit to doctor: hospitalist
Presentation/result/management discussed w/ accepting MD/DO: Hospitalist
Patient with high blood pressure during this ER visit?: No
Condition: Fair
Covid-19: Not Applicable
Discharge Problem:
CHF (congestive heart failure), Chronic kidney disease, Acute hypokalemia, Anemia
Prescriptions:
No Action
atorvastatin 10 MG tablet
10 mg PO QPM
phenobarbital 32.4 MG tablet
64.8 mg PO HS
phenobarbital 32.4 MG tablet
32.4 mg PO DAILY
Patient Comments:
hydralazine 100 mg tablet
100 mg PO TID
flecainide 50 mg tablet
50 mg PO BID
metoprolol succinate 25 MG tablet extended release 24 hr
25 mg PO DAILY
torsemide 20 mg Tablet
40 mg PO BID@0800,1600 30 Days Qty: 120 0RF
Eliquis 2.5 mg tablet
2.5 mg PO BID Qty: 60 0RF
escitalopram oxalate [Lexapro] 10 mg Tablet
10 mg PO DAILY
spironolactone 25 mg Tablet
25 mg PO DAILY 30 Days Qty: 30 0RF
calamine-zinc oxide 8-8 % Lotion
1 applic topical TIDPRN PRN (Reason: itchy skin) 30 Days Qty: 177 0RF
metolazone 5 mg tablet
5 mg PO .m w f Qty: 15 0RF
Rx Instructions:
Take Sunday
Referrals:
Oh Calvin MD [Family Provider] -
Interventions
Interventions:
*Risk Screen - Suicide Last Done: 08/28/24 09:56
*General Assessment Last Done: 08/28/24 09:56
*Neglect/Abuse Screening Last Done: 08/28/24 09:56
ED- Cardiac Assessment Last Done: 08/28/24 09:56
ED- Pulmonary Assessment Last Done: 08/28/24 09:56
Discharge Date and Time
Print Language: YAKUT
[2024-08-28 09:33] VITALS: BMI 22.8
[2024-08-28 09:43] VITALS: BP 113/56
[2024-08-28 10:17] LABS: Hemoglobin 9.2 g/dL (12.0-16.0); Mean Corp Hgb Conc. 32.9 g/dL (33.0-37.0); Mean Corpuscular Hgb 32.3 pg (27.0-31.0); Mean Corpuscular Volume 98.2 fL (81.0-99.0); Mean Platelet Volume 11.8 fL (7.4-10.4); Platelet Count 159 10^3/uL (130-400); Red Blood Cell Count 2.85 10^6/uL (4.20-5.40); Red Cell Dist. Width 17.2 % (11.5-14.5); White Blood Cell Count 4.5 10^3/uL (4.8-10.8)
[2024-08-28 10:36] LABS: NT-proBNP 12900 pg/ml
[2024-08-28 10:41] LABS: ALT (SGPT) 17 U/L (0-35); AST (SGOT) 27 U/L (14-36); Albumin 3.4 g/dl (3.5-5.0); Alkaline Phosphatase 101 U/L (38-126); Blood Urea Nitrogen 99 mg/dl (7-17); Carbon Dioxide 32 mmol/L (22-30); Chloride 102 mmol/L (98-107); Estimated Creatinine Clearance 20 ml/min; Glucose 108 mg/dl (70-99); Potassium 3.1 mmol/L (3.5-5.1); Sodium 142 mmol/L (135-145); Total Bilirubin 0.5 mg/dl (0.2-1.3); Total Protein 7.2 g/dl (6.3-8.2)
[2024-08-28 11:53] LABS: % Basophils 0.7 % (0-2); % Eosinophils 5.8 % (0-6); % Immature Granulocytes 0.2 % (0-0.5); % Lymphocytes 29.1 % (20.5-51.1); % Monocytes 20.4 % (1.7-9.3); % Neutrophils 43.8 % (42.2-75.2); Absolute Eosinophils 0.3 10^3/uL (0-0.7); Absolute Lymphocytes 1.3 10^3/uL (1.2-3.4); Absolute Monocytes 0.9 10^3/uL (0.1-0.6); Nucleated Red Blood Cells % 0 %
--- NOTE | 2024-08-28 11:54 | PHANOTE ---
MED REC NOTE- CALLED [employer] [facility] FOR MISSING PAPERWORK, AWAITING FOR FAX
--- NOTE | 2024-08-28 12:08 | HPS.HSE ---
Family Physician
-
Family Physician: Oh Calvin
Chief Complaint
-
evaluation of low pulse ox.
History of Present Illness
HPI
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
- sent from nursing facility for evaluation of low pulse ox.
- EMS reports patient has some mild wheezing on exam and was given a neb en route.
- Patient presents awake alert she is oriented. She herself has no complaints.
Medical History
Past Medical History
Past Medical History: Reports Other
Additional Past Medical History:
Paroxysmal atrial fibrillation status post AV josé miguel ablation status post pacemaker implantation
COPD
GIOVANY on CPAP
Primary hypertension hyperlipidemia
Seizure disorder
Chronic anemia
Chronic HFpEF
Aortic stenosis
Past Surgical History: Reports Other
Additional Past Surgical History:
PPM Placement
R Foot Surgery
MOHS surgery
Social History
Tobacco: Non-smoker
Alcohol: None
Family History
Family History: Not pertinent
Allergies / Home Medications
Allergies reflects when Allergies were last updated in [employer].
Home Medications with original date entered in [employer]
Allergy/Medication List:
Allergies
Allergy/AdvReac Type Severity Reaction Status Date / Time
adhesive tape Allergy Rash Verified 06/12/24 20:37
cefuroxime [From Ceftin] Allergy throat Verified 06/12/24 20:37
closes
ragweed pollen Allergy Unknown Verified 06/12/24 20:37
Sulfa (Sulfonamide Allergy throat Verified 06/12/24 20:37
Antibiotics) closes
Home Medications
atorvastatin 10 mg tablet 10 mg PO QPM High cholesterol 10/21/20
phenobarbital 32.4 mg tablet 32.4 mg PO DAILY Seizures 10/21/20
phenobarbital 32.4 mg tablet 64.8 mg PO HS Seizures 10/21/20
flecainide 50 mg tablet 50 mg PO BID Arrhythmia 06/21/23
hydralazine 100 mg tablet 100 mg PO TID Blood Pressure 06/21/23
metoprolol succinate 25 mg tablet,extended release 24 hr 25 mg PO DAILY Blood pressure 01/24/24
torsemide 20 mg tablet 40 mg (2 x 20 mg) PO BID@0800,1600 30 days #120 tabs 03/27/24
apixaban 2.5 mg tablet (Eliquis) 2.5 mg PO BID #60 tabs 03/28/24
escitalopram oxalate 10 mg tablet (Lexapro) 10 mg PO DAILY 06/13/24
Review of Systems
-
Unable to obtain full review of systems at this time due to: Acuity (arousable but non sustained wakefulness)
Physical Exam
Vital Signs
Vital Signs
Temp Pulse Resp BP Pulse Ox
98.0 F 61 17 113/56 91
08/28/24 09:56 08/28/24 09:43 08/28/24 09:43 08/28/24 09:43 08/28/24 09:43
Physical Exam
General: Well Developed, No Apparent Distress and Other (lethargic , arousable but non sustained wakefulness )
HEENT: NormoCephalic, Moist mucous membranes and Atraumatic
Respiratory: Rales (b/l rales bases to mid lungs)
Cardiac: S1/S2 and Regular Rhythm; No Murmur or Rub
GI: Soft, Non Tender, Non Distended and Normal Bowel Sounds; No Organomegaly
Rectal: Deferred by Provider
Musculoskeletal: No Clubbing, No Cyanosis and Other (Mild swelling to bilateral legs left anterior lower leg has mild small abrasion minimal erythema bilaterally ; +strong b/l pulses )
Skin: No Rash
Neuro: Nonfocal/grossly intact
Laboratory Results
-
08/28/24 10:01
08/28/24 10:01
Laboratory Results
Total Bilirubin 0.5 mg/dl (0.2-1.3) 08/28/24 10:01
AST 27 U/L (14-36) 08/28/24 10:01
ALT 17 U/L (0-35) 08/28/24 10:01
Alkaline Phosphatase 101 U/L (38-126) 08/28/24 10:01
Troponin I 0.030 ng/ml 08/28/24 10:01
Impression/Plan
-
Selected Entries
07/18/24
17:28 07/18/24
23:00 08/28/24
09:33
Temp
Pulse
Resp Rate
Blood pressure 116/50
SaO2
Actual Weight 65.5 kg 64 kg
08/28/24
09:43 08/28/24
09:43 08/28/24
09:56
Temp 98.0 F
Pulse 61
Resp Rate 17
Blood pressure 113/56
SaO2 91
Actual Weight
Laboratory Tests
06/12/24 07/18/24 08/28/24
21:06 18:07 10:01
WBC 7.2 4.5 L
Hgb 11.5 L 9.2 L
MCV 98.2
Plt Count 159
Sodium 142
Potassium 3.3 L 3.1 L
Chloride 102
Carbon Dioxide 37 H 32 H
BUN 114 H* 99 H
Creatinine 2.1 H 1.9 H
Troponin I 0.030
Iub-H-Hjixywxwzpk Pept [id number]
CXR
Suspect mild to moderate CHF and trace bilateral pleural effusions.
Cannot rule out superimposed bibasilar pneumonia.
Suspect underlying chronic interstitial lung disease.
EKG
AV dual-paced rhythm
ABNORMAL ECG WHEN COMPARED WITH ECG OF 18-JUL-2024 18:22,
VENT. RATE HAS INCREASED BY 2 BPM
Confirmed by SÁNCHEZ BALLARD, [facility] ([id number]) on 08/28/2024 9:56:13 AM
03/26/24 TTE
Normal left ventricular size and systolic function with moderate concentric LV hypertrophy and no regional wall motion abnormalities.
LVEF 60-65%.
Dilated right ventricle with mildly reduced systolic function.
Severe biatrial enlargement.
Moderate aortic stenosis.
Mild tricuspid regurgitation with severe pulmonary hypertension (PASP 75 mmHg).
Pleural effusion is present.
Compared to prior echocardiogram on 01/28/2024, no significant change.
Last hospitalist admission: 06/13/24 - 06/16/24
DC DX: congestive heart failure
ASSESSMENT & PLAN
Pending Rx reconciliation
lethargic encephalopathy suspect multifactorial such as hypoxia, acute HF, CKD4, alkalosis plus or minus acidosis)
- arousable but non sustained wakefulness
- Full code as of now per Son Bill at bed side
- aspiration precaution
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
- associated acute hypoxic RI
- admission Wt 64 kg : dry weight previously 65kg
- admission proBNP [id number]
- Underlying dilated RV with mildly reduced systolic function.
- IV Lasix 40 x 1 at ER ; will cont IV lasix 80 daily
- at home, was taking torsemide 40mg bid
- continue BACK WEDGER spironolactone.
- c/w BACK WEDGER metolazone 5mg M/W/F
- prior HX reports she did not have coverage for SGLT2i.
- CBC Card consulted
Abn TPNI suspect NIMI to acute HF
NOS EKG
- Trend TPNI
Hypokalemia s/p KCL 40 x 1 at ER
- Trend K while diuresing
- on spironolactone daily
At risk for Cardiorenal syndrome
Current eGFR 25 , Cr 1.9
CKD4 HX with baseline Cr low 2s eGFR low 20s
- closely monitor RFTs during IV Diuresis
Interval drop in Hgb suspect hemodilution due to volume overload
Anemia, chronic, in the setting of chronic disease
- Neg HoB stool
- trend Hgb
Valvular heart disease: stable on echo 03/2024 with EF 60-65%
-Moderate aortic stenosis
- continue to monitor as outpatient.
Pulmonary HTN, severe, with RV dysfunction
-PASP 75 mmHg with dilated RV and hypokinetic
-Diuretic regimen as above.
Paroxysmal atrial fibrillation/Paroxysmal atrial tachycardia
-S/P AVN ablation with PPM
- on BACK WEDGER Flecainide 50mg bid and metoprolol XL 25mg daily
-Oral Anticoagulation: Continue Apixaban 2.5 mg twice daily (age 83, creatinine >1.5)
-[id number]: score at least 5 (Heart failure, HTN, age 75 or more, female gender)
-EP managed by Dr. Burnett
Benign HTN ; Relative hypotension
- on current medication regimen
- Observe BP
In review of history patient was recently seen here July 18 after fall for a hydropneumothorax with 2 fractured ribs on the left.
- was transferred to [place] at that time.
Known HX
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
Seizure disorder, on phenobarbital
GIOVANY, on CPAP
DVT Px: on CARBON GRINDER Apixaban
Code: Full
IP TLM
[2024-08-28] MEDS: LASIX 40 MG IV (12:15)
[2024-08-28] MEDS: KCL ELIXIR 40 MEQ PO (12:15)
[2024-08-28 14:09] VITALS: BP 123/58; BMI 27.0
[2024-08-28 14:25] VITALS: BMI 27.0
--- NOTE | 2024-08-28 15:05 | PTCARENOTE ---
Received patient from ED awake alert and oriented. O2 at 2LPM via NC . lower extremity with echymotic areas noted from top ofl legs to top of feet. Skin is dry and scaly. Patient reports having an itchy skin condition 'for a while now' and
states that 'nothing reallly helps it '. Her left buttock has a small red area that appears to be an old healed area. No open areas. Heals up on a pillow. Call cruz in reach.
--- NOTE | 2024-08-28 15:49 | CON.CAR ---
Addendum entered and electronically signed by Dae Candelario MD 08/28/24 16:41:
I saw and examined the patient.
The OIL FIELD PUMPER's note was reviewed and I agree with the note.
Primary public defender Dr. Gonzáles
84-year-old patient with history of paroxysmal atrial fibrillation, history of A-fib ablation, chronic anticoagulation with Eliquis AV josé miguel ablation, pacemaker, heart failure with preserved ejection fraction, moderate aortic stenosis, amiodarone
lung toxicity, pulmonary hypertension, hypertension and COPD who was sent from the facility where she resides due to reported low pulse oximetry. Patient denies having any symptoms of shortness of breath and currently without complaints. Chest
x-ray reports suspected mild to moderate CHF and trace bilateral effusions cannot rule out superimposed post bilateral basilar pneumonia.
- Replace potassium
- Assess response to IV Lasix. Close monitoring of potassium and renal function
- A-fib appears stable. Patient remains AV paced. Will continue with current therapy. Patient on flecainide and Eliquis
- Pacemaker. Appears to be functioning appropriately.. AV paced on ECG
- Moderate aortic stenosis 03/2024 with a mean gradient of 21 mmHg.
Original Note:
Consultation
Consultation Request
Date/Time Consultation Requested: 08/28/24 1350
Date/Time Consultation Performed: 08/28/24 1545
Requesting Provider: Dr. Siddiqui
Performing Provider: Nina MCKAY for Dr. Candelario
Reason for Consultation: CHF
Medical History
-
Chief Complaint: low pulse ox
History of Present Illness:
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 She is here for eval of low pulse ox, which
was noted at her facility. 91% on arrival here. CXR possible CHF, poss PNA. She denies any SOB. She is admitted for further management and we are consulted for CHF. She received a dose of IV lasix.
Past Medical History
Past Medical History: Arrhythmias, CHF, COPD, HTN, Hypercholesterolemia, Valvular Disease and Other (as above)
Social History
Tobacco: Non-Smoker
Family History
Family History: Reviewed & Not Pertinent
Allergies / Home Medications
Allergy/AdvReac Type Severity Reaction Status Date / Time
adhesive tape Allergy Rash Verified 08/28/24 09:27
cefuroxime [From Ceftin] Allergy throat Verified 08/28/24 09:27
closes
ragweed pollen Allergy Unknown Verified 08/28/24 09:27
Sulfa (Sulfonamide Allergy throat Verified 08/28/24 09:27
Antibiotics) closes
�Medication �Instructions �Recorded �Confirmed �Type
atorvastatin 10 mg tablet 10 mg PO DAILY High cholesterol 10/21/20 08/28/24 History
phenobarbital 32.4 mg tablet 32.4 mg PO DAILY Seizures 10/21/20 08/28/24 History
phenobarbital 32.4 mg tablet 64.8 mg PO HS Seizures 10/21/20 08/28/24 History
flecainide 50 mg tablet 50 mg PO BID Arrhythmia 06/21/23 08/28/24 History
hydralazine 100 mg tablet 100 mg PO TID Blood Pressure 06/21/23 08/28/24 History
metoprolol succinate 25 mg 25 mg PO BID Blood pressure 01/24/24 08/28/24 History
tablet,extended release 24 hr
apixaban 2.5 mg tablet (Eliquis) 2.5 mg PO BID #60 tabs 03/28/24 08/28/24 Rx
escitalopram oxalate 10 mg tablet 10 mg PO DAILY 06/13/24 08/28/24 History
(Lexapro)
spironolactone 25 mg tablet 25 mg PO DAILY 30 days #30 tabs 06/16/24 08/28/24 Rx
acetaminophen 325 mg tablet 650 mg PO Q6HPRN PRN mild pain 08/28/24 08/28/24 History
(Tylenol)
albuterol sulfate 90 mcg/actuation 2 puff inhalation R Q6HPRN PRN sob 08/28/24 08/28/24 History
aerosol inhaler
diphenhydramine HCl 25 mg capsule 25 mg PO [id number] PRN allergies 08/28/24 08/28/24 History
(Benadryl)
hydrocortisone 0.5 % topical cream 1 applic topical BID face and body 08/28/24 08/28/24 History
lidocaine 4 % topical patch 2 patch topical DAILY left ribs 08/28/24 08/28/24 History
magnesium hydroxide 400 mg/5 mL 400 mg PO Q4HPRN PRN 08/28/24 08/28/24 History
oral suspension (Milk of Magnesia) constipation-4 hour inbetween doses
metolazone 5 mg tablet 5 mg PO MOWEFR 08/28/24 08/28/24 History
potassium chloride 20 mEq 20 meq PO DAILY 08/28/24 08/28/24 History
tablet,extended release
torsemide 20 mg tablet 40 mg PO BID 08/28/24 08/28/24 History
Review of Systems
-
History Source: Patient
All other systems: Negative unless noted (denies)
Physical Exam
Vital Signs
Temp Pulse Resp BP Pulse Ox
97.5 F 71 18 123/58 100
08/28/24 14:09 08/28/24 14:09 08/28/24 14:09 08/28/24 14:09 08/28/24 14:27
Lab Results
08/28/24 10:01
08/28/24 10:01
Troponin I 0.030 ng/ml 08/28/24 10:01
Kzh-P-Kxlndtxryyq Pept [id number] pg/ml 08/28/24 10:01
Physical Exam
General: Well Developed, Well Nourished and No Apparent Distress
HEENT: Normocephalic and Anicteric
Respiratory: Crackles (bases) and Other (on O2 by IN)
Cardiac: Regular Rhythm, Murmur (III/ systolic) and Peripheral Edema (mild BLE edema)
Musculoskeletal: Edema
Skin: Warm and Dry
Neuro: AO x 3
Psych: Calm
Impression / Plan
-
Hypoxia noted at facility:
-91% here is the lowest that I see. She is on O2 by IN. She has 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. Also with CHF as below.
Bvgku-oi-raklphk HFpEF:
-monitor response to IV lasix, which requires intensive monitoring
-must be cautious as hypokalemia is noted and is being replaced
-on MRA, not on SGLT2I due to cost, on torsemide and metolazone, as well as K+ replacement
CKD:
-monitor renal function with diuresis
Moderate :
-monitor over time by echo
Pulmonary HTN:
-diuretic plan as above
Paroxysmal atrial fibrillation/Paroxysmal atrial tachycardia: EP managed as OP by Dr. Burnett
-S/P AVN ablation with PPM, on Flecainide 50mg bid and metoprolol XL 25mg daily
-she gets outpatient nuclear stress to screen for CAD per EP
-Oral Anticoagulation: On Eliquis 2.5 mg PO BID
HTN:
-stable, monitor
Anemia: follow
Seizure disorder, on phenobarbital
Data Reviewed
-
EKG: Tracing Personally Visualized and interpreted (AV dual paced rhythm)
Radiology: Report Reviewed by me (CXR: Suspect mild to moderate CHF and trace bilateral pleural effusions. Cannot rule out superimposed bibasilar pneumonia. Suspect underlying chronic interstitial lung disease.)
Medical Tests (Nuc Med, Echo etc): Report Reviewed by me (Echo 03/26/24: moderate concentric LV hypertrophy. LVEF 60-65%. Dilated right ventricle with mildly reduced systolic function. Severe biatrial enlargement. Moderate aortic stenosis. Mild
tricuspid regurgitation with severe pulmonary hypertension (PASP 75 mmHg).)
Labs: Labs Reviewed by me
[2024-08-28] MEDS: KLOR-CON 20 MEQ PO (16:59)
[2024-08-28] MEDS: LIPITOR 10 MG PO (17:02)
[2024-08-28 19:35] VITALS: BP 127/50
[2024-08-28] MEDS: ELIQUIS 2.5 MG PO (19:49)
[2024-08-28 22:38] VITALS: BP 127/47
[2024-08-29] VITALS (7 sets, daily range): BP systolic 124–142; BP diastolic 47–60; BMI 27.0
[2024-08-29 06:31] LABS: Hematocrit 29.4 % (37.0-47.0); Hemoglobin 9.7 g/dL (12.0-16.0); Mean Corpuscular Hgb 32.9 pg (27.0-31.0); Mean Corpuscular Volume 99.7 fL (81.0-99.0); Platelet Count 168 10^3/uL (130-400); Red Blood Cell Count 2.95 10^6/uL (4.20-5.40); White Blood Cell Count 6.1 10^3/uL (4.8-10.8)
[2024-08-29 06:57] LABS: Blood Urea Nitrogen 99 mg/dl (7-17); Calcium 9.2 mg/dl (8.4-10.2); Carbon Dioxide 33 mmol/L (22-30); Chloride 105 mmol/L (98-107); Glucose 145 mg/dl (70-99); HDL Cholesterol 58 mg/dl; LDL Cholesterol, Calculated 60 mg/dl; Magnesium 2.3 mg/dl (1.6-2.3); Potassium 3.4 mmol/L (3.5-5.1); Sodium 147 mmol/L (135-145); Total Cholesterol 129 mg/dl (50-199); Triglyceride 55 mg/dl (10-149); Very Low Density Lipoprotein 11 mg/dl (0-30)
[2024-08-29 07:06] LABS: Estimated Creatinine Clearance 19 ml/min; eGFR 23.88
[2024-08-29 07:25] LABS: TSH Reflex To Free T4 0.91 uIU/ml (0.47-4.68)
[2024-08-29] MEDS: ELIQUIS 2.5 MG PO ×2 (09:09→19:51)
[2024-08-29] MEDS: KCL 270 MEQ IV (09:09)
[2024-08-29] MEDS: TOPROL XL 25 MG PO (09:09)
[2024-08-29] MEDS: ZAROXOLYN 5 MG PO (09:12)
[2024-08-29] MEDS: LASIX 80 MG IV (11:02)
--- NOTE | 2024-08-29 14:37 | W.PN.UPDATE ---
Update Note
Progress Note Update
83 female history of atrial fibrillation s/p PVI x 2 on Eliquis paroxysmal atrial tachycardia status post AV node ablation, MDT dual chamber PPM, chronic HFpEF, moderate AAS, pulmonary hypertension, hyperlipidemia CKD stage IV, COPD, ILD
Presented for low pulse ox and received nebs while en route to hospital by EMS. BNP 12,000, troponin 0.03. EKG AV dual paced rhythm. CXR dual chamber ppm, with pulmonary edema.
NAD
Scleral Anicteric
MMM
No JVD
CTABL
RRR, S1/S2
Soft, NT, ND, BS+
Warm, Dry
AAOx3
Calm
Acute HFpEF exacerbation
IV diuresis, can likely transition to oral as appears quite euvolemic on exam
100% on 4 L and again 100% on 2 L. Asked PCT to wean to room air.
If cleared by cardiology then outpatient cardiology follow-up
Paroxysmal atrial fibrillation with PAT
S/p AVN ablation with PPM
Continue anticoagulation
Continue flecainide and metoprolol
Cardiology following
Hypertension
Continue antihypertensives
Hypokalemia replete
Hypernatremia likely secondary to free water loss from diuresis. Expect to improve with encourage p.o. intake
--- NOTE | 2024-08-29 14:48 | W.PN.CD ---
Addendum entered and electronically signed by Dae Candelario MD 08/29/24 15:48:
I saw and examined the patient.
The VENDING MACHINE COLLECTOR's note was reviewed and I agree with the note.
Patient currently comfortable but sleeping and still remains on 2 L nasal cannula oxygen. Spoke with daughter who is at bedside who states that mom tends to be tired and fatigued when she comes in the hospital for CHF exacerbation. Patient usually
resides at [facility]/assisted living but had been at [facility] and there is some question of whether her diet and fluid intake was different at [facility]. Daughter also felt that they should have called sooner regarding weight increases.
- At this point would continue with IV diuresis with monitoring of sodium, renal function and potassium
- Wean O2 as tolerated. After patient's O2 then we can reconsider timing of discharge. If her symptoms really were related to diet change and fluid intake change then she may be able to go back on her usual regimen with close monitoring of weights
at home. Unclear at this point if she will be well enough to get back to baseline
Original Note:
Today's Communication / Plan
-
repleted K IV, resume Aldactone and monitor.
Impression / Plan
-
Tvzme-oh-bpmpriw HFpEF: improving.
-monitor response to IV Lasix, which requires intensive monitoring.
-must be cautious as hypokalemia is noted and is being replaced, also on MRA and would continue.
-on MRA, not on SGLT2I due to cost, on torsemide and metolazone, as well as K+ replacement.
CKD4: monitor renal function with diuresis.
Moderate : stable, monitor over time by echo.
Paroxysmal atrial fibrillation/Paroxysmal atrial tachycardia: EP managed as OP by Dr. Burnett.
-S/P AVN ablation with PPM, on Flecainide 50mg bid and metoprolol XL 25mg daily.
-she gets outpatient nuclear stress to screen for CAD per EP.
-Oral Anticoagulation: On Eliquis 2.5 mg PO BID.
HTN: stable, monitor
Anemia: follow.
Hypoxia noted at facility: 91% here is the lowest seen.
- She is on NC O2.
- She has 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.
Pulmonary HTN: diuretic plan as above.
Seizure disorder, on phenobarbital - stable.
Physical Exam
Vital Signs/Labs
Vital Signs
Temp Pulse Resp BP Pulse Ox
98.3 F 64 17 124/47 94
08/29/24 11:34 08/29/24 11:34 08/29/24 11:34 08/29/24 11:34 08/29/24 11:34
08/28/24 08/29/24 08/30/24
06:59 06:59 06:59
Actual Weight 152 lb 4 oz
08/29/24 05:48
08/29/24 05:47
Magnesium 2.3 mg/dl (1.6-2.3) 08/29/24 05:47
Triglycerides 55 mg/dl (10-149) 08/29/24 05:47
LDL Cholesterol, Calc 60 mg/dl 08/29/24 05:47
VLDL Cholesterol, Calc 11 mg/dl (0-30) 08/29/24 05:47
HDL Cholesterol 58 mg/dl 08/29/24 05:47
08/28/24
10:01
Tcj-F-Hhzxppprrnk Pept [id number]
LAB Results
08/28/24
10:01
Troponin I 0.030
Physical Exam
Constitutional: No acute distress and Comfortable
EENT: Anicteric and Moist mucous membranes
Cardiovascular: Rhythm & rate is regular and Systolic murmur present (2/6 SHAVONNE)
Respiratory: Respiratory effort normal and Other (diminished b/l bases)
GI: Soft, Non tender and Normal bowel sounds
Neuro/Psych: Alert and Oriented
Other: Skin (warm, dry)
Data Reviewed
-
Date of Service: August 29, 2024
Medical Decision Making: External Notes
EKG: Tracing Personally Visualized and interpreted
Old Records: Reviewed
--- NOTE | 2024-08-29 14:54 | W.PN.HOSP.TC ---
Today's Communication/Plan
-
Continue IV Lasix
Trend weights, I's and O's
Monitor serum creatinine
Monitor serum potassium
Potassium supplement
Assessment / Plan
Assessment / Plan
Assessment -83-year-old female with PMHx significant for paroxysmal (s/p PVI twice 2, on Eliquis close phthisis s/p AV josé miguel ablation), [employer] dual-chamber PPM, chronic HFpEF, moderate AAS, pulmonary hypertension, hypertension, CKD stage IV,
COPD/ILD, amiodarone associated lung toxicity/injury, presents to the ER for having low pulse ox at nursing facility along with wheezing and low potassium levels. Patient is diagnosed with acute hypokalemia and acute exacerbation of heart failure
upon admission.
Plan-
Acute hypoxemic respiratory failure-
Suspect secondary to acute exacerbation of chronic heart failure
Currently requiring 2 L nasal cannula flow
Wean off oxygen as tolerated.
Chest x-ray evident for moderate CHF, history of chronic ILD
Acute hypokalemia-
Likely a confluence of Aldactone and cardiorenal syndrome
S/p 80 mg of IV Lasix
Monitor serum potassium levels
Given her hypernatremia, received single dose of potassium replacement in D5.
Consider lowering MRA antagonist dosing.
Acute on chronic HFpEF-
Hold torsemide, continue metolazone
Switch to IV Lasix 80 mg,
Monitor I's and O's, weights, patient is in contraction alkalosis after single dose of IV Lasix
Continue to monitor as patient lives in alkalotic state given her stage IV CKD
On mineralocorticoid receptor antagonist-spironolactone,
Home potassium replacement
Not on SGLT 2-cost constraints.
CKD stage IV-
Baseline serum creatinine-1.6-2.0
Currently at baseline
Continue to trend serum creatinine and monitor urine output
Paroxysmal atrial fibrillation/paroxysmal atrial tachycardia-
Cardiology on board, appreciate cardiology inputs.
Continue home flecainide and Toprol-XL dosing.
Oral anticoagulation-on reduced dose Eliquis (age greater than 80, serum creatinine greater than 1.5)
S/p pacemaker placement, PVI, ablation.
Troponin elevation-
Likely secondary to demand ischemia.
Normal EKG
No chest pain
Macrocytic anemia-
Likely dilutional versus anemia of chronic disease.
Trend H&H.
Moderate :
monitor over time by echo
Hypertension-
Continue home medication regimen
Hyperlipidemia-
Continue statin
Seizure disorder-
Continue phenobarbital
Depression-
Continue Lexapro
DVT prophylaxis-
Patient already on Eliquis
CODE STATUS-
Full code.
Anticipated Discharge: 24 - 48 hours
Subjective/Interval History
-
Date of Service: August 29, 2024
Patient denies having any complaint
Objective Data
-
Labs:
Laboratory Results
08/29/24 08/29/24
05:47 05:48
WBC 6.1
Hgb 9.7 L
Hct 29.4 L
Plt Count 168
Sodium 147 H
Potassium 3.4 L
Chloride 105
Carbon Dioxide 33 H
BUN 99 H
Creatinine 2.0 H
Glucose 145 H
Calcium 9.2
Vital Signs:
Vital Signs
Temp Pulse Resp BP Pulse Ox
98.3 F 64 17 124/47 94
08/29/24 11:34 08/29/24 11:34 08/29/24 11:34 08/29/24 11:34 08/29/24 11:34
I&O
08/28/24 08/29/24 08/30/24
06:59 06:59 06:59
Intake Total 720 / 720
Balance 720 / 720
Review of Systems
-
History Source: Patient
Constitutional: Reports No Symptoms
Respiratory: Reports No Symptoms
Cardiac: Reports No Symptoms
Abdomen/GI: Reports No Symptoms
Breast: Reports No Symptoms
Genitourinary: Reports No Symptoms
Musculoskeletal: Reports No Symptoms
Skin: Reports No Symptoms
Neuro: Reports No Symptoms
Allergy / Immunology: Reports No Symptoms
Physical Exam
-
General: Comfortable and Other (On 2 L nasal cannula flow)
HEENT: Moist Mucous Membranes
Respiratory: Clear to Auscultation; Negative Wheezes, Rales, Rhonchi or Crackles
Cardiac: Regular Rhythm, S1/S2 and Murmur (Grade 3/6 systolic murmur best heard in tricuspid and mitral areas); Negative Rub or Gallop
GI: Soft, Nontender, Nondistended and Normal Bowel Sounds
Musculoskeletal: No Edema; Negative Edema, Right Lower Extrem or Edema, Left Lower Extrem
Neuro: AO x 3
Psych: Calm
Data Reviewed
-
Medical Tests (Nuc Med, Echo etc): Report Reviewed by me and Discussed with Physician
Labs: Labs Reviewed by me, Discussed with Physician and Discussed with Nurse
[2024-08-29] MEDS: LIPITOR 10 MG PO (17:32)
[2024-08-29] MEDS: LAC HYDRIN, AM LACTIN LOTION 1 APPLIC TOPICAL (19:52)
[2024-08-30] VITALS (8 sets, daily range): BP systolic 130–150; BP diastolic 53–72; PULSE 67–81; O2SAT 98–99; BMI 24.7
[2024-08-30 07:15] LABS: Hematocrit 30.7 % (37.0-47.0); Hemoglobin 9.8 g/dL (12.0-16.0); Mean Corp Hgb Conc. 31.9 g/dL (33.0-37.0); Mean Corpuscular Hgb 32.9 pg (27.0-31.0); Mean Platelet Volume 11.9 fL (7.4-10.4); Platelet Count 157 10^3/uL (130-400); Red Blood Cell Count 2.98 10^6/uL (4.20-5.40); White Blood Cell Count 5.4 10^3/uL (4.8-10.8)
[2024-08-30 07:42] LABS: ALT (SGPT) 16 U/L (0-35); AST (SGOT) 24 U/L (14-36); Albumin 3.3 g/dl (3.5-5.0); Alkaline Phosphatase 88 U/L (38-126); Blood Urea Nitrogen 81 mg/dl (7-17); Calcium 9.4 mg/dl (8.4-10.2); Carbon Dioxide 37 mmol/L (22-30); Chloride 108 mmol/L (98-107); Estimated Creatinine Clearance 22 ml/min; Glucose 119 mg/dl (70-99); Potassium 3.5 mmol/L (3.5-5.1); Sodium 151 mmol/L (135-145); Total Bilirubin 0.7 mg/dl (0.2-1.3); Total Protein 6.9 g/dl (6.3-8.2); eGFR 33.73
--- NOTE | 2024-08-30 08:00 | W.PN.HOSP.TC ---
Today's Communication/Plan
-
Assessment / Plan
Assessment / Plan
83 female history of atrial fibrillation s/p PVI x 2 on Eliquis paroxysmal atrial tachycardia status post AV node ablation, MDT dual chamber PPM, chronic HFpEF, moderate AAS, pulmonary hypertension, hyperlipidemia CKD stage IV, COPD, ILD
Presented for low pulse ox and received nebs while en route to hospital by EMS. BNP 12,000, troponin 0.03. EKG AV dual paced rhythm. CXR dual chamber ppm, with pulmonary edema.
NAD
Scleral Anicteric
MMM
No JVD
CTABL
RRR, S1/S2, SHAVONNE LLSB grade 4/6
Soft, NT, ND, BS+
Warm, Dry
AAOx3
Calm
Acute HFpEF exacerbation with development of a contraction alkalosis likely related to diuretic use
Currently ordered IV diuretics per Cards rec, may need to consider Diamox admin if contraction alkalosis continues to worsen
BMP in the AM
If cleared by cardiology then outpatient cardiology follow-up
ETHAN on CKD stage IV in the setting of likely CRS
Now improving with IV diuretics
Monitor UOP
Avoid nephrotoxins and hypotension
Paroxysmal atrial fibrillation with PAT
S/p AVN ablation with PPM
Continue anticoagulation
Continue flecainide and metoprolol
Cardiology following
Hypertension
Continue antihypertensives
Hypokalemia replete
Hypernatremia likely secondary to free water loss from diuresis. Expect to improve with encourage p.o. intake
Anticipated Discharge: 24 - 48 hours
Subjective/Interval History
-
Date of Service: August 30, 2024
seen and examined. no new complaints. 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
on 3l, sleeping with mouth opened, spo2 i checked personally, 97%, on room air decreases to 86%, again breathing from the mouth, when she awakes and breathes through her nose appropriate improvement on room air to 91%
Objective Data
-
Labs:
Laboratory Results
08/30/24
05:41
WBC 5.4
Hgb 9.8 L
Hct 30.7 L
Plt Count 157
Sodium 151 H
Potassium 3.5
Chloride 108 H
Carbon Dioxide 37 H
BUN 81 H
Creatinine 1.5 H
Glucose 119 H
Calcium 9.4
Total Bilirubin 0.7
AST 24
ALT 16
Alkaline Phosphatase 88
Vital Signs:
Vital Signs
Temp Pulse Resp BP Pulse Ox
99.3 F 67 18 144/54 98
08/30/24 03:02 08/30/24 03:02 08/30/24 03:02 08/30/24 03:02 08/30/24 03:02
I&O
08/29/24 08/30/24 08/31/24
06:59 06:59 06:59
Intake Total 720 / 720 480 / 600 120 / 120
Balance 720 / 720 480 / 600 120 / 120
[2024-08-30] MEDS: LAC HYDRIN, AM LACTIN LOTION 1 APPLIC TOPICAL ×2 (08:30→19:51)
[2024-08-30] MEDS: ELIQUIS 2.5 MG PO ×2 (08:31→19:52)
[2024-08-30] MEDS: LASIX 80 MG IV (08:31)
[2024-08-30] MEDS: TOPROL XL 25 MG PO (08:31)
[2024-08-30] MEDS: KCL 40 MEQ PO (10:36)
--- NOTE | 2024-08-30 13:31 | W.PN.CD ---
Today's Communication / Plan
-
resp isnuff/hypoxemia
-- patient treated for HF with diuretic but still requiring O2.
- has COPD and ILD followed by Dr Montano
- Need to assess if other pulmonary process.
- repeat CXR
- diuretic on hold with hypernatremia.
Impression / Plan
-
resp isnuff/hypoxemia
-- patient treated for HF with diuretic but still requiring O2.
- has COPD and ILD followed by Dr Montano
- Need to assess if other pulmonary process.
- repeat CXR
- diuretic on hold with hypernatremia.
Jqlgt-es-[id number] HFpEF: improving.
-
-on MRA, not on SGLT2I due to cost, on torsemide and metolazone, as well as K+ replacement as ouptient
- - given IV lasix this admit. Sodium rising and still requires O2. Hold diuretic with hypernatremia. Repeat CXR and assess for other pulmonary casuses of hypoxemia
CKD4: monitor renal function with diuresis.
Moderate : stable, monitor over time by echo.
Paroxysmal atrial fibrillation/Paroxysmal atrial tachycardia: EP managed as OP by Dr. Burnett.
-S/P AVN ablation with PPM, on Flecainide 50mg bid and metoprolol XL 25mg daily.
-she gets outpatient nuclear stress to screen for CAD per EP.
-Oral Anticoagulation: On Eliquis 2.5 mg PO BID.
HTN: stable, monitor
Anemia: follow.
Hypoxia noted at facility: 91% here is the lowest seen.
Pulmonary HTN: diuretic plan as above.
Seizure disorder, on phenobarbital - stable.
Physical Exam
Vital Signs/Labs
Vital Signs
Temp Pulse Resp BP Pulse Ox
98.3 F 72 18 147/59 98
08/30/24 07:00 08/30/24 11:00 08/30/24 11:00 08/30/24 11:00 08/30/24 11:00
08/29/24 08/30/24 08/31/24
06:59 06:59 06:59
Actual Weight 69.059 kg 63.163 kg
08/30/24 05:41
08/30/24 05:41
Magnesium 2.3 mg/dl (1.6-2.3) 08/29/24 05:47
Triglycerides 55 mg/dl (10-149) 08/29/24 05:47
LDL Cholesterol, Calc 60 mg/dl 08/29/24 05:47
VLDL Cholesterol, Calc 11 mg/dl (0-30) 08/29/24 05:47
HDL Cholesterol 58 mg/dl 08/29/24 05:47
08/28/24
10:01
Kxm-K-Ddnfnslyasl Pept [id number]
LAB Results
08/28/24
10:01
Troponin I 0.030
Physical Exam
Constitutional: No acute distress
Cardiovascular: Rhythm & rate is regular
Respiratory: Wheeze Absent and Rhonchi Absent
GI: Soft
Neuro/Psych: Alert
Data Reviewed
-
Date of Service: August 30, 2024
Medical Decision Making: Reviewed Test Results
X-Ray/CT/US/MRI/NUC/PET: Report Reviewed by me
Medical Tests (PFT, Pathology etc): Report Reviewed by me
Labs: Labs Reviewed by me
--- NOTE | 2024-08-30 14:27 | CM ---
youth manager reviewed patient's chart and met with patient and patient lives at [facility]. Patient was independent with adl's and used a cane or walker with ambulation, patient also has a CPAP machine at the [facility].
Patient is currently on 3 liters of oxygen and did not require oxygen prior to admission.
PCP: Dr. Oh Calvin
Pharmacy; [facility].
[2024-08-30] MEDS: LIPITOR 10 MG PO (17:06)
[2024-08-31 03:31] VITALS: BP 120/51
[2024-08-31 06:00] VITALS: BMI 23.6
[2024-08-31 06:42] LABS: Hematocrit 32.7 % (37.0-47.0); Mean Corp Hgb Conc. 30.6 g/dL (33.0-37.0); Mean Corpuscular Hgb 32.3 pg (27.0-31.0); Mean Corpuscular Volume 105.5 fL (81.0-99.0); Mean Platelet Volume 11.8 fL (7.4-10.4); Platelet Count 156 10^3/uL (130-400); Red Cell Dist. Width 16.6 % (11.5-14.5); White Blood Cell Count 5.3 10^3/uL (4.8-10.8)
[2024-08-31 06:59] LABS: Blood Urea Nitrogen 81 mg/dl (7-17); Calcium 9.6 mg/dl (8.4-10.2); Chloride 110 mmol/L (98-107); Estimated Creatinine Clearance 24 ml/min; Glucose 109 mg/dl (70-99); Potassium 3.7 mmol/L (3.5-5.1); Sodium 155 mmol/L (135-145); eGFR 36.64
[2024-08-31 07:00] VITALS: BP 153/64
[2024-08-31 07:10] LABS: Carbon Dioxide 38 mmol/L (22-30)
[2024-08-31] MEDS: LAC HYDRIN, AM LACTIN LOTION 1 APPLIC TOPICAL ×2 (08:51→19:28)
[2024-08-31] MEDS: TOPROL XL 25 MG PO (08:51)
[2024-08-31] MEDS: ELIQUIS 2.5 MG PO ×2 (08:51→19:28)
--- NOTE | 2024-08-31 09:17 | W.PN.HOSP.TC ---
Today's Communication/Plan
-
Assessment / Plan
Assessment / Plan
83 female history of atrial fibrillation s/p PVI x 2 on Eliquis paroxysmal atrial tachycardia status post AV node ablation, MDT dual chamber PPM, chronic HFpEF, moderate AAS, pulmonary hypertension, hyperlipidemia CKD stage IV, COPD, ILD
Presented for low pulse ox and received nebs while en route to hospital by EMS. BNP 12,000, troponin 0.03. EKG AV dual paced rhythm. CXR dual chamber ppm, with pulmonary edema.
NAD
Scleral Anicteric
MMM
No JVD
CTABL
RRR, S1/S2, SHAVONNE LLSB grade 4/6
Soft, NT, ND, BS+
Warm, Dry
AAOx3
Calm
Acute hypoxic respiratory failure likely multifactorial in the setting of HF and underlying ILD.
From an HF perspective apppears Euvolemic
From and pulmonary perspective will check a CT Chest as I suspect she has progressive worsening in her ILD causing her to have o2 needs
Acute HFpEF exacerbation with development of a contraction alkalosis likely related to diuretic use
Lasix held, look euvolemic on exam
BMP in the AM
If cleared by cardiology then outpatient cardiology follow-up
ETHAN on CKD stage IV in the setting of likely CRS
Now improving with IV diuretics
Monitor UOP
Avoid nephrotoxins and hypotension
Paroxysmal atrial fibrillation with PAT
S/p AVN ablation with PPM
Continue anticoagulation
Continue flecainide and metoprolol
Cardiology following
Hypertension
Continue antihypertensives
Hypokalemia replete
Hypernatremia likely secondary to free water loss from diuresis. Expect to improve with encourage p.o. intake
May need free water
Macrocytic anemia
Check b12 and folate
As an outpatient should have MM workup though without protein gap but does have chronic kidney disease without hyperCa.
Anticipated Discharge: > 48 hours
Subjective/Interval History
-
Date of Service: August 31, 2024
seen and examined. no new complaitns. no acute overnight events
Objective Data
-
Labs:
Laboratory Results
08/31/24
05:35
WBC 5.3
Hgb 10.0 L
Hct 32.7 L
Plt Count 156
Sodium 155 H
Potassium 3.7
Chloride 110 H
Carbon Dioxide 38 H
BUN 81 H
Creatinine 1.4 H
Glucose 109 H
Calcium 9.6
Vital Signs:
Vital Signs
Temp Pulse Resp BP Pulse Ox
97.8 F 68 20 153/64 99
08/31/24 07:00 08/31/24 07:00 08/31/24 07:00 08/31/24 07:00 08/31/24 07:00
I&O
08/30/24 08/31/24 09/01/24
06:59 06:59 06:59
Intake Total 480 / 600 240 / 240
Balance 480 / 600 240 / 240
--- NOTE | 2024-08-31 12:33 | W.PN.CD ---
Today's Communication / Plan
-
- diuretic on hold with hypernatremia. Sodium up to 155
- Challenging issues with hypernatremia. Still remains on O2 unclear how much of this is related to underlying lung disease
. Will review treatment plans with primary team
Impression / Plan
-
resp imsuff/hypoxemia
-- patient treated for HF with diuretic but still requiring O2. Significant weight reduction since admission.
- has COPD and ILD followed by Dr Montano
- CT performed shows some small effusions,hilum cannot be fully evaluated without contrast
- diuretic on hold with hypernatremia. Sodium up to 155
- Challenging issues with hypernatremia. Still remains on O2 unclear how much of this is related to underlying lung disease
. Will review treatment plans with primary team
Gnpkg-qm-gzzyhqv HFpEF:. To have diuresis and improvement but remained on O2.
-CT findings as noted-
-not on SGLT2I due to cost, on torsemide and metolazone, as well as K+ replacement as ouptient
- - given IV lasix this admit. Sodium rising and still requires O2. Diuretic now held. Continue to monitor volume status closely. Creatinine down to 1.4
.
Hypernatremia. Sodium up to 155. Diuretic being held.
CKD. Initial creatinine up to 2.0
Moderate : stable, monitor over time by echo.
Paroxysmal atrial fibrillation/Paroxysmal atrial tachycardia: EP managed as OP by Dr. Burnett.
-S/P AVN ablation with PPM, on Flecainide 50mg bid and metoprolol XL 25mg daily.
-she gets outpatient nuclear stress to screen for CAD per EP.
-Oral Anticoagulation: On Eliquis 2.5 mg PO BID.
HTN: stable, monitor
Anemia: follow.
Pulmonary HTN: diuretic plan as above.
Seizure disorder, on phenobarbital - stable.
Physical Exam
Vital Signs/Labs
Vital Signs
Temp Pulse Resp BP Pulse Ox
97.8 F 68 20 153/64 99
08/31/24 07:00 08/31/24 07:00 08/31/24 07:00 08/31/24 07:00 08/31/24 07:00
08/30/24 08/31/24 09/01/24
06:59 06:59 06:59
Actual Weight 63.163 kg 60.356 kg
08/31/24 05:35
08/31/24 05:35
Magnesium 2.3 mg/dl (1.6-2.3) 08/29/24 05:47
Triglycerides 55 mg/dl (10-149) 08/29/24 05:47
LDL Cholesterol, Calc 60 mg/dl 08/29/24 05:47
VLDL Cholesterol, Calc 11 mg/dl (0-30) 08/29/24 05:47
HDL Cholesterol 58 mg/dl 08/29/24 05:47
08/28/24
10:01
Hly-E-Zjqkwdcpqzj Pept [id number]
Physical Exam
Constitutional: No acute distress
Cardiovascular: Rhythm & rate is regular
Respiratory: Wheeze Absent and Rhonchi Absent
GI: Soft
Neuro/Psych: Alert
Data Reviewed
-
Date of Service: August 31, 2024
Medical Decision Making: Reviewed Test Results
EKG: Report Reviewed by me
Medical Tests (PFT, Pathology etc): Report Reviewed by me
Labs: Labs Reviewed by me
[2024-08-31 15:00] VITALS: BP 161/69
[2024-08-31] MEDS: TYLENOL 650 MG PO (17:51)
[2024-08-31] MEDS: LIPITOR 10 MG PO (17:52)
[2024-08-31 19:10] VITALS: BP 140/58
[2024-08-31 23:45] VITALS: BP 138/61
[2024-09-01 03:47] VITALS: BMI 22.7
[2024-09-01 03:48] VITALS: BP 168/77
[2024-09-01] MEDS: ATARAX 10 MG PO ×2 (06:01→21:07)
[2024-09-01 07:24] LABS: Hematocrit 35.9 % (37.0-47.0); Hemoglobin 11.1 g/dL (12.0-16.0); Mean Corp Hgb Conc. 30.9 g/dL (33.0-37.0); Mean Corpuscular Hgb 32.2 pg (27.0-31.0); Mean Corpuscular Volume 104.1 fL (81.0-99.0); Mean Platelet Volume 11.6 fL (7.4-10.4); Platelet Count 171 10^3/uL (130-400); Red Blood Cell Count 3.45 10^6/uL (4.20-5.40); Red Cell Dist. Width 16.4 % (11.5-14.5)
[2024-09-01 07:30] VITALS: BP 130/82
[2024-09-01 08:05] LABS: Blood Urea Nitrogen 78 mg/dl (7-17); Calcium 10.2 mg/dl (8.4-10.2); Chloride 112 mmol/L (98-107); Estimated Creatinine Clearance 26 ml/min; Glucose 151 mg/dl (70-99); Potassium 3.8 mmol/L (3.5-5.1); Sodium 160 mmol/L (135-145); eGFR 40.05
--- NOTE | 2024-09-01 08:17 | W.PN.CD ---
Today's Communication / Plan
-
- Will start D5W
- No Free water restriction.
Impression / Plan
-
resp insuff/hypoxemia
-- patient treated for HF with diuretic but still requiring O2. Significant weight reduction since admission.
- has COPD and ILD followed by Dr Montano
- CT performed shows some small effusions, hilum cannot be fully evaluated without contrast
- diuretic on hold with hypernatremia. Sodium up to 160
- Consider D5W.
- Altered mental status .
- Challenging issues with hypernatremia. Still remains on O2 unclear how much of this is related to underlying lung disease
Ohknp-tp-doowjpc HFpEF:. To have diuresis and improvement but remained on O2.
-CT findings as noted-
-not on SGLT2I due to cost, on torsemide and metolazone, as well as K+ replacement as ouptient
- - given IV lasix this admit. Sodium rising and still requires O2. Diuretic now held. Continue to monitor volume status closely. Creatinine down to 1.3
.
Hypernatremia. Sodium up to 160. Diuretic being held.
- Will start D5W
- No Free water restriction.
CKD. Initial creatinine up to 2.0
Moderate : stable, monitor over time by echo.
Paroxysmal atrial fibrillation/Paroxysmal atrial tachycardia: EP managed as OP by Dr. Burnett.
-S/P AVN ablation with PPM, on Flecainide 50mg bid and metoprolol XL 25mg daily.
- Flecainide is discontinued now.
-she gets outpatient nuclear stress to screen for CAD per EP.
-Oral Anticoagulation: On Eliquis 2.5 mg PO BID.
HTN: stable, monitor
Anemia: follow.
Pulmonary HTN: diuretic plan as above.
Seizure disorder, on phenobarbital - stable.
Physical Exam
Vital Signs/Labs
Vital Signs
Temp Pulse Resp BP Pulse Ox
98.4 F 93 18 168/77 96
09/01/24 03:48 09/01/24 03:48 09/01/24 03:48 09/01/24 03:48 09/01/24 03:48
08/31/24 09/01/24 09/02/24
06:59 06:59 06:59
Actual Weight 60.356 kg 58.23 kg
09/01/24 07:12
09/01/24 07:12
Magnesium 2.3 mg/dl (1.6-2.3) 08/29/24 05:47
Triglycerides 55 mg/dl (10-149) 08/29/24 05:47
LDL Cholesterol, Calc 60 mg/dl 08/29/24 05:47
VLDL Cholesterol, Calc 11 mg/dl (0-30) 08/29/24 05:47
HDL Cholesterol 58 mg/dl 08/29/24 05:47
08/28/24
10:01
Ysp-O-Pthtjqrfqvr Pept [id number]
Physical Exam
Constitutional: No acute distress and Confusion
EENT: Anicteric and Moist mucous membranes
Cardiovascular: Rhythm & rate is regular and Systolic murmur present
Respiratory: Respiratory effort normal, Wheeze Absent and Crackles Absent
GI: Soft, Non tender and Normal bowel sounds
Neuro/Psych: Alert and Other (confused. )
Other: Skin
Data Reviewed
-
Date of Service: September 01, 2024
Medical Decision Making: Reviewed Test Results, Test Interpretation and Review of Case with other Provider
EKG: Tracing Personally Visualized and interpreted
Echo: Report Reviewed by me
Labs: Labs Reviewed by me
Old Records: Reviewed
[2024-09-01 08:18] LABS: Carbon Dioxide 37 mmol/L (22-30)
[2024-09-01] MEDS: ELIQUIS 2.5 MG PO ×2 (09:35→21:07)
[2024-09-01] MEDS: TOPROL XL 25 MG PO (09:35)
[2024-09-01] MEDS: LAC HYDRIN, AM LACTIN LOTION 1 APPLIC TOPICAL ×2 (09:36→21:07)
[2024-09-01 09:55] LABS: Folate 11.9 ng/ml (2.76-20); Vitamin B12 532 pg/ml (239-931)
[2024-09-01 11:49] VITALS: BP 168/71
[2024-09-01] MEDS: D5W 1000 IV (12:43)
--- NOTE | 2024-09-01 14:14 | W.PN.UPDATE ---
Update Note
Progress Note Update
Seen and examined by me independently in collaboration with the medical staff services coordinator.
Lab data and imaging data reviewed.
Addendum as below :
Family present at bedside and finds her quiet and not as conversive. They find her weak and fatigued.
Patient is awake and not forthcoming with conversation. She is oriented to self. Denying shortness of breath. Not much appetite. Denies any chest pain or nausea.
Chest without active bronchospasm but still has bilateral lower zone crackles more so on the left side.
Patient lost significant amount of weight-128 pounds which is the lowest in the last few years. I suspect overdiuresis especially with her sodium climbing up to 160. Stop all diuretics. Started on D5 water and follow sodium closely. Cardiology
following.
Despite diuresis and will significant decrease in weight and hyponatremia patient still requiring oxygen and she has still coarse crackles in the lung. Daughter brings to my attention about a history of amiodarone induced pulmonary toxicity in the
remote past. Not on home O2 normally. Consult pulmonary for further evaluation.
Patient takes phenobarbital for seizures for the last 45 years. Has not had any seizures in many years. Family is questioning about the continued treatments with antiepileptics. Advised him to return to neurology- they have not seen one in many
years. I favor slow taper of phenobarbital and consider holding AEDs for now. Family is interested in weaning of AEDs with no seizures in many years.
Total time spent on today's encounter was 52 minutes which included time spent in counseling the patient/family regarding diagnosis and treatment plan as listed above, goals of care, and symptom management. Case was discussed with nursing staff,
specialists, and care coordinators/case management. All labs and imaging personally reviewed by me. Remainder the time spent in detailed review of previous records, lab data, imaging, and other medical provider documentation.
[2024-09-01 15:00] VITALS: BP 136/56
--- NOTE | 2024-09-01 15:23 | W.PN.HOSP.TC ---
Today's Communication/Plan
-
D5.
Hold diuresis.
Start phenobarbital.
Continue weights, I's and O's, and serum creatinine trending.
Assessment / Plan
Assessment / Plan
Assessment- 83-year-old female with PMHx significant for paroxysmal (s/p PVI X 2, on Eliquis, after AV josé miguel ablation), [employer] dual-chamber PPM, chronic HFpEF, moderate , pulmonary hypertension, hypertension, CKD stage IV, COPD/ILD, amiodarone
associated lung toxicity/injury, presents to the ER for having low pulse ox at nursing facility along with wheezing and low potassium levels. Patient is diagnosed with acute hypokalemia and acute exacerbation of heart failure upon admission.
Plan -
Acute hypoxic respiratory failure-
Likely secondary to acute exacerbation of CHF and chronic ILD.
Currently requiring 2 L nasal cannula flow, difficult to wean off.
Chest CT-showed findings significant for small right-sided pleural effusion that is slightly increased in comparison to prior CT with some right lower lobe subsegmental atelectasis, small to moderate left pleural effusion increased extension into
the left major fissure, left basilar opacity suggesting subsegmental atelectasis and possible left perihilar opacity-could present pneumonitis. Slightly prominent pulmonary vascular markings, cardiomegaly with coronary artery calcifications,
diffusely enlarged thyroid gland.
No baseline home oxygen requirement.
Consulted pulmonology to reevaluate for shortness of breath.
Acute exacerbation of heart failure, HFpEF-
Currently Lasix and metolazone on hold.
Patient serum creatinine has been stable at 1.9, but worsening contraction alkalosis secondary to diuresis.
Currently on metoprolol. Defer GDMT to cardiology.
Cardiology in follow-up.
Monitor weights, I's and O's.
Sodium restricted diet.
Acute hypernatremia-
No free water deficit,
Urine output less than 3000 mL/day
Likely secondary to overdiuresis.
Serum sodium trending up, currently at 160.
Add D5-careful hydration
ETHAN on CKD stage IV-
Likely from cardiorenal syndrome
Improving with IV diuretics, IV diuretics on hold.
Monitor urine output.
Avoid nephrotoxins.
Outpatient follow-up with nephrology if cleared by cardiology-recommended.
Paroxysmal A-fib with PAT-
S/p AV josé miguel ablation with dual-chamber PPM
High [id number] score,
continue Eliquis at 2.5 mg twice daily (age >80, weight < 60, serum creatinine > 1.5)
Continue metoprolol, flecainide discontinued by cardiology.
Acute hypokalemia-
Likely a confluence of Aldactone and cardiorenal syndrome.
Currently resolved
Replete potassium as needed, trend potassium levels.
Seizure disorder-
On phenobarbital.
Troponin elevation-upon admission.
Likely secondary to demand ischemia.
Normal EKG
No chest pain
Macrocytic anemia-
Folate and B12 levels within normal limits.
Moderate :
monitor over time by echo
Hypertension-
Continue home medication regimen
Hyperlipidemia-
Stop statin.
Depression-
Continue Lexapro
DVT prophylaxis-
Patient already on Eliquis
CODE STATUS-
Full code.
Anticipated Discharge: > 48 hours
Subjective/Interval History
-
Date of Service: September 01, 2024
Sonali complained of generalized fatigue and no appetite in the morning.
She is less conversant, drowsy (around 7:30 AM in the morning-likely probably secondary to sleep.)
When seen with my attending physician around 11 AM, she was up in the bed sitting and eating her breakfast/lunch and is conversant.
She is oriented to herself, and person place and time-but does not make conversations.
Objective Data
-
Labs:
Laboratory Results
09/01/24
07:12
WBC 9.0
Hgb 11.1 L
Hct 35.9 L
Plt Count 171
Sodium 160 H
Potassium 3.8
Chloride 112 H
Carbon Dioxide 37 H
BUN 78 H
Creatinine 1.3 H
Glucose 151 H
Calcium 10.2
Vital Signs:
Vital Signs
Temp Pulse Resp BP Pulse Ox
100.0 F 76 20 168/71 98
09/01/24 11:49 09/01/24 11:49 09/01/24 11:49 09/01/24 11:49 09/01/24 11:49
I&O
08/31/24 09/01/24 09/02/24
06:59 06:59 06:59
Intake Total 240 / 240 870 / 870
Balance 240 / 240 870 / 870
Review of Systems
-
Unable to obtain full review of systems at this time due to: Other (Somnolent)
History Source: Patient and Family
Constitutional: Reports Weight Loss and Fatigue
EENT: Reports No Symptoms Reported
Respiratory: Reports Trouble Breathing
Cardiac: Reports No Symptoms
Abdomen/GI: Reports No Symptoms
Genitourinary: Reports No Symptoms
Musculoskeletal: Reports No Symptoms
Skin: Reports Itching (Improving)
Endocrine: Reports No Symptoms
Hematologic / Lymphatic: Reports No Symptoms
Allergy / Immunology: Reports No Symptoms
Physical Exam
-
General: No Apparent Distress and Comfortable
HEENT: Anicteric and [place] Conjunctivae; Negative Moist Mucous Membranes (Dry)
Respiratory: Clear to Auscultation (In bilateral upper lobes, right middle lobe) and Crackles (Bilateral lower lobes.); Negative Wheezes, Rales or Rhonchi
Cardiac: Regular Rhythm, S1/S2 and Murmur (Systolic murmur, 4/6, best heard at the apex and tricuspid areas.); Negative Rub or Gallop
GI: Soft, Nontender, Nondistended and Normal Bowel Sounds
Musculoskeletal: No Clubbing, No Cyanosis, Edema, Right Lower Extrem (Trace) and Edema, Left Lower Extrem (Trace)
Neuro: Awake, Alert, Oriented (To herself, person, place and not time.) and No Motor Deficits
Psych: Calm
Data Reviewed
-
Labs: Labs Reviewed by me, Discussed with Physician and Discussed with Nurse
[2024-09-01] MEDS: LIPITOR 10 MG PO (17:45)
[2024-09-01 19:38] VITALS: BP 148/75
[2024-09-01] MEDS: LUMINAL 64.8 MG PO (21:07)
[2024-09-01] MEDS: D5W IV (22:00)
[2024-09-01 23:46] VITALS: BP 167/59
[2024-09-02] VITALS (9 sets, daily range): BP systolic 111–185; BP diastolic 50–72; PULSE 63–69; O2SAT 98–99; BMI 23.3
[2024-09-02] MEDS: D5W 1000 IV ×2 (04:13→18:01)
[2024-09-02 07:49] LABS: Hematocrit 36.1 % (37.0-47.0); Hemoglobin 11.3 g/dL (12.0-16.0); Mean Corp Hgb Conc. 31.3 g/dL (33.0-37.0); Mean Corpuscular Hgb 32.2 pg (27.0-31.0); Mean Corpuscular Volume 102.8 fL (81.0-99.0); Mean Platelet Volume 11.8 fL (7.4-10.4); Platelet Count 118 10^3/uL (130-400); Red Blood Cell Count 3.51 10^6/uL (4.20-5.40); White Blood Cell Count 6.6 10^3/uL (4.8-10.8)
[2024-09-02] MEDS: LAC HYDRIN, AM LACTIN LOTION 1 APPLIC TOPICAL ×2 (08:25→21:08)
[2024-09-02] MEDS: TOPROL XL 25 MG PO (08:25)
[2024-09-02] MEDS: LUMINAL 32.4 MG PO (08:25)
[2024-09-02] MEDS: ELIQUIS 2.5 MG PO ×2 (08:25→20:59)
[2024-09-02 08:26] LABS: Blood Urea Nitrogen 72 mg/dl (7-17); Calcium 9.7 mg/dl (8.4-10.2); Carbon Dioxide 36 mmol/L (22-30); Chloride 115 mmol/L (98-107); Estimated Creatinine Clearance 28 ml/min; Glucose 133 mg/dl (70-99); Potassium 3.6 mmol/L (3.5-5.1); Sodium 157 mmol/L (135-145); eGFR 44.08
--- NOTE | 2024-09-02 09:04 | W.PN.CD ---
Today's Communication / Plan
-
hold diuretic
to discuss plan for severe hypernatremia with hospitalist team
no RHC at this time
Impression / Plan
-
resp insuff/hypoxemia
-- patient was treated for HF with diuretic but still requiring O2. Significant weight reduction since admission.
- has COPD and ILD followed by Dr Montano
- CT performed shows some small effusions
- diuretic on hold with severe hypernatremia. Sodium 157 today
Chronic HFpEF:
-not on SGLT2I due to cost; on torsemide 40mg bid and metolazone 5mg //, as well as aldactone 25mg daily, Kcl 20 mEq daily as outpatient
-s/p IV lasix: looks euvolemic to dry; weight is lowest in record, and Na 157
Hypernatremia. Severe, requiring hospitalization and close monitoring of labs. Sodium 157. Diuretic being held.
- to discuss plan with hospitalist team
CKD3a/b. Initial creatinine up to 2.0, now down to 1.2
Moderate : stable, monitor over time by echo.
-echo 03/2024: EF 60-65%, mod
Paroxysmal atrial fibrillation/Paroxysmal atrial tachycardia: EP managed as OP by Dr. Burnett.
-S/P AVN ablation with PPM, was on Flecainide 50mg bid and metoprolol XL 25mg daily as outpatient
- Flecainide is discontinued now.
-she gets outpatient nuclear stress to screen for CAD per EP.
-Oral Anticoagulation: On Eliquis 2.5 mg PO BID.
HTN: stable, monitor
NSVT
-cont ToproL XL
Anemia: follow.
Pulmonary HTN: diuretic plan as above.
-PASP 75 on last echo
Seizure disorder, on phenobarbital - stable.
Physical Exam
Vital Signs/Labs
Vital Signs
Temp Pulse Resp BP Pulse Ox
97.8 F 64 20 174/65 99
09/02/24 07:00 09/02/24 08:25 09/02/24 07:00 09/02/24 08:25 09/02/24 07:00
09/01/24 09/02/24 09/03/24
06:59 06:59 06:59
Actual Weight 58.23 kg 59.562 kg
09/02/24 07:02
09/02/24 07:02
Magnesium 2.3 mg/dl (1.6-2.3) 08/29/24 05:47
Triglycerides 55 mg/dl (10-149) 08/29/24 05:47
LDL Cholesterol, Calc 60 mg/dl 08/29/24 05:47
VLDL Cholesterol, Calc 11 mg/dl (0-30) 08/29/24 05:47
HDL Cholesterol 58 mg/dl 08/29/24 05:47
08/28/24
10:01
Bsl-C-Dyixxglnixw Pept [id number]
Physical Exam
Constitutional: No acute distress and Comfortable
EENT: Moist mucous membranes
Cardiovascular: Rhythm & rate is regular, Pedal edema is absent, JVD pressure is normal and Systolic murmur present
Respiratory: Respiratory effort normal
Neuro/Psych: Oriented
Data Reviewed
-
Date of Service: September 02, 2024
EKG: Other (Tele: AV paced, 11 beats NSVT)
Labs: Labs Reviewed by me
[2024-09-02] MEDS: ATARAX 10 MG PO ×3 (09:08→21:07)
--- NOTE | 2024-09-02 10:10 | CON.PUL ---
Addendum entered and electronically signed by Ronaldo Montano MD 09/02/24 13:18:
ABG reviewed on room air
No evidence of significant CO2 retention
Acid-base status more likely consistent with significant diuresis
Maintain on 2 to 4 L, saturation greater than 90%
Continue with volume management per primary service, cardiology
Given significant pulm hypertension, a little bit of fluid may actually help with gas exchange
Defer to primary service, cardiology
Original Note:
Consultation
Consultation Request
Date/Time Consultation Requested: 09/02
Date/Time Consultation Performed: 09/02
Reason for Consultation: Hypoxia
Medical History
-
History of Present Illness:
History is primary obtained from the chart, outpatient records and obtaining history from the son by phone. Some history also obtained from the patient the patient is very fatigued and denies any acute complaints. In fact she cannot recall why she
is in the hospital but is aware that she is in the hospital. Very pleasant 84-year-old female with chronic complex cardiopulmonary disease including pulmonary hypertension with RV dysfunction, recurrent heart failure, renal insufficiency,
interstitial disease in the past, obstructive sleep apnea, chronic atrial fibrillation with pacemaker and ablation in the past, with recent history of multiple falls and history of spontaneous left pneumothorax, recently identified hydropneumothorax
per imaging in July 2024, now presents with increased weight. According to son, weight increase significantly while at rehab facility. Patient was noted to be hypoxic. She underwent significant diuresis since admission 08/27. We are asked to
comment on her pulmonary process. Presently patient denies any chest pain, shortness of breath, cough, hemoptysis, abdominal pain, nausea. Her main complaint is pruritus involving her chest wall, no obvious rash identified. Of note during her
hospital stay her weight is decreased 20 pounds with diuresis. Hypernatremia is noted, thought to be from overdiuresis
.
PMH: hx of recurrent heart failure, atrial fibrillation, ablation, pacemaker, amiodarone therapy, mild interstitial changes, severe pulm hypertension PA pressure 75 with dilated RV and reduced function, aortic stenosis, anemia, seizure disorder,
hypertension, hyperlipidemia, history of multiple falls with T12 fracture, history of pericardial effusion, asthma/COPD, chronic sinusitis, sleep apnea on CPAP therapy
Past Medical History
Past Medical History: Other (See above)
Past Surgical History: Other (See above)
Social History
Tobacco: Former Smoker
Alcohol: None
Drug: None
Personal:
Living: Alone
Employment: Not Employed
Family History
Family History: Other (3 children healthy, mother from heart attack 74, father at age 88)
Allergies / Home Medications
Allergies
Allergy/AdvReac Type Severity Reaction Status Date / Time
adhesive tape Allergy Rash Verified 08/28/24 09:27
cefuroxime [From Ceftin] Allergy throat Verified 08/28/24 09:27
closes
ragweed pollen Allergy Unknown Verified 08/28/24 09:27
Sulfa (Sulfonamide Allergy throat Verified 08/28/24 09:27
Antibiotics) closes
Home Medications
�Medication �Instructions �Recorded �Confirmed �Last Taken �Type
atorvastatin 10 mg tablet 10 mg PO DAILY High cholesterol 10/21/20 08/28/24 01/23/24 History
phenobarbital 32.4 mg tablet 32.4 mg PO DAILY Seizures 10/21/20 08/28/24 03/24/24 History
phenobarbital 32.4 mg tablet 64.8 mg PO HS Seizures 10/21/20 08/28/24 01/23/24 History
flecainide 50 mg tablet 50 mg PO BID Arrhythmia 06/21/23 08/28/24 03/24/24 History
hydralazine 100 mg tablet 100 mg PO TID Blood Pressure 06/21/23 08/28/24 03/24/24 History
metoprolol succinate 25 mg 25 mg PO BID Blood pressure 01/24/24 08/28/24 03/24/24 History
tablet,extended release 24 hr
apixaban 2.5 mg tablet (Eliquis) 2.5 mg PO BID #60 tabs 03/28/24 08/28/24 Unknown Rx
escitalopram oxalate 10 mg tablet 10 mg PO DAILY Depression 06/13/24 08/28/24 Unknown History
(Lexapro)
spironolactone 25 mg tablet 25 mg PO DAILY 30 days #30 tabs 06/16/24 08/28/24 Unknown Rx
acetaminophen 325 mg tablet 650 mg PO Q6HPRN PRN mild pain 08/28/24 08/28/24 Unknown History
(Tylenol)
albuterol sulfate 90 mcg/actuation 2 puff inhalation R Q6HPRN PRN sob 08/28/24 08/28/24 Unknown History
aerosol inhaler
diphenhydramine HCl 25 mg capsule 25 mg PO [id number] PRN allergies 08/28/24 08/28/24 Unknown History
(Benadryl)
hydrocortisone 0.5 % topical cream 1 applic topical BID face and body 08/28/24 08/28/24 Unknown History
lidocaine 4 % topical patch 2 patch topical DAILY left ribs 08/28/24 08/28/24 Unknown History
magnesium hydroxide 400 mg/5 mL 400 mg PO Q4HPRN PRN 08/28/24 08/28/24 Unknown History
oral suspension (Milk of Magnesia) constipation-4 hour inbetween doses
metolazone 5 mg tablet 5 mg PO MOWEFR Fluid 08/28/24 08/28/24 Unknown History
Retention/Swelling
potassium chloride 20 mEq 20 meq PO DAILY Supplement 08/28/24 08/28/24 Unknown History
tablet,extended release
torsemide 20 mg tablet 40 mg PO BID Fluid 08/28/24 08/28/24 Unknown History
Retention/Swelling
Review of Systems
-
History Source: Family
All other systems: Negative unless noted
Vitals / Labs / Diagnostic Testing
Vital Signs
Temp Pulse Resp BP Pulse Ox
97.8 F 64 20 174/65 99
09/02/24 07:00 09/02/24 08:25 09/02/24 07:00 09/02/24 08:25 09/02/24 07:00
Lab Data
09/02/24 07:02
09/02/24 07:02
Microbiology
08/28/24 17:34 Nose MRSA Screen - Final
Staph aureus MRSA
Diagnostic Testing:
Physical Exam
-
HEENT: Normocephalic, Anicteric and Other (Cachectic appearing)
Cardiovascular: S1/S2, Regular Rhythm, Murmur (2/6 systolic murmur) and Peripheral Edema (n)
Respiratory: Wheeze (n), Rales (Mild bibasilar) and Non-Labored Respirations
GI: Soft, Non Distended and Non Tender
Neurology: Awake, Alert, Oriented (Hospital) and No Motor Deficits (Moving all extremities, following commands, generally weak)
Skin: Good Color, Other (Scattered ecchymoses) and Other (Dry mucosa)
General: Comfortable
Assessment
-
84-year-old female with complex medical history including recurrent heart failure, severe pulm hypertension with PA pressure 75, dilated RV with mildly reduced function, aortic stenosis, atrial fibrillation sleep apnea on CPAP therapy with severe
nocturnal hypoxia, intolerant to nocturnal oxygen presents with weight gain, suspected heart failure. Patient was diuresed aggressively, weight down 20 pounds. Creatinine increased from 1.2-2.0. We are asked to comment on pulmonary process
Acute hypoxic respiratory insufficiency
86% room air
Suspected heart failure, weight gain
s/p diuresis, 20 pound decrease, renal insufficiency
Acute renal insufficiency likely secondary to diuresis
Hypernatremia, suspected secondary to diuresis
Sleep apnea, on CPAP
Noncompliant per son
Chronic renal insufficiency, creatinine 1.2
Increase to 2.0 in the setting of diuresis
Conditions present prior to admission
Moderate aortic stenosis
Valve area 1.4 cm
Normal EF
Severe pulm hypertension, PA pressure 75
Dilated RV, decreased function per echo March 2024
Atrial fibrillation/atrial tachycardia
S/P ablation, flecainide/metoprolol, pacemaker
History of interstitial disease
Off amiodarone
Anemia
Hypertension/hyperlipidemia
Seizure disorder
History of asthma/COPD
Off inhaler therapy
Plan/recommendations
Patient with complex cardiopulmonary history
Salient features are presentation with significant weight gain, hypoxia now with 20 pound diuresis
Patient feels she does not need oxygen
Chest exam is at her baseline with bibasilar crackles
She is profoundly fatigued and weak, more so than during her office visit in June
CT chest with bilateral pleural effusions and interstitial changes. Suspect this is likely multifactorial
She appears to be more fatigued and lethargic than usual
Unclear how much hyponatremia may be contributing to this
Per discussion with her son, she has been noncompliant with her CPAP. She has severe sleep apnea with total index of 74, treated with CPAP pressure of 11
Moving forward
I suspect she is not far from her baseline from a respiratory standpoint
We will check arterial blood gas to rule out component of significant CO2 retention
She appears more lethargic than usual
She has not been compliant with her CPAP. She has history of severe sleep apnea
I do not suspect there is an acute pulmonary process at this time
Given her severe cardiopulmonary disease, her deconditioned state would likely contribute negatively to her inspiratory effort, VQ match
She is on anticoagulation, making thromboembolic disease less likely
But she has a history of multiple falls over the past couple weeks to months according to the son making chronic anticoagulation not an ideal long-term treatment
Depending on clinical course, she may require head CT as it is unclear when she last fell
There is no evidence of airways disease at this time. No indication for steroids, nebulized therapy, inhaler therapy
Lastly, Patient was DNR in the past, did not want heroic measures according to son
Would strongly revisit this as patient would not do well with heroic measures such as mechanical ventilation, shock, CPR
Reviewed above at length with patient and son by phone
Will follow
--- NOTE | 2024-09-02 11:49 | W.PN.HOSP.TC ---
Addendum entered and electronically signed by Jose M Gilbert MD 09/02/24 14:19:
Seen and examined by me independently in collaboration with the healthcare or medical.
Lab data and imaging data reviewed.
Addendum as below :
Patient appears weak. She is alert and oriented to self only. Voicing no specific complaints. Denies shortness of breath. On nasal cannula comfortable. Chest with bilateral coarse crackles as yesterday without wheeze.
Abdomen soft.
Increased weight and improving sodium noted.
Continue to hold diuretics and continue to support with D5 water for hypernatremia.
Cardiology input from today noted.
Await pulmonary input regarding possibility of ILD related to amiodarone in the past.
Original Note:
Today's Communication/Plan
-
IV hydration with Dextrose.
add hydralazine
PT and OT
Stop atorvastatin.
Reduce night dose of phenobarbital to 32.4
Assessment / Plan
Assessment / Plan
Assessment- 83-year-old female with PMHx significant for paroxysmal (s/p PVI X 2, on Eliquis, after AV josé miguel ablation), [employer] dual-chamber PPM, chronic HFpEF, moderate , pulmonary hypertension, hypertension, CKD stage IV, COPD/ILD, amiodarone
associated lung toxicity/injury, presents to the ER for having low pulse ox at nursing facility along with wheezing and low potassium levels. Patient is diagnosed with acute hypokalemia and acute exacerbation of heart failure upon admission.
Plan -
Acute hypoxic respiratory failure-
Likely secondary to acute exacerbation of CHF and chronic ILD.
Currently requiring 2 L nasal cannula flow, difficult to wean off.
Chest CT-showed findings significant for small right-sided pleural effusion that is slightly increased in comparison to prior CT with some right lower lobe subsegmental atelectasis, small to moderate left pleural effusion increased extension into
the left major fissure, left basilar opacity suggesting subsegmental atelectasis and possible left perihilar opacity-could present pneumonitis. Slightly prominent pulmonary vascular markings, cardiomegaly with coronary artery calcifications,
diffusely enlarged thyroid gland.
No baseline home oxygen requirement.
Consulted pulmonology to reevaluate for shortness of breath.
Acute exacerbation of heart failure, HFpEF-
Currently Lasix and metolazone on hold.
serum creatinine improved to 1.2, from 1.9 upon admission, lasix held due to contraction alkalosis
Currently on metoprolol. Defer GDMT to cardiology.
Cardiology in follow-up.
Monitor weights, I's and O's.
Sodium restricted diet.
Acute hypernatremia-
No free water deficit, serum sodium trending down with hydration
currently down to 157 from 160.
Urine output less than 3000 mL/day
Likely secondary to overdiuresis.
Serum sodium trending up, currently at 160.
Add D5-careful hydration.
ETHAN on CKD stage IV-
Likely from cardiorenal syndrome
Improving with IV diuretics, IV diuretics on hold.
Resumed Hydralazine 50 TID, as can benefit in cardiorenal syndrome.
Monitor urine output.
Avoid nephrotoxins.
Outpatient follow-up with nephrology if cleared by cardiology-recommended.
Paroxysmal A-fib with PAT-
S/p AV josé miguel ablation with dual-chamber PPM
High [id number] score,
continue Eliquis at 2.5 mg twice daily (age >80, weight < 60, serum creatinine > 1.5)
Continue metoprolol, flecainide discontinued by cardiology.
Acute hypokalemia-
Likely a confluence of Aldactone and cardiorenal syndrome.
Currently resolved
Replete potassium as needed, trend potassium levels.
Seizure disorder-
On phenobarbital.
Troponin elevation-upon admission.
Likely secondary to demand ischemia.
Normal EKG
No chest pain
Macrocytic anemia-
Folate and B12 levels within normal limits.
Moderate :
monitor over time by echo
Hypertension-
Continue home medication regimen
Hyperlipidemia-
Stop statin.
Depression-
Continue Lexapro
DVT prophylaxis-
Patient already on Eliquis
CODE STATUS-
Full code.
Anticipated Discharge: > 48 hours
Subjective/Interval History
-
Date of Service: September 02, 2024
Patient is somnolent, but easily arousable and makes conversations, she states she is too fatigued and denies chest pain, SOB, palpitations, Dizziness, nausea or emesis.
She is oriented to herself but not to person, time or place.
Her oral intake has been significantly low.
Objective Data
-
Labs:
Laboratory Results
09/02/24
07:02
WBC 6.6
Hgb 11.3 L
Hct 36.1 L
Plt Count 118 L D
Sodium 157 H
Potassium 3.6
Chloride 115 H
Carbon Dioxide 36 H
BUN 72 H
Creatinine 1.2 H
Glucose 133 H
Calcium 9.7
Vital Signs:
Vital Signs
Temp Pulse Resp BP Pulse Ox
97.3 F 61 20 153/56 93
09/02/24 11:28 09/02/24 11:28 09/02/24 11:28 09/02/24 11:28 09/02/24 11:28
I&O
09/01/24 09/02/24 09/03/24
06:59 06:59 06:59
Intake Total 870 / 870 540 / 540
Balance 870 / 870 540 / 540
Review of Systems
-
Unable to obtain full review of systems at this time due to: Dementia and Acuity
Constitutional: Reports No Appetite and Fatigue
Physical Exam
-
General: Comfortable (on 2l low flow nasal cannula)
HEENT: Moist Mucous Membranes, Anicteric and [place] Conjunctivae
Respiratory: Clear to Auscultation (in b/l upper lobes) and Crackles (in right middle, and right lower lobes, left lower lobe); Negative Wheezes, Rales or Rhonchi
Cardiac: Regular Rhythm, S1/S2 and Murmur (systolic 4/6 loud, best heard in apex, and tricuspid areas); Negative Rub or Gallop
GI: Soft, Nontender, Nondistended and Normal Bowel Sounds
Musculoskeletal: No Clubbing, No Cyanosis and No Edema
Neuro: Awake, Alert and Oriented (to self, not to time, person, and place)
Psych: Calm
Data Reviewed
-
Labs: Labs Reviewed by me and Discussed with Physician
[2024-09-02 12:34] LABS: B.E. 22.3 mmol/L; O2 Saturation % 92.7 % (94-98); PCO2 49 mmHg (32-35); pH 7.59 (7.35-7.45)
[2024-09-02 12:37] LABS: PO2 59 mmHg (83-108)
--- NOTE | 2024-09-02 14:01 | CM ---
Addendum entered by Aurora Browning 09/02/24 15:50:
Correction: patient declined therapy yesterday 09/01.
CM received call from patients daughter, Chanelle. Per Chanelle, patient has been officially in [facility] for about two months, has been in an out of rehab, has only actually been at [facility] about 6 days total. Patient has been to [facility] twice,
[facility], daughter feels as though patient did not get amount of therapy needed and was not pleased with SNFs in past. CM reviewed PT recommendations of SNF with daughter, daughter would prefer patient return to with [facility], CM
will discuss with [facility] to confirm ability to accept back.
Original Note:
CM reviewed chart, spoke with nurse Yvonne at [facility] regarding patients PLOF. Per nurse, patient requires full care, does not ambulate. CM reviewed PT recommendations, patient declined therapy today, previous ambulated 10 ft RW min A x 1.
Patient seen bedside, discussed PT recommendation of SNF, patient unsure if she has been to SNF in the past, will discuss with patients family.
Plan; return to [facility]
Report: [phone] ask for nurse
[2024-09-02] MEDS: APRESOLINE 50 MG PO ×2 (16:03→21:00)
[2024-09-02] MEDS: LUMINAL 64.8 MG PO (21:00)
[2024-09-03] VITALS (8 sets, daily range): BP systolic 92–130; BP diastolic 36–81; PULSE 66; O2SAT 97; BMI 23.1
--- NOTE | 2024-09-03 04:43 | PTCARENOTE ---
Patient was bladder scanned due to not voiding overnight and found to have 428 mls of urine in her bladder. Pt. placed on bedpan but was unable to void. Awaiting bladder scan/straight cath orders and will straight cath pt. per protocol.
[2024-09-03 05:22] LABS: Urine Albumin 2+ (Neg - Trace); Urine Bilirubin Negative (Negative); Urine Character Cloudy (Clear); Urine Color Amber; Urine Glucose Negative (Negative); Urine Ketone Negative (Negative); Urine Leukocyte 3+ (Negative); Urine Nitrite Negative (Negative); Urine Occult Blood Negative (Negative); Urine Urobilinogen Negative (Neg - 1+)
[2024-09-03 06:17] LABS: Urine Red Blood Cell None Seen /HPF (0-2); Urine Squamous Cell 26-30 /LPF (Few); Urine White Cell >100 /HPF (0-5)
[2024-09-03 06:18] LABS: Urine Bacteria Many (Negative)
[2024-09-03 07:26] LABS: Hematocrit 31.8 % (37.0-47.0); Mean Corp Hgb Conc. 31.4 g/dL (33.0-37.0); Mean Corpuscular Hgb 32.4 pg (27.0-31.0); Mean Corpuscular Volume 102.9 fL (81.0-99.0); Mean Platelet Volume 12.4 fL (7.4-10.4); Platelet Count 128 10^3/uL (130-400); Red Blood Cell Count 3.09 10^6/uL (4.20-5.40); Red Cell Dist. Width 15.3 % (11.5-14.5); White Blood Cell Count 6.7 10^3/uL (4.8-10.8)
--- NOTE | 2024-09-03 07:56 | W.PN.CD ---
Today's Communication / Plan
-
Holding diuretics today
Na is improving
Impression / Plan
-
resp insuff/hypoxemia
-- patient was treated for HF with diuretic but still requiring O2. Significant weight reduction since admission.
- has COPD and ILD followed by Dr Montano
- CT performed shows some small effusions
- diuretic on hold with severe hypernatremia. Sodium 146 today
Chronic HFpEF:
-not on SGLT2I due to cost; on torsemide 40mg bid and metolazone 5mg //, as well as aldactone 25mg daily, Kcl 20 mEq daily as outpatient
-s/p IV lasix: looks euvolemic to dry; weight is lowest in record, and Na 157
Hypernatremia. Severe, requiring hospitalization and close monitoring of labs. Sodium 157. Diuretic being held.
- improving
CKD3a/b. Initial creatinine up to 2.0, now down to 1.2
Moderate : stable, monitor over time by echo.
-echo 03/2024: EF 60-65%, mod
Paroxysmal atrial fibrillation/Paroxysmal atrial tachycardia: EP managed as OP by Dr. Burnett.
-S/P AVN ablation with PPM, was on Flecainide 50mg bid and metoprolol XL 25mg daily as outpatient
- Flecainide is discontinued now.
-she gets outpatient nuclear stress to screen for CAD per EP.
-Oral Anticoagulation: On Eliquis 2.5 mg PO BID.
HTN: stable, monitor
NSVT
-cont ToproL XL
Anemia: follow.
Pulmonary HTN: diuretic plan as above.
-PASP 75 on last echo
Seizure disorder, on phenobarbital - stable.
Subjective: No new complaints
Physical Exam
Vital Signs/Labs
Vital Signs
Temp Pulse Resp BP Pulse Ox
97.9 F 65 14 126/55 97
09/03/24 03:27 09/03/24 03:27 09/03/24 03:27 09/03/24 03:27 09/03/24 03:27
09/02/24 09/03/24 09/04/24
06:59 06:59 06:59
Actual Weight 131 lb 5 oz 130 lb 2 oz
09/03/24 06:26
Magnesium 2.3 mg/dl (1.6-2.3) 08/29/24 05:47
Triglycerides 55 mg/dl (10-149) 08/29/24 05:47
LDL Cholesterol, Calc 60 mg/dl 08/29/24 05:47
VLDL Cholesterol, Calc 11 mg/dl (0-30) 08/29/24 05:47
HDL Cholesterol 58 mg/dl 08/29/24 05:47
08/28/24
10:01
[id number] Pept [id number]
Physical Exam
Constitutional: No acute distress and Comfortable
EENT: Anicteric
Cardiovascular: Rhythm & rate is regular
Respiratory: Respiratory effort normal and Lungs clear to auscul.
GI: Soft
Neuro/Psych: Alert and Oriented
Data Reviewed
-
Date of Service: September 03, 2024
EKG: Tracing Personally Visualized and interpreted (paced)
Echo: Tracing Personally Visualized and interpreted (mod as)
Labs: Labs Reviewed by me
[2024-09-03 08:16] LABS: Blood Urea Nitrogen 64 mg/dl (7-17); Calcium 9.1 mg/dl (8.4-10.2); Carbon Dioxide 37 mmol/L (22-30); Chloride 103 mmol/L (98-107); Estimated Creatinine Clearance 26 ml/min; Glucose 111 mg/dl (70-99); Potassium 3.4 mmol/L (3.5-5.1); Sodium 146 mmol/L (135-145); eGFR 40.05
[2024-09-03] MEDS: LAC HYDRIN, AM LACTIN LOTION 1 APPLIC TOPICAL ×2 (08:28→21:34)
[2024-09-03] MEDS: TOPROL XL 25 MG PO (08:29)
[2024-09-03] MEDS: APRESOLINE 50 MG PO ×3 (08:29→21:31)
[2024-09-03] MEDS: LUMINAL 32.4 MG PO (08:29)
[2024-09-03] MEDS: ELIQUIS 2.5 MG PO ×2 (08:29→21:00)
--- NOTE | 2024-09-03 10:25 | CM ---
CM reviewed chart, call to nurse at , discussed PT recommendation of SNF, discussed family would like patient to return with [facility]. Nurse reviewed with DON, requesting patient discharge to SNF prior to return. Call to patients daughter,
Chanelle, aware would like patient to get rehab prior to return, family to call facility to discuss. CM will continue to follow for all discharge planning needs.
Plan; [facility]
--- NOTE | 2024-09-03 11:35 | W.PN.PUL3 ---
Today's Communication / Plan
-
Continue to hold diuresis
Sodium levels improving. Patient appears to be more awake today
History of significant nocturnal hypoxemia noted. When she is sleeping in the hospital, not surprising that she is hypoxic
Fortunately she is without symptoms
[employer] CODE STATUS. Patient relayed to me that she would not want 'heroic measures'
This was reviewed with son. Encouraged ongoing family discussion
Assessment
-
84-year-old female with complex medical history including recurrent heart failure, severe pulm hypertension with PA pressure 75, dilated RV with mildly reduced function, aortic stenosis, atrial fibrillation sleep apnea on CPAP therapy with severe
nocturnal hypoxia, intolerant to nocturnal oxygen presents with weight gain, suspected heart failure. Patient was diuresed aggressively, weight down 20 pounds. Creatinine increased from 1.2-2.0. We are asked to comment on pulmonary process
Acute hypoxic respiratory insufficiency
86% room air
Suspected heart failure, weight gain
s/p diuresis, 20 pound decrease, renal insufficiency
Acute renal insufficiency likely secondary to diuresis
Hypernatremia, suspected secondary to diuresis
Sleep apnea, on CPAP
Noncompliant per son
Chronic renal insufficiency, creatinine 1.2
Increase to 2.0 in the setting of diuresis
Conditions present prior to admission
Moderate aortic stenosis
Valve area 1.4 cm
Normal EF
Severe pulm hypertension, PA pressure 75
Dilated RV, decreased function per echo March 2024
Atrial fibrillation/atrial tachycardia
S/P ablation, flecainide/metoprolol, pacemaker
History of interstitial disease
Off amiodarone
Anemia
Hypertension/hyperlipidemia
Seizure disorder
History of asthma/COPD
Off inhaler therapy
Plan/recommendations
Patient with complex cardiopulmonary history
Salient features are presentation with significant weight gain, hypoxia now with 20 pound diuresis
Patient feels she does not need oxygen
ABG reviewed, PO2 59 on room air
No evidence of significant CO2 retention
Chest exam is at her baseline with bibasilar crackles
She is profoundly fatigued and weak, more so than during her office visit in June
CT chest with bilateral pleural effusions and interstitial changes. Suspect this is likely multifactorial
Hypernatremia improving
Per discussion with her son, she has been noncompliant with her CPAP. She has severe sleep apnea with total index of 74, treated with CPAP pressure of 11
Moving forward
I suspect she is not far from her baseline from a respiratory standpoint
ABG has ruled out significant CO2 retention, chronic compensation noted. Alkalemia from diuresis
She has not been compliant with her CPAP. She has history of severe sleep apnea
I do not suspect there is an acute pulmonary process at this time
Given her severe cardiopulmonary disease, her deconditioned state would likely contribute negatively to her inspiratory effort, VQ match
She is on anticoagulation, making thromboembolic disease less likely
But she has a history of multiple falls over the past couple weeks to months according to the son making chronic anticoagulation not an ideal long-term treatment
Depending on clinical course, she may require head CT as it is unclear when she last fell
More awake today
There is no evidence of airways disease at this time. No indication for steroids, nebulized therapy, inhaler therapy
Lastly, Patient was DNR in the past, did not want heroic measures according to son
Patient has reiterated her desire to not pursue her route measures
I encouraged her to discuss this with her family
This was also reviewed with her son by phone on 09/03
Will follow
Subjective Data
-
Date of Service:
Date of Service: September 03, 2024
Subjective:
Patient examined earlier today. Primary complaint is pruritus. She denies shortness of breath, cough, chest pain, nausea. She is alert and oriented to place
Objective Data
Data Reviewed
Vital Signs / I&O / Oxygen:
Vital Signs
Temp Pulse Resp BP Pulse Ox
97.8 F 66 16 119/54 100
09/03/24 11:34 09/03/24 11:34 09/03/24 11:34 09/03/24 11:34 09/03/24 11:34
Intake and Output
09/02/24 09/03/24 09/04/24
06:59 06:59 06:59
Intake Total 540 / 540 1900 / 1900
Output Total 315 / 315
Balance 540 / 540 1585 / 1585
SaO2 100
Nasal Cannula flow liters per 4
minute
Physical Exam
General: Comfortable (Cachectic)
HEENT: Normocephalic and Anicteric
Cardiovascular: S1-S2, Regular Rhythm, Murmur (2/6 systolic), Peripheral Edema (n) and Calf Tenderness (n)
Respiratory: Clear, Wheeze (Mild expiratory), Crackles (n), Rhonchi (n), Non-Labored Respirations (n) and Stridor (n)
GI: Soft, Non Distended and Non Tender
Neurology: Awake, Alert, Oriented and No Motor Deficits (Generally weak, deconditioned)
Skin: Cyanosis (n), Jaundice (n) and Other (Scattered ecchymoses)
Labs/Micro/Reports
Lab Data
09/03/24 06:26
09/03/24 06:26
Laboratory Results
09/02/24
12:17
pH 7.59 H
pCO2 49 H
pO2 59 L*
HCO3 47.0 H*
O2 Delivery Level Not Reportable
Microbiology
08/28/24 17:34 Nose MRSA Screen - Final
Staph aureus MRSA
--- NOTE | 2024-09-03 16:04 | DOWNTIME ---
There was a [employer] Downtime on 09/03/2024 from 1230 to 09/03/2024 at 1550. Downtime documentation of patient's care, including medication administrations, has been reconciled in the electronic record per guidelines. Refer to the
patient's paper chart under the miscellaneous tab to see printed paper medication records and downtime forms.
[2024-09-03] MEDS: KCL 40 MEQ PO (16:35)
--- NOTE | 2024-09-03 16:54 | W.PN.HOSP.TC ---
Addendum entered and electronically signed by Jose M Gilbert MD 09/03/24 17:17:
Seen and examined by me independently in collaboration with the medical director occupational health.
Lab data and imaging data reviewed.
Addendum as below :
Clinically improved. Patient is more alert and oriented. Ambulating better. Sodium down to 146. DC IV fluids after current bag and encourage oral intake. Continue to hold diuretics.
Appreciate pulmonary input-no new recommendations from them.
Check Home O2 eval in am.
DC planning
Original Note:
Today's Communication/Plan
-
Hold diuretics per cardiology.
Discontinue IV fluids.
Replete potassium.
Assessment / Plan
Assessment / Plan
Assessment- 83-year-old female with PMHx significant for paroxysmal (s/p PVI X 2, on Eliquis, after AV josé miguel ablation), [employer] dual-chamber PPM, chronic HFpEF, moderate , pulmonary hypertension, hypertension, CKD stage IV, COPD/ILD, amiodarone
associated lung toxicity/injury, presents to the ER for having low pulse ox at nursing facility along with wheezing and low potassium levels. Patient is diagnosed with acute hypokalemia and acute exacerbation of heart failure upon admission.
Plan -
Acute hypoxic respiratory failure-
Likely secondary to acute exacerbation of CHF and chronic ILD.
Currently requiring 2 L nasal cannula flow, difficult to wean off.
Chest CT-showed findings significant for small right-sided pleural effusion that is slightly increased in comparison to prior CT with some right lower lobe subsegmental atelectasis, small to moderate left pleural effusion increased extension into
the left major fissure, left basilar opacity suggesting subsegmental atelectasis and possible left perihilar opacity-could present pneumonitis. Slightly prominent pulmonary vascular markings, cardiomegaly with coronary artery calcifications,
diffusely enlarged thyroid gland.
No baseline home oxygen requirement.
Consulted pulmonology to reevaluate for shortness of breath.
Acute exacerbation of heart failure, HFpEF-
Currently Lasix and metolazone on hold.
serum creatinine at 1.3. From 1.9 upon admission, lasix held due to contraction alkalosis
Currently on metoprolol. Defer GDMT to cardiology.
Cardiology in follow-up.
Monitor weights, I's and O's.
Sodium restricted diet.
Acute hypernatremia-
No free water deficit, serum sodium trending down with hydration
currently down to 157 from 160. Currently serum sodium at 146, discontinue IV fluids.
Urine output less than 3000 mL/day
Likely secondary to overdiuresis.
Serum sodium significantly improved.
Hypokalemia-
Potassium repleted, serum potassium at 3.4.
Trend potassium levels.
ETHAN on CKD stage IV-
Likely from cardiorenal syndrome
Improving with IV diuretics, IV diuretics on hold.
Resumed Hydralazine 50 TID, as can benefit in cardiorenal syndrome.
Monitor urine output.
Avoid nephrotoxins.
Outpatient follow-up with nephrology if cleared by cardiology-recommended.
Paroxysmal A-fib with PAT-
S/p AV josé miguel ablation with dual-chamber PPM
High [id number] score,
continue Eliquis at 2.5 mg twice daily (age >80, weight < 60, serum creatinine > 1.5)
Continue metoprolol, flecainide discontinued by cardiology.
Acute hypokalemia-
Likely a confluence of Aldactone and cardiorenal syndrome.
Currently resolved
Replete potassium as needed, trend potassium levels.
Seizure disorder-
On phenobarbital.
Troponin elevation-upon admission.
Likely secondary to demand ischemia.
Normal EKG
No chest pain
Macrocytic anemia-
Folate and B12 levels within normal limits.
Moderate :
monitor over time by echo
Hypertension-
Continue home medication regimen
Hyperlipidemia-
Stop statin.
Depression-
Continue Lexapro
DVT prophylaxis-
Patient already on Eliquis
CODE STATUS-
Full code.
Anticipated Discharge: 24 - 48 hours
Subjective/Interval History
-
Date of Service: September 03, 2024
Patient is oriented to herself, is awake, alert-improved than yesterday, was working with physical therapy and walking. She complained of sore left foot-left foot no bunions or erythematous swellings noted in any of the joints.
Objective Data
-
Labs:
Laboratory Results
09/03/24
06:26
WBC 6.7
Hgb 10.0 L
Hct 31.8 L
Plt Count 128 L
Sodium 146 H D
Potassium 3.4 L
Chloride 103
Carbon Dioxide 37 H
BUN 64 H
Creatinine 1.3 H
Glucose 111 H
Calcium 9.1
Vital Signs:
Vital Signs
Temp Pulse Resp BP Pulse Ox
97.8 F 67 16 130/56 100
09/03/24 11:34 09/03/24 16:33 09/03/24 11:34 09/03/24 16:33 09/03/24 11:34
I&O
09/02/24 09/03/24 09/04/24
06:59 06:59 06:59
Intake Total 540 / 540 1900 / 1900
Output Total 315 / 315
Balance 540 / 540 1585 / 1585
Review of Systems
-
History Source: Patient
Constitutional: Reports Fatigue
Respiratory: Reports Trouble Breathing
Cardiac: Reports Orthopnea
Abdomen/GI: Reports No Symptoms
Genitourinary: Reports No Symptoms
Musculoskeletal: Reports Other (Soreness of the left foot.)
Neuro: Reports No Symptoms
Hematologic / Lymphatic: Reports No Symptoms
Allergy / Immunology: Reports No Symptoms
Physical Exam
-
General: Comfortable (On 4 L nasal cannula flow)
HEENT: Moist Mucous Membranes, Anicteric and [place] Conjunctivae; Negative Thrush
Respiratory: Clear to Auscultation (Upper lobe bilaterally, right middle lobe) and Crackles (Bilateral lower lobe crackles.); Negative Wheezes, Rales or Rhonchi
Cardiac: S1/S2, Irregular Rhythm and Murmur (Loud, systolic,/6 in intensity best heard at apex and tricuspid areas.)
GI: Soft, Nontender, Nondistended and Normal Bowel Sounds
Musculoskeletal: No Clubbing, No Cyanosis, Edema, Right Lower Extrem (Trace edema) and Edema, Left Lower Extrem (Trace edema)
Skin: Warm
Neuro: AO x 3 and No Motor Deficits
Psych: Calm
Data Reviewed
-
Labs: Labs Reviewed by me, Discussed with Physician and Discussed with Nurse
[2024-09-03] MEDS: ATARAX 10 MG PO (21:34)
[2024-09-03] MEDS: LUMINAL 64.8 MG PO (21:34)
[2024-09-04 03:11] VITALS: BP 111/51
[2024-09-04 06:00] VITALS: BMI 23.6
[2024-09-04 07:00] VITALS: BP 122/48
[2024-09-04 07:51] LABS: Hematocrit 29.9 % (37.0-47.0); Hemoglobin 9.5 g/dL (12.0-16.0); Mean Corp Hgb Conc. 31.8 g/dL (33.0-37.0); Mean Corpuscular Hgb 32.6 pg (27.0-31.0); Mean Corpuscular Volume 102.7 fL (81.0-99.0); Mean Platelet Volume 12.5 fL (7.4-10.4); Platelet Count 142 10^3/uL (130-400); Red Blood Cell Count 2.91 10^6/uL (4.20-5.40); Red Cell Dist. Width 15.1 % (11.5-14.5); White Blood Cell Count 5.3 10^3/uL (4.8-10.8)
[2024-09-04] MEDS: LAC HYDRIN, AM LACTIN LOTION 1 APPLIC TOPICAL (08:11)
[2024-09-04] MEDS: LUMINAL 32.4 MG PO (08:12)
[2024-09-04] MEDS: ELIQUIS 2.5 MG PO (08:12)
[2024-09-04] MEDS: APRESOLINE 50 MG PO (08:12)
[2024-09-04] MEDS: TOPROL XL 25 MG PO (08:12)
--- NOTE | 2024-09-04 09:49 | RESPNOTE ---
home 02 assessment completed as ordered
at rest pt's sat was 86%
on 2 lpm pt's sats was 95% at rest
pt walked 5 feet from bed to chair,and required assistance from 2 people. pt was unable to walk independently any further.
[2024-09-04 10:09] LABS: Blood Urea Nitrogen 62 mg/dl (7-17); Calcium 9.2 mg/dl (8.4-10.2); Carbon Dioxide 35 mmol/L (22-30); Chloride 106 mmol/L (98-107); Estimated Creatinine Clearance 26 ml/min; Glucose 109 mg/dl (70-99); Potassium 4.1 mmol/L (3.5-5.1); Sodium 147 mmol/L (135-145); eGFR 40.05
--- NOTE | 2024-09-04 10:10 | W.PN.HOSP.TC ---
Addendum entered and electronically signed by Toya Johnson MD, Resident 09/04/24 14:38:
Stage 1 pressure ulcer -
blanchable skin noted, no erosion of skin or ulcers.
Elevated troponin levels -
Type 2 demand ischemia
no evidence of LA on Ekg upon admission.
Addendum entered and electronically signed by Jose M Gilbert MD 09/04/24 13:06:
Seen and examined by me independently in collaboration with the chief medical technologist.
Lab data and imaging data reviewed.
Addendum as below :
Patient is much more alert and interactive. Improved strength.
Denies shortness of breath at rest. Still requiring oxygen via nasal cannula. Bilateral crackles as before without any wheeze.
Improved hyponatremia and creatinine.
Impaired physical ability; PT recommending rehab but family wants to take her home with outpatient PT.
Discussed with the cardiology who recommends to keep on torsemide but not on metolazone or spironolactone.
Reached medical stability for discharge home and follow-up with cardiology as an outpatient. BMP in a week.
With acute medical issues I will hold on antiepileptics taper or discontinuation. Family would be advised to follow-up with PCP and consider tapering discontinuation as appropriate. Patient apparently has been on phenobarbital for last 45 years.
No recent seizures.
More than 30 minutes spent in discharge including
Final examination of the patient
Summarizing hospital stay
Instructions for continuing care to all relevant caregivers
Preparation of discharge records, prescriptions, and referral forms
Total time spent (in minutes): 32 minutes
Original Note:
Today's Communication/Plan
-
Lasix and metolazone on hold.
Serum sodium elevated.
Home O2 assessment.
Assessment / Plan
Assessment / Plan
Assessment- 83-year-old female with PMHx significant for paroxysmal (s/p PVI X 2, on Eliquis, after AV josé miguel ablation), [employer] dual-chamber PPM, chronic HFpEF, moderate , pulmonary hypertension, hypertension, CKD stage IV, COPD/ILD, amiodarone
associated lung toxicity/injury, presents to the ER for having low pulse ox at nursing facility along with wheezing and low potassium levels. Patient is diagnosed with acute hypokalemia and acute exacerbation of heart failure upon admission.
Plan -
Acute hypoxic respiratory failure-
Likely secondary to acute exacerbation of CHF and chronic ILD.
Currently requiring 2 L nasal cannula flow, difficult to wean off.
Chest CT-showed findings significant for small right-sided pleural effusion that is slightly increased in comparison to prior CT with some right lower lobe subsegmental atelectasis, small to moderate left pleural effusion increased extension into
the left major fissure, left basilar opacity suggesting subsegmental atelectasis and possible left perihilar opacity-could present pneumonitis. Slightly prominent pulmonary vascular markings, cardiomegaly with coronary artery calcifications,
diffusely enlarged thyroid gland.
No baseline home oxygen requirement.
Consulted pulmonology to reevaluate for shortness of breath. Pulmonology recommended home O2 assessment.
Not needed any steroids at this point of time.
Acute exacerbation of heart failure, HFpEF-
Currently Lasix and metolazone on hold.
serum creatinine at 1.3. From 1.9 upon admission, lasix held due to contraction alkalosis
Currently on metoprolol. Defer GDMT to cardiology.
Cardiology in follow-up.
Monitor weights, I's and O's.
Sodium restricted diet.
Acute hypernatremia-
No free water deficit, serum sodium trending down with hydration
currently down to 157 from 160. Currently serum sodium at 146, discontinue IV fluids.
Serum sodium trending up again currently at 147, likely secondary to decreased oral intake.
Urine output less than 3000 mL/day
Likely secondary to overdiuresis.
Serum sodium significantly improved.
Hypokalemia-
Potassium repleted, serum potassium at 4.1.
Trend potassium levels.
ETHAN on CKD stage IV-
Likely from cardiorenal syndrome
Improving with IV diuretics, IV diuretics on hold.
Resumed Hydralazine 50 TID, as can benefit in cardiorenal syndrome.
Monitor urine output.
Avoid nephrotoxins.
Outpatient follow-up with nephrology if cleared by cardiology-recommended.
Paroxysmal A-fib with PAT-
S/p AV josé miguel ablation with dual-chamber PPM
High [id number] score,
continue Eliquis at 2.5 mg twice daily (age >80, weight < 60, serum creatinine > 1.5)
Continue metoprolol, flecainide discontinued by cardiology.
Acute hypokalemia-
Likely a confluence of Aldactone and cardiorenal syndrome.
Currently resolved
Replete potassium as needed, trend potassium levels.
Seizure disorder-
On phenobarbital.
Troponin elevation-upon admission.
Likely secondary to demand ischemia.
Normal EKG
No chest pain
Macrocytic anemia-
Folate and B12 levels within normal limits.
Moderate :
monitor over time by echo
Hypertension-
Continue home medication regimen
Hyperlipidemia-
Stop statin.
Depression-
Continue Lexapro
DVT prophylaxis-
Patient already on Eliquis
CODE STATUS-
Full code.
Anticipated Discharge: Within 24 hours
Subjective/Interval History
-
Date of Service: September 04, 2024
Patient is awake, off of oxygen, and is talking in the bed. She reports that her feet still hurts-it is specifically in her bilateral plantar areas, describes the pain as sore in nature. Oriented to time person and place, but not oriented to day
and date.
She still reports of having intermittent episodes of shortness of breath, however states that overall her itching on the neck and the chest, her shortness of breath, her chest tightness and swelling of the feet improved.
Objective Data
-
Labs:
Laboratory Results
09/04/24
06:55
WBC 5.3
Hgb 9.5 L
Hct 29.9 L
Plt Count 142
Sodium 147 H
Potassium 4.1
Chloride 106
Carbon Dioxide 35 H
BUN 62 H
Creatinine 1.3 H
Glucose 109 H
Calcium 9.2
Vital Signs:
Vital Signs
Temp Pulse Resp BP Pulse Ox
97.2 F 89 17 122/48 92
09/04/24 07:00 09/04/24 07:00 09/04/24 07:00 09/04/24 07:00 09/04/24 08:00
I&O
09/03/24 09/04/24 09/05/24
06:59 06:59 06:59
Intake Total 1900 / 1900
Output Total 315 / 315 400 / 400
Balance 1585 / 1585 -400 / -400
Review of Systems
-
History Source: Patient
Constitutional: Reports Fatigue
EENT: Reports No Symptoms Reported
Respiratory: Reports Trouble Breathing
Cardiac: Reports No Symptoms
Abdomen/GI: Reports No Symptoms
Genitourinary: Reports No Symptoms
Musculoskeletal: Reports Other (Bilateral soreness of the feet-plantar pain.)
Neuro: Reports No Symptoms
Hematologic / Lymphatic: Reports No Symptoms
Physical Exam
-
General: Comfortable (On room air.) and Conversant
HEENT: Moist Mucous Membranes, Anicteric, [place] Conjunctivae and PERRLA
Respiratory: Clear to Auscultation (In bilateral upper lobes) and Crackles (In bilateral lower lobes.); Negative Wheezes, Rales or Rhonchi
Cardiac: Regular Rhythm, S1/S2 and Murmur (Systolic, 4/6 in intensity, best heard in the apex.); Negative Rub or Gallop
GI: Soft, Nontender, Nondistended and Normal Bowel Sounds
Musculoskeletal: Edema, Right Lower Extrem (Trace ankle edema) and Edema, Left Lower Extrem (Trace ankle edema)
Neuro: Awake, Alert, Oriented and No Motor Deficits
Psych: Calm
Data Reviewed
-
Labs: Labs Reviewed by me, Discussed with Physician and Discussed with Nurse
--- NOTE | 2024-09-04 10:26 | W.PN.CD ---
Today's Communication / Plan
-
Cont holding diuretics
If D/C cont torsemide STOP metolazone
BMP in 1 week
Impression / Plan
-
resp insuff/hypoxemia
-- patient was treated for HF with diuretic but still requiring O2. Significant weight reduction since admission.
- has COPD and ILD followed by Dr Montano
- CT performed shows some small effusions
- diuretic on hold with severe hypernatremia. Sodium 146 today
Chronic HFpEF:
-not on SGLT2I due to cost; cont torsemide 40mg bid stop metolazone 5mg, as well as aldactone 25mg daily, Kcl 20 mEq daily as outpatient
-s/p IV lasix
Hypernatremia. Severe, requiring hospitalization and close monitoring of labs. Sodium 157. Diuretic being held.
- improving
CKD3a/b. Initial creatinine up to 2.0, now down to 1.2
Moderate : stable, monitor over time by echo.
-echo 03/2024: EF 60-65%, mod
Paroxysmal atrial fibrillation/Paroxysmal atrial tachycardia: EP managed as OP by Dr. Burnett.
-S/P AVN ablation with PPM, was on Flecainide 50mg bid and metoprolol XL 25mg daily as outpatient
- Flecainide is discontinued now.
-she gets outpatient nuclear stress to screen for CAD per EP.
-Oral Anticoagulation: On Eliquis 2.5 mg PO BID.
HTN: stable, monitor
NSVT
-cont ToproL XL
Anemia: follow.
Pulmonary HTN: diuretic plan as above.
-PASP 75 on last echo
Seizure disorder, on phenobarbital - stable.
Subjective: FEels OK
Physical Exam
Vital Signs/Labs
Vital Signs
Temp Pulse Resp BP Pulse Ox
97.2 F 89 17 122/48 92
09/04/24 07:00 09/04/24 07:00 09/04/24 07:00 09/04/24 07:00 09/04/24 08:00
09/03/24 09/04/24 09/05/24
06:59 06:59 06:59
Actual Weight 130 lb 2 oz 133 lb
09/04/24 06:55
09/04/24 06:55
Magnesium 2.3 mg/dl (1.6-2.3) 08/29/24 05:47
Triglycerides 55 mg/dl (10-149) 08/29/24 05:47
LDL Cholesterol, Calc 60 mg/dl 08/29/24 05:47
VLDL Cholesterol, Calc 11 mg/dl (0-30) 08/29/24 05:47
HDL Cholesterol 58 mg/dl 08/29/24 05:47
08/28/24
10:01
[id number] Pept [id number]
Physical Exam
Constitutional: No acute distress and Comfortable
EENT: Anicteric
Cardiovascular: Rhythm & rate is regular and Pedal edema is absent
Respiratory: Respiratory effort normal and Crackles Present (mild)
GI: Soft
Neuro/Psych: Alert and Oriented
Data Reviewed
-
Date of Service: September 04, 2024
EKG: Tracing Personally Visualized and interpreted (sr)
Echo: Report Reviewed by me
Labs: Labs Reviewed by me
[2024-09-04 11:00] VITALS: BP 97/39
--- NOTE | 2024-09-04 11:11 | CM ---
Addendum entered by Aurora Browning 09/04/24 12:07:
Patient for discharge today, call to nurse Franchesca at [facility], discussed O2 will be delivered by [facility], will schedule ambulance transport. Call to patients son, Lloyd, discussed plan for discharge, IMM verbally reviewed, form
placed on chart.
Original Note:
CM reviewed chart, spoke with patients nurse Yvonne at , reviewed PT notes, able to accept patient back, will require script for PT/OT with [facility] upon discharge. Patient will require O2, will need oxygen delivered to facility prior to
patient returning. Script faxed to [facility]. Patient will require ambulance transport upon discharge. CM will continue to follow for all discharge planning needs.
[facility]
Report: [phone] ask for nurse
--- NOTE | 2024-09-04 14:00 | PN.CDI ---
CDI
- -
CDI:
Physician Documentation Request
Admit Date: 08/28/24 12:57
Dear Doctor Elizabeth,
Please review the following and provide your response in the progress notes.
The purpose of this query to ensure the accuracy of the conditions reported for your patient.
Clinical indicators:
H+P, 08/28
#Abn TPNI suspect NIMI to acute HF
#...NOS EKG
PN, 09/04
#Troponin elevation-upon admission.
#...Likely secondary to demand ischemia.
#...Normal EKG
Laboratory Tests
08/28/24
10:01
Troponin I 0.030
Please clarify the etiology of the elevated troponin:
Non-ischemic myocardial injury
Demand Ischemia
Other (please specify)
Type of ID
Type I
Type II (due to demand ischemia)
Other (Type 3, 4a, 4b, 4c, 5) please specify
Use of terms such as suspected, likely, concern for, or probable (associated with a specific diagnosis that is being evaluated, monitored, or treated as if it exists) are acceptable and can be coded in the inpatient setting, when documented at the
time of discharge.
Thank you,
Claudia Pearce RN BSN CCDS
CDI Specialist
Please contact via tiger text
Please use your independent medical judgment in providing your response.
--- NOTE | 2024-09-04 14:09 | PN.CDI ---
CDI
- -
CDI:
Physician Documentation Request
Admit Date: 08/28/24 12:57
Dear Doctor Elizabeth,
Please review the following and provide your response in the progress notes.
Clinical Indicators:
Selected Entries
08/28/24
19:30
Pressure injury stage [Present on admission Left Buttock] Stage 1
Physician documentation of the type and location of wounds is required for compliant documentation. Based on the above clinical findings and your assessment, please provide the following in your progress note:
Yes, Stage 1 left buttock, pressure injury, POA
No, Stage 1 left buttock, pressure injury
Other (please specify)
Location of the ulcer/wound, including laterality.
Type (etiology) of ulcer/wound:
- Diabetic ulcer
- Pressure (decubitus) ulcer
- Other
For a pressure ulcer, please also include the stage* of the ulcer:
- Stage 1 - Skin intact, non-blanchable redness
- Stage 2 - Partial thickness loss of dermis, includes intact or open blister
- Stage 3 - Full thickness tissue not including bone, tendon or muscle
- Stage 4 - Full thickness tissue loss, including exposed bone, tendon or muscle
- Unstageable - Full thickness loss in which the base of the ulcer is covered by slough (yellow, chau, augustin, green or brown) and/or eschar (chau, brown or black) in the wound bed.
- Unable to determine
Use of terms such as suspected, likely, concern for, or probable (associated with a specific diagnosis that is being evaluated, monitored, or treated as if it exists) are acceptable and can be coded in the inpatient setting, when documented at the
time of discharge.
Thank you,
Claudia Pearce RN BSN CCDS
CDI Specialist
Please contact via tiger text
Please use your independent medical judgment in providing your response.
*Source: National Pressure Ulcer Advisory Panel (NPUAP)
--- NOTE | 2024-09-04 15:12 | W.DCSUMMARY ---
Discharge Summary
Discharge Data
Date of Admission: 08/28/24
Date of Discharge: 09/04/24
-
Pending Results: No
Hospital Course
Assessment- 83-year-old female with PMHx significant for paroxysmal (s/p PVI X 2, on Eliquis, after AV josé miguel ablation), [employer] dual-chamber PPM, chronic HFpEF, moderate , pulmonary hypertension, hypertension, CKD stage IV, COPD/ILD, amiodarone
associated lung toxicity/injury, presents to the ER for having low pulse ox at nursing facility along with wheezing and low potassium levels. Patient is diagnosed with acute hypokalemia and acute exacerbation of heart failure upon admission.
PCP - Oh Jolly
Primary Discharge diagnosis -
Acute exacerbation of HFpEF
Acute hyponatremia from overdiuresis
ETHAN
Secondary discharge diagnosis-
Hypokalemia
Hypernatremia
Acute metabolic encephalopathy from hyponatremia.
Hospital course-
Upon admission to the hospital, Cortney Lyon was found to be in acute heart failure-an exacerbation of her previous HFpEF, and was started on IV Lasix and was diuresed for 3 days. Upon diuresing her serum sodium went up to 160, her Lasix was
held, and a chest CT was obtained as patient was difficult to wean off from oxygen. 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 Pulmonology was
consulted to evaluate her shortness of breath-pulmonology recommended home O2 for several days and outpatient and they recommended the same during the inpatient and signed off.
Cardiology also cut down back on patient's hydralazine to 50 mg 3 times a day from 100 mg 3 times a day, stopped patient's flecainide, stopped patient's atorvastatin, and continued patient's metoprolol. Patient was given D5 water to treat
hypernatremia at 160. IV hydration with D5 for 2 days resulted in volume reexpansion and resolved the patient's hypernatremia, serum sodium at 146 on day of discharge. Given patient's severe pulmonary hypertension, fluids are also likely helping
her shortness of breath. Patient was assessed for home oxygen, and qualified to be on home oxygen for her shortness of breath and hypoxia. Patient was discharged home on multiple medication changes along with home oxygen.
Her ETHAN-serum creatinine of 1.9 upon admission improved to 1.3 which is her baseline on the day of discharge with Lasix and IV hydration.
Workup in the hospital-
Chest Ct - 08/31/24 -
Limited evaluation without intravenous contrast as well as result of some respiration/motion artifact.
Small right pleural effusion slightly increased in comparison to prior CT with some right lower lobe subsegmental atelectasis.
Small to moderate left pleural effusion again seen with increased extension into the left major fissure.
Left basilar opacity at least suggesting subsegmental atelectasis (cannot exclude pneumonia) and some possible left perihilar opacity which could represent pneumonitis.
Evaluation of hilum markedly limited bilaterally without intravenous contrast, cannot exclude lymphadenopathy, especially left hilar. In addition, small left hilar mass cannot be excluded.
Slightly prominent pulmonary vascular markings, cannot exclude mild pulmonary edema.
Cardiomegaly with coronary artery calcifications.
Diffusely enlarged thyroid gland again seen suggesting goiter.
Chest X ray -08/26/2024-
Small bilateral pleural effusions.
Cardiomegaly with increased reticulonodular markings throughout both lungs, pattern most suggestive of pulmonary edema.
New focal area of confluent parenchymal opacity in the medial left base with loss of definition of the medial left hemidiaphragm, most likely atelectasis.
Echocardiogram-03/26/2024 -
Normal left ventricular size and systolic function with moderate concentric LV
hypertrophy and no regional wall motion abnormalities. LVEF 60-65%.
Dilated right ventricle with mildly reduced systolic function.
Severe biatrial enlargement.
Moderate aortic stenosis.
Mild tricuspid regurgitation with severe pulmonary hypertension (PASP 75 mmHg).
Pleural effusion is present.
Discharge Plan
-
Patient Disposition: Assisted Living
Discharge Diagnosis/Procedures: Acute exacerbation of HFpEF, acute hypernatremia secondary to over -diuresis
Condition: Fair
Diet: 2 Gram Sodium and Restrict fluids to 64 oz
Activity: No restrictions and As tolerated
Driving Restrictions: As prior to admission
Bathing Restrictions: None
Blood Work: BMP in 1 week
Other Services: VN, PT and OT
Instructions: *CBC Heart Failure Instructions
Referrals:
Oh Calvin MD [Family Provider] - in less than 1 week
Dae Candelario MD [Active, Cardiology] - in one month
Prescriptions:
New
ammonium lactate 12 % Lotion
3 applic topical BID 30 Days Qty: 90 0RF
hydralazine 50 mg Tablet
50 mg PO TID 30 Days Qty: 90 2RF
Continued
phenobarbital 32.4 MG tablet
64.8 mg PO HS
phenobarbital 32.4 MG tablet
32.4 mg PO DAILY
Patient Comments:
Eliquis 2.5 mg tablet
2.5 mg PO BID Qty: 60 0RF
escitalopram oxalate [Lexapro] 10 mg Tablet
10 mg PO DAILY
acetaminophen [Tylenol] 325 mg Tablet
650 mg PO Q6HPRN PRN (Reason: mild pain)
lidocaine 4 % Adhesive Patch,Medicated
2 patch TOPICAL DAILY
magnesium hydroxide [Milk of Magnesia] 400 mg/5 mL Suspension
400 mg PO Q4HPRN PRN (Reason: constipation-4 hour inbetween doses)
albuterol sulfate 90 mcg/actuation Hfa Aerosol Inhaler
2 puff INHALATION R Q6HPRN PRN (Reason: sob)
torsemide 20 mg tablet
40 mg PO BID
metoprolol succinate 25 MG tablet extended release 24 hr
25 mg PO BID 30 Days Qty: 60 0RF
Discontinued
atorvastatin 10 MG tablet
10 mg PO DAILY
hydralazine 100 mg tablet
100 mg PO TID
flecainide 50 mg tablet
50 mg PO BID
spironolactone 25 mg Tablet
25 mg PO DAILY 30 Days Qty: 30 0RF
hydrocortisone 0.5 % Cream
1 applic TOPICAL BID
diphenhydramine HCl [Benadryl] 25 mg Capsule
25 mg PO [id number] PRN (Reason: allergies)
potassium chloride 20 mEq Tablet Extended Release
20 meq PO DAILY
metolazone 5 mg tablet
5 mg PO MOWEFR
Rx Instructions:
Take Sunday
Discharge Orders:
Discharge Patient (As Directed); Ordered 09/04/24
Ordered By: Toya Johnson
Discharge Date and Time
Print Language: CYMRO
[2024-09-04 15:30] VITALS: BP 100/42
[2024-09-04] MEDS: APRESOLINE PO (15:31)
== END 2024-09-04 16:29 | disposition home or self-care (01) | DRG 291 ==
LOC: 4 WEST ACU 12:57
PROVIDERS: Hospitalist; Nurse Practitioner; Nurse Practitioner Gerontology; Registered Nurse; Student in an Organized Health Care Education/Training Program; ADMITTING PHYSICIAN Internal Medicine; ATTENDING PHYSICIAN Internal Medicine; CONSULT PHYSICIAN Internal Medicine Cardiovascular Disease; EMERGENCY PHYSICIAN Student in an Organized Health Care Education/Training Program; FAMILY PHYSICIAN Family Medicine; OTHER PHYSICIAN Internal Medicine Critical Care Medicine; REFERRING PHYSICIAN Internal Medicine
DX: I13.0 Hypertensive heart and chronic kidney disease with heart failure and stage 1 through stage 4 chronic kidney disease, or unspecified chronic kidney disease (principal); I50.33 Acute on chronic diastolic (congestive) heart failure; J96.01 Acute respiratory failure with hypoxia; N18.4 Chronic kidney disease, stage 4 (severe); I47.19 Other supraventricular tachycardia; N17.9 Acute kidney failure, unspecified; E87.0 Hyperosmolality and hypernatremia; J84.9 Interstitial pulmonary disease, unspecified; E87.1 Hypo-osmolality and hyponatremia; Z87.891 Personal history of nicotine dependence; E87.6 Hypokalemia; I48.0 Paroxysmal atrial fibrillation; D64.9 Anemia, unspecified; G40.909 Epilepsy, unspecified, not intractable, without status epilepticus; E78.00 Pure hypercholesterolemia, unspecified; J44.89 Other specified chronic obstructive pulmonary disease; Z79.01 Long term (current) use of anticoagulants; I5A Non-ischemic myocardial injury (non-traumatic); L89.321 Pressure ulcer of left buttock, stage 1
CPT/HCPCS: 36600; 71046; 71250; 80048; 80053; 80061; 81003; 81015; 82607; 82746; 82805; 83735; 83880; 84443; 84484; 85025; 85027; 87070; 87086; 87088; 87147; 87186; 93005; 96374; 97116; 97163; 97167; 97530; 97535; 99285

== ENCOUNTER 2024-09-21 12:49 | Inpatient (IN) | payer OTHER, SELFPAY ==
[2024-09-21] VITALS (12 sets, daily range): BP systolic 100–136; BP diastolic 46–64; BMI 27.6; BMI 25.8; BMI 25.7
[2024-09-21 09:39] LABS: % Basophils 0.4 % (0-2); % Eosinophils 4.4 % (0-6); % Immature Granulocytes 0.4 % (0-0.5); % Lymphocytes 12.8 % (20.5-51.1); % Monocytes 10.2 % (1.7-9.3); % Neutrophils 71.8 % (42.2-75.2); Absolute Eosinophils 0.3 10^3/uL (0-0.7); Absolute Lymphocytes 0.7 10^3/uL (1.2-3.4); Absolute Monocytes 0.6 10^3/uL (0.1-0.6); Absolute Neutrophils 4.1 10^3/uL (1.4-6.5); Hematocrit 29.2 % (37.0-47.0); Hemoglobin 9.5 g/dL (12.0-16.0); Mean Corp Hgb Conc. 32.5 g/dL (33.0-37.0); Mean Corpuscular Hgb 32.1 pg (27.0-31.0); Mean Corpuscular Volume 98.6 fL (81.0-99.0); Mean Platelet Volume 10.7 fL (7.4-10.4); Nucleated Red Blood Cells % 0 %; Platelet Count 223 10^3/uL (130-400); Red Blood Cell Count 2.96 10^6/uL (4.20-5.40); Red Cell Dist. Width 15.8 % (11.5-14.5); White Blood Cell Count 5.7 10^3/uL (4.8-10.8)
[2024-09-21 09:53] LABS: ALT (SGPT) 27 U/L (0-35); AST (SGOT) 43 U/L (14-36); Albumin 3.6 g/dl (3.5-5.0); Alkaline Phosphatase 132 U/L (38-126); Blood Urea Nitrogen 91 mg/dl (7-17); Calcium 8.8 mg/dl (8.4-10.2); Carbon Dioxide 27 mmol/L (22-30); Chloride 102 mmol/L (98-107); Estimated Creatinine Clearance 22 ml/min; Glucose 109 mg/dl (70-99); Potassium 3.9 mmol/L (3.5-5.1); Sodium 138 mmol/L (135-145); Total Bilirubin 0.6 mg/dl (0.2-1.3); Total Protein 7.5 g/dl (6.3-8.2)
[2024-09-21 10:06] LABS: NT-proBNP 13800 pg/ml; Troponin I 0.048 ng/ml
--- NOTE | 2024-09-21 10:09 | ED.GENMED ---
History of Present Illness
General
Chief Complaint: Breathing Problem
Source: patient, ambulance crew and long term
Exam Limitations: none
Time Seen by Provider: 09/21/24 09:28
Nursing documentation reviewed up to this point in time: agreed with
History of Present Illness
History of Present Illness:
Patient presents to emergency department from long term secondary to increased weight gain recently along with decreased oxygen level, noted by nursing staff this morning. Patient found to be hyper at scene by paramedics with initial pulse ox
87%, improved with supplemental oxygen. Patient does have history of atrial fibrillation on Eliquis with recent admission to the hospital where she was treated for CHF exacerbation. Patient denies fever or chills. Denies chest pain. Denies
nausea, vomiting, or diarrhea. Denies coughing. Patient does report increased leg swelling. Denies back pain.
Past History
Past History
ED Past Medical History: Arrthythmia (afib, cardioversions.), Asthma, CHF, COPD, HTN, Hypercholesterolemia, Other (Obstructive sleep apnea, interstitial lung disease, bilateral lower extremity edema, right truncal varicella-zoster 2020) and Other
(History of seizure); Negative Renal failure (Stage IIIb chronic kidney disease)
ED Past Surgical History: Cardiac (Cardioversion. Ablation X 2, pacemaker), Gynecological (Hysterectomy), Orthopedic (Bilateral shoulder surgeries, back surgery x 2, bilateral TKA) and Other (Foot surgery, breast biopsy)
Patient has exhibited threatening behavior?: No
Social History
Tobacco: Non-smoker
Alcohol: None
Drug: None
Personal:
Living: alone
Employment: Retired
Family History
Family History: CAD
Review of Systems
Review of Systems
Allergies reviewed?: Yes
All Other Systems: ROS reviewed and negative except as documented in HPI and ROS
Constitutional: Reports no symptoms; Denies fever
Respiratory: Reports trouble breathing; Denies cough
Cardiac: Reports no symptoms; Denies chest pain
ABD/GI: Reports no symptoms
Musculoskeletal: Reports edema
Skin: Reports no symptoms
Neurological: Reports no symptoms
Phy Exam
Physical Exam
Physical Exam:
Physical Exam
General: mild respiratory distress, chronically ill appearing. afebrile
Head: nc/at. eomi
Neck: supple. no meningeal signs. no jvd
Heart: s1/s2 regular rate and rhythm
Lungs: mild respiratory distress. crackles bilaterally
Abdomen: normal bowel sounds. not tender.
Neuro: alert and oriented x 3. no focal neurological deficits
Skin: no rash
Psychiatric: well kept. interactive and cooperative
Extremities: b/l LE edema. no calf tenderness.
Scores
Heart Failure Risk
Heart Failure Risk Score: Yes
History of Stroke or TIA: No
History of intubation for respiratory distress: No
Heart rate on ED arrival >/= 110: No
SaO2 <90% on arrival on room air: Yes
HR >/=110 during 3min walk test (or too ill to perform test): No
ECG has acute ischemic changes: No
Urea >/=12mmol/L (BUN 33.6mg/dL): Yes
Serum CO2>/=35mmol/L: No
Troponin I or T elevated to IL Level (0.4mg/dL): No
NT-proBNP >/=5,000ng/L (5,000pg/ml): Yes
HF Risk Score: 3
Admission Status: HIGH RISK 15.9% Consider SNF treatment or admission to hospital
Course
Orders/Labs/Results
Orders:
Orders
09/21/24 09:30
EKG [Electrocardiogram (*1)] Urgent
Reason for Study: Shortness of Breath
09/21/24 09:31
EKG- Treatment ONCE
09/21/24 09:32
Complete Blood Count/With Diff Urgent
Comprehensive Metabolic Panel Urgent
NT-proBNP Urgent
Troponin I Urgent
09/21/24 Lunch
Cholesterol Lowering
At Your Request: Limited, Drama Director Required
Does patient need a safe tray?: No
Fluid Restriction: 1440 mL/day (48 oz)
Cholesterol Lowering: Sodium, 2 Gram
09/21/24 10:02
CR Chest - 2 Views Urgent
Comment:
Reason For Exam: sob/hypoxia
09/21/24 10:03
Furosemide [Lasix] 20 mg IV NOW STA
09/21/24 10:47
Arterial Blood Gas Urgent
%Oxygen/Room Air: 90
09/21/24 11:47
Admit/Transfer Patient As Directed
Co-Sign Provider:
Level of Care: Inpatient admission
Assign to:: Telemetry
Physician / Group: Vladimir
Diagnosis: Acute CHF
Reason for Telemetry: Acute Heart Failure
Date to Stop Telemetry: 09/24/24
Time to Stop Telemetry: 11:00
Reason for Hospitalization: See progress note
Expected length of stay greater than two midnights?: Yes
ELOS- Estimated Length of Stay in days: 4
I certify the patient meets the requirements for IP care: Yes
09/21/24 11:54
PRN Pain Medication Management As Directed
May give lesser potent ordered pain med per pt: Yes
preference::
Protocol:: Medication orders for pain may be administered in a
manner that supports deferring to patient preference
when the pt is:
- Requesting an ordered lesser potent pain medication.
Least to most potent pain medications are defined
as: acetaminophen < NSAID < tramadol < opioids
(morphine, oxycodone, hydromorphone).
- Requesting a lesser dose of the same medication IF
ORDERED.
- Requesting a less intrusive route of administration
if both routes are prescribed by the provider (PO <
IV).
09/21/24 11:55
Code Status As Directed
Resuscitation Status: Full Code
09/21/24 13:39
CARDIOLOGY CONSULT Routine
Consulting Provider: Raji Kam
Was physician already notified: Yes
Reason for consult: chf
HF DIETARY CONSULT Routine
HF EDUCATOR CONSULT Routine
Comment:
Activity As Directed
Activity Level: As Tolerated
Intake/ Output As Directed
Frequency: Per unit guidelines
Nursing to Place Non Medication Order As Directed
Physician Order: [place] text once her med rec is complete to reconcile home medication
Above order entered?: Yes
Patient Education As Directed
Type: CHF folder
Comment: give on admission. Document in Interdisciplinary Education record
Sleep Apnea Assessment by RN As Directed
Comment:
Physician Instructions:
Vital Signs As Directed
Frequency: Other
Additional Instructions:: Q12 or per unit guidelines if more frequent.
Weight As Directed
Frequency: Daily
Type of Scale: Standing Scale
Comment: Daily morning weight. If unable to stand, use balanced bed scale.
Weight As Directed
Frequency: Once
Type of Scale: Standing Scale
Comment: Upon Admission. If unable to stand, use balanced bed scale.
O2 Therapy [RESP] Routine
Nasal Cannula Liter Flow: 2 LPM
Titrate/Wean O2 to maintain O2 sat greater than (%): 93
Pulse Ox/cont/shift [RESP] Routine
Quantity: 1
Special Instructions: Daily pulse oximetry at rest. If greater than 92% at rest also obtain pulse oximetry
while ambulating as tolerated.
Pt Eval And Treat Routine
Activity Level: As Tolerated
09/21/24 13:57
Troponin I Q6H
Comment: at admission & every 6 hours x 2 (3 total), ECG to be done with each level
09/21/24 16:00
Furosemide [Lasix] 40 mg IV BID AT 0800,1600
09/21/24 19:39
Troponin I Q6H
Comment: at admission & every 6 hours x 2 (3 total), ECG to be done with each level
09/21/24 20:00
Apixaban [Eliquis] 2.5 mg PO BID
09/22/24 01:39
Troponin I Q6H
Comment: at admission & every 6 hours x 2 (3 total), ECG to be done with each level
09/22/24 06:00
Basic Metabolic Panel IN AM
Magnesium IN AM
09/23/24 06:00
Basic Metabolic Panel IN AM
09/24/24 06:00
Basic Metabolic Panel IN AM
09/24/24 11:00
DC Protocol for Telemetry ONCE
Abnormal Lab Results
09/21/24 09/21/24
09:32 10:47
RBC 2.96 L 10^6/uL
(4.20-5.40)
Hgb 9.5 L g/dL
(12.0-16.0)
Hct 29.2 L %
(37.0-47.0)
MCH 32.1 H pg
(27.0-31.0)
MCHC 32.5 L g/dL
(33.0-37.0)
RDW 15.8 H %
(11.5-14.5)
MPV 10.7 H fL
(7.4-10.4)
Absolute Lymphs (auto) 0.7 L 10^3/uL
(1.2-3.4)
Lymphocytes % 12.8 L %
(20.5-51.1)
Monocytes % 10.2 H %
(1.7-9.3)
pCO2 44 H mmHg
(32-35)
HCO3 28.5 H mmol/L
(21-28)
BUN 91 H mg/dl
(7-17)
Creatinine 1.8 H mg/dL
(0.6-1.0)
Glucose 109 H mg/dl
(70-99)
AST 43 H U/L
(14-36)
Alkaline Phosphatase 132 H U/L
(38-126)
Troponin I 0.048 H* ng/ml
09/21/24 09:32
09/21/24 09:32
Vital Signs
Initial and Last Documented VS:
Initial Vital Signs
Temp Pulse Resp BP Pulse Ox
98.0 F 68 20 120/53 89
09/21/24 09:23 09/21/24 09:23 09/21/24 09:23 09/21/24 09:23 09/21/24 09:23
Last Documented Vital Signs
Temp Pulse Resp BP Pulse Ox
97.7 F 61 16 112/53 96
09/21/24 15:30 09/21/24 15:30 09/21/24 15:30 09/21/24 15:30 09/21/24 15:30
MDM/Problems Addressed
MDM/Problems Addressed:
History and exam consistent with symptoms secondary to fluid overload. Patient will be admitted for further evaluation and treatment, including continual IV diuresis.
*Pulse Oximetry
Patient hypoxic: yes (89%)
*Critical Care Note
Total Time (30-74mins, 75-104mins- exclusive of procedures): Not Applicable
ED Attending Note
-
Portions of this chart may have been created with voice recognition software.� Occasional wrong word or��sound alike� substitutions may have occurred due to the inherent limitations of voice recognition software.
Discharge Plan
Departure
Patient Disposition: Admit
Date of Disposition: 09/21/24
Time of Disposition: 10:16
Admit to: Telemetry
Presentation/result/management discussed w/ accepting MD/DO: Hospitalist
Discharge Problem:
Hypoxia, Fluid overload
Interventions
Interventions:
*Risk Screen - Suicide Last Done: 09/21/24 09:23
*General Assessment Last Done: 09/21/24 09:23
*Neglect/Abuse Screening Last Done: 09/21/24 09:23
*ED- Fall Risk Assessment Last Done: 09/21/24 09:23
*ED COVID-19 Vaccine History Last Done: 09/21/24 09:23
*Nursing Disposition Last Done: 09/21/24 13:29
ED- Cardiac Assessment Last Done: 09/21/24 11:45
ED- Pulmonary Assessment Last Done: 09/21/24 11:45
Discharge Date and Time
Discharge Date/Time: 09/21/24 13:30
[2024-09-21 10:53] LABS: B.E. 3.6 mmol/L; HCO3 28.5 mmol/L (21-28); O2 Saturation % 97.9 % (94-98); PCO2 44 mmHg (32-35); PO2 91 mmHg (83-108); pH 7.42 (7.35-7.45)
[2024-09-21] MEDS: LASIX 20 MG IV (11:05)
--- NOTE | 2024-09-21 12:35 | HPS.HSE ---
Family Physician
-
Family Physician: Zehra Harvey
Chief Complaint
-
Increasing weight gain, hypoxia, shortness of breath
History of Present Illness
Patient lives in an assisted living. They assist with the medications at the assisted living but they do not watch her diet. According to them daughter she has no fluid restriction. She is been gaining weight again after recent discharge 2 weeks
ago for heart failure episode. Apparently she was put on metolazone as well. They called the cardiology office on Sunday but did not hear back so they sent the patient to the hospital. Apparently she was going to see the wheelage clerk next week
and get some testing done.
At the assisted living facility they found the decreased oxygenation of 87% improved with supplemental oxygen.
On discussions with daughter today she says patient was in fact discharged on home O2 at 2 L but mom does not wear them consistently. Many times when she visited mom was without oxygen.
Patient is comfortable currently but I can see tachypnea. She denies shortness of breath at rest. Denies any cough, chest pain or palpitations. She is oxygenating well on 2 L of oxygen. property assessment monitor shows AV paced controlled rhythm.
Patient denies any nausea vomiting or abdominal pain.
Patient denies any fever or chills.
Medical History
Past Medical History
Past Medical History: Reports Other
Additional Past Medical History:
Paroxysmal atrial fibrillation status post AV josé miguel ablation status post pacemaker implantation
COPD
GIOVANY on CPAP
Primary hypertension hyperlipidemia
Seizure disorder
Chronic anemia
Chronic HFpEF
Aortic stenosis
Past Surgical History: Reports Other
Additional Past Surgical History:
PPM Placement
R Foot Surgery
MOHS surgery
Social History
Tobacco: Non-smoker
Alcohol: None
Family History
Family History: Not pertinent
Allergies / Home Medications
Allergies reflects when Allergies were last updated in [facility].
Home Medications with original date entered in [facility]
Allergy/Medication List:
Allergies
Allergy/AdvReac Type Severity Reaction Status Date / Time
adhesive tape Allergy Rash Verified 06/12/24 20:37
cefuroxime [From Ceftin] Allergy throat Verified 06/12/24 20:37
closes
ragweed pollen Allergy Unknown Verified 06/12/24 20:37
Sulfa (Sulfonamide Allergy throat Verified 06/12/24 20:37
Antibiotics) closes
Home Medications
atorvastatin 10 mg tablet 10 mg PO QPM High cholesterol 10/21/20
phenobarbital 32.4 mg tablet 32.4 mg PO DAILY Seizures 10/21/20
phenobarbital 32.4 mg tablet 64.8 mg PO HS Seizures 10/21/20
flecainide 50 mg tablet 50 mg PO BID Arrhythmia 06/21/23
hydralazine 100 mg tablet 100 mg PO TID Blood Pressure 06/21/23
metoprolol succinate 25 mg tablet,extended release 24 hr 25 mg PO DAILY Blood pressure 01/24/24
torsemide 20 mg tablet 40 mg (2 x 20 mg) PO BID@0800,1600 30 days #120 tabs 03/27/24
apixaban 2.5 mg tablet (Eliquis) 2.5 mg PO BID #60 tabs 03/28/24
escitalopram oxalate 10 mg tablet (Lexapro) 10 mg PO DAILY 06/13/24
Review of Systems
-
Constitutional: Denies Fever
EENT: Denies Sore Throat
Respiratory: Denies Cough or Trouble Breathing
Cardiac: Denies Chest Pain
Abdomen/GI: Denies Abdominal Pain, Nausea or Vomiting
: Denies Dysuria
Musculoskeletal: Denies Joint Pain
Neurological: Denies Dizzy
Psych: Reports Calm
Physical Exam
Vital Signs
Vital Signs
Temp Pulse Resp BP Pulse Ox
98.0 F 62 22 134/63 96
09/21/24 09:23 09/21/24 11:05 09/21/24 09:45 09/21/24 11:05 09/21/24 09:45
Physical Exam
General: No Apparent Distress
HEENT: Moist mucous membranes
Respiratory: Crackles (coarse BL lower zones) and Non Labored Respirations; No Wheezes or Accessory Resp Muscle Use
Cardiac: S1/S2 and Regular Rhythm
GI: Soft and Non Tender
Musculoskeletal: Edema, Left Lower Extremity and Edema, Right Lower Extremity
Neuro: Awake, Alert, Oriented and No Motor Deficits
Psych: Calm
Laboratory Results
-
09/21/24 09:32
09/21/24 09:32
Laboratory Results
pH 7.42 (7.35-7.45) 09/21/24 10:47
pCO2 44 mmHg (32-35) H 09/21/24 10:47
pO2 91 mmHg (83-108) 09/21/24 10:47
HCO3 28.5 mmol/L (21-28) H 09/21/24 10:47
Total Bilirubin 0.6 mg/dl (0.2-1.3) 09/21/24 09:32
AST 43 U/L (14-36) H 09/21/24 09:32
ALT 27 U/L (0-35) 09/21/24 09:32
Alkaline Phosphatase 132 U/L (38-126) H 09/21/24 09:32
Troponin I 0.048 ng/ml H* 09/21/24 09:32
Data Reviewed
-
Diagnostic Radiology: Report Reviewed by me (cxr)
Lab Data: Labs Reviewed by me
Impression/Plan
-
Acute heart failure on chronic heart failure with preserved EF
If today's weight is true she has gained 27 pounds. It is evident with bilateral lower extremity edema, increased BNP, chest x-ray pulm edema.
Noted to have a normal EF but she has moderate aortic stenosis on echo within the last year.
Doubt acute coronary syndrome-no chest pain. Hard to read EKG with AV paced rhythm. Troponins 0.048 indicating an injury pattern.
Admit to hospital//telemetry
Switch to IV Lasix 40 mg twice daily
Follow I&O's and weight daily
Consult cardiology
Trend troponins
Follow A-fib on the monitor
Consider repeating echocardiogram
Interstitial lung disease from prior amio use
No active reactive airway disease
Acute on chronic kidney disease stage III
Unclear if related to CHF
No extrarenal losses
Follow creatinine with IV diuresis closely
History of paroxysmal atrial fibrillation s/p AV josé miguel ablation and permanent pacemaker in place.
AV paced rhythm noted. Continue with Eliquis and beta-mauro. Recently flecainide was discontinued by cardiology
Following telemetry
Normocytic anemia-
Chronic in nature
H&H stable. Continue to follow
Moderate :
Considering repeating an echo
Hypertension-
Continue home medication regimen
Hyperlipidemia-
Stop statin.
Depression-
Continue Lexapro
DVT prophylaxis-
Patient already on Eliquis
CODE STATUS-
Full code.
Discussed with daughter Chanelle regarding clinical situation, testing results, treatment plan.
Patient has a living will - wishes to have resuscitation for any acute reversible events but not prolonged ventilator support if the prognosis is poor
--- NOTE | 2024-09-21 14:04 | CON.CAR ---
Consultation
Consultation Request
Date/Time Consultation Requested: 09/21/2024 at 13:39
Date/Time Consultation Performed: 09/21/2024 at 14:00
Requesting Provider: Jose M Gilbert MD
Performing Provider: Raji alejandra MD
Reason for Consultation: CHF
Medical History
-
Chief Complaint: SOB, weight gain
History of Present Illness:
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 She is here for eval of weight gain. She was
recently hospitalized at for CHF exacerbation 08/28 - 09/04. She underwent IV diuresis of course was complicated by hyponatremia. She was discharged on torsemide 40 mg twice daily and metolazone (previously MWF) was stopped. Since discharge she
has been gaining weight and called our office. She was instructed to resume metolazone on Mondays and Fridays. She then became hypokalemic so potassium supplementation was added. Despite that she continued to gain weight, and metolazone was
increased to MWF. She continued to gain weight so was brought back to the ED. She reports mild shortness of breath but otherwise feels okay.
Past Medical History
Past Medical History: Arrhythmias, CHF, COPD, HTN, Hypercholesterolemia, Valvular Disease and Other (as above)
Social History
Tobacco: Non-Smoker
Family History
Family History: Reviewed & Not Pertinent
Allergies / Home Medications
Allergy/AdvReac Type Severity Reaction Status Date / Time
adhesive tape Allergy Rash Verified 09/21/24 09:28
amiodarone Allergy Unknown Verified 09/21/24 09:28
cefuroxime (From Ceftin) Allergy throat Verified 09/21/24 09:28
closes
ragweed pollen Allergy Unknown Verified 09/21/24 09:28
Sulfa (Sulfonamide Allergy throat Verified 09/21/24 09:28
Antibiotics) closes
�Medication �Instructions �Recorded �Confirmed �Type
phenobarbital 32.4 mg tablet 32.4 mg PO DAILY Seizures 10/21/20 09/21/24 History
phenobarbital 32.4 mg tablet 64.8 mg PO HS Seizures 10/21/20 09/21/24 History
apixaban 2.5 mg tablet (Eliquis) 2.5 mg PO BID #60 tabs 03/28/24 09/21/24 Rx
escitalopram oxalate 10 mg tablet 10 mg PO DAILY Depression 06/13/24 09/21/24 History
(Lexapro)
acetaminophen 325 mg tablet 650 mg PO Q6HPRN PRN mild 08/28/24 09/21/24 History
(Tylenol) pain/fever
albuterol sulfate 90 mcg/actuation 1 puff inhalation R Q4HPRN PRN copd 08/28/24 09/21/24 History
aerosol inhaler
lidocaine 4 % topical patch 2 patch topical DAILY left ribs 08/28/24 09/21/24 History
magnesium hydroxide 400 mg/5 mL 400 mg PO Q4HPRN PRN constipation 08/28/24 09/21/24 History
oral suspension (Milk of Magnesia)
torsemide 20 mg tablet 40 mg PO BID Fluid 08/28/24 09/21/24 History
Retention/Swelling
metoprolol succinate 25 mg 25 mg PO BID Blood pressure 30 09/04/24 09/21/24 Rx
tablet,extended release 24 hr days #60 tabs
ammonium lactate 12 % lotion 1 applic topical BID 09/21/24 09/21/24 History
flecainide 50 mg tablet 50 mg PO BID 09/21/24 09/21/24 History
hydralazine 50 mg tablet 50 mg PO TID Hypertension 09/21/24 09/21/24 History
metolazone 5 mg tablet 5 mg PO MOWEFR 09/21/24 09/21/24 History
potassium chloride 20 mEq 20 meq PO BID 09/21/24 09/21/24 History
tablet,extended release(part/cryst)
Review of Systems
-
All other systems: Negative unless noted
Physical Exam
Vital Signs
Temp Pulse Resp BP Pulse Ox
97.7 F 71 16 136/62 98
09/21/24 13:44 09/21/24 13:44 09/21/24 13:44 09/21/24 13:44 09/21/24 13:44
Lab Results
09/21/24 09:32
09/21/24 09:32
Troponin I 0.048 ng/ml H* 09/21/24 09:32
Atq-S-Fmhmkiqmvol Pept 64213 pg/ml 09/21/24 09:32
Physical Exam
General: Well Developed and Well Nourished
Respiratory: Crackles and Non Labored Respirations
Cardiac: S1/S2, Regular Rhythm, Murmur (Systolic) and Peripheral Edema (Nonpitting, bilateral)
Impression / Plan
-
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 She is here for eval of weight gain following
recent hospitalization for CHF exacerbation.
HFpEF, acute on chronic
-Severe exacerbation requiring IV diuresis and close monitoring of labs and telemetry
-She has increased BNP, ETHAN, CXR with pulmonary edema, and examines volume overloaded. Suspect admission weight (160 lb) is accurate.
-Prior to admission was on torsemide 40 mg twice daily with metolazone MWF (had been recently added)
-Diuresis with 80 IV Lasix twice daily
-Obtain daily standing weights and strict I's/O's
-No SGLT2 inhibitor due to cost
-Hold spironolactone for ETHAN
ETHAN on CKD
-Baseline creatinine 1.2�1.4
-Trend with diuresis
Troponin elevation
-No chest pain. ECG paced.
-Likely due to nonischemic myocardial injury in the setting of CHF exacerbation as above
Moderate : stable, monitor over time by echo.
-echo 03/2024: EF 60-65%, mod
Paroxysmal atrial fibrillation/Paroxysmal atrial tachycardia: EP managed as OP by Dr. Burnett.
-S/P AVN ablation with PPM, was on Flecainide 50mg bid and metoprolol XL 25mg daily as outpatient
-Flecainide is discontinued now.
-she gets outpatient nuclear stress to screen for CAD per EP.
-Oral Anticoagulation: On Eliquis 2.5 mg PO BID.
HTN: stable, monitor
NSVT
-cont ToproL XL
Data Reviewed
-
EKG: Tracing Personally Visualized and interpreted
Radiology: Image Personally Visualized and interpreted, Discussed with Physician and Discussed with Patient
Medical Tests (Nuc Med, Echo etc): Report Reviewed by me
Labs: Labs Reviewed by me, Discussed with Physician and Discussed with Patient
--- NOTE | 2024-09-21 14:21 | PTCARENOTE ---
Patient admitted from ED. Patient AAox3 but forgetful/ drowsy. Patient answering questions appropriately. Tele monitor AV paced. Patient sating 98% on 2 L o2. Patient oriented to floor. Call cruz within reach.
[2024-09-21 14:59] LABS: Troponin I 0.047 ng/ml
[2024-09-21] MEDS: LASIX 80 MG IV (15:48)
[2024-09-21] MEDS: APRESOLINE 50 MG PO (15:56)
[2024-09-21] MEDS: BENADRYL 25 MG PO (17:44)
[2024-09-21] MEDS: KCL 20 MEQ PO (20:14)
[2024-09-21] MEDS: TOPROL XL 25 MG PO (20:14)
[2024-09-21] MEDS: ELIQUIS 2.5 MG PO (20:16)
[2024-09-21 20:56] LABS: Troponin I 0.042 ng/ml
[2024-09-21] MEDS: TAMBOCOR 50 MG PO (21:07)
[2024-09-21] MEDS: LUMINAL 64.8 MG PO (21:09)
[2024-09-21] MEDS: APRESOLINE PO (22:01)
[2024-09-22 03:18] VITALS: BP 111/48
[2024-09-22 06:00] VITALS: BMI 25.1
[2024-09-22 06:12] LABS: Blood Urea Nitrogen 96 mg/dl (7-17); Calcium 8.7 mg/dl (8.4-10.2); Carbon Dioxide 29 mmol/L (22-30); Chloride 103 mmol/L (98-107); Estimated Creatinine Clearance 23 ml/min; Glucose 100 mg/dl (70-99); Magnesium 2.4 mg/dl (1.6-2.3); Potassium 3.2 mmol/L (3.5-5.1); Sodium 140 mmol/L (135-145); eGFR 31.21
[2024-09-22 08:00] VITALS: BP 133/56
--- NOTE | 2024-09-22 08:17 | W.PN.CD ---
Today's Communication / Plan
-
Cont IV diuresis
Impression / Plan
-
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 She is here for eval of weight gain following
recent hospitalization for CHF exacerbation.
HFpEF, acute on chronic
-Severe exacerbation requiring IV diuresis and close monitoring of labs and telemetry
-She has increased BNP, ETHAN, CXR with pulmonary edema, and examines volume overloaded.
- Admit weight was 160 now 151 lbs
- cont IV diuresis with Lasix IV 80 mg
- Prior to admission was on torsemide 40 mg twice daily with metolazone MWF (had been recently added)
-Obtain daily standing weights and strict I's/O's
-No SGLT2 inhibitor due to cost
-Hold spironolactone for ETHAN
ETHAN on CKD
-Baseline creatinine 1.2�1.4
-Trend with diuresis
Troponin elevation
-No chest pain. ECG paced.
-Likely due to nonischemic myocardial injury in the setting of CHF exacerbation as above
Moderate : stable, monitor over time by echo.
-echo 03/2024: EF 60-65%, mod
Paroxysmal atrial fibrillation/Paroxysmal atrial tachycardia: EP managed as OP by Dr. Burnett.
-S/P AVN ablation with PPM, was on Flecainide 50mg bid and metoprolol XL 25mg daily as outpatient
-Flecainide is discontinued now.
-she gets outpatient nuclear stress to screen for CAD per EP.
-Oral Anticoagulation: On Eliquis 2.5 mg PO BID.
HTN: stable, monitor
NSVT
-cont ToproL XL
Subjective: Tells me she is feeling 'terrible' because of being tired and diarrhea
Physical Exam
Vital Signs/Labs
Vital Signs
Temp Pulse Resp BP Pulse Ox
97.8 F 67 18 133/56 98
09/22/24 08:00 09/22/24 08:00 09/22/24 08:00 09/22/24 08:00 09/22/24 08:00
09/21/24 09/22/24 09/23/24
06:59 06:59 06:59
Actual Weight 151 lb 2 oz
09/21/24 09:32
09/22/24 05:34
Magnesium 2.4 mg/dl (1.6-2.3) H 09/22/24 05:34
09/21/24
09:32
Ysy-R-Ovutrxodjdc Pept 09527
LAB Results
09/21/24 09/21/24 09/21/24
09:32 13:57 20:21
Troponin I 0.048 H* 0.047 H* 0.042 H*
09/22/24
05:34
Troponin I 0.040 H*
Physical Exam
Constitutional: No acute distress and Comfortable
EENT: Anicteric
Cardiovascular: Rhythm & rate is regular and Pedal edema present
Respiratory: Respiratory effort normal and Crackles Present
GI: Soft
Neuro/Psych: Alert and Oriented
Data Reviewed
-
Date of Service: September 22, 2024
EKG: Tracing Personally Visualized and interpreted (paced)
Echo: Report Reviewed by me
Labs: Labs Reviewed by me
--- NOTE | 2024-09-22 08:33 | W.PN.HOSP.TC ---
Today's Communication/Plan
-
IV diuresis
Assessment / Plan
Assessment / Plan
Physical exam:
General: Acutely ill
HEENT: Normocephalic, Atraumatic and Moist Mucous Membranes
Respiratory: Coarse crackles bilateral; Negative Wheezes, Rales or Rhonchi
Cardiac: Regular Rhythm and S1/S2
GI: Soft, Nontender and Nondistended
Musculoskeletal: No Clubbing, No Cyanosis. Bilateral lower extremity edema
Neuro: Awake, Alert and Oriented, no gross neurological deficit
Psych: Calm
A/P:
Acute on chronic HFpEF:
Continue IV Lasix 80 mg twice a day
Intense monitoring while on high doses of diuretic
As outpatient she was on torsemide 40 mg twice a day and metolazone MWF
Continue daily weight and monitoring I's and outs
Hold spironolactone due to ETHAN and no SGLT2 inhibitor due to cost
Appreciated cardiology consult
Paroxysmal atrial fibrillation and atrial tachycardia:
Continue rate control, metoprolol XL 25 mg p.o. daily
Continue anticoagulation, Eliquis 2.5 mg twice a day
On the notes from my partner and from director web there is no flecainide but patient still on flecainide-we will clarify this today. I clarified with cardiology and we will hold flecainide.
History of AVN ablation with pacemaker and had been on flecainide in the past but not any longer.
Hypokalemia:
Replete and trend
Troponin elevation:
Elevated troponin due to non-ischemic myocardial injury in the setting of CHF exacerbation
Nonsustained V. tach:
Continue beta-mauro
personnel monitor
ETHAN on CKD:
Avoid nephrotoxic
Monitor renal function while diuresis
Moderate :
Continue serial echocardiogram
Interstitial lung disease:
[place] to be related to amiodarone and had been stopped in the past
Hypertension-
Continue home medication regimen
Hyperlipidemia-
Stop statin.
Depression-
Continue Lexapro
DVT prophylaxis-
Patient already on Eliquis
CODE STATUS-
Full code
Total time spent on today's encounter was 52 minutes which included time spent in counseling the patient/family regarding diagnosis and treatment plan as listed above, goals of care, and symptom management. Case was discussed with nursing staff,
specialists, and care coordinators/case management. All labs and imaging personally reviewed by me. Remainder the time spent in detailed review of previous records, lab data, imaging, and other medical provider documentation.
Anticipated Discharge: > 48 hours
Subjective/Interval History
-
Date of Service: September 22, 2024
Patient with less shortness of breath overall. Still having peripheral edema. No chest pain.
Objective Data
-
Labs:
Laboratory Results
09/22/24
05:34
Sodium 140
Potassium 3.2 L
Chloride 103
Carbon Dioxide 29
BUN 96 H
Creatinine 1.6 H
Glucose 100 H
Calcium 8.7
Vital Signs:
Vital Signs
Temp Pulse Resp BP Pulse Ox
97.8 F 67 18 133/56 98
09/22/24 08:00 09/22/24 08:00 09/22/24 08:00 09/22/24 08:00 09/22/24 08:00
I&O
09/21/24 09/22/24 09/23/24
06:59 06:59 06:59
Intake Total 240 / 240
Balance 240 / 240
[2024-09-22] MEDS: KCL 20 MEQ PO ×2 (08:55→20:14)
[2024-09-22] MEDS: LEXAPRO 10 MG PO (08:55)
[2024-09-22] MEDS: APRESOLINE 50 MG PO (08:55)
[2024-09-22] MEDS: LASIX 80 MG IV ×2 (08:56→17:35)
[2024-09-22] MEDS: TOPROL XL 25 MG PO ×2 (08:56→20:14)
[2024-09-22] MEDS: LUMINAL 32.4 MG PO (08:56)
[2024-09-22] MEDS: ELIQUIS 2.5 MG PO ×2 (08:59→20:14)
[2024-09-22] MEDS: TAMBOCOR 50 MG PO (08:59)
[2024-09-22 10:33] VITALS: BP 103/47; BP 97/41; PULSE 61; O2SAT 97
[2024-09-22 11:24] VITALS: BP 110/45
[2024-09-22] MEDS: DESENEX/MITRAZOL/ZEASORB 1 APPLIC TOPICAL ×2 (12:16→20:14)
--- NOTE | 2024-09-22 13:16 | CM ---
Initial assessment completed with son, Lloyd. Patient resides at [facility]. She has been a resident there for approximately 9 weeks. She has been in and out of the hospital and rehabs within the 9 weeks. Since last hospital admission she is
now full care, does not ambulate, is a 2 person assist to transfer and is on O2. She does have a cane, RW, W/CH, CPAP and O2. She receives PT with [facility] 3x/week. She is able to feed herself. She is forgetful. No service, Does have a
HC-POA. PCP is Dr. Zehra Harvey and Pharmacy is [facility]. Discharge
POC: Therapy recommendation for SNF.
[2024-09-22 15:45] VITALS: BP 105/46
[2024-09-22] MEDS: APRESOLINE PO ×2 (16:20→22:39)
[2024-09-22 19:43] VITALS: BP 121/55
[2024-09-22] MEDS: LUMINAL 64.8 MG PO (22:39)
[2024-09-23] VITALS (8 sets, daily range): BP systolic 102–138; BP diastolic 46–54; BMI 24.3
[2024-09-23 08:02] LABS: Blood Urea Nitrogen 88 mg/dl (7-17); Calcium 8.9 mg/dl (8.4-10.2); Carbon Dioxide 33 mmol/L (22-30); Chloride 101 mmol/L (98-107); Estimated Creatinine Clearance 23 ml/min; Glucose 90 mg/dl (70-99); Potassium 2.9 mmol/L (3.5-5.1); Sodium 143 mmol/L (135-145); eGFR 31.21
--- NOTE | 2024-09-23 08:35 | W.PN.HOSP.TC ---
Addendum entered and electronically signed by Rohan Tabares MD 09/23/24 13:10:
Stage 1 sacrum pressure injury, POA
Original Note:
Today's Communication/Plan
-
IV diuresis
Assessment / Plan
Assessment / Plan
Physical exam:
General: Acutely ill
HEENT: Normocephalic, Atraumatic and Moist Mucous Membranes
Respiratory: Coarse crackles bilateral; Negative Wheezes, Rales or Rhonchi
Cardiac: Regular Rhythm and S1/S2
GI: Soft, Nontender and Nondistended
Musculoskeletal: No Clubbing, No Cyanosis. Bilateral lower extremity edema
Neuro: Awake, Alert and Oriented, no gross neurological deficit
Psych: Calm
A/P:
Acute on chronic HFpEF:
Continue IV Lasix 80 mg twice a day
Weight is coming down
Intense monitoring while on high doses of diuretic
As outpatient she was on torsemide 40 mg twice a day and metolazone MWF
Continue daily weight and monitoring I's and outs
Hold spironolactone due to ETHAN and no SGLT2 inhibitor due to cost
Appreciated cardiology consult
Discussed with daughter over the phone today, Chanelle-she is under the impression with her multiple hospitalizations and also discussions with outpatient providers that she will be ready for hospice-we will have hospice consult for further evaluation.
We also broached the subject of CODE STATUS since we are thinking about hospice and they will discuss with the rest of the family and get back to us but for now remains full code.
Paroxysmal atrial fibrillation and atrial tachycardia:
Continue rate control, metoprolol XL 25 mg p.o. daily
Continue anticoagulation, Eliquis 2.5 mg twice a day
I clarified with cardiology and we are holding flecainide.
History of AVN ablation with pacemaker and had been on flecainide in the past but not any longer.
Hypokalemia:
Replete and trend
Continue scheduled supplemental potassium
Troponin elevation:
Elevated troponin due to non-ischemic myocardial injury in the setting of CHF exacerbation
Nonsustained V. tach:
Continue beta-mauro
school lunch monitor
ETHAN on CKD:
Creatinine 1.6 today
Avoid nephrotoxic
Monitor renal function while diuresis
Moderate :
Continue serial echocardiogram
Interstitial lung disease:
[place] to be related to amiodarone and had been stopped in the past
Hypertension-
Continue home medication regimen
Hyperlipidemia-
Stop statin.
Depression-
Continue Lexapro
DVT prophylaxis-
Patient already on Eliquis
CODE STATUS-
Full code
Total time spent on today's encounter was 52 minutes which included time spent in counseling the patient/family regarding diagnosis and treatment plan as listed above, goals of care, and symptom management. Case was discussed with nursing staff,
specialists, and care coordinators/case management. All labs and imaging personally reviewed by me. Remainder the time spent in detailed review of previous records, lab data, imaging, and other medical provider documentation.
Anticipated Discharge: 24 - 48 hours
Subjective/Interval History
-
Date of Service: September 23, 2024
She is still short of breath but less. Less peripheral edema. No chest pain
Objective Data
-
Labs:
Laboratory Results
09/23/24
06:09
Sodium 143
Potassium 2.9 L
Chloride 101
Carbon Dioxide 33 H
BUN 88 H
Creatinine 1.6 H
Glucose 90
Calcium 8.9
Vital Signs:
Vital Signs
Temp Pulse Resp BP Pulse Ox
98.0 F 62 16 116/54 97
09/23/24 07:42 09/23/24 07:42 09/23/24 07:42 09/23/24 07:42 09/23/24 07:42
I&O
09/22/24 09/23/2425
06:59 06:59 06:59
Intake Total 240 / 240 720 / 720
Balance 240 / 240 720 / 720
--- NOTE | 2024-09-23 08:47 | W.PN.CD ---
Today's Communication / Plan
-
Replete potassium
Continue IV diuresis
Likely transition to p.o. tomorrow
Impression / Plan
-
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 She is here for eval of weight gain following
recent hospitalization for CHF exacerbation.
HFpEF, acute on chronic
-Severe exacerbation requiring IV diuresis and close monitoring of labs and telemetry
-Volume status is challenging. Weights are not reliable as all have been bed weights. She appears close to euvolemic. Creatinine is stable with twice daily diuresis.
-Continue twice daily IV Lasix 80 mg today. I suspect she will be able to transition to p.o. tomorrow.
-Prior to admission was on torsemide 40 mg twice daily with metolazone MWF (had been recently added)
-Obtain daily standing weights and strict I's/O's
-No SGLT2 inhibitor due to cost
-Hold spironolactone for ETHAN
ETHAN on CKD
-Baseline creatinine 1.2�1.4
-Trend with diuresis
Troponin elevation
-No chest pain. ECG paced.
-Likely due to nonischemic myocardial injury in the setting of CHF exacerbation as above
Moderate : stable, monitor over time by echo.
-echo 03/2024: EF 60-65%, mod
Paroxysmal atrial fibrillation/Paroxysmal atrial tachycardia: EP managed as OP by Dr. Burnett.
-S/P AVN ablation with PPM, was on Flecainide 50mg bid and metoprolol XL 25mg daily as outpatient
-Flecainide is discontinued now.
-she gets outpatient nuclear stress to screen for CAD per EP.
-Oral Anticoagulation: On Eliquis 2.5 mg PO BID.
HTN: stable, monitor
NSVT
-cont ToproL XL
Subjective: Sleeping comfortably. Does not want to wake up and talk to me. Laying relatively flat.
Physical Exam
Vital Signs/Labs
Vital Signs
Temp Pulse Resp BP Pulse Ox
98.0 F 62 16 116/54 97
09/23/24 07:42 09/23/24 07:42 09/23/24 07:42 09/23/24 07:42 09/23/24 07:42
09/22/24 09/23/24 09/24/24
06:59 06:59 06:59
Actual Weight 151 lb 2 oz 146 lb 1 oz
09/21/24 09:32
09/23/24 06:09
Magnesium 2.4 mg/dl (1.6-2.3) H 09/22/24 05:34
09/21/24
09:32
Vai-X-Gqlqzvuhvka Pept [id number]
LAB Results
09/21/24 09/21/24 09/21/24
09:32 13:57 20:21
Troponin I 0.048 H* 0.047 H* 0.042 H*
09/22/24
05:34
Troponin I 0.040 H*
Physical Exam
Constitutional: No acute distress and Comfortable
Cardiovascular: Rhythm & rate is regular, Pedal edema is absent, Systolic murmur present and S1S2 is normal
Respiratory: Respiratory effort normal (lungs clear anteriorly)
Data Reviewed
-
Date of Service: September 23, 2024
Medical Decision Making: Reviewed Test Results, Independent Historian Assessment, Test Interpretation and Review of Case with other Provider
EKG: Tracing Personally Visualized and interpreted
Echo: Report Reviewed by me
Labs: Labs Reviewed by me
[2024-09-23] MEDS: TOPROL XL 25 MG PO ×2 (09:01→21:36)
[2024-09-23] MEDS: LASIX 80 MG IV ×2 (09:01→15:42)
[2024-09-23] MEDS: LUMINAL 32.4 MG PO (09:02)
[2024-09-23] MEDS: LEXAPRO 10 MG PO (09:02)
[2024-09-23] MEDS: APRESOLINE 50 MG PO ×2 (09:02→21:36)
[2024-09-23] MEDS: ELIQUIS 2.5 MG PO ×2 (09:02→21:36)
[2024-09-23] MEDS: KCL 20 MEQ PO ×2 (09:02→21:36)
[2024-09-23] MEDS: KCL 40 MEQ PO (09:04)
[2024-09-23] MEDS: DESENEX/MITRAZOL/ZEASORB 1 APPLIC TOPICAL ×2 (09:05→21:36)
--- NOTE | 2024-09-23 10:26 | PTCARENOTE ---
Patient AAOx3 this AM, drowsy, wakes to verbal stimuli and states improvement in breathing this AM, POX 97% on 2L. Daughter Chanelle called floor for update and asked this RN for information regarding hospice care for patient. This RN educated daughter
on hospice care, told daughter hospice is focused on comfort as opposed to treatment, daughter stated to this RN she would like information regarding pursuing that route to help keep patient comfortable and out of hospital. MD made aware, CM consult
placed per MD.
--- NOTE | 2024-09-23 11:15 | CM ---
Reviewed the chart notes. CM referral for hospice received. Referral to [facility] sent via [facility]. CM continues to be available to patient/family and is monitoring medical plan for needs at discharge.
Plan: Discharge plans will depend on the patient's progress.
--- NOTE | 2024-09-23 12:37 | HOSPNOTE ---
Addendum entered by Chrissie Canales RN 09/23/24 14:45:
Family returned call to [facility]. Conference call arranged for tomorrow at 930 am to discuss hospice. More information to follow.
Original Note:
Referral received. [facility] called family and left a voicemail to discuss. Awaiting return call back. More information to follow.
--- NOTE | 2024-09-23 12:40 | PN.CDI ---
CDI
- -
CDI:
Physician Documentation Request
Admit Date: 09/21/24 12:49
Dear Doctor Tabares,
Please review the following and provide your response in the progress notes.
Clinical Indicators:
- RN skin assessments indicate Stage 1 sacrum pressure injury, POA
Physician documentation of the type and location of wounds is required for compliant documentation. Based on the above clinical findings and your assessment, please provide the following in your progress note:
1. Location of the ulcer/wound, including laterality.
2. Type (etiology) of ulcer/wound:
- Diabetic ulcer
- Arterial (ischemic) ulcer
- Venous stasis ulcer
- Pressure (decubitus) ulcer
- Other
Use of terms such as suspected, likely, concern for, or probable (associated with a specific diagnosis that is being evaluated, monitored, or treated as if it exists) are acceptable and can be coded in the inpatient setting, when documented at the
time of discharge.
Thank you,
Raymon Spencer RN
CDI Specialist
Please use your independent medical judgment in providing your response.
*Source: National Pressure Ulcer Advisory Panel (NPUAP)
[2024-09-23] MEDS: APRESOLINE PO (15:43)
[2024-09-23] MEDS: LUMINAL 64.8 MG PO (21:36)
[2024-09-24] VITALS (7 sets, daily range): BP systolic 99–137; BP diastolic 45–57; BMI 24.2
--- NOTE | 2024-09-24 04:41 | DOWNTIME ---
Addendum entered by Darrin Gonsales RN 09/24/24 14:21:
Correction: There was a [employer] Client Site Interpreter Downtime on 09/24/2024 from 0100 to 09/24/2024 at 0415.
Original Note:
There was a [employer] Client Site Interpreter Downtime on 09/23/2024 from 0100 to 09/24/2024 at 0415. Downtime documentation of patient's care, including medication administrations, has been reconciled in the electronic record per guidelines. Refer to the
patient's paper chart under the miscellaneous tab to see printed paper medication records and downtime forms.
[2024-09-24 07:59] LABS: Blood Urea Nitrogen 86 mg/dl (7-17); Carbon Dioxide 32 mmol/L (22-30); Chloride 103 mmol/L (98-107); Estimated Creatinine Clearance 26 ml/min; Glucose 112 mg/dl (70-99); Potassium 3.7 mmol/L (3.5-5.1); Sodium 143 mmol/L (135-145); eGFR 36.64
--- NOTE | 2024-09-24 08:45 | W.PN.CD ---
Today's Communication / Plan
-
-Can transition to torsemide 40 mg BID and metolazone 5 mg daily, which should be home regimen.
Impression / Plan
-
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 She is here for eval of weight gain following
recent hospitalization for CHF exacerbation.
HFpEF, acute on chronic
-Severe exacerbation requiring IV diuresis and close monitoring of labs and telemetry
-Volume status is challenging. Weights are not reliable as all have been bed weights. She appears close to euvolemic. Creatinine is stable with twice daily diuresis.
-Prior to admission was on torsemide 40 mg twice daily with metolazone MW (had been recently added)
-No SGLT2 inhibitor due to cost.
-Can transition to torsemide 40 mg BID and metolazone 5 mg daily, which should be home regimen.
ETHAN on CKD
-Baseline creatinine 1.2�1.4
-Now back at baseline with diuresis.
Troponin elevation
-No chest pain. ECG paced.
-Likely due to nonischemic myocardial injury in the setting of CHF exacerbation as above
Moderate : stable, monitor over time by echo.
-echo 03/2024: EF 60-65%, mod
Paroxysmal atrial fibrillation/Paroxysmal atrial tachycardia: EP managed as OP by Dr. Burnett.
-S/P AVN ablation with PPM, was on Flecainide 50mg bid and metoprolol XL 25mg daily as outpatient
-Flecainide is discontinued now.
-she gets outpatient nuclear stress to screen for CAD per EP.
-Oral Anticoagulation: On Eliquis 2.5 mg PO BID.
PPM:
-Stable.
HTN: Controlled.
NSVT
-Stable; continue current dose of Toprol-XL.
Physical Exam
Vital Signs/Labs
Vital Signs
Temp Pulse Resp BP Pulse Ox
98.9 F 63 16 119/49 95
09/24/24 03:24 09/24/24 03:24 09/24/24 03:24 09/24/24 03:24 09/24/24 05:00
09/23/24 09/24/24 09/25/24
06:59 06:59 06:59
Actual Weight 66.253 kg 66.088 kg
09/21/24 09:32
09/24/24 06:52
Magnesium 2.4 mg/dl (1.6-2.3) H 09/22/24 05:34
09/21/24
09:32
Vzd-O-Pnxcukrmqqb Pept [id number]
LAB Results
09/21/24 09/21/24 09/21/24
09:32 13:57 20:21
Troponin I 0.048 H* 0.047 H* 0.042 H*
09/22/24
05:34
Troponin I 0.040 H*
Physical Exam
Constitutional: No acute distress and Comfortable
EENT: Anicteric
Cardiovascular: Rhythm & rate is regular, Pedal edema is absent, Systolic murmur present (4/6) and S1S2 is normal
Respiratory: Respiratory effort normal and Crackles Present (Diffuse)
GI: Soft and Non tender
Neuro/Psych: Alert
Other: Skin (Warm, dry)
Data Reviewed
-
Date of Service: September 24, 2024
EKG: Tracing Personally Visualized and interpreted (Telemetry: AV paced)
Labs: Labs Reviewed by me
[2024-09-24] MEDS: LEXAPRO 10 MG PO (09:05)
[2024-09-24] MEDS: KCL 20 MEQ PO ×2 (09:05→20:23)
[2024-09-24] MEDS: APRESOLINE 50 MG PO ×2 (09:05→20:23)
[2024-09-24] MEDS: TOPROL XL 25 MG PO ×2 (09:06→20:22)
[2024-09-24] MEDS: DESENEX/MITRAZOL/ZEASORB 1 APPLIC TOPICAL ×2 (09:06→20:24)
[2024-09-24] MEDS: ELIQUIS 2.5 MG PO ×2 (09:06→20:28)
[2024-09-24] MEDS: LUMINAL 32.4 MG PO (09:06)
--- NOTE | 2024-09-24 09:06 | W.PN.HOSP.TC ---
Today's Communication/Plan
-
Discharge planning
Assessment / Plan
Assessment / Plan
Physical exam:
General: Chronically ill
HEENT: Normocephalic, Atraumatic and Moist Mucous Membranes
Respiratory: Coarse crackles bilateral; Negative Wheezes, Rales or Rhonchi
Cardiac: Regular Rhythm and S1/S2
GI: Soft, Nontender and Nondistended
Musculoskeletal: No Clubbing, No Cyanosis. Bilateral lower extremity edema
Neuro: Awake, Alert and Oriented, no gross neurological deficit
Psych: Calm
A/P:
Acute on chronic HFpEF:
Continue IV Lasix 80 mg twice a day--> switch to oral home regimen today
Weight is coming down
Intense monitoring while on high doses of diuretic
As outpatient she was on torsemide 40 mg twice a day and metolazone MWF
Continue daily weight and monitoring I's and outs
Hold spironolactone due to ETHAN and no SGLT2 inhibitor due to cost
Appreciated cardiology consult
Discussed with daughter over the phone yesterday, Chanelle-she is under the impression with her multiple hospitalizations and also discussions with outpatient providers that she will be ready for hospice-we will have hospice consult for further
evaluation. We also broached the subject of CODE STATUS since we are thinking about hospice and they will discuss with the rest of the family and get back to us but for now remains full code.
Hospice discussions taking place
Case management for discharge disposition
Left lower extremity cellulitis:
Start oral doxycycline for short course
Known cephalosporin allergy
Paroxysmal atrial fibrillation and atrial tachycardia:
Continue rate control, metoprolol XL 25 mg p.o. daily
Continue anticoagulation, Eliquis 2.5 mg twice a day
I clarified with cardiology and we are holding flecainide.
History of AVN ablation with pacemaker and had been on flecainide in the past but not any longer.
Hypokalemia:
Replete and trend
Continue scheduled supplemental potassium
Troponin elevation:
Elevated troponin due to non-ischemic myocardial injury in the setting of CHF exacerbation
Nonsustained V. tach:
Continue beta-mauro
lunchroom monitor
ETHAN on CKD:
Creatinine 1.4 today
Avoid nephrotoxic
Monitor renal function while diuresis
Moderate :
Continue serial echocardiogram
Interstitial lung disease:
[place] to be related to amiodarone and had been stopped in the past
Hypertension-
Continue home medication regimen but decrease hydralazine to bid since not using afternoon dose for few days
Hyperlipidemia-
Stop statin.
Depression-
Continue Lexapro
DVT prophylaxis-
Patient already on Eliquis
CODE STATUS-
Full code
Time spent 35 minutes
Anticipated Discharge: Today
Subjective/Interval History
-
Date of Service: September 24, 2024
Feels better overall. Mild discomfort in left lower extremity.
Objective Data
-
Labs:
Laboratory Results
09/24/24
06:52
Sodium 143
Potassium 3.7 D
Chloride 103
Carbon Dioxide 32 H
BUN 86 H
Creatinine 1.4 H
Glucose 112 H
Calcium 9.0
Vital Signs:
Vital Signs
Temp Pulse Resp BP Pulse Ox
98.2 F 75 17 137/57 89
09/24/24 08:57 09/24/24 08:57 09/24/24 08:57 09/24/24 08:57 09/24/24 08:57
I&O
09/23/24 09/24/24 09/25/24
06:59 06:59 06:59
Intake Total 720 / 720 830 / 830
Balance 720 / 720 830 / 830
[2024-09-24] MEDS: LASIX IV (09:13)
[2024-09-24] MEDS: TYLENOL 650 MG PO (09:49)
[2024-09-24] MEDS: LASIX 80 MG IV (10:37)
--- NOTE | 2024-09-24 10:55 | HOSPNOTE ---
Spoke with the family of patient and discussed hospice and the philosophy. At this time the family has decided to have patient go back to [facility] without hospice and then sign onto hospice at a later date at the facility. Patient's code
status is now a DNR and attending made aware. I will continue to follow if needed. The plan is for patient to return to [facility] with care.
[2024-09-24] MEDS: VIBRAMYCIN 100 MG PO ×2 (11:23→20:23)
--- NOTE | 2024-09-24 14:31 | CM ---
Addendum entered by Debbi Cabral RN 09/24/24 15:58:
IMM reviewed.
Addendum entered by Debbi Cabral RN 09/24/24 14:42:
Will need order for VN and a script for PT/OT with [facility] at facility.
Original Note:
Reviewed the chart notes and spoke with the patient at the bedside and son via telephone. Confirmed with both plan is return to [facility] when medically stable. CM spoke with nurse Nguyen at facility. Reviewed PT notes. Per Wendy, patient
at baseline. CM continues to be available to patient/family and is monitoring medical plan for needs at discharge.
Plan: Discharge to [facility] when medically stable with resumption of [facility].
Call report to: [phone]
Fax report to: [phone]
Patient must arrive prior to 4pm as their are no nurses on after to complete admissions paperwork.
[2024-09-24] MEDS: DEMADEX 40 MG PO (15:36)
[2024-09-24] MEDS: LUMINAL 64.8 MG PO (21:41)
[2024-09-25 03:14] VITALS: BP 132/56
[2024-09-25 06:00] VITALS: BMI 24.0
--- NOTE | 2024-09-25 07:39 | W.PN.HOSP.TC ---
Today's Communication/Plan
-
Discharge planning
Assessment / Plan
Assessment / Plan
Physical exam:
General: Chronically ill
HEENT: Normocephalic, Atraumatic and Moist Mucous Membranes
Respiratory: Clear to auscultation bilaterally; Negative Wheezes, Rales or Rhonchi
Cardiac: Regular Rhythm and S1/S2
GI: Soft, Nontender and Nondistended
Musculoskeletal: No Clubbing, No Cyanosis. Bilateral lower extremity edema
Neuro: Awake, Alert and Oriented, no gross neurological deficit
Psych: Calm
A/P:
Acute on chronic HFpEF:
Continue IV Lasix 80 mg twice a day--> switched to oral home regimen
Weight is coming down
Intense monitoring while on high doses of diuretic
As outpatient she was on torsemide 40 mg twice a day and metolazone MWF
Continue daily weight and monitoring I's and outs
Hold spironolactone due to ETHAN and no SGLT2 inhibitor due to cost
Appreciated cardiology consult
Discussed with daughter over the phone day before yesterday, Chanelle-she is under the impression with her multiple hospitalizations and also discussions with outpatient providers that she will be ready for hospice-we will have hospice consult for
further evaluation. We also broached the subject of CODE STATUS since we are thinking about hospice and they will discuss with the rest of the family and get back to us but for now remains full code. Family reached out and changed to DNR but no
hospice yet.
Hospice discussions took place
Case management for discharge disposition
Left lower extremity cellulitis:
Start oral doxycycline for short course
Known cephalosporin allergy
Paroxysmal atrial fibrillation and atrial tachycardia:
Continue rate control, metoprolol XL 25 mg p.o. daily
Continue anticoagulation, Eliquis 2.5 mg twice a day
I clarified with cardiology and we are holding flecainide.
History of AVN ablation with pacemaker and had been on flecainide in the past but not any longer.
Hypokalemia:
Replete and trend
Continue scheduled supplemental potassium
Troponin elevation:
Elevated troponin due to non-ischemic myocardial injury in the setting of CHF exacerbation
Nonsustained V. tach:
Continue beta-mauro
patient monitor
ETHAN on CKD:
Creatinine 1.4 today
Avoid nephrotoxic
Monitor renal function while diuresis
Moderate :
Continue serial echocardiogram
Interstitial lung disease:
[place] to be related to amiodarone and had been stopped in the past
Hypertension-
Continue home medication regimen but decrease hydralazine to bid since not using afternoon dose for few days
Hyperlipidemia-
Not on statin.
Depression-
Continue Lexapro
DVT prophylaxis-
Patient already on Eliquis
CODE STATUS-
DNR
Anticipated Discharge: Today
Subjective/Interval History
-
Date of Service: September 25, 2024
No new complaints
Objective Data
-
Vital Signs:
Vital Signs
Temp Pulse Resp BP Pulse Ox
99.2 F 63 16 132/56 94
09/25/24 03:14 09/25/24 03:14 09/25/24 03:14 09/25/24 03:14 09/25/24 03:14
I&O
09/24/24 09/25/24 09/26/24
06:59 06:59 06:59
Intake Total 830 / 830 1340 / 1340
Balance 830 / 830 1340 / 1340
[2024-09-25 07:49] VITALS: BP 139/61
--- NOTE | 2024-09-25 07:51 | W.PN.CD ---
Today's Communication / Plan
-
-Continue torsemide 40 mg BID and metolazone 5 mg daily, which should be home regimen.
-No further cardiac recommendations at this time; outpatient follow up with Cardiology.
Impression / Plan
-
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 She is here for eval of weight gain following
recent hospitalization for CHF exacerbation.
HFpEF, acute on chronic
-Severe exacerbation requiring IV diuresis and close monitoring of labs and telemetry
-Volume status is challenging. Weights are not reliable as all have been bed weights. She appears close to euvolemic. Creatinine is stable with twice daily diuresis.
-Prior to admission was on torsemide 40 mg twice daily with metolazone MWF (had been recently added)
-No SGLT2 inhibitor due to cost.
-Continue torsemide 40 mg BID and metolazone 5 mg daily, which should be home regimen.
-No further cardiac recommendations at this time; outpatient follow up with Cardiology.
ETHAN on CKD
-Baseline creatinine 1.2�1.4; at baseline.
Troponin elevation
-No chest pain. ECG paced.
-Likely due to nonischemic myocardial injury in the setting of CHF exacerbation as above
Moderate : stable, monitor over time by echo.
-echo 03/2024: EF 60-65%, mod
Paroxysmal atrial fibrillation/Paroxysmal atrial tachycardia: EP managed as OP by Dr. Burnett.
-S/P AVN ablation with PPM, was on Flecainide 50mg bid and metoprolol XL 25mg daily as outpatient
-Flecainide is discontinued now.
-Outpatient nuclear stress to screen for CAD per EP.
-Oral Anticoagulation: On Eliquis 2.5 mg PO BID.
PPM:
-Remains stable; AV paced on telemetry.
HTN: Remains controlled.
- Continue current medication regimen.
NSVT
- Remains stable; continue Toprol-XL.
Physical Exam
Vital Signs/Labs
Vital Signs
Temp Pulse Resp BP Pulse Ox
97.7 F 61 16 139/61 95
09/25/24 07:49 09/25/24 07:49 09/25/24 07:49 09/25/24 07:49 09/25/24 07:49
09/24/24 09/25/24 09/26/24
06:59 06:59 06:59
Actual Weight 66.088 kg 65.453 kg
09/21/24 09:32
Magnesium 2.4 mg/dl (1.6-2.3) H 09/22/24 05:34
09/21/24
09:32
Fut-N-Fyqmrmfnlay Pept [id number]
Physical Exam
Constitutional: No acute distress and Comfortable
EENT: Anicteric
Cardiovascular: Rhythm & rate is regular, Pedal edema is absent, Systolic murmur present (4/6) and S1S2 is normal
Respiratory: Respiratory effort normal and Rhonchi Present
GI: Soft
Neuro/Psych: Alert
Other: Skin (Warm, dry)
Data Reviewed
-
Date of Service: September 25, 2024
EKG: Tracing Personally Visualized and interpreted (Telemetry: AV paced)
Echo: Tracing Personally Visualized and interpreted (LVEF 60-65%)
Labs: Labs Reviewed by me
[2024-09-25 08:59] LABS: Blood Urea Nitrogen 81 mg/dl (7-17); Calcium 9.3 mg/dl (8.4-10.2); Carbon Dioxide 36 mmol/L (22-30); Chloride 102 mmol/L (98-107); Estimated Creatinine Clearance 24 ml/min; Glucose 113 mg/dl (70-99); Potassium 3.5 mmol/L (3.5-5.1); Sodium 143 mmol/L (135-145); eGFR 33.73
--- NOTE | 2024-09-25 09:09 | W.DCSUMMARY ---
Discharge Summary
Discharge Data
Date of Admission: 09/21/24
Date of Discharge: 09/25/24
-
Pending Results: No
Hospital Course
Patient 84-year-old female with history of A-fib, AAS, TR, hypertension, hyperlipidemia, CKD, COPD, ILD, came into the hospital with heart failure exacerbation. She was recently in the hospital for similar complaints of heart failure exacerbation.
Patient was diuresed and she had negative balance and went to her dry weight. Due to her multiple hospitalizations for heart failure exacerbation we discussed the possibility of hospice/palliative care and family will continue to consider at this
as outpatient but they are not sure at the moment. Cardiology recommended to switch back to her oral regimen. She also had mild cellulitis on her left lower extremity that has responded to oral doxycycline and will be continued for a short course.
She has remained afebrile and hemodynamically stable. She is no longer on flecainide. Her hydralazine has been decreased to twice a day to avoid hypotension. Patient will be discharged to skilled facility today.
Discharge duration: 35 minutes
Discharge Plan
-
Patient Disposition: Home (Routine Discharge)
Discharge Diagnosis/Procedures: Acute on chronic diastolic congestive heart failure. Acute kidney injury. Left lower extremity cellulitis. Paroxysmal atrial fibrillation.
Condition: Fair
Diet: Low Cholesterol, 2 Gram Sodium and Restrict fluids to 64 oz
Activity: As tolerated
Blood Work: Please PCP to order CBC, BMP within 1 week
Specialty Instructions: Weigh Daily- Call MD for wt gain/loss 3 lbs overnight/5 lbs in 1 week
Instructions: *CBC Heart Failure Instructions
Referrals:
Primary care provider [Other] - in less than 1 week
Zehra Harvey MD [Family Provider, Emergency]
Aurora Gimenez CRNP [Specified Professional Personl, Cardiology] - 10/15/24 1:40 pm
Prescriptions:
New
doxycycline hyclate 100 mg Capsule
100 mg PO Q12 5 Days Qty: 10 0RF
Continued
phenobarbital 32.4 MG tablet
64.8 mg PO HS
phenobarbital 32.4 MG tablet
32.4 mg PO DAILY
Patient Comments:
Eliquis 2.5 mg tablet
2.5 mg PO BID Qty: 60 0RF
escitalopram oxalate [Lexapro] 10 mg Tablet
10 mg PO DAILY
acetaminophen [Tylenol] 325 mg Tablet
650 mg PO Q6HPRN PRN (Reason: mild pain/fever)
lidocaine 4 % Adhesive Patch,Medicated
2 patch TOPICAL DAILY
magnesium hydroxide [Milk of Magnesia] 400 mg/5 mL Suspension
400 mg PO Q4HPRN PRN (Reason: constipation)
Rx Instructions:
wait 4hr between doses
albuterol sulfate 90 mcg/actuation Hfa Aerosol Inhaler
1 puff INHALATION R Q4HPRN PRN (Reason: copd)
torsemide 20 mg tablet
40 mg PO BID
metoprolol succinate 25 MG tablet extended release 24 hr
25 mg PO BID 30 Days Qty: 60 0RF
metolazone 5 mg tablet
5 mg PO MOWEFR
potassium chloride 20 mEq tablet,ER particles/crystals
20 meq PO BID
ammonium lactate 12 % lotion
1 applic topical BID
Rx Instructions:
rash
Changed
hydralazine 50 mg tablet
50 mg PO BID Qty: 0 0RF
Discontinued
flecainide 50 mg tablet
50 mg PO BID
Discharge Orders:
Discharge Patient (As Directed); Ordered 09/25/24
Ordered By: Rohan Tabares
Discharge Date and Time
Discharge Date/Time: 09/25/24 13:25
Print Language: MAURITIAN
--- NOTE | 2024-09-25 09:41 | CM ---
Reviewed the chart notes. Patient for discharge today back to [facility]. Message left on patient's son's phone regarding discharge plans. CM continues to be available to patient/family and is monitoring medical plan for needs at discharge.
Plan: Discharge to [facility] when medically stable with resumption of [facility].
Call report to: [phone]
Fax report to: [phone]
Medical necessity and transport forms on chart.
[facility]
Patient must arrive prior to 4pm as their are no nurses on after to complete admissions paperwork.
[2024-09-25] MEDS: LUMINAL 32.4 MG PO (10:02)
[2024-09-25] MEDS: ZAROXOLYN 5 MG PO (10:02)
[2024-09-25] MEDS: TOPROL XL 25 MG PO (10:02)
[2024-09-25] MEDS: VIBRAMYCIN 100 MG PO (10:02)
[2024-09-25] MEDS: LEXAPRO 10 MG PO (10:02)
[2024-09-25] MEDS: ELIQUIS 2.5 MG PO (10:02)
[2024-09-25] MEDS: DEMADEX 40 MG PO (10:02)
[2024-09-25] MEDS: DESENEX/MITRAZOL/ZEASORB 1 APPLIC TOPICAL (10:03)
[2024-09-25] MEDS: APRESOLINE 50 MG PO (10:03)
[2024-09-25] MEDS: KCL 20 MEQ PO (10:03)
[2024-09-25 11:25] VITALS: BP 127/53
[2024-09-25 13:06] VITALS: BP 143/63
--- NOTE | 2024-09-26 10:15 | W.HF.CON ---
Heart Failure
- LV Function
Left ventricular function study result: LV Ejection fraction >/= 50% (ECHO 03/26/24)
Ejection Fraction Percentage: 50-55
- ARNI
Patient already on ARNI: No
Heart Failure ARNI Not Indicated: LV Ejection Fraction >/= 40%
- ACEI/ARB
Patient already on ACEI/ARB: No
Heart Failure ACEI/ARB Not Indicated: LV Ejection Fraction > 40%
- Beta Teddy
Patient already on Evidence Based Beta Teddy: Yes
- Mineralocorticord Receptor Antagonist
Patient already on MRA: No
Heart Failure MRA Not Indicated: LV Ejection Fraction > 40%
- SGLT-2 Inhibitor
Patient already on SGLT-2 Inhibitor: No
Heart Failure SGLT-2 Inhibitor Contraindication: Patient Refusal
- Afib Anticoagulation
Patient already on Anticoagulation for Afib: Yes
- NYHA CHF Classification
NYHA CHF Classification Level: Class III - Symptoms w/ min exertion, interferes w/ nml daily activity (pulmonary fibrosis)
- ACC/AHA Stage
ACC/AHA Stage: Stage C: Symptomatic Heart Failure
== END 2024-09-25 13:25 | disposition home or self-care (01) | DRG 291 ==
LOC: 2 NORTH 12:49
PROVIDERS: ADMITTING PHYSICIAN Internal Medicine; ATTENDING PHYSICIAN Hospitalist; CONSULT PHYSICIAN Student in an Organized Health Care Education/Training Program; EMERGENCY PHYSICIAN Emergency Medicine; FAMILY PHYSICIAN Emergency Medicine
DX: I13.0 Hypertensive heart and chronic kidney disease with heart failure and stage 1 through stage 4 chronic kidney disease, or unspecified chronic kidney disease (principal); I50.33 Acute on chronic diastolic (congestive) heart failure; N18.4 Chronic kidney disease, stage 4 (severe); L03.116 Cellulitis of left lower limb; N17.9 Acute kidney failure, unspecified; J84.9 Interstitial pulmonary disease, unspecified; E87.1 Hypo-osmolality and hyponatremia; I48.0 Paroxysmal atrial fibrillation; E87.6 Hypokalemia; E78.00 Pure hypercholesterolemia, unspecified; F32.A Depression, unspecified; Z66 Do not resuscitate; R09.02 Hypoxemia; G47.33 Obstructive sleep apnea (adult) (pediatric); D64.9 Anemia, unspecified; G40.909 Epilepsy, unspecified, not intractable, without status epilepticus; Z88.2 Allergy status to sulfonamides; Z79.01 Long term (current) use of anticoagulants; Z95.0 Presence of cardiac pacemaker; I5A Non-ischemic myocardial injury (non-traumatic); Z88.1 Allergy status to other antibiotic agents; I27.20 Pulmonary hypertension, unspecified; Z90.710 Acquired absence of both cervix and uterus; Z91.048 Other nonmedicinal substance allergy status; Z96.653 Presence of artificial knee joint, bilateral; B02.9 Zoster without complications; L89.151 Pressure ulcer of sacral region, stage 1
CPT/HCPCS: 71046; 80048; 80053; 82805; 83735; 83880; 84484; 85025; 93005; 96374; 97162; 99285

== ENCOUNTER 2024-10-08 10:04 | Emergency (ER) | payer OTHER, SELFPAY ==
[2024-10-08 10:10] VITALS: BP 98/51
[2024-10-08 10:13] VITALS: BP 98/51
[2024-10-08 10:22] VITALS: BMI 30.7
--- NOTE | 2024-10-08 10:30 | ED.GENMED ---
History of Present Illness
General
Chief Complaint: Weight Changes
Source: patient
Exam Limitations: none
Time Seen by Provider: 10/08/24 10:10
Nursing documentation reviewed up to this point in time: agreed with
History of Present Illness
History of Present Illness:
Patient is an 84-year-old female with past medical history of chronic kidney disease stage IV, A-fib CHF hypertension hyperlipidemia pacemaker on chronic 2 L oxygen from [facility] sent for evaluation of weight gain. As documented from triage
that patient gained 4-5 pounds of weight this week and has leg swelling. Patient presents awake alert has no complaints. She is able to tell me she is in the hospital and her name confused to year and month.
Patient's medications include torsemide 40 mg twice a day.
I spoke to the nurse at the long-term who reports patient's weights on Sunday was 140 pounds, yesterday was 144.6 and this morning was 148.9 nurse. Nurse reports he tried to get a hold of cardiology cardiology did not call back. Patient has
chronic fluid overload issues and does not require diuresis.
Past History
Past History
ED Past Medical History: Arrthythmia (afib, cardioversions.), Asthma, CHF, COPD, HTN, Hypercholesterolemia, Other (Obstructive sleep apnea, interstitial lung disease, bilateral lower extremity edema, right truncal varicella-zoster 2020) and Other
(History of seizure); Negative Renal failure (Stage IIIb chronic kidney disease)
ED Past Surgical History: Cardiac (Cardioversion. Ablation X 2, pacemaker), Gynecological (Hysterectomy), Orthopedic (Bilateral shoulder surgeries, back surgery x 2, bilateral TKA) and Other (Foot surgery, breast biopsy)
Patient has exhibited threatening behavior?: No
Social History
Tobacco: Non-smoker
Alcohol: None
Drug: None
Personal:
Living: alone
Employment: Retired
Family History
Family History: CAD
Phy Exam
General Physical Exam
General Presentation: no apparent distress
General age: appears stated age
General Skin: warm and dry
General Habitus: normal
General Mental: alert
General Hydration: appears well hydrated
Cardiovascular Exam
Cardiovascular Exam: regular rate/rhythm, no murmur and normal peripheral pulses
Pulmonary Exam
Pulmonary Exam: no respiratory distress and other (rales b/l )
Neurological Exam
Neurological Exam: alert
Musculoskeletal Exam
Musculoskeletal Exam: full ROM and other (Bilateral lower extremity swelling strong pulses)
Scores
Heart Failure Risk
Heart Failure Risk Score: Not Applicable
Course
Orders/Labs/Results
Orders:
Orders
10/08/24 10:09
Electrocardiogram (*1) Urgent
Reason for Study: Shortness of Breath
10/08/24 10:10
EKG- Treatment ONCE
10/08/24 10:12
Basic Metabolic Panel Urgent
Complete Blood Count/With Diff Urgent
Manual Differential Urgent
NT-proBNP Urgent
10/08/24 10:58
Chest [CR Chest - 2 Views ] Urgent
Comment:
Reason For Exam: sob
10/08/24 11:58
Potassium Urgent
Abnormal Lab Results
10/08/24 10/08/24
10:12 11:58
WBC 4.5 L 10^3/uL
(4.8-10.8)
RBC 3.23 L 10^6/uL
(4.20-5.40)
Hgb 10.2 L g/dL
(12.0-16.0)
Hct 31.7 L %
(37.0-47.0)
MCH 31.6 H pg
(27.0-31.0)
MCHC 32.2 L g/dL
(33.0-37.0)
RDW 15.4 H %
(11.5-14.5)
MPV 13.0 H fL
(7.4-10.4)
Potassium 3.3 L mmol/L
(3.5-5.1)
Chloride 97 L mmol/L
(98-107)
Carbon Dioxide 33 H mmol/L
(22-30)
BUN 118 H* mg/dl
(7-17)
Creatinine 1.6 H mg/dL
(0.6-1.0)
Glucose 190 H mg/dl
(70-99)
10/08/24 10:12
10/08/24 11:58
Vital Signs
Initial and Last Documented VS:
Initial Vital Signs
Pulse Resp Pulse Ox
71 20 100
10/08/24 10:09 10/08/24 10:09 10/08/24 10:09
Last Documented Vital Signs
Temp Pulse Resp BP Pulse Ox
97.2 F 65 21 98/51 97
10/08/24 10:13 10/08/24 10:15 10/08/24 10:15 10/08/24 10:13 10/08/24 11:22
MDM/Problems Addressed
MDM/Problems Addressed:
As documented patient is an 84-year-old male with chronic renal disease on torsemide with chronic issues of fluid overload sent by long-term for increased weight gain over the past several days. Patient is on oxygen she has no complaints..
Patient was recently admitted September 21 and discharged to and was diuresed. She has had multiple hospitalizations for heart failure and hospice/palliative care was discussed previously with family.
Patient presents awake alert no acute distress she is on chronic O2 and not hypoxic her BNP today is 9768 was 13,800 on September 21. She has chronic kidney disease and a BUN/creatinine today are 118/1.6 it was 81/1.5. She has mild CHF on chest x-ray
she is managed on torsemide 40 mg twice daily and metolazone Sunday. I spoke with on-call nuclear process engineer Dr. Wang who is familiar with patient and does recommend that she increase metolazone to daily(which is what he previously
recommended on discharge) he believes the patient needs hospice and palliative care
I did speak with patient's son over the phone they are not ready for hospice yet.
Patient will be discharge back to with instructions to increase Metalazone to daily.. I spoke with Wendy nurse at .
*Radiology
Radiology exam reviewed: radiology read reviewed
*Pulse Oximetry
SaO2: 98
Nasal Cannula flow liters per minute: 2
Patient hypoxic: no
*Critical Care Note
Total Time (30-74mins, 75-104mins- exclusive of procedures): Not Applicable
Data Reviewed
Review of Other/Old Records Reveals: Labs, Radiology Studies and Discharge Summary
Source: patient and significant other
Patient Management
Discussion with other providers: Team Lead (cardiology DR Wang )
ED Attending Note
-
Portions of this chart may have been created with voice recognition software.� Occasional wrong word or��sound alike� substitutions may have occurred due to the inherent limitations of voice recognition software.
Discharge Plan
Departure
Patient Disposition: Halfway/SNF
Date of Disposition: 10/08/24
Time of Disposition: 12:43
Patient with high blood pressure during this ER visit?: No
Condition: Fair
Covid-19: Not Applicable
Discharge Problem:
fluid overload
Instructions: *CBC Heart Failure Instructions
Prescriptions:
No Action
phenobarbital 32.4 MG tablet
64.8 mg PO HS
phenobarbital 32.4 MG tablet
32.4 mg PO DAILY
Patient Comments:
Eliquis 2.5 mg tablet
2.5 mg PO BID Qty: 60 0RF
escitalopram oxalate [Lexapro] 10 mg Tablet
10 mg PO DAILY
acetaminophen [Tylenol] 325 mg Tablet
650 mg PO Q6HPRN MDD 3000 mg PRN (Reason: mild-moderate pain/temp>100.4F)
lidocaine 4 % Adhesive Patch,Medicated
2 patch TOPICAL DAILY
magnesium hydroxide [Milk of Magnesia] 400 mg/5 mL Suspension
400 mg PO Q4HPRN PRN (Reason: constipation)
Rx Instructions:
wait 4hr between doses
albuterol sulfate 90 mcg/actuation Hfa Aerosol Inhaler
1 puff INHALATION R Q4HPRN PRN (Reason: copd)
torsemide 20 mg tablet
40 mg PO BID
metoprolol succinate 25 MG tablet extended release 24 hr
25 mg PO BID 30 Days Qty: 60 0RF
metolazone 5 mg tablet
5 mg PO MOWEFR
potassium chloride 20 mEq tablet,ER particles/crystals
20 meq PO BID
ammonium lactate 12 % lotion
1 applic topical BID
Patient Comments:
10/08/2024, apply to rash.
hydralazine 50 mg tablet
50 mg PO BID Qty: 0 0RF
flecainide 50 mg Tablet
50 mg PO BID
Referrals:
Lior Wang MD [Active, Cardiology]
Oh Calvin MD [Family Provider, Family Practice]
Activity Restrictions/Additional Instructions:
Patient should increase current metolazone dose to daily.
Follow-up with cardiology/family doctor return if any worsening of symptoms.
Interventions
Interventions:
*Risk Screen - Suicide Last Done: 10/08/24 10:13
*General Assessment Last Done: 10/08/24 10:23
*Neglect/Abuse Screening Last Done: 10/08/24 10:23
*ED COVID-19 Vaccine History Last Done: 10/08/24 10:23
Discharge Date and Time
Print Language: LUXEMBOURGER
[2024-10-08 10:53] LABS: Hematocrit 31.7 % (37.0-47.0); Hemoglobin 10.2 g/dL (12.0-16.0); Mean Corp Hgb Conc. 32.2 g/dL (33.0-37.0); Mean Corpuscular Volume 98.1 fL (81.0-99.0); Platelet Count 140 10^3/uL (130-400); Red Cell Dist. Width 15.4 % (11.5-14.5)
[2024-10-08 11:00] VITALS: BP 107/49
[2024-10-08 11:04] LABS: Absolute Neutrophils -Man Diff 2.8 10^3/uL (1.4-6.5); Normal RBC Morphology Yes; Platelets Checked Yes; Total Cells Counted 100
[2024-10-08 11:16] LABS: Blood Urea Nitrogen 118 mg/dl (7-17); Calcium 8.6 mg/dl (8.4-10.2); Carbon Dioxide 33 mmol/L (22-30); Chloride 97 mmol/L (98-107); Estimated Creatinine Clearance 22 ml/min; Glucose 190 mg/dl (70-99); Sodium 137 mmol/L (135-145); eGFR 31.21
[2024-10-08 12:00] VITALS: BP 98/49
[2024-10-08 12:16] LABS: Potassium 3.3 mmol/L (3.5-5.1)
[2024-10-08 13:00] VITALS: BP 95/40
[2024-10-08] MEDS: KCL ELIXIR 40 MEQ PO (13:33)
[2024-10-08 14:00] VITALS: BP 95/47
== END 2024-10-08 14:20 ==
LOC: EMR 10:04
PROVIDERS: Nurse Practitioner; EMERGENCY PHYSICIAN Emergency Medicine; FAMILY PHYSICIAN Family Medicine; OTHER PHYSICIAN Internal Medicine
DX: E87.70 Fluid overload, unspecified (principal); I13.0 Hypertensive heart and chronic kidney disease with heart failure and stage 1 through stage 4 chronic kidney disease, or unspecified chronic kidney disease; I50.9 Heart failure, unspecified; N18.4 Chronic kidney disease, stage 4 (severe); E78.00 Pure hypercholesterolemia, unspecified; G47.33 Obstructive sleep apnea (adult) (pediatric); I48.91 Unspecified atrial fibrillation; Z95.0 Presence of cardiac pacemaker; Z99.81 Dependence on supplemental oxygen; Z79.899 Other long term (current) drug therapy
CPT/HCPCS: 99285; 71046; 80048; 83880; 84132; 85025; 93005

== ENCOUNTER 2024-10-11 12:20 | Inpatient (IN) | payer OTHER, SELFPAY ==
[2024-10-11] VITALS (9 sets, daily range): BP systolic 104–134; BP diastolic 45–57
--- NOTE | 2024-10-11 07:27 | ED.GENMED ---
History of Present Illness
General
Chief Complaint: Fall
Source: patient
Exam Limitations: dementia
Time Seen by Provider: 10/11/24 07:19
History of Present Illness
History of Present Illness:
See MDM
Past History
Past History
ED Past Medical History: Arrthythmia (afib, cardioversions.), Asthma, CHF, COPD, HTN, Hypercholesterolemia, Other (Obstructive sleep apnea, interstitial lung disease, bilateral lower extremity edema, right truncal varicella-zoster 2020) and Other
(History of seizure); Negative Renal failure (Stage IIIb chronic kidney disease)
ED Past Surgical History: Cardiac (Cardioversion. Ablation X 2, pacemaker), Gynecological (Hysterectomy), Orthopedic (Bilateral shoulder surgeries, back surgery x 2, bilateral TKA) and Other (Foot surgery, breast biopsy)
Patient has exhibited threatening behavior?: No
Social History
Tobacco: Non-smoker
Alcohol: None
Drug: None
Personal:
Living: alone
Employment: Retired
Family History
Family History: CAD
Phy Exam
Physical Exam
Physical Exam:
See MDM
Course
Orders/Labs/Results
Orders:
Orders
10/11/24 07:25
CT Cervical Spine W/o Iv Contr Urgent
Comment:
Reason For Exam: fall, neck pain
CT Head W/o Iv Contrast Urgent
Comment:
Reason For Exam: fall, head injury
Lumbar Spine, 2 or 3 View [CR Lumbar Spine 2 Or 3 Views] Urgent
Comment:
Reason For Exam: fall, low back pain
Pelvis, 1 or 2 Views CR [CR Pelvis - 1 Or 2 Views ] Urgent
Comment:
Reason For Exam: fall, low back pain
10/11/24 07:29
Elbow, Right 3 View [CR Elbow - Right Min 3 Views] Urgent
Comment:
Reason For Exam: fall, elbow pain
10/11/24 07:30
Comprehensive Metabolic Panel Urgent
10/11/24 09:16
Complete Blood Count/With Diff Urgent
Comment: CLOTTED,REDRAW
10/11/24 10:10
Furosemide [Lasix] 40 mg IV NOW STA
Abnormal Lab Results
10/11/24 10/11/24
07:30 09:16
RBC 3.05 L 10^6/uL
(4.20-5.40)
Hgb 9.6 L g/dL
(12.0-16.0)
Hct 29.7 L %
(37.0-47.0)
MCH 31.5 H pg
(27.0-31.0)
MCHC 32.3 L g/dL
(33.0-37.0)
RDW 15.0 H %
(11.5-14.5)
MPV 12.2 H fL
(7.4-10.4)
Absolute Lymphs (auto) 0.6 L 10^3/uL
(1.2-3.4)
Absolute Monos (auto) 1.1 H 10^3/uL
(0.1-0.6)
Lymphocytes % 7.7 L %
(20.5-51.1)
Monocytes % 14.1 H %
(1.7-9.3)
BUN 107 H* mg/dl
(7-17)
Creatinine 1.6 H mg/dL
(0.6-1.0)
Glucose 129 H mg/dl
(70-99)
Albumin 3.3 L g/dl
(3.5-5.0)
10/11/24 09:16
10/11/24 07:30
Vital Signs
Initial and Last Documented VS:
Initial Vital Signs
Temp Pulse Resp BP Pulse Ox
97.3 F 69 18 125/57 97
10/11/24 07:20 10/11/24 07:20 10/11/24 07:20 10/11/24 07:20 10/11/24 07:20
Last Documented Vital Signs
Temp Pulse Resp BP Pulse Ox
97.3 F 69 18 125/57 97
10/11/24 07:20 10/11/24 07:20 10/11/24 07:20 10/11/24 07:20 10/11/24 07:29
MDM/Problems Addressed
Differential Diagnosis Includes:
Note:
CHIEF COMPLAINT(S)
Fall and abrasions on the right elbow.
HISTORY OF PRESENT ILLNESS
84-year-old female presenting for an unwitnessed fall. Patient is a poor historian due to her dementia. Patient was found to have abrasion bleeding to the right elbow. Patient complains of neck and back pain. Cervical collar placed by EMS. When
I evaluated the cervical, she has no tenderness. It was removed for comfort. Patient was having trouble with her chronic oxygen while using the immobilizer. On exam, there is small abrasions to the right elbow. However, there is no bony
tenderness noted of the elbow. She complains mostly of back pain.
PHYSICAL EXAM
General: Well appearing and non-toxic
HEENT: protecting airway
Neck: No midline cervical tenderness, supple
CV: No evidence of cyanosis.
Resp: No accessory muscle use
Abd: Non-distended
Extremities: No deformities. Mild tenderness to lower lumbar. Pitting edema noted to bilateral lower extremities
Neuro: alert
Psych: Normal affect
Skin: Small abrasions to right elbow
- Integumentary system: Small abrasions noted on the right elbow.
PLAN
- Obtain CT head and neck given fall
- Obtain pelvic x-ray and lumbar x-ray given low back pain after fall
- Obtain basic blood
DIFFERENTIAL DIAGNOSIS
The Differential Diagnosis includes, in no particular order and is not limited to:
1. Weight fluctuation due to dietary or metabolic changes.
2. Abrasions secondary to minor trauma or falls.
3. Skin tears due to advanced age and fragile skin.
4. Medication side effects.
5. Unintentional weight gain due to fluid retention.
6. Osteoporotic changes contributing to vulnerability for minor injuries.
7. Changes in mobility or physical activity affecting weight.
8. Hormonal imbalances.
9. Other dermatologic conditions contributing to skin changes.
10. Age-related metabolic changes.
CARE-UPDATE
10/11/24 - 10:13
X-ray results are concerning for a possible radial head fracture. Blood work indicates elevated BUN levels. Recent increase in medication, related to weight gain, does not appear effective, given continued lab issues and her reported weakness.
Discussion held with patients son, who is considering hospice care; however, admission for diuretic treatment was recommended to allow time for decision-making.
Disposition:
SUMMARY OF ENCOUNTER
The patient, an 84-year-old female, was seen in the emergency department due to concerns of weakness and persistent weight gain. Upon evaluation, it was noted that her weakness and weight gain were ongoing issues, possibly linked to underlying
conditions requiring further assessment.
DISPOSITION
Admit for further evaluation and management.
PLAN
Admit the patient for further evaluation including hospice and cardiology consultations. Initiate intravenous treatment to manage weight gain and assess her further needs in coordination with hospice services.
MEDICAL DECISION MAKING
-Complexity of Data Reviewed: Chronic conditions affecting care include weight changes and abrasions on the right elbow. Differential Diagnosis includes: weight fluctuation due to dietary or metabolic changes, abrasions secondary to minor trauma or
falls, skin tears due to advanced age and fragile skin, medication side effects, unintentional weight gain due to fluid retention, osteoporotic changes contributing to vulnerability for minor injuries, changes in mobility or physical activity
affecting weight, hormonal imbalances, other dermatologic conditions contributing to skin changes, and age-related metabolic changes.
DIAGNOSIS
Persistent weight gain (R63.5), Weakness (R53.1).
*Pulse Oximetry
SaO2: 97
Nasal Cannula flow liters per minute: 2
Patient hypoxic: no
*Critical Care Note
Total Time (30-74mins, 75-104mins- exclusive of procedures): Not Applicable
ED Attending Note
-
Portions of this chart may have been created with voice recognition software.� Occasional wrong word or��sound alike� substitutions may have occurred due to the inherent limitations of voice recognition software.
Discharge Plan
Departure
Patient Disposition: Admit
Date of Disposition: 10/11/24
Time of Disposition: 10:23
Admit to: Telemetry
Presentation/result/management discussed w/ accepting MD/DO: Hospitalist
Discharge Problem:
Acute exacerbation of CHF (congestive heart failure), Fracture, radius, head
Prescriptions:
No Action
phenobarbital 32.4 MG tablet
64.8 mg PO HS
phenobarbital 32.4 MG tablet
32.4 mg PO DAILY
Patient Comments:
Eliquis 2.5 mg tablet
2.5 mg PO BID Qty: 60 0RF
escitalopram oxalate [Lexapro] 10 mg Tablet
10 mg PO DAILY
acetaminophen [Tylenol] 325 mg Tablet
650 mg PO Q6HPRN MDD 3000 mg PRN (Reason: mild-moderate pain/temp>100.4F)
lidocaine 4 % Adhesive Patch,Medicated
2 patch TOPICAL DAILY
magnesium hydroxide [Milk of Magnesia] 400 mg/5 mL Suspension
400 mg PO Q4HPRN PRN (Reason: constipation)
Rx Instructions:
wait 4hr between doses
albuterol sulfate 90 mcg/actuation Hfa Aerosol Inhaler
1 puff INHALATION R Q4HPRN PRN (Reason: copd)
torsemide 20 mg tablet
40 mg PO BID
metoprolol succinate 25 MG tablet extended release 24 hr
25 mg PO BID 30 Days Qty: 60 0RF
metolazone 5 mg tablet
5 mg PO MOWEFR
potassium chloride 20 mEq tablet,ER particles/crystals
20 meq PO BID
ammonium lactate 12 % lotion
1 applic topical BID
Patient Comments:
10/08/2024, apply to rash.
hydralazine 50 mg tablet
50 mg PO BID Qty: 0 0RF
flecainide 50 mg Tablet
50 mg PO BID
Referrals:
UNKNOWN,NO INTERVIEW [Family Provider]
Discharge Date and Time
Print Language: URUGUAYAN
[2024-10-11 08:21] LABS: ALT (SGPT) 24 U/L (0-35); AST (SGOT) 36 U/L (14-36); Albumin 3.3 g/dl (3.5-5.0); Alkaline Phosphatase 104 U/L (38-126); Blood Urea Nitrogen 107 mg/dl (7-17); Calcium 9.2 mg/dl (8.4-10.2); Carbon Dioxide 29 mmol/L (22-30); Chloride 100 mmol/L (98-107); Glucose 129 mg/dl (70-99); Potassium 4.0 mmol/L (3.5-5.1); Sodium 136 mmol/L (135-145); Total Protein 7.3 g/dl (6.3-8.2); eGFR 31.21
[2024-10-11 09:33] LABS: Hematocrit 29.7 % (37.0-47.0); Hemoglobin 9.6 g/dL (12.0-16.0); Mean Corp Hgb Conc. 32.3 g/dL (33.0-37.0); Mean Corpuscular Volume 97.4 fL (81.0-99.0); Nucleated Red Blood Cells % 0 %; Platelet Count 147 10^3/uL (130-400); Red Cell Dist. Width 15.0 % (11.5-14.5)
[2024-10-11] MEDS: LASIX 40 MG IV (11:35)
--- NOTE | 2024-10-11 12:00 | HPS.HSE ---
Family Physician
-
Family Physician: NO INTERVIEW UNKNOWN
Chief Complaint
-
History of Present Illness
84 female from [facility] living facility with a medical history of dementia, paroxysmal atrial fibrillation s/p ablation and pacemaker, COPD, GIOVANY on CPAP, hypertension, hyperlipidemia, seizure disorder, chronic HFpEF, aortic stenosis who
presents for being found down on the ground, unwitnessed fall with complaints of neck buttocks and right elbow pain. Unfortunately due to level of dementia cannot describe to me what occurred due to the fall. Does admit to some elbow pain
currently. She is able to raise however close is immediately. She is able to tell me the year which was 2024 however initially when I asked her where she was she said she was in the bathroom when I pressed her again she eventually came to the
correct answer [facility]. With saying that history was very limited.
Medical History
Past Medical History
Past Medical History: Reports Arrhythmia, CHF, COPD, Dementia, GERD, HTN and Hypercholesterolemia
Past Surgical History: Reports Other
Social History
Unable to obtain full social history at this time due to: Dementia
Family History
Family History: Not pertinent
Allergies / Home Medications
Allergies reflects when Allergies were last updated in [facility].
Home Medications with original date entered in [facility]
Allergy/Medication List:
Allergies
Allergy/AdvReac Type Severity Reaction Status Date / Time
adhesive tape Allergy Rash Verified 10/11/24 07:27
amiodarone Allergy Unknown Verified 10/11/24 07:27
cefuroxime (From Ceftin) Allergy throat Verified 10/11/24 07:27
closes
ragweed pollen Allergy Unknown Verified 10/11/24 07:27
Sulfa (Sulfonamide Allergy throat Verified 10/11/24 07:27
Antibiotics) closes
Home Medications
phenobarbital 32.4 mg tablet 32.4 mg PO DAILY Seizures 10/21/20
phenobarbital 32.4 mg tablet 64.8 mg PO HS Seizures 10/21/20
apixaban 2.5 mg tablet (Eliquis) 2.5 mg PO BID #60 tabs 03/28/24
escitalopram oxalate 10 mg tablet (Lexapro) 10 mg PO DAILY Depression 06/13/24
acetaminophen 325 mg tablet (Tylenol) 650 mg PO Q6HPRN PRN mild-moderate pain/temp>100.4F 08/28/24
albuterol sulfate 90 mcg/actuation aerosol inhaler 1 puff inhalation R Q4HPRN PRN copd 08/28/24
lidocaine 4 % topical patch 2 patch topical DAILY left ribs 08/28/24
magnesium hydroxide 400 mg/5 mL oral suspension (Milk of Magnesia) 400 mg PO Q4HPRN PRN constipation 08/28/24
torsemide 20 mg tablet 40 mg PO BID Fluid Retention/Swelling 08/28/24
metoprolol succinate 25 mg tablet,extended release 24 hr 25 mg PO BID Blood pressure 30 days #60 tabs 09/04/24
ammonium lactate 12 % lotion 1 applic topical BID Skin Issues 09/21/24
metolazone 5 mg tablet 5 mg PO MOWEFR Fluid Retention/Swelling 09/21/24
potassium chloride 20 mEq tablet,extended release(part/cryst) 20 meq PO BID Electrolyte Repletion 09/21/24
hydralazine 50 mg tablet 50 mg PO BID Hypertension #0 tabs 09/25/24
flecainide 50 mg tablet 50 mg PO BID 10/08/24
Review of Systems
-
Unable to obtain full review of systems at this time due to: Dementia
Physical Exam
Vital Signs
Vital Signs
Temp Pulse Resp BP Pulse Ox
97.3 F 60 18 109/50 96
10/11/24 07:20 10/11/24 11:35 10/11/24 07:20 10/11/24 11:35 10/11/24 11:45
Physical Exam
General: No Apparent Distress, Appears Chronically Ill and Other (Follow simple commands)
Respiratory: Clear
Cardiac: S1/S2, Regular Rhythm, Murmur (Systolic murmur at the right upper sternal border), JVD and Other (Bilateral lower extremity peripheral pitting edema)
GI: Soft, Non Tender and Non Distended
Musculoskeletal: No Clubbing and No Cyanosis
Neuro: Other (Follow simple command was able to tell me where she was in the year but took multiple questions in different ways of asking her)
Laboratory Results
-
10/11/24 09:16
10/11/24 07:30
Laboratory Results
Total Bilirubin 0.7 mg/dl (0.2-1.3) 10/11/24 07:30
AST 36 U/L (14-36) 10/11/24 07:30
ALT 24 U/L (0-35) 10/11/24 07:30
Alkaline Phosphatase 104 U/L (38-126) 10/11/24 07:30
Impression/Plan
-
Fall for syncope, unwitnessed
personnel monitor
2D echo
Consult cardiology for pacemaker interrogation
PT/OT
Acute on chronic HFpEF exacerbation
IV diuretics
Check BMP
personnel monitor
2D echo
Cardiology consult
Right radial fracture
Sling for 3 weeks
Outpatient orthopedic follow-up
PT/OT
Paroxysmal atrial fibrillation
Continue metoprolol Eliquis
Previously on flecainide however cardiology on previous admission recommended to hold/discontinue
ILD
Sublette to be secondary to amiodarone therefore has been stopped in the past
Hypertension
Continue antihypertensives
Hyperlipidemia
Continue statin
Depression continue Lexapro
DNR/DNI
Family not ready for hospice
--- NOTE | 2024-10-11 13:49 | PTOTSP ---
Speech therapy
Presentation: Patient was oriented to self only. Patient was pleasantly confused and cooperative. Patient's speech and language was WNL during conversation. Patient's voice appeared minimally weak at baseline. Per patient and family, this is her
baseline. Per family, patient's confused has increased ~2 weeks. Of note, patient was hospitalized in September 2024.
Patient's daughter stated patient is on reg/ thin diet at facility and has had a good appetite.
Swallowing Function: SAIL MAKER observed patient with several ice chips, thin via tsp and straw, puree, and regular consistency solids in which patient appeared to tolerate all of the presentations as she did not exhibit any overt clinical s/sx of
aspiration. Patient did demonstrate prolonged mastication of the regular consistency solid trials in which thin liquid wash (independent) assisted with manipulation. Patient, of note, demonstrated an inconsistent dry cough in the absence of PO.
Per family, patient tolerates medications whole with thin liquids (small) and in puree (large) at the facility. SAIL MAKER alerted RN on patient's family's information regarding diet and medication administration.
Given patient's medical hx, consider trialing regular consistency solids and thin liquids at this time.
Recommendations:
1) trial of regular consistency solids and thin liquids
2) assistance and supervision with PO given confusion
3) medications as tolerated
4) PO only when SpO2 >90% and RR< 30
Plan: SAIL MAKER will continue to follow to ensure tolerance; pending hospitalization.
--- NOTE | 2024-10-11 14:04 | CON.CAR ---
Consultation
Consultation Request
Date/Time Consultation Requested: 10/11/2024
Date/Time Consultation Performed: 10/11/2024
Requesting Provider: Dr. North
Performing Provider: Dr. Wang
Reason for Consultation: Fall, CHF
Medical History
-
Chief Complaint: Fall
History of Present Illness:
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
with unwitnessed fall at home suffering a resultant nondisplaced right radial head fracture. Also found to have some weight gain over the past few days. The patient is a poor historian and thinks she fell in a parking lot; her daughter at bedside
is shaking her head stating that the patient fell at the care home. The patient is currently somnolent with eyes closed.
Past Medical History
Past Medical History: Arrhythmias, CHF, COPD, HTN, Hypercholesterolemia, Valvular Disease and Other (as above)
Social History
Tobacco: Non-Smoker
Family History
Family History: Reviewed & Not Pertinent
Allergies / Home Medications
Allergy/AdvReac Type Severity Reaction Status Date / Time
adhesive tape Allergy Rash Verified 10/11/24 07:27
amiodarone Allergy Unknown Verified 10/11/24 07:27
cefuroxime (From Ceftin) Allergy throat Verified 10/11/24 07:27
closes
ragweed pollen Allergy Unknown Verified 10/11/24 07:27
Sulfa (Sulfonamide Allergy throat Verified 10/11/24 07:27
Antibiotics) closes
�Medication �Instructions �Recorded �Confirmed �Type
phenobarbital 32.4 mg tablet 32.4 mg PO DAILY Seizures 10/21/20 10/11/24 History
apixaban 2.5 mg tablet (Eliquis) 2.5 mg PO BID #60 tabs 12/20/24 07/05/25 Rx
escitalopram oxalate 10 mg tablet 10 mg PO DAILY Depression 06/13/24 10/11/24 History
(Lexapro)
acetaminophen 325 mg tablet 650 mg PO Q6HPRN PRN mild-moderate 08/28/24 10/11/24 History
(Tylenol) pain/temp>100.4F
albuterol sulfate 90 mcg/actuation 1 puff inhalation R Q4HPRN PRN copd 08/28/24 10/11/24 History
aerosol inhaler
magnesium hydroxide 400 mg/5 mL 400 mg PO Q4HPRN PRN constipation 08/28/24 10/11/24 History
oral suspension (Milk of Magnesia)
torsemide 20 mg tablet 40 mg PO BID Fluid 08/28/24 10/11/24 History
Retention/Swelling
metoprolol succinate 25 mg 25 mg PO BID Blood pressure 30 09/04/24 10/11/24 Rx
tablet,extended release 24 hr days #60 tabs
ammonium lactate 12 % lotion 1 applic topical BID Skin Issues 09/21/24 10/11/24 History
metolazone 5 mg tablet 5 mg PO DAILY Fluid 09/21/24 10/11/24 History
Retention/Swelling
potassium chloride 20 mEq 20 meq PO BID Electrolyte Repletion 09/21/24 10/11/24 History
tablet,extended release(part/cryst)
hydralazine 50 mg tablet 50 mg PO BID Hypertension #0 tabs 09/25/24 10/11/24 Rx
flecainide 50 mg tablet 50 mg PO BID 10/08/24 10/11/24 History
phenobarbital 64.8 mg tablet 64.8 mg PO HS 10/11/24 10/11/24 History
Review of Systems
-
Unable to obtain full review of systems at this time due to: Dementia
Physical Exam
Vital Signs
Temp Pulse Resp BP Pulse Ox
97.3 F 60 18 109/50 96
10/11/24 07:20 10/11/24 11:35 10/11/24 07:20 10/11/24 11:35 10/11/24 11:45
Lab Results
10/11/24 09:16
10/11/24 07:30
Grg-H-Uftfyvipnxc Pept [id number] pg/ml 10/11/24 12:11
Physical Exam
General: No Apparent Distress and Comfortable
HEENT: Normocephalic
Respiratory: Crackles
Cardiac: S1/S2, Regular Rhythm, Murmur (4/6 systolic) and Peripheral Edema (1-2+)
Breast: Deferred by me
GI: Soft
Rectal: Deferred by Provider
Musculoskeletal: Edema (1-2+)
Skin: Warm
Neuro: Other (Somnolent)
Psych: Other (Somnolent)
Impression / Plan
-
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
with unwitnessed fall at home suffering a resultant nondisplaced right radial head fracture. Also found to have some weight gain over the past few days.
Unwitnessed fall:
- Likely secondary to ambulatory dysfunction/dementia.
- Recommend [facility] express interrogation of her pacemaker.
HFpEF, acute on chronic
-Severe exacerbation requiring IV diuresis and close monitoring of labs and telemetry.
-proBNP 13,400.
-Patient was recently admitted less than 2 weeks ago; diuresed with high-dose Lasix 80 mg IV BID, but it does not appear that her blood pressure will tolerate that currently.
-Recommend Lasix 40 mg IV BID for now; monitor blood pressure--can increase Lasix dose to 80 mg, if blood pressure allows.
-Hold metolazone for now; add if blood pressure allows.
-Monitor BUN/creatinine with diuresis.
-Will repeat echocardiogram.
-No SGLT2 inhibitor due to cost.
-Further GDMT has been limited by blood pressure.
-The patient has presented to the ER 8 or 9 times over the past year, and has been admitted 6 times; palliative care/hospice has been recommended, and was discussed again today--it does not appear that the family is quite ready.
-Ultimately, the patient should be managed conservatively from a cardiac standpoint; palliative care/hospice seems most appropriate.
ETHAN on CKD
-Baseline creatinine 1.2�1.4; currently 1.6.
- Monitor with diuresis as above; can consider Nephrology consultation.
Moderate : stable, monitor over time by echo.
-echo 03/2024: EF 60-65%, mod
- Will repeat echocardiogram.
Paroxysmal atrial fibrillation/Paroxysmal atrial tachycardia: EP managed as OP by Dr. Burnett.
-S/P AVN ablation with PPM, was on Flecainide 50mg bid and metoprolol XL 25mg daily as outpatient--flecainide was discontinued last admission.
- Continue Toprol-XL.
-Oral Anticoagulation: On Eliquis 2.5 mg PO BID.
PPM:
-Device interrogation as above.
HTN: Remains controlled.
- Continue current medications.
Data Reviewed
-
EKG: Tracing Personally Visualized and interpreted (AV paced at 67 bpm)
Radiology: Report Reviewed by me (Chest x-ray: Increased pulmonary vascularity at least suspicious for mild CHF.)
Medical Tests (Nuc Med, Echo etc): Report Reviewed by me (03/26/2024: EF 60-65%; dilated right ventricle with mildly reduced systolic function; severe biatrial enlargement; moderate aortic stenosis; mild TR, PASP 75 mmHg.)
Labs: Labs Reviewed by me and Discussed with Family (Daughter and son at bedside in the ER)
--- NOTE | 2024-10-11 17:00 | PTCARENOTE ---
Arm sling applied to r elbow as ordered. plan of care ongoing.
--- NOTE | 2024-10-11 17:15 | PTCARENOTE ---
Patient transferred from ED to the [facility]. dx: hf.. Pt upon arrival to on O2 @ 2L, no s/s of distress noted. Bed alarm in place. call cruz within reach. Vs documented. Plan of care ongoing
[2024-10-11] MEDS: ELIQUIS 2.5 MG PO (21:03)
[2024-10-11] MEDS: TOPROL XL 25 MG PO (21:03)
[2024-10-11] MEDS: LUMINAL 64.8 MG PO (22:45)
[2024-10-12] VITALS (8 sets, daily range): BP systolic 116–131; BP diastolic 46–59; PULSE 60–62; O2SAT 95
[2024-10-12 04:33] LABS: Hematocrit 27.1 % (37.0-47.0); Hemoglobin 8.7 g/dL (12.0-16.0); Mean Corp Hgb Conc. 32.1 g/dL (33.0-37.0); Mean Corpuscular Volume 96.1 fL (81.0-99.0); Platelet Count 151 10^3/uL (130-400); Red Cell Dist. Width 15.0 % (11.5-14.5)
[2024-10-12 04:58] LABS: Blood Urea Nitrogen 95 mg/dl (7-17); Calcium 9.3 mg/dl (8.4-10.2); Carbon Dioxide 33 mmol/L (22-30); Chloride 101 mmol/L (98-107); Glucose 88 mg/dl (70-99); Potassium 3.4 mmol/L (3.5-5.1); Sodium 140 mmol/L (135-145); eGFR 33.73
[2024-10-12] MEDS: TOPROL XL 25 MG PO ×2 (08:49→20:02)
[2024-10-12] MEDS: ELIQUIS 2.5 MG PO ×2 (08:49→20:02)
[2024-10-12] MEDS: LEXAPRO 10 MG PO (08:49)
[2024-10-12] MEDS: KCL 40 MEQ PO (08:49)
[2024-10-12] MEDS: LUMINAL 32.4 MG PO (08:49)
[2024-10-12] MEDS: LASIX 40 MG IV ×2 (08:50→20:03)
[2024-10-12] MEDS: LIDOCAINE 4% PATCH 2 PATCH TOPICAL (08:50)
--- NOTE | 2024-10-12 13:40 | W.PN.HOSP.TC ---
Today's Communication/Plan
-
Assessment / Plan
Assessment / Plan
Fall for syncope, unwitnessed
news assistant
2D echo
Consult cardiology for pacemaker interrogation
PT/OT
Acute on chronic HFpEF exacerbation
IV diuretics
Check BMP
news assistant
2D echo
Cardiology consult
Right radial fracture
Sling for 3 weeks
Outpatient orthopedic follow-up
PT/OT
Paroxysmal atrial fibrillation
Continue metoprolol Eliquis
Previously on flecainide however cardiology on previous admission recommended to hold/discontinue
ILD
[place] to be secondary to amiodarone therefore has been stopped in the past
Hypertension
Continue antihypertensives
Hyperlipidemia
Continue statin
Depression continue Lexapro
DNR/DNI
Family not ready for hospice
Anticipated Discharge: 24 - 48 hours
Subjective/Interval History
-
Date of Service: October 12, 2024
seen and examined. no new complaints. no acute ovenright events
Objective Data
-
Labs:
Laboratory Results
10/12/24
04:04
WBC 4.9
Hgb 8.7 L
Hct 27.1 L
Plt Count 151
Sodium 140
Potassium 3.4 L
Chloride 101
Carbon Dioxide 33 H
BUN 95 H
Creatinine 1.5 H
Glucose 88
Calcium 9.3
Vital Signs:
Vital Signs
Temp Pulse Resp BP Pulse Ox
98.3 F 61 16 121/53 94
10/12/24 11:48 10/12/24 11:48 10/12/24 11:48 10/12/24 11:48 10/12/24 11:48
I&O
10/11/24 10/12/24 10/13/24
06:59 06:59 06:59
Intake Total 240 / 240
Output Total 500 / 500
Balance -260 / -260
Physical Exam
-
General: No Apparent Distress
HEENT: Normocephalic and Atraumatic
Respiratory: Crackles
Cardiac: Regular Rhythm and Other (b/l le edema 2+ pitting)
GI: Soft, Nontender and Nondistended
--- NOTE | 2024-10-12 13:50 | CM ---
Reviewed the chart notes and spoke with the patient's son Lloyd via telephone. Patient recently discharged from (09/25/2024) back to [facility] with [facility] services. The patient has a rolling walker, wheelchair, CPAP, and O2. The
patient has been to [facility] in the past. CM continues to be available to patient/family and is monitoring medical plan for needs at discharge.
Plan: Discharge plans will depend on the patient's progress. Son hoping for back to [facility].
--- NOTE | 2024-10-12 15:22 | W.PN.CD ---
Today's Communication / Plan
-
-[facility] express interrogation of her pacemaker yesterday with no acute events.
-Currently receiving Lasix 40 mg IV daily; can increase Lasix dose to 40 mg IV BID, if blood pressure allows.
-Continue to monitor BUN/creatinine with diuresis.
-Will repeat echocardiogram tomorrow.
-The patient has presented to the ER 8 or 9 times over the past year, and has been admitted 6 times; palliative care/hospice has been recommended.
-Ultimately, the patient should be managed conservatively from a cardiac standpoint; palliative care/hospice seems most appropriate.
Impression / Plan
-
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
with unwitnessed fall at home suffering a resultant nondisplaced right radial head fracture. Also found to have some weight gain over the past few days.
Unwitnessed fall:
-Likely secondary to ambulatory dysfunction/dementia.
-[facility] express interrogation of her pacemaker yesterday with no acute events.
HFpEF, acute on chronic
-Severe exacerbation requiring IV diuresis and close monitoring of labs and telemetry.
-proBNP 13,400.
-Patient was recently admitted less than 2 weeks ago; diuresed with high-dose Lasix 80 mg IV BID, but it does not appear that her blood pressure will tolerate that currently.
-Currently receiving Lasix 40 mg IV daily; can increase Lasix dose to 40 mg IV BID, if blood pressure allows.
-Holding metolazone for now.
-Continue to monitor BUN/creatinine with diuresis.
-Will repeat echocardiogram tomorrow.
-No SGLT2 inhibitor due to cost.
-Further GDMT has been limited by blood pressure.
-The patient has presented to the ER 8 or 9 times over the past year, and has been admitted 6 times; palliative care/hospice has been recommended.
-Ultimately, the patient should be managed conservatively from a cardiac standpoint; palliative care/hospice seems most appropriate.
ETHAN on CKD
-Baseline creatinine 1.2�1.4; currently 1.5.
-Continue to Monitor with diuresis as above; can consider Nephrology consultation.
Moderate : stable, monitor over time by echo.
-echo 03/2024: EF 60-65%, mod
- Will repeat echocardiogram tomorrow as above.
Paroxysmal atrial fibrillation/Paroxysmal atrial tachycardia: EP managed as OP by Dr. Burnett.
-S/P AVN ablation with PPM, was on Flecainide 50mg bid and metoprolol XL 25mg daily as outpatient--flecainide was discontinued last admission.
- Continue current dose of Toprol-XL.
-Oral Anticoagulation: On Eliquis 2.5 mg PO BID.
Anemia:
- Hemoglobin decreasing; workup/management as per primary team.
PPM:
-No events on device interrogation as above.
HTN:
- Stable/controlled.
- Continue current medications.
Physical Exam
Vital Signs/Labs
Vital Signs
Temp Pulse Resp BP Pulse Ox
98.3 F 61 16 121/53 94
10/12/24 11:48 10/12/24 11:48 10/12/24 11:48 10/12/24 11:48 10/12/24 11:48
10/11/24 10/12/24 10/13/24
06:59 06:59 06:59
Actual Weight 65.952 kg
10/12/24 04:04
10/12/24 04:04
10/11/24
12:11
Zeb-C-Dnrquivgivc Pept [id number]
Physical Exam
Constitutional: No acute distress and Other (Somnolent)
Cardiovascular: Rhythm & rate is regular, Pedal edema present (2+), Systolic murmur present (4/6) and S1S2 is normal
Respiratory: Respiratory effort normal, Wheeze Absent and Rhonchi Present
GI: Soft
Neuro/Psych: Alert (AAO x 1)
Other: Skin (Warm)
Data Reviewed
-
Date of Service: October 12, 2024
EKG: Tracing Personally Visualized and interpreted (Telemetry: AV paced)
Echo: Ordered by me
Medical Tests (PFT, Pathology etc): Discussed with Nurse
Labs: Labs Reviewed by me
[2024-10-12] MEDS: REMOVE LIDOCAINE PATCH 2 PATCH REMOVE (20:10)
[2024-10-12] MEDS: LUMINAL 64.8 MG PO (21:05)
[2024-10-13] VITALS (8 sets, daily range): BP systolic 124–154; BP diastolic 49–75; PULSE 61; O2SAT 97
[2024-10-13 07:53] LABS: Hematocrit 27.4 % (37.0-47.0); Hemoglobin 8.8 g/dL (12.0-16.0); Mean Corp Hgb Conc. 32.1 g/dL (33.0-37.0); Mean Corpuscular Volume 99.3 fL (81.0-99.0); Platelet Count 169 10^3/uL (130-400); Red Cell Dist. Width 14.9 % (11.5-14.5)
[2024-10-13 08:41] LABS: Blood Urea Nitrogen 82 mg/dl (7-17); Calcium 9.3 mg/dl (8.4-10.2); Carbon Dioxide 35 mmol/L (22-30); Chloride 103 mmol/L (98-107); Glucose 89 mg/dl (70-99); Potassium 3.0 mmol/L (3.5-5.1); Sodium 145 mmol/L (135-145); eGFR 40.05
[2024-10-13] MEDS: ZAROXOLYN 5 MG PO (09:48)
[2024-10-13] MEDS: LIDOCAINE 4% PATCH 2 PATCH TOPICAL (09:49)
[2024-10-13] MEDS: LASIX 40 MG IV ×2 (09:49→17:56)
[2024-10-13] MEDS: LUMINAL PO (10:00)
[2024-10-13] MEDS: TOPROL XL PO (10:00)
[2024-10-13] MEDS: LEXAPRO PO (10:01)
[2024-10-13] MEDS: ELIQUIS PO (10:01)
--- NOTE | 2024-10-13 11:16 | W.PN.CD ---
Addendum entered and electronically signed by Raji Kam MD 10/13/24 16:54:
I saw and examined the patient.
The [employer] FEED MIXER's note was reviewed and I agree with the note.
Comment:
84-year-old female with HFpEF, PAF, mixed valvular disease, CKD and dementia who is being treated for HFpEF exacerbation.
Physical exam with 1+ pitting edema to mid shins, RRR with systolic murmur, bibasilar crackles
Weight is 139 pounds by bed scale. Creatinine 1.3 from 1.5 yesterday. Potassium 3.0 this morning.
Replete potassium.
Continue twice daily IV Lasix. Can likely transition to p.o. tomorrow.
Patient's daughter is reportedly amenable to hospice. Agree that this would be the best option for her.
Continue Eliquis and metoprolol for paroxysmal A-fib.
Original Note:
Today's Communication / Plan
-
-continue IV diuresis
-replace potassium
-echo planned for today
Impression / Plan
-
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
with unwitnessed fall at home suffering a resultant nondisplaced right radial head fracture. Also found to have some weight gain over the past few days.
Unwitnessed fall:
-Likely secondary to ambulatory dysfunction/dementia.
-[facility] express interrogation of her pacemaker this admit with no acute events.
HFpEF, acute on chronic
-Severe exacerbation requiring IV diuresis and close monitoring of labs and telemetry.
-proBNP 13,400
-continue lasix IV 40 mg BID for now. This seems to be effective dose at this time.
-Continue to monitor BUN/creatinine/electrolytes with diuresis.
-echo being repeated today
-No SGLT2 inhibitor due to cost.
-Further GDMT has been limited by blood pressure
-The patient has presented to the ER 8 or 9 times over the past year, and has been admitted 6 times; palliative care/hospice has been recommended
-Ultimately, the patient should be managed conservatively from a cardiac standpoint; palliative care/hospice seems most appropriate. However, family not ready for hospice per IM note.
ETHAN on CKD
-Baseline creatinine 1.2�1.4; currently 1.3.
-Continue to Monitor with diuresis as above; can consider Nephrology consultation if indicated, but currently creatinine improved with diuresis
Moderate : stable, monitor over time by echo.
-echo 03/2024: EF 60-65%, mod
- Will repeat echocardiogram today as noted
Paroxysmal atrial fibrillation/Paroxysmal atrial tachycardia: EP managed as OP by Dr. Burnett.
-S/P AVN ablation with PPM, was on Flecainide 50mg bid and metoprolol XL 25mg daily as outpatient-flecainide was discontinued last admission.
-Continue current dose of Toprol-XL.
-Oral Anticoagulation: On Eliquis 2.5 mg PO BID.
Anemia:
- Hemoglobin decreasing; workup/management as per primary team.
PPM:
-No events on device interrogation as above.
HTN:
- Stable/controlled.
- Continue current medications.
Physical Exam
Vital Signs/Labs
Vital Signs
Temp Pulse Resp BP Pulse Ox
97.6 F 63 16 141/51 98
10/13/24 07:18 10/13/24 07:18 10/13/24 07:18 10/13/24 09:49 10/13/24 07:18
10/12/24 10/13/24 10/14/24
06:59 06:59 06:59
Actual Weight 65.952 kg 63.248 kg
10/13/24 06:40
10/13/24 06:40
10/11/24
12:11
Xbs-T-Ozvtomxpczy Pept [id number]
Physical Exam
Constitutional: No acute distress
EENT: Anicteric
Cardiovascular: Rhythm & rate is regular, Pedal edema present (mild BLE edema) and Systolic murmur present
Respiratory: Crackles Present (right base) and Other (on O2 by NC)
Neuro/Psych: Alert
Other: Skin (warm and dry)
Data Reviewed
-
Date of Service: October 13, 2024
EKG: Other (SR, v paced)
Echo: Other (echo ordered for today)
Labs: Labs Reviewed by me
--- NOTE | 2024-10-13 11:42 | PTCARENOTE ---
pt lethargic and refusing to take oral medications. lasix IV given and lidocaine patches applied per order. MD made aware of oral medication refusal.
--- NOTE | 2024-10-13 12:13 | CM ---
Addendum entered by Dulce Horowitz 10/13/24 13:26:
Met with patient daughter who requested referrals to; [facility], [facility], [facility] and [facility]. CM will send referrals and await responses.
Original Note:
Patient seen at bedside on 2 north. Patient sleeping per nursing and PT recommendation is to return to facility. Patient was at [facility] and had [facility]. No family visiting at this time, per chart review patient family would like her to
return to [facility]. CM will need to clarify if [facility] personal care at [facility]. Patient currently as of 10/12 was max assist for transfers. CM will continue to
follow for discharge planning needs.
Plan; SNF vs personal care; pending updated assessments.
[2024-10-13] MEDS: KCL 40 MEQ PO ×2 (12:33→17:56)
--- NOTE | 2024-10-13 13:16 | W.PN.HOSP.TC ---
Today's Communication/Plan
-
IV diuresis
Echo
PT
Hospice evaluation
Assessment / Plan
Assessment / Plan
Impression:
Presentation with fall, syncope
Acute CHF preserved EF.
Moderate aortic stenosis.
Paroxysmal atrial fibrillation
Status post PPM
Anticoagulation with Eliquis
Interstitial lung disease
Essential hypertension
ETHAN on CKD stage III.
Anemia of chronic disease
Plan
Acute on chronic HFpEF exacerbation
Recurrent exacerbation with multiple hospital admissions.
Remains on IV Lasix.
Monitor creatinine, improving with diuresis. Suspect cardiorenal state.
Updated echocardiogram pending
Paroxysmal atrial fibrillation
Status post PPM
Continue metoprolol Eliquis
Previously on flecainide however cardiology on previous admission recommended to hold/discontinue
ILD
[place] to be secondary to amiodarone therefore has been stopped in the past
Hypertension
Continue antihypertensives
Hyperlipidemia
Continue statin
Depression continue Lexapro
Right radial fracture
Sling for 3 weeks
Outpatient orthopedic follow-up
PT/OT
DNR/DNI
Discussed with patient's daughter at the bedside
Patient with decline in cognitive status, decompensated CHF with multiple readmissions now complicated with ETHAN and cardiorenal state. Suggested hospice consultation.
Anticipated Discharge: 24 - 48 hours
Subjective/Interval History
-
Date of Service: October 13, 2024
Objective Data
-
Labs:
Laboratory Results
10/13/24
06:40
WBC 4.8
Hgb 8.8 L
Hct 27.4 L
Plt Count 169
Sodium 145
Potassium 3.0 L
Chloride 103
Carbon Dioxide 35 H
BUN 82 H
Creatinine 1.3 H
Glucose 89
Calcium 9.3
Vital Signs:
Vital Signs
Temp Pulse Resp BP Pulse Ox
98.2 F 62 16 137/55 95
10/13/24 11:55 10/13/24 11:55 10/13/24 11:55 10/13/24 11:55 10/13/24 11:55
I&O
10/12/24 10/13/24 10/14/24
06:59 06:59 06:59
Intake Total 240 / 240 810 / 810
Output Total 500 / 500
Balance -260 / -260 810 / 810
Physical Exam
-
General: Well Developed and No Apparent Distress
HEENT: Normocephalic, Atraumatic and Moist Mucous Membranes
Respiratory: Clear to Auscultation
Cardiac: Regular Rhythm and S1/S2; Negative Murmur, Rub or Gallop
GI: Soft, Nontender, Nondistended and Normal Bowel Sounds; Negative Organomegaly
Rectal: Deferred by Provider
Musculoskeletal: No Clubbing, No Cyanosis and No Edema
Skin: Negative Rash
Neuro: Awake, Alert, Oriented (Name only) and Nonfocal/Grossly Intact
--- NOTE | 2024-10-13 13:27 | CM ---
Addendum entered by Dulce Horowitz 10/13/24 13:31:
CM spoke with patient son who stated that the family was having a meeting tonight to discuss hospice options. in the past family met with hospice and did not decide to go with it but they will discuss tonight and update CM tomorrow.
Original Note:
Patient seen at bedside on 2 north. Patient sleeping per nursing and PT recommendation is to return to facility. Patient was at [facility] and had [facility]. No family visiting at this time, per chart review patient family would like her to
return to [facility]. CM will need to clarify if PT plan was for return to [facility] where patient has been in the recent past vs personal care at [facility]. Patient currently as of 10/12 was max assist for transfers. CM will continue to
follow for discharge planning needs.
[2024-10-13] MEDS: TOPROL XL 25 MG PO (20:44)
[2024-10-13] MEDS: ELIQUIS 2.5 MG PO (20:44)
[2024-10-13] MEDS: REMOVE LIDOCAINE PATCH 2 PATCH REMOVE (20:45)
[2024-10-13] MEDS: LUMINAL 64.8 MG PO (22:00)
[2024-10-14 02:52] VITALS: BP 154/64
[2024-10-14 07:04] LABS: Blood Urea Nitrogen 73 mg/dl (7-17); Calcium 9.6 mg/dl (8.4-10.2); Carbon Dioxide 40 mmol/L (22-30); Chloride 105 mmol/L (98-107); Glucose 111 mg/dl (70-99); Potassium 3.5 mmol/L (3.5-5.1); Sodium 149 mmol/L (135-145); eGFR 48.94
[2024-10-14 07:15] VITALS: BP 151/61
--- NOTE | 2024-10-14 09:41 | W.PN.CD ---
Today's Communication / Plan
-
Hold IV Lasix for rising Na and weight down to 136 lb
Resume PO Torsemide tomorrow
Agree with Hospice consult
Impression / Plan
-
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
with unwitnessed fall at home suffering a resultant nondisplaced right radial head fracture. Also found to have some weight gain over the past few days.
Unwitnessed fall:
-Likely secondary to ambulatory dysfunction/dementia.
-[facility] express interrogation of her pacemaker this admit with no acute events.
HFpEF, acute on chronic
-Severe exacerbation requiring IV diuresis and close monitoring of labs and telemetry.
-proBNP 13,400
-hold additional Lasix today given rising sodium. Weight down to 136 lb. Resume PO diuresis tomorrow
-Continue to monitor BUN/creatinine/electrolytes with diuresis.
-No SGLT2 inhibitor due to cost.
-Further GDMT has been limited by blood pressure
-The patient has presented to the ER 8 or 9 times over the past year, and has been admitted 6 times; palliative care/hospice has been recommended
-Ultimately, the patient should be managed conservatively from a cardiac standpoint; palliative care/hospice seems most appropriate. However, family not ready for hospice per IM note.
ETHAN on CKD
-Baseline creatinine 1.2�1.4; improving
-Continue to Monitor with diuresis as above
Moderate : stable, monitor over time by echo.
-echo 03/2024: EF 60-65%, mod
Paroxysmal atrial fibrillation/Paroxysmal atrial tachycardia: EP managed as OP by Dr. Burnett.
-S/P AVN ablation with PPM, was on Flecainide 50mg bid and metoprolol XL 25mg daily as outpatient-flecainide was discontinued last admission.
-Continue current dose of Toprol-XL.
-Oral Anticoagulation: On Eliquis 2.5 mg PO BID.
Anemia:
- Hemoglobin decreasing; workup/management as per primary team.
PPM:
-No events on device interrogation as above.
HTN:
- Stable/controlled.
- Continue current medications.
Subjective: patient sleeping comfortably. laying fairly flat.
Physical Exam
Vital Signs/Labs
Vital Signs
Temp Pulse Resp BP Pulse Ox
97.5 F 65 16 151/61 93
10/14/24 07:15 10/14/24 07:15 10/14/24 07:15 10/14/24 07:15 10/14/24 07:15
10/13/24 10/14/24 10/15/24
06:59 06:59 06:59
Actual Weight 139 lb 7 oz 136 lb 9 oz
10/13/24 06:40
10/14/24 06:14
10/11/24
12:11
Qwz-O-Ksilflhraje Pept [id number]
Physical Exam
Constitutional: No acute distress and Comfortable
Cardiovascular: Rhythm & rate is regular, Pedal edema present (to ankles bilaterally) and Systolic murmur present
Respiratory: Respiratory effort normal and Lungs clear to auscul.
Data Reviewed
-
Date of Service: October 14, 2024
Medical Decision Making: Reviewed Test Results, Independent Historian Assessment and Test Interpretation
EKG: Tracing Personally Visualized and interpreted
Echo: Report Reviewed by me
Labs: Labs Reviewed by me
--- NOTE | 2024-10-14 10:00 | PTCARENOTE ---
pt lethargic and refusing to take oral medications. md aware
[2024-10-14] MEDS: ELIQUIS PO ×2 (10:03→10:06)
[2024-10-14] MEDS: LASIX IV (10:04)
[2024-10-14] MEDS: LEXAPRO PO (10:04)
[2024-10-14] MEDS: LIDOCAINE 4% PATCH TOPICAL (10:04)
[2024-10-14] MEDS: LUMINAL PO (10:04)
[2024-10-14] MEDS: TOPROL XL PO (10:05)
[2024-10-14 11:24] VITALS: BP 142/62
--- NOTE | 2024-10-14 11:26 | W.PN.HOSP.TC ---
Today's Communication/Plan
-
Encephalopathic
Noted with worsening hypernatremia.
Agree with holding IV diuresis
Family leaning toward hospice.
According to today's assessment and given the progressive encephalopathy and overall failure to thrive, might be appropriate for inpatient hospice
Assessment / Plan
Assessment / Plan
Impression:
Presentation with fall, syncope
Toxic metabolic encephalopathy
Acute CHF preserved EF.
Moderate aortic stenosis.
Paroxysmal atrial fibrillation
Status post PPM
Anticoagulation with Eliquis
Interstitial lung disease
Essential hypertension
ETHAN on CKD stage III.
Anemia of chronic disease
Plan
Acute on chronic HFpEF exacerbation
Recurrent exacerbation with multiple hospital admissions.
Has been on IV Lasix with worsening hypernatremia. Hold Lasix. Monitor renal function..
Monitor creatinine, improving with diuresis. Suspect cardiorenal state.
Updated echocardiogram pending
Paroxysmal atrial fibrillation
Status post PPM
Continue metoprolol Eliquis
Previously on flecainide however cardiology on previous admission recommended to hold/discontinue
ILD
[place] to be secondary to amiodarone therefore has been stopped in the past
Hypertension
Continue antihypertensives
Hyperlipidemia
Continue statin
Depression continue Lexapro
Right radial fracture
Sling for 3 weeks
Outpatient orthopedic follow-up
PT/OT
DNR/DNI
Anticipated Discharge: 24 - 48 hours
Subjective/Interval History
-
Date of Service: October 14, 2024
Objective Data
-
Labs:
Laboratory Results
10/14/24
06:14
Sodium 149 H
Potassium 3.5
Chloride 105
Carbon Dioxide 40 H
BUN 73 H
Creatinine 1.1 H
Glucose 111 H
Calcium 9.6
Vital Signs:
Vital Signs
Temp Pulse Resp BP Pulse Ox
97.5 F 65 16 151/61 93
10/14/24 07:15 10/14/24 07:15 10/14/24 07:15 10/14/24 07:15 10/14/24 10:53
I&O
10/13/24 10/14/24 10/15/24
06:59 06:59 06:59
Intake Total 810 / 810 360 / 360
Balance 810 / 810 360 / 360
Physical Exam
-
General: Well Developed and No Apparent Distress
HEENT: Normocephalic, Atraumatic and Moist Mucous Membranes
Respiratory: Clear to Auscultation
Cardiac: Regular Rhythm and S1/S2; Negative Murmur, Rub or Gallop
GI: Soft, Nontender, Nondistended and Normal Bowel Sounds; Negative Organomegaly
Rectal: Deferred by Provider
Musculoskeletal: No Clubbing, No Cyanosis and No Edema
Skin: Negative Rash
Neuro: Awake, Alert, Oriented (Name only) and Nonfocal/Grossly Intact
--- NOTE | 2024-10-14 11:48 | PN.CDI ---
CDI
- -
CDI:
Physician Documentation Request
Admit Date: 10/11/24 12:20
Dear Doctor Iván,
Patient admitted with acute on chronic diastolic CHF.
10/11 Nursing skin assessment, 'Stage 2 sacral pressure injury, POA.'
Physician documentation of the type and location of wounds is required for compliant documentation. Based on the above clinical findings and your assessment, please provide the following in your progress note:
Type (etiology) of ulcer/wound:
- Pressure (decubitus) ulcer
- Other
- Unable to determine
For a pressure ulcer, please also include the stage* of the ulcer:
- Stage 1 - Skin intact, non-blanchable redness
- Stage 2 - Partial thickness loss of dermis, includes intact or open blister
- Stage 3 - Full thickness tissue not including bone, tendon or muscle
- Stage 4 - Full thickness tissue loss, including exposed bone, tendon or muscle
- Unstageable - Full thickness loss in which the base of the ulcer is covered by slough (yellow, chau, augustin, green or brown) and/or eschar (chau, brown or black) in the wound bed.
- Unable to determine
Use of terms such as suspected, likely, concern for, or probable (associated with a specific diagnosis that is being evaluated, monitored, or treated as if it exists) are acceptable and can be coded in the inpatient setting, when documented at the
time of discharge.
Thank you,
Elana PINK,RN,CCDS
CDI Specialist
Available via [place] text
Please use your independent medical judgment in providing your response.
*Source: National Pressure Ulcer Advisory Panel (NPUAP)
--- NOTE | 2024-10-14 11:59 | PN.CDI ---
CDI
- -
CDI:
Physician Documentation Request
Admit Date: 10/11/24 12:20
Dear Doctor Iván,
Patient admitted with acute on chronic diastolic CHF.
H&P, '...from [facility]...presents for being found down on the ground, unwitnessed fall with complaints of neck buttocks and right elbow pain.
10/14 PN, 'Right radial fracture..Sling for 3 weeks...Outpatient orthopedic follow-up...PT/OT'
Please provide in your note the likely etiology/ etiologies of the documented right radial fracture:
Multifactorial due to low level fall and age-related osteoporosis
Low level fall only
Other
Use of terms such as suspected, likely, concern for, or probable (associated with a specific diagnosis that is being evaluated, monitored, or treated as if it exists) are acceptable and can be coded in the inpatient setting, when documented at the
time of discharge.
Thank you,
Elana PINK,RN,CCDS
CDI Specialist
Available via [place] text
Please use your independent medical judgment in providing your response.
--- NOTE | 2024-10-14 13:55 | CM ---
Addendum entered by Dulce Horowitz 10/14/24 14:46:
Patient does not qualify for inpatient hospice at this time per Randi with [facility]. Patient family requested to return to [facility] with [facility] hospice; phone number is [phone] and per Joaquin please fax clinical information to [phone]. CM
updated patient daughter Chanelle and other daughter, son. Plan is for discharge back to personal care when DME and aides are in place. [facility] uses home instead for aides, family also updated. IMM provided to patient daughter for review. CM will
continue to follow for discharge planning needs.
Plan; return to personal care with [facility] at [facility], family considering aides at this time.
Addendum entered by Dulce Horowitz 10/14/24 14:01:
CM called to [facility] [phone] VM left on phone requesting call back.
Original Note:
Patient seen at bedside with daughters and on son present on [address]. Patient somewhat more aware of surroundings at this time, answered to daughter's questions and then was sleeping again. Patient family now asking to talk to [facility] hospice about
patient going on hospice and reviewing options. CM spoke with [facility] hospice team lead who is coming to see patient and review options for Inpatient vs returning to [facility] with hospice. CM will call to [facility] to confirm which hospice agencies
they work with, [facility] does not work with [facility]. CM spoke with patient daughter Chanelle Engle [phone] and she indicated that she would like to talk to hospice and had some further questions about the pacer and plan for either return
to personal care or Inpatient hospice. CM will continue to follow for discharge planning needs.
Plan; home with hospice at [facility] vs Inpatient hospice; awaiting [facility] hospice assessment
--- NOTE | 2024-10-14 14:54 | HOSPNOTE ---
Notified that patient was referred to hospice services. Met with patient and her family. Patient is eating and drinking without difficulty. At the time of visit patient was sleeping. No signs of any pain or distress. Reviewed that patient does not
meet inpatient hospice criteria at this time. Reviewed that patient can go back to [facility] with preferred hospice and can be managed with oral medications. Family is in agreement. CM updated and will contact [facility] and [facility] hospice.
Teri MCKAY is in agreement that patient is not inpatient hospice appropriate and can be managed in the outpatient setting on hospice.
[2024-10-14 15:09] VITALS: BP 143/60
[2024-10-14] MEDS: ELIQUIS 2.5 MG PO (19:25)
[2024-10-14] MEDS: TOPROL XL 25 MG PO (19:25)
[2024-10-14] MEDS: REMOVE LIDOCAINE PATCH REMOVE (19:26)
[2024-10-14 20:09] VITALS: BP 160/71
[2024-10-14] MEDS: LUMINAL 64.8 MG PO (21:04)
[2024-10-14 23:16] VITALS: BP 145/59
[2024-10-15 03:42] VITALS: BP 142/63
[2024-10-15 06:21] LABS: Blood Urea Nitrogen 50 mg/dl (7-17); Calcium 9.8 mg/dl (8.4-10.2); Chloride 106 mmol/L (98-107); Glucose 110 mg/dl (70-99); Potassium 3.6 mmol/L (3.5-5.1); Sodium 153 mmol/L (135-145); eGFR 48.94
[2024-10-15 06:32] LABS: Carbon Dioxide 41 mmol/L (22-30)
[2024-10-15 07:41] VITALS: BP 147/64
[2024-10-15] MEDS: LUMINAL 32.4 MG PO (07:54)
[2024-10-15] MEDS: ZAROXOLYN 5 MG PO (07:54)
[2024-10-15] MEDS: ELIQUIS 2.5 MG PO (07:54)
[2024-10-15] MEDS: TOPROL XL 25 MG PO (07:54)
[2024-10-15] MEDS: LIDOCAINE 4% PATCH 2 PATCH TOPICAL (07:55)
[2024-10-15] MEDS: LEXAPRO 10 MG PO (07:55)
--- NOTE | 2024-10-15 08:55 | W.PN.CD ---
Today's Communication / Plan
-
-Patient now with failure to thrive; hypernatremic--Lasix has now been held.
-Will patient will likely need some free water at this point; will defer to Hospitalist.
-Hospice/Palliative care seems most appropriate.
Impression / Plan
-
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
with unwitnessed fall at home suffering a resultant nondisplaced right radial head fracture. Also found to have some weight gain over the past few days.
Unwitnessed fall:
-Likely secondary to ambulatory dysfunction/dementia.
-[facility] express interrogation of her pacemaker this admit with no acute events.
HFpEF, acute on chronic
-Severe exacerbation requiring IV diuresis and close monitoring of labs and telemetry.
-proBNP 13,400
-Patient now with failure to thrive; hypernatremic--Lasix has now been held.
-Will patient will likely need some free water at this point; will defer to Hospitalist.
-No SGLT2 inhibitor due to cost.
-Further GDMT has been limited by blood pressure
-The patient has presented to the ER 8 or 9 times over the past year, and has been admitted 6 times; palliative care/hospice has been recommended
-Hospice/Palliative care seems most appropriate.
ETHAN on CKD
-Baseline creatinine 1.2�1.4; currently 1.1.
Moderate :
-echo 03/2024: EF 60-65%, mod
-Conservative management.
Paroxysmal atrial fibrillation/Paroxysmal atrial tachycardia: EP managed as OP by Dr. Burnett.
-S/P AVN ablation with PPM, was on Flecainide 50mg bid and metoprolol XL 25mg daily as outpatient-flecainide was discontinued last admission.
-Continue Toprol-XL.
-Oral Anticoagulation: On Eliquis 2.5 mg PO BID.
Anemia:
- Hemoglobin decreasing; workup/management as per primary team.
PPM:
-No events on device interrogation as above.
HTN:
- Stable/controlled.
- Continue current medications.
Subjective: Somnolent; likely encephalopathic.
Physical Exam
Vital Signs/Labs
Vital Signs
Temp Pulse Resp BP Pulse Ox
98.3 F 70 16 147/64 96
10/15/24 07:41 10/15/24 07:54 10/15/24 07:41 10/15/24 07:54 10/15/24 07:41
10/14/24 10/15/24 10/16/24
06:59 06:59 06:59
Actual Weight 61.944 kg 60.356 kg
10/13/24 06:40
10/15/24 05:25
10/11/24
12:11
[id number] Pept [id number]
Physical Exam
Constitutional: No acute distress and Comfortable
EENT: Anicteric
Cardiovascular: Rhythm & rate is regular, Pedal edema is absent, Systolic murmur present (3/6) and S1S2 is normal
Respiratory: Respiratory effort normal and Rhonchi Present
GI: Soft
Neuro/Psych: Other (Somnolent)
Other: Skin (Warm, dry)
Data Reviewed
-
Date of Service: October 15, 2024
EKG: Tracing Personally Visualized and interpreted (Telemetry: Sinus rhythm with atrial-sensed sequential ventricular pacing.)
Echo: Report Reviewed by me (03/26/2024: EF 60-65%; moderate ; mild TR, PASP 75 mmHg.)
Labs: Labs Reviewed by me
[2024-10-15 11:05] VITALS: BP 150/68
[2024-10-15] MEDS: D5W 1000 IV (11:32)
--- NOTE | 2024-10-15 12:18 | CM ---
Addendum entered by Thanh Neri 10/15/24 12:44:
Ambulance auth obtained from [facility] for Acute care ambulance, spoke to sales representative advertising [employer], auth: [id number].
Auth information forwarded to .
Original Note:
CM following re: discharge planning.
Reviewed pt's chart, met with pt and spoke to pt's son Bill over the phone to update on discharge plan progress.
CM received a phone call from [facility] hospice sales representative [employer] [phone] and he is requested pt's clinical with hospice order. Hospice order requested. Pt's clinical faxed to [facility] at [phone].
CM spoke to [facility] hospice sales representative advertising [employer] and he confirmed that all necessary DME delivered to [facility] by noon and he confirmed that pt is accepted for hospice admission today.
CM spoke to [facility] DES Kolb and she confirmed that pt is accepted for admission today before 5:00 p.m. and [facility] will admit the pt for services when pt arrives.
Discharge order noted. Pt's son Bill is aware, expressed agreement with discharge. IMM reviewed with pt's son Bill, placed on chart, pt has a copy.
to arrange ambulance BLC. PMNC completed and left with . MD is aware to sign out of hospital DNR.
Acute care ambulance requested an ambulance auth and CM will initiate.
Please fax discharge instructions to [facility] at [phone] and [facility] at [phone]
D/C plan: return back to [facility] with [facility].
--- NOTE | 2024-10-15 12:52 | W.DS.TRANS ---
DC Summary - Claims Auditor
-
Discharge Instructions:
Discharge Diagnosis/Procedures Advanced CHF
Renal failure
Failure to thrive
Diet As tolerated
Instructions:
Stand-Alone Forms:
Changes to Home Medications: Yes
Discharge Medications:
DC Medications w/original date entered in [employer]
phenobarbital 32.4 mg tablet 32.4 mg PO DAILY Seizures 10/21/20
phenobarbital 64.8 mg tablet 64.8 mg PO HS Seizures 10/11/24
Home Medication Changes
Being discharged with initiation of hospice at home.
Pending Results: No
[2024-10-15 15:21] VITALS: BP 152/66
== END 2024-10-15 16:55 | disposition hospice, home (50) | DRG 291 ==
LOC: 2 NORTH 12:20
PROVIDERS: Nurse Practitioner; ADMITTING PHYSICIAN Hospitalist; ATTENDING PHYSICIAN Internal Medicine; CONSULT PHYSICIAN Internal Medicine; EMERGENCY PHYSICIAN Student in an Organized Health Care Education/Training Program
PROC: 4B02XSZ Measurement of Cardiac Pacemaker, External Approach (ICD-10-PCS; 2024-10-11)
DX: I13.0 Hypertensive heart and chronic kidney disease with heart failure and stage 1 through stage 4 chronic kidney disease, or unspecified chronic kidney disease (principal); G92.8 Other toxic encephalopathy; I50.33 Acute on chronic diastolic (congestive) heart failure; F03.93 Unspecified dementia, unspecified severity, with mood disturbance; J84.9 Interstitial pulmonary disease, unspecified; N17.9 Acute kidney failure, unspecified; N18.4 Chronic kidney disease, stage 4 (severe); M80.031A Age-related osteoporosis with current pathological fracture, right forearm, initial encounter for fracture; I48.0 Paroxysmal atrial fibrillation; T46.2X5A Adverse effect of other antidysrhythmic drugs, initial encounter; F32.A Depression, unspecified; Z66 Do not resuscitate; Z79.01 Long term (current) use of anticoagulants; W18.30XA Fall on same level, unspecified, initial encounter; R62.7 Adult failure to thrive; D63.1 Anemia in chronic kidney disease; L89.152 Pressure ulcer of sacral region, stage 2
CPT/HCPCS: 70450; 72100; 72125; 72170; 73080; 80048; 80053; 83880; 85025; 85027; 92526; 92610; 96374; 97163; 97167; 97530; 97535; 99285